=== PATIENT | male | born 1950 | race Caucasian/White ===

== ENCOUNTER 2024-06-21 04:27 | Inpatient (IN) | payer OTHER, MEDICAID, MEDICARE, SELFPAY ==
[2024-06-21] VITALS (25 sets, daily range): BP systolic 132–243; BP diastolic 59–109; PULSE 68–107; RESP 10–35; TEMP 36.1–37.6; O2SAT 93–100; BMI 38.7
--- NOTE | 2024-06-21 04:36 | EKG_ITS ---
[facility] Test Date: 2024-06-21 Pat Name: NAYLA ZAPATA Department: Room: - Gender: Male Requirements Analyst: : 1950 Requested By: Amalia Merino Order Number: [id number] Reading MD: Amalia Merino Measurements Intervals [place] Rate: 77 P: 16 OK: 147 QRS: 0 QRSD: 100 T: 7 QT: 407 QTc: 462 Interpretive Statements SINUS RHYTHM NONSPECIFIC ST & T-WAVE ABNORMALITY No previous ECG available for comparison /store/S0/[id number]
--- NOTE | 2024-06-21 04:44 | XR_ITS ---
Examination: AP chest single view Technique one AP portable upright chest single view Exam date and time: June 21, 2024 0548 hrs. Indications: Sepsis protocol Findings: Prominent CHF Mild enlargement cardiac contour Prominent vascular congestion including central vascular engorgement and perihilar edema Additional opacity at the right lung base consistent with pneumonia Prominent osteopenia Impression: Prominent CHF Right base pneumonia
[2024-06-21 04:56] LABS: Lactate (Lactic Acid) 1.8 mMol/L (0.4-2.0)
--- NOTE | 2024-06-21 04:56 | PD.EDRME ---
Rapid Medical Screening Exam RME Arrival date/time: 06/21/24 04:27 Chief Complaint: Shortness of Breath/Dyspnea Time Seen by Provider: 06/21/24 04:43 Vital signs: Vital Signs Temperature 97.0 F 06/21/24 04:34 Pulse Rate 103 H 06/21/24 04:34 Respiratory Rate 32 H 06/21/24 04:34 Blood Pressure 243/109 H 06/21/24 04:34 Pulse Oximetry (%) 94 L 06/21/24 04:34 Oxygen Delivery Method BiPAP 06/21/24 04:34 RME Narrative: 74-year-old male with a history of hypertension, diabetes, diabetic foot ulcer status post first toe amputation, varicose veins bilaterally,osteomyelitis right foot, CHF, possible urinary retention in the past, presenting to the emergency department by ambulance with shortness of breath that started this afternoon. Patient states that the shortness of breath increasingly got worse slowly over the last 5 to 6 hours. He called EMS because he was having more shortness of breath with associated chest pain bilateral chest. No radiation. Patient also having bilateral lower extremity leg swelling that increased over the last 1 week. Patient states that he has been having generally leg weakness with bilateral leg swelling left greater than right. Mechanical fall approxi-1 week ago and complaining of some bruising on the left lower extremity. ROS SOB No cough LE swelling No CP prior to tonight. No fevers Nausea without vomiting Not sweating No headache Past medical history includes myasthenia gravis CHF Diabetes Foot ulcer Problems urinating Chronic left greater than right lower extremity swelling Past surgical history Right toe amputation
--- NOTE | 2024-06-21 04:57 | PD.EDSOB ---
ED SOB =RME/HPI General Chief Complaint: Shortness of Breath/Dyspnea Stated Complaint: SOB Time Seen by Provider: 06/21/24 04:43 Source: patient Arrival date/time: 06/21/24 04:27 Mode of arrival: ambulatory Limitations: no limitations RME / HPI RME / HPI Narrative: DR. CULVER MAIN ED EVALUATION: 74-year-old male with a history of hypertension, diabetes, diabetic foot ulcer status post first toe amputation, varicose veins bilaterally,osteomyelitis right foot, CHF, possible urinary retention in the past, presenting to the emergency department by ambulance with shortness of breath that started this afternoon. Patient states that the shortness of breath increasingly got worse slowly over the last 5 to 6 hours. He called EMS because he was having more shortness of breath with associated chest pain bilateral chest. No radiation. Patient also having bilateral lower extremity leg swelling that increased over the last 1 week. Patient states that he has been having generally leg weakness with bilateral leg swelling left greater than right. Mechanical fall approxi-1 week ago and complaining of some bruising on the left lower extremity. Patient denies any cough, LE swelling, fevers, nausea without vomiting, sweating or headache. She denies any chest pain prior to tonight. Past medical history includes myasthenia gravis, CHF, Diabetes, Foot ulcer, Problems urinating, Chronic left greater than right lower extremity swelling. Past surgical history Right toe amputation. Related Data Home Medications ?Medication ?Instructions ?Recorded ?Confirmed benazepril 20 mg tablet (Lotensin) 40 mg PO QDAY #0 tabs 06/21/14 insulin glargine 100 unit/mL 35 unit subcut HS #0 vials 06/21/14 subcutaneous solution (Lantus U-100 Insulin) Allergies Allergy/AdvReac Type Severity Reaction Status Date / Time ibuprofen Allergy Mild Verified 04/06/16 16:52 Penicillins Allergy Mild Verified 04/06/16 16:52 Review of Systems Review of Systems Systems Reviewed: All systems reviewed, normal except as documented Past Medical History Past Medical History CARDIAC: Positive Congestive Heart Failure RESPIRATORY: Negative Chronic Obstructive Pulmonary Disease (COPD) GENITOURINARY: Negative Renal Disease ENDOCRINE: Positive Diabetes Mellitus Type 2; Negative Diabetes Mellitus Type 1 Social History SMOKING STATUS: Never smoker ED Exam General Limitations: Present no limitations General appearance: Present alert and in no apparent distress Head Head exam: Present atraumatic, normocephalic and normal inspection Eye Eye exam: Present normal appearance, PERRL and EOMI ENT ENT exam: Present normal exam, normal oropharynx, TM's normal bilaterally and normal external ear exam Neck Neck exam: Present normal inspection and full ROM Chest Chest inspection: Present normal inspection and symmetric chest wall rise Respiratory Respiratory exam: Present normal lung sounds bilaterally Cardiovascular Cardiovascular exam: Present regular rate, normal rhythm and normal heart sounds Abdominal Exam Abdominal exam: Present normal bowel sounds Extremities Exam Extremities exam: Present normal inspection and full ROM Back Exam Back exam: Present normal inspection and full ROM Neurological Exam Neurological exam: Present alert, oriented X3 and CN II-XII intact Psychiatric Psychiatric exam: Present normal affect and normal mood; Absent depressed Skin Skin exam: Present warm, dry, intact and normal color Course Course Course Narrative: CXR is ordered for determining etiology of shortness of breath. 0438 Sepsis alert initiated. Orders made at this time are congruent with ED Adult Sepsis Order List. Re-evaluation is to be completed. 0512 Sepsis reassessment performed consisting of lab review, vitals, physical exam including auscultation of heart, lungs, and visual evaluation of capillary refills, mucosal membranes and extremities. Quality Measures Current suspected stage: sepsis Possible source: unknown Blood cultures ordered: yes Antibiotic ordered: No Pertinent labs: 06/21/24 04:43 Lactic Acid 1.8 mMol/L (0.4-2.0) Procalcitonin 0.09 ng/ml (0.0-0.49) sepsis Orders Category Date Time Status BiPAP / CPAP NOW Care 06/21/24 04:[address] Screening NOW Care 06/21/24 06:03 Active Fireworks Display Specialist STAT Care 06/21/24 04:43 Active Continuous Pulse Oximetry STAT Care 06/21/24 04:43 Completed EKG (ED ONLY) *Do not use* NOW Care 06/21/24 04:36 Completed EKG (ED ONLY) *Do not use* NOW Care 06/21/24 04:38 Completed In and Out Catheter X1PRN Care 06/21/24 04:43 Completed Insert IV NOW Care 06/21/24 04:43 Completed Intake and Output Routine Care 06/21/24 04:50 Ordered NPO STAT Care 06/21/24 04:43 Active Strict Intake and Output Routine Care 06/21/24 04:[address] angio chest Stat Exams 06/21/24 06:03 Ordered EKG (ED Only) Stat Exams 06/21/24 04:36 Ordered EKG (ED Only) Stat Exams 06/21/24 04:37 Ordered US venous doppler LE BI Stat Exams 06/21/24 05:29 Ordered XR chest 1V SEPSIS PROTOCOL Stat Exams 06/21/24 04:44 Taken B-Type Natriuretic Peptide Stat Lab 06/21/24 04:43 Completed Blood Culture (Lab) Stat Lab 06/21/24 04:49 Received CBC Stat Lab 06/21/24 04:43 Completed Comprehensive Metabolic Panel Stat Lab 06/21/24 04:43 Completed LDH (Lactate Dehydrogenase) Stat Lab 06/21/24 04:43 Completed Lactate (Lactic Acid) Stat Lab 06/21/24 04:43 Completed Lipase Stat Lab 06/21/24 04:43 Completed Magnesium Stat Lab 06/21/24 04:43 Completed Partial Thromboplastin Time Stat Lab 06/21/24 04:43 Completed Phosphorous Stat Lab 06/21/24 04:43 Completed Procalcitonin Stat Lab 06/21/24 04:43 Completed Prothrombin Time with INR Stat Lab 06/21/24 04:43 Completed Troponin I Stat Lab 06/21/24 04:43 Completed Urinalysis Stat Lab 06/21/24 04:59 Completed Urine Culture Stat Lab 06/21/24 04:43 Received Vital Signs Vital signs: Vital Signs Temperature 97.0 F 06/21/24 04:34 Pulse Rate 103 H 06/21/24 04:34 Respiratory Rate 32 H 06/21/24 04:34 Blood Pressure 243/109 H 06/21/24 04:34 Pulse Oximetry (%) 94 L 06/21/24 04:34 Oxygen Delivery Method BiPAP 06/21/24 04:34 Procedures -ED EKG Interpretation #1: Date of EK06/21/24 Time of EK:39 Rate: 104 Interpretation: Interpreted by me EKG Impression: Sinus tachycardia Additional EKG comment: T wave changes. Poor baseline in V6. QTc 342. No ST elevation ME Shortness of Breath / Dyspnea MDM Narrative MDM Narrative:: Differential diagnoses include CHF exacerbation, ME, non-STEMI, pneumonia, sepsis, myasthenia gravis exacerbation, influenza, viral syndrome, dehydration, electro abnormality 0600 Care signed out to Dr. Willams, oncoming dayshift provider. Past medical, surgical, social and family history reviewed. Vitals and home medications reviewed. Results and treatment plan discussed. They will assume the care of the patient at this time and will follow the patient, pending US venous doppler LE BI, CT angio, reevaluation and final disposition. ? Scribe Attestation: I, Bunny Givens, am scribing for and in the presence of Dr. Julio. Provider Notation: Although this document has been carefully reviewed, there may still be some phonetic and other typographical errors. These errors are purely grammatical due to imperfections in the software program and should not be construed in any way to compromise the substance of the patient's medical care during this visit. Patient data External records reviewed:: EMS form Clinical information provided by:: patient and EMS Social determinants that could affect healthcare access:: none Patient has the following chronic illnesses:: CHF, DM2 How is presenting disease/condition affected by chronic disease/condition?: uneffected by Evaluation data The following diagnostics were reviewed and interpreted by me:: lab results, radiology exam(s) and EKG tracing(s) Lab and/or radiology exams considered but not ordered:: None Interpretation Summary: Elevated WBC at 18.0, Lactic Acid 1.8 Medications / Prescriptions Medications or Prescriptions considered but not ordered:: None Medication administrations:: As above, if any Consultations Consultation(s) initiated? (list below): No Diagnosis Shortness of Breath Differential Diagnosis: other (CHF exacerbation, ME, non-STEMI, pneumonia, sepsis, myasthenia gravis exacerbation, influenza, viral syndrome, dehydration, electro abnormality) Most likely diagnosis given after review of the tests above:: As below Admission Indicated Admission indicated?: not indicated Admission Request Was there a request for admission?: No Disposition Plan Disposition Plan: other (specify) (Signout) Critical Care Time Critical Care Time Critical Care Time: Yes Total Critical Care Time (min.): 35 Attestation: The high probability of sudden, clinically significant deterioration in the patient?s condition required the highest level of my preparedness to intervene urgently. The services I provided to this patient were to treat and/or prevent clinically significant deterioration. Services included the following: chart data review, reviewing nursing notes and/or old charts, documentation time, framing consultant collaboration regarding findings and treatment options, medication orders and management, direct patient care, vital sign assessments and ordering, interpreting and reviewing diagnostic studies and lab tests. Aggregate critical care time includes only time during which I was engaged in work directly related to the patient?s care, as described above, whether at bedside or elsewhere in the Emergency Department. It did not include time spent performing other reported procedures or the services of residents, students, nurses or physician assistants. Discharge Plan Plan Disposition Comment: Stable at transfer Prescriptions/Referrals Prescriptions/Med Rec: No Action insulin glargine [Lantus U-100 Insulin] 100 U/ML solution 35 unit Sub-Q HS Qty: 0 benazepril [Lotensin] 20 MG tablet 40 mg PO QDAY Qty: 0 Referrals: No Primary/Family,Physician [Primary Care Provider] - In 1 week Problem List Clinical Impression: Acute exacerbation of CHF (congestive heart failure), Acute dyspnea, Localized swelling of right lower extremity, Sepsis Patient/Caregiver Discharge Instructions Print Language: Citizen Of [place]
[2024-06-21 05:00] LABS: Basophils # (Auto) 0.1 Thou/mm3 (0.0-0.2); Basophils % (Auto) 0 % (0-2.5); Eosinophils % (Auto) 0 % (0-10); Hematocrit 29.5 % (41.0-53.0); Hemoglobin 9.9 g/dL (13.5-16.0); Immature Granulocytes % (Auto) 0 % (0-0); Immature Granulocytes Auto 0.07 Thou/mm3 (0.00-0.00); Lymphocytes # (Auto) 1.2 Thou/mm3 (1.0-4.8); Lymphocytes % (Auto) 7 % (10-50); Mean Corpuscular HGB Conc 33.6 g/dl (31.0-37.0); Mean Corpuscular Volume 89 fL (80-100); Monocytes # (Auto) 1.7 Thou/mm3 (0.0-0.8); Monocytes % (Auto) 10 % (0-12); Neutrophils # (Auto) 14.9 Thou/mm3 (1.8-7.7); Neutrophils % (Auto) 83 % (37-80); Nucleated Red Blood Cell % 0 /100 WBC (0); Platelet Count 483 Thou/mm3 (140-440); RDW Standard Deviation 48.3 fL (35.1-43.9)
[2024-06-21 05:01] LABS: Collection Type, Urine Clean Catch; Squamous Epithelial Cell,Urine 0 /hpf (0-5)
[2024-06-21 05:04] LABS: Bilirubin,Urine Negative (Negative); Blood,Urine Negative (Negative); Clarity,Urine Clear (Clear/Hazy); Color,Urine Lt-Yellow (Lt Yel-Yel); Glucose, Urine 2+ (Negative); Ketones,Urine Trace (Negative); Leukocyte Esterase,Urine Negative (Negative); Nitrite,Urine Negative (Negative); PH,Urine 6.5 (5.0-7.0); Protein,Urine 1+ (Neg - Trace); RBC,Urine 2 /hpf (0-3); Specific Gravity,Urine 1.009 (1.001-1.035); Urobilinogen,Urine Negative mg/dL (0.0-1.0); WBC,Urine < 1 /hpf (0-5)
[2024-06-21 05:20] LABS: INR 1.1 (0.9-1.3); Partial Thromboplastin Time 27.9 Seconds (22.0-36.0); Prothrombin Time 12.3 Seconds (9.0-12.2)
--- NOTE | 2024-06-21 05:29 | XR_ITS ---
Examination: Venous duplex lower extremity sonogram, bilateral. Date and time of exam: June 21, 2024 at 0616 hrs. Indications: Lower extremity swelling and pain beginning 2 weeks ago after falling Technique: Multiple sonographic images of the deep venous system have been obtained. B-mode/2-D grayscale imaging of vascular structures and Doppler spectral analysis (waveforms) and color performed Both legs are examined. Findings: Deep venous systems do not demonstrate abnormal echogenicity. All visualized deep veins exhibit compressibility. All visualized deep veins exhibit augmentation. Impression: Negative for deep vein thrombosis
[2024-06-21 05:32] LABS: LDH (Lactate Dehydrogenase) 374 U/L (120-246); Magnesium 1.8 mg/dL (1.6-2.6); Phosphorous 4.1 mg/dL (2.4-5.1); Procalcitonin 0.09 ng/ml (0.0-0.49)
--- NOTE | 2024-06-21 06:03 | XR_ITS ---
Examination: CTA chest with intravenous contrast 2-D reconstructions 3-D reconstructions, vascular Date and time of exam: June 21, 2024 0830 hours INDICATIONS: Chest pain shortness of breath beginning today CTDI: vol (mGy) 21.7 DLP: (mGycm) 437 Technique: Multiple axial sections of the thorax have been obtained. 3 mm slice thickness, from below the hemidiaphragms to above the apices of the lungs. Mediastinal and lung density settings have been obtained. 2-D sagittal and coronal reconstructions. 3-D angiographic renderings, 3-D volume renderings, 3D post processing, vascular maximum intensity projections obtained. Contrast administered is 100 cc Isovue-370. Low dose protocols were performed. One or more of the following dose reduction techniques were used; automated exposure control, adjustment of the mA and/or KV according to patient size, use of iterative reconstruction technique. Findings: No thoracic aortic aneurysmal dilatation Pulmonary artery opacification is not optimum in the peripheral branches, no gross pulmonary artery emboli Mild to moderate enlargement cardiac contour with prominent vascular congestion and septal edema Small bilateral pleural effusions Liver is mildly irregular in contour Contracted gallbladder Spleen is not enlarged No pancreatic or adrenal mass IMPRESSION: Pulmonary artery opacification is not optimal in the peripheral branches, no gross pulmonary artery emboli Significant heart failure Primary hepatocellular disease
[2024-06-21 06:10] LABS: B-Type Natriuretic Peptide 556 pg/mL (0-100)
[2024-06-21 06:11] LABS: Alanine Aminotransferase 11 U/L (10-49); Albumin, Serum 4.4 gm/dL (3.4-4.8); Albumin/Globulin Ratio 1.8 (1.2-2.2); Alkaline Phosphatase 97 U/L (46-116); Anion Gap 10 (7-16); Aspartate Amino Transferase 19 U/L (0-34); BUN/Creatinine Ratio 16 Ratio (12-20); Bilirubin,Total 1.6 mg/dL (0.3-1.2); Blood Urea Nitrogen 13 mg/dL (9-23); Calcium 9.6 mg/dL (8.3-10.6); Calcium (Corrected) 9.6 mg/dL (8.5-10.1); Carbon Dioxide 26.2 mMol/L (20.0-31.0); Chloride 101 mMol/L (98-107); Creatinine (Component) 0.8 mg/dL (0.6-1.3); Estimated Creatinine Clearance 103.1 mL/min (>60); Globulin 2.4 gm/dL (2.3-3.5); Glucose 231 mg/dL (74-106); Lipase 22 U/L (12-53); Osmolality,Calculated 280 (275-295); Sodium 137 mMol/L (136-145); Total Protein 6.8 gm/dL (5.7-8.2); eGFR > 60 See Note
[2024-06-21 06:14] LABS: Troponin I 1.203 ng/mL (0.0-0.045)
--- NOTE | 2024-06-21 07:02 | PD.EDADDENDU ---
Emergency Room Addendum Addendum Narrative: 0600: Care assumed from Dr. Santos, the previous shift emergency physician. Past medical, surgical, social and family history reviewed. Vitals and home medications reviewed. I will assume the care of the patient at this time, pending CTA chest and final disposition. Please refer to the emergency department record for history and examination from initial visit.? EMS notes reviewed by me. Nursing notes reviewed by me. Vital signs reviewed by me. [place] medical records reviewed by me. 09: I spoke with resident Dr. Mo working with Dr. Hawkins. Discussed patients PMHx, HPI, ED course, exam findings, labs, and radiology results. The hospitalist agree to accept the patient for admission. DIAGNOSIS: CHF, acute respiratory failure, hypokalemia DISPOSITION: Admit RADIOLOGY Ordering Physician: Amalia Santos MD Date of Service: 06/21/24 Procedure(s): CT angio chest Accession Number(s): [id number] cc: Casper Bradley MD; NO PRIMARY/FAMILY,PHYSICIAN; Amalia Santos MD~ Examination: CTA chest with intravenous contrast 2-D reconstructions 3-D reconstructions, vascular Date and time of exam: June 21, 2024 0830 hours INDICATIONS: Chest pain shortness of breath beginning today CTDI: vol (mGy) 21.7 DLP: (mGycm) 437 Technique: Multiple axial sections of the thorax have been obtained. 3 mm slice thickness, from below the hemidiaphragms to above the apices of the lungs. Mediastinal and lung density settings have been obtained. 2-D sagittal and coronal reconstructions. 3-D angiographic renderings, 3-D volume renderings, 3D post processing, vascular maximum intensity projections obtained. Contrast administered is 100 cc Isovue-370. Low dose protocols were performed. One or more of the following dose reduction techniques were used; automated exposure control, adjustment of the mA and/or KV according to patient size, use of iterative reconstruction technique. Findings: No thoracic aortic aneurysmal dilatation Pulmonary artery opacification is not optimum in the peripheral branches, no gross pulmonary artery emboli Mild to moderate enlargement cardiac contour with prominent vascular congestion and septal edema Small bilateral pleural effusions Liver is mildly irregular in contour Contracted gallbladder Spleen is not enlarged No pancreatic or adrenal mass IMPRESSION: Pulmonary artery opacification is not optimal in the peripheral branches, no gross pulmonary artery emboli Significant heart failure Primary hepatocellular disease Dictated By: Casper Bradley MD Signed By: <Electronically signed by Casper Bradley MD in OV> 06/21/24 0914 Critical Care Time Critical Care Time Critical Care Time: Yes Total Critical Care Time (min.): 40 Attestation: The high probability of sudden, clinically significant deterioration in the patient's condition required the highest level of my preparedness to intervene urgently. The services I provided to this patient were to treat and/or prevent clinically significant deterioration. Services included the following: chart data review, reviewing nursing notes and/or old charts, documentation time, it architecture consultant collaboration regarding findings and treatment options, medication orders and management, direct patient care, vital sign assessments and ordering, interpreting and reviewing diagnostic studies and lab tests. Aggregate critical care time includes only time during which I was engaged in work directly related to the patient's care, as described above, whether at bedside or elsewhere in the Emergency Department. It did not include time spent performing other reported procedures or the services of residents, students, nurses or physician assistants.
[2024-06-21] MEDS: hydrALAZINE INJ 20 MG/ML VIAL 10 MG IV (07:45)
--- NOTE | 2024-06-21 07:45 | PC.NURSE ---
PT SITTING UP IN BED IN NO APPARENT DISTRESS AT THIS TIME. PT DENIES CHEST PAIN OR SOB. PT NORMAL SINUS RHYTHM ON FIRST COOK. SISTER AT BEDSIDE.
[2024-06-21] MEDS: Aspirin 325 MG TABLET PO (07:48)
[2024-06-21] MEDS: cefTRIAXone/D5w 1gm IV premix 50 ML IV (08:47)
[2024-06-21] MEDS: POTASSIUM CHL 10 mEq IVPB 10 MEQ/100 ML BAG 100 MEQ IV ×4 (08:51→14:50)
[2024-06-21 10:09] LABS: Base Excess 4 (-3-3); HCO3 28 mEq/L (20-26); Inspired O2, VO2 Liters 2 L/min; O2 Saturation 75 % (91-98); PCO2 40 mmHg (32.0-48.0); pH, Arterial 7.46 (7.35-7.45)
[2024-06-21 10:12] LABS: Allen Test Performed/OK; PO2 34 mmHg (83-108); Puncture Site Right Radial
--- NOTE | 2024-06-21 10:26 | ECHO_ITS ---
Transthoracic Echo Report Ht (in): 68 Wt (lb): 255 Exam Location: ER Status: Emergency Artificial Breeding Technician: Tricia Wasserman Indications: Procedure Performed: BP: 167 / 80 HR: 82 Rhythm: Sinus Technical Quality: Technically difficult study MEASUREMENTS (Male / Female) Normal Values 2D ECHO LV Diastolic Diameter PLAX 5.0 cm 4.2 - 5.9 / 3.9 - 5.3 cm LV Systolic Diameter PLAX 3.6 cm IVS Diastolic Thickness 1.3 cm 0.6 - 1.0 / 0.6 - 0.9 cm LVPW Diastolic Thickness 1.2 cm 0.6 - 1.0 / 0.6 - 0.9 cm LV Relative Wall Thickness 0.5 LVOT Diameter 1.9 cm LA Volume Index 28.0 cm?/m? 16 - 28 cm?/m? Ascending Aorta Diameter 3.2 cm M-MODE Aortic Root Diameter MM 2.6 cm LA Systolic Diameter MM 4.6 cm LA Ao Ratio MM 1.8 AV Cusp Separation MM 2.0 cm DOPPLER AV Peak Velocity 224.5 cm/s AV Peak Gradient 20.2 mmHg AV Mean Gradient 11.0 mmHg AV Velocity Time Integral 46.4 cm AI Peak Velocity 255.0 cm/s AI Peak Gradient 26.0 mmHg LVOT Peak Velocity 154.0 cm/s LVOT Peak Gradient 9.5 mmHg LVOT Velocity Time Integral 31.1 cm LVOT Cardiac Index 3004.2 cm?/min?m? AV Area Cont Eq vti 1.9 cm? AV Area Cont Eq pk 1.9 cm? MV Peak Velocity 125.0 cm/s MV Peak Gradient 6.3 mmHg MV Mean Velocity 83.8 cm/s MV Mean Gradient 3.0 mmHg MV Area PHT 3.6 cm? MR Peak Velocity 438.0 cm/s MR Peak Gradient 76.7 mmHg Mitral E Point Velocity 106.0 cm/s Mitral A Point Velocity 116.0 cm/s Mitral E to A Ratio 0.9 LV E' Lateral Velocity 6.3 cm/s Mitral E to LV E' Lateral Ratio 16.8 LV E' Septal Velocity 6.9 cm/s Mitral E to LV E' Septal Ratio 15.5 TR Peak Velocity 272.5 cm/s TR Peak Gradient 29.7 mmHg FINDINGS Left Ventricle Normal left ventricular size, systolic function. Mild LVH. Hypokinesis mid anterior, apical septal, mid apical lateral and apex. The eection fraction is visually estimated at 50-55% Right Ventricle The right ventricle is normal in size and systolic function. The estimated right ventricular systoli c pressure, 52mmHg. RAP 15. Left Atrium The left atrium is normal by two-dimensional, color flow and Doppler imaging with no structural abnormalities, no thrombus formation present. Right Atrium The right atrium is normal by two-dimensional imaging, color flow and Doppler imaging with no struct ural abnormalities, no thrombus formation present. Atrial Septum The interatrial septum appears normal with no evidence of a shunt. Aorta The aorta is normal by two-dimensional, color flow and Doppler interrogation. Mitral Valve The mitral valve is normal by two-dimensional, color flow and Doppler interrogation. There is mild m itral valve regurgitation. Aortic Valve The aortic valve is trileaflet. Mild stenosis, mean gradient 13mmHg, vmax 2.5m/s. There is mild aort ic valve regurgitation. Tricuspid Valve The tricuspid valve is normal by two-dimensional, color flow and Doppler interrogation. There is mi ld tricuspid valve regurgitation. Pulmonic Valve There is trace pulmonic valve regurgitation. Vessels The pulmonary artery appears normal. The inferior vena cava pulmonary and hepatic veins appear mildl y dilated. Pericardium The pericardium is normal by two-dimensional imaging. There is no significant pericardial effusion. CONCLUSIONS Indication: NSTEMI, SOB and LE edema Normal LV size and low normal function. Estimated EF around 50%. Mild LVH. Mild hypokinesis mid anterior apical septal, mid apical lateral, and apex. Grade I diastolic dyfunction. Normal RV size and function. Estimated RVSP 52mmHg. Mild AV stenosis, mean gradient 13mmHg, vmax 2.6 m/s. Mild MR, AI, TR. Trace PI. IVC mildly dilated. Noel Amin (Electronically Signed) Final Date: 21 June 2024 18:02
[2024-06-21] MEDS: POTASSIUM CHLORIDE 20 mEq TABCR 40 MEQ PO (10:37)
[2024-06-21 11:21] LABS: Troponin I 3.219 ng/mL (0.0-0.045)
--- NOTE | 2024-06-21 11:24 | PC.NURSE ---
CALLED AND INFORMED DR COOMBS THAT PT'S TROPONIN INCREASED TO 3.219. NO NEW ORDERS RECEIVED AT THIS TIME
[2024-06-21] MEDS: CLOPIDOGREL BISULFATE 75 MG TABLET PO (12:48)
[2024-06-21] MEDS: ATORVASTATIN CALCIUM 20 MG TABLET 80 MG PO (12:49)
[2024-06-21] MEDS: FUROSEMIDE INJ 10 MG/ML VIAL 2 ML 40 MG IVP ×2 (12:50→20:15)
[2024-06-21] MEDS: HEPARIN SOD INJ 5000 UNIT/ML VIAL 4000 UNIT IV (12:51)
[2024-06-21] MEDS: Heparin/D5w 25K 250 ML Ivpb 25,000 UNIT/250 ML BAG 10 UNIT IV ×2 (12:56→21:25)
--- NOTE | 2024-06-21 13:06 | PC.CC ---
Pt Phong Castro is a 74 yr old male, admitted to hospitalist services for SOB, BL leg edema, new onset CHF. MANAGER [employer] CC met with pt at bedside to complete initial assessment. At time of encounter pt is noted to be alert and oriented to person, place and situation. Pt expressed understanding admission order. Pt able to confirm demographic information. Pt is from home [address] [place] [address], where he lives alone. Pt identifies his sisters Morena Roberts [phone] and Nakita White [phone] as surrogate DMs. At baseline pt reports using a can to support ambulation. Pt states that when he feels sick he uses a wheel chair. Per pt at baseline he is normally able to complete all his ADLs. Per pt his sisters come into his home 2 times per week to help him. Pt reports he insulin dependent diabetic. Pt is not on dialysis. At home pt does not require supplemental O2. In the ED pt is on 3L NC for SOB. Pt is followed by Dr. Darrius Oswald for primary care. Pt is followed by Dr. Andrew in [place] for neurology. Pt followed by Dr. Varghese for vascular. In the home pt reports feeling safe. Pt reports having access to food items and all working utilities. Pt has been updated that SNF placement may be a recommendation at time of D/c, or pt may be offered home health services. Pt states he is open to either option, but would prefer home health if needed/offered. Pt has no preference in skilled placement as he has never been placed. If pt returns home, he will likely need DME need eval. PT provided a copy of Advance Directive per his request.
[2024-06-21] MEDS: INSULIN LISPRO (AdmeLOG) 1 UNIT/0.01 ML UNIT SC ×2 (13:07→20:10)
[2024-06-21] MEDS: Magnesium Sulfate 4 GM Ivpb 4 GM/50 ML BAG IV (13:18)
--- NOTE | 2024-06-21 13:41 | PC.NURSE ---
PT TO BUSINESS ASST
--- NOTE | 2024-06-21 13:44 | ESHP_ITS ---
<Statement entered by Paulette Hawkins MD - 07/04/24 12:28> Attending attestation: I reviewed above note and agree with findings and plans. I have also personally examined the patient with medicine team and went over assessment and plan with medical team including sports broadcasting internship and resident physician. <Statement entered by Bradford Smith MD - 06/21/24 16:57> Senior Resident Attestation: I supervised/discussed management plan with sports broadcasting internship physician Dr. Lee, and was involved in the care of this patient. I personally saw and examined the patient and discussed the assessment and plan with the entire medicine team, including my attending. I agree with the assessment and plan as documented. Patient is a 74 years old male with past medical history of hyperlipidemia, hypertension, DM2, myasthenia gravis presented to the ED complaining of shortness of breath. Patient also reported worsening lower extremity swelling over the last several weeks. On admission she has blood pressure 243/109, pulse 103. Due to severe shortness of breath she was placed on BiPAP FiO2 40% and was administered hydralazine 10 mg for hypertensive emergency. His condition significantly improved and BiPAP was discontinued. His troponin was slightly elevated on admission but went up to 3.2 and cardiology was consulted, patient was started on aspirin, Plavix, heparin drip, Lipitor. He is planned for [employer] today. EKG showed ST depression in lead II. CTA showed no PE but was suspicious for possible pneumonia and therefore he was started on ceftriaxone and azithromycin. Will trend troponin continue current management. Patient's care was discussed with attending physician, Dr. Hawkins. Bradford Smith MD PGY-2. Documentation for date of: 06/21/24 HPI History of Present Illness Chief complaint: SOB and LE swelling History of present illness: 74-year-old male with past medical history of hypertension, DM2, myasthenia gravis, and osteomyelitis of right foot was brought into the ER due to shortness of breath which started last night as well as lower extremity swelling. Patient states that he has been mainly in bed for the past 2 weeks since he fell 2 weeks ago and was bedbound for around 4 days, since then he has been able to move around in his wheelchair and commode around his home in the wheelchair. He states that he does not have any history of heart failure or heart issues. Per patient he sleeps with multiple pillows below his head and has been short of breath even at rest. He also mentioned that his lower extremity swelling has gotten worse in these past few weeks as well, but denied any chest pain, abdominal pain, nausea, vomiting, blood in the stools, or burning sensation during urination. Patient mentioned that he did not take his blood pressure medication today, but that he has been compliant with his medications daily. ED course: Initially came in hypertensive, tachycardic, tachypneic, and hypoxic. Vital signs were BP 243/109, pulse 103, resp 32, O2 sats 94% on BiPAP at FiO2 40% and 4 L O2. Initial labs were relevant for leukocytosis, normocytic normochromic anemia, thrombocytosis, hypoxia on ABG, hypokalemic, bilirubinemia, troponinemia (with uptrending troponins from 1.203 to 3.219), elevated lactic dehydrogenase, elevated BNP 556, and negative UA. Imaging included chest x-ray which showed prominent CHF, and pneumonia of right base, venous Doppler which was negative for DVT, chest CTA which showed significant heart failure, primary hepatocellular disease, and bilateral pleural effusions, negative for PE. EKG showed some ST depressions on lead II. Given patient's uptrending troponins cardiology was consulted and asked patient to be n.p.o. for possible procedure. PMH: As above Social Hx: Denies any alcohol, smoking, or drugs Surgical Hx: Right toe amputation and knee surgery. Allergies: Penicillin, sulfa drugs, ibuprofen Medication: Benazepril 20 mg daily, pyridoxine 60 mg 3 times daily, mycophenolate 500 mg twice daily, NovoLog 3 times daily, Toujeo max 30 units twice daily. Review of Systems Review of Systems Narrative Review of Systems: Constitutional: Denies sweats, Denies weight loss/gain, Denies fever, Admits chills. HEENT: Denies hearing loss, Denies ear pain, Denies postnasal drip, Denies double vision, Denies blurry vision. Respiratory: Admits shortness of breath, Denies cough, Denies wheezing. Cardiovascular: Denies chest pain, Denies palpitations, Denies sudden loss of consciousness. GI: Denies blood in stool, Admits constipation, Denies abdominal pain, Denies difficulty swallowing, Denies nausea or vomit. : Denies urinary incontinence, Denies pain while urinating, Denies increased urinary frequency. MSK: Denies joint pain, Denies joint swelling, Denies numbness. Skin: Denies rash, Admits/Denies itching, Denies easy bruising. Neuro: Denies headaches, Denies dizziness, Denies seizures. Past Medical History Past Medical History Comments PMH COMMENT: PMH: hypertension, DM2, myasthenia gravis, and osteomyelitis of right foot Social Hx: Denies any alcohol, smoking, or drugs Surgical Hx: Right toe amputation and knee surgery. Allergies: Penicillin, sulfa drugs, ibuprofen Medication: Benazepril 20 mg daily, pyridoxine 60 mg 3 times daily, mycophenolate 500 mg twice daily, NovoLog 3 times daily, Toujeo max 30 units twice daily. Exam Vital Signs Temp Pulse Resp BP Pulse Ox O2 Del Method O2 Flow Rate 99.6 F 81 18 167/75 H 98 Nasal Cannula 4 06/21/24 13:21 06/21/24 13:21 06/21/24 13:21 06/21/24 13:21 06/21/24 13:21 06/21/24 13:21 06/21/24 13: FiO2 40 06/21/24 04:37 Narrative Exam General: A/O x3, no acute distress, obese Eyes: PERRL, EOMI. Anicteric, vision grossly intact. Ears: No ear pain, no ear discharge, Hearing grossly intact. Nose: No nasal discharge. Mouth/Throat: Dry mucous membranes, no redness, no lesions. Neck: short neck, non-tender, no cervical lymphadenopathy. Lungs: Decreased breath sounds, No accessory muscle use. Cardio: Normal S1/S2, regular rhythm, no murmurs, no JV Abdomen: Soft, non-tender, no palpable masses, peristalsis present, no guarding or rebound. Extremities: Symmetrical, no significant deformities, 2+ edema from KAYLEEN LE to lower abdomen , non-tender, peripheral pulses presents, R big toe amputation Skin: No rashes, no lesions, warm to touch, multiple abrasion in various stages of healing in KAYLEEN LE and L UE, bruise in L knee Neuro: No focal neurological deficits, motor and sensory intact Psych: Cooperative, appropriate mood and effect. Results: Labs 06/21/24 04:43 06/21/24 04:43 Labs: Short CBC 06/21/24 Range/Units 04:43 WBC 18.0 H (3.8-10.6) Thou/mm3 Hgb 9.9 L (13.5-16.0) g/dL Hct 29.5 L (41.0-53.0) % Plt Count 483 H (140-440) Thou/mm3 BMP 06/21/24 04:43 Sodium 137 Potassium 3.0 L Chloride 101 Carbon Dioxide 26.2 BUN 13 Creatinine 0.8 Glucose 231 H Calcium 9.6 Cardiac Enzymes 06/21/24 06/21/24 Range/Units 04:43 10:21 Troponin I 1.203 H* 3.219 H* D (0.0-0.045) ng/mL Liver Function 06/21/24 Range/Units 04:43 Total Bilirubin 1.6 H (0.3-1.2) mg/dL AST 19 (0-34) U/L ALT 11 (10-49) U/L Alkaline Phosphatase 97 (46-116) U/L Albumin 4.4 (3.4-4.8) gm/dL Urine 06/21/24 Range/Units 04:59 Urine Color Lt-Yellow (Lt Yel-Yel) Urine Clarity Clear (Clear/Hazy) Urine pH 6.5 (5.0-7.0) Ur Specific [place] 1.009 (1.001-1.035) Urine Protein 1+ A (Neg - Trace) Urine Glucose (UA) 2+ A (Negative) ABG Interpretation ABG results: 06/21/24 09:39 ABG pH 7.46 H ABG pCO2 40 ABG pO2 34 L* ABG HCO3 28 H ABG O2 Saturation 75 L ABG Base Excess 4 H Quality Measures Quality Measures sepsis Current suspected stage: sepsis Possible source: unknown Blood cultures ordered: yes Antibiotic ordered: Yes Advance care planning discussed with:: patient and spouse Medications Home Medications and Allergies Home Medications ?Medication ?Instructions ?Recorded ?Confirmed ?Type benazepril 20 mg tablet (Lotensin) 40 mg PO QDAY #0 tabs 06/21/14 06/21/24 History insulin aspart U-100 100 unit/mL 20 unit subcut TID 06/21/24 06/21/24 History (3 mL) subcutaneous pen (Novolog FlexPen U-100 Insulin aspart) insulin glargine U-300 conc 300 30 unit subcut BID 06/21/24 06/21/24 History unit/mL (3 mL) subcutaneous pen (Toujeo Max U-300 SoloStar) mycophenolate mofetil 250 mg 250 mg PO BID 06/21/24 06/21/24 History capsule mycophenolate mofetil 500 mg tablet 500 mg PO Q12H 06/21/24 06/21/24 History pyridostigmine bromide 60 mg tablet 60 mg PO TID 06/21/24 06/21/24 History Allergies Allergy/AdvReac Type Severity Reaction Status Date / Time ibuprofen Allergy Mild Verified 04/06/16 16:52 Penicillins Allergy Mild Verified 04/06/16 16:52 Visit Medications Acetaminophen (Acetaminophen 325 Mg Tablet) 650 mg PO Q6H PRN PRN Reason: pain and Fever >100.4 Stop: 07/21/24 10:21 Hydrocodone Bitart/Acetaminophen (Hydrocodone/Apap 5/325 Tablet) 1 tab PO Q4HR PRN PRN Reason: PAIN SCALE 4-10(Mod-Sev Stop: 06/26/24 10:21 Dextrose (Dextrose 50%-Water Inj 50 Ml Syringe) 25 ml IV Q15MIN PRN PRN Reason: BG 50-70 responsive npo pt Stop: 07/21/24 10:26 Dextrose (Dextrose 50%-Water Inj 50 Ml Syringe) 50 ml IV Q15MIN PRN PRN Reason: BG <50 OR BG <70 & pt unresponsive Stop: 07/21/24 10:26 Furosemide (Furosemide Inj 10 Mg/Ml Vial 2 Ml) 40 mg IVP BIDD HARJEET Stop: 07/21/24 11:59 Last Admin: 06/21/24 12:50 Dose: 40 mg Glucagon (Glucagon Inj 1 Mg Vial) 1 mg IM Q15MIN PRN PRN Reason: BG <70, and no IV access Ceftriaxone Sodium/Dextrose (Rocephin/D5w 1gm Iv Premix) 50 mls @ 100 mls/hr IV QDAY HARJEET Stop: 06/28/24 07:59 Last Infusion: 06/21/24 09:25 Dose: Infused Magnesium Sulfate (Magnesium Sulfate Ivpb) 4 gm in 50 mls @ 12.5 mls/hr IV X1 ONE Stop: 06/21/24 16:00 Last Admin: 06/21/24 13:18 Dose: 12.5 mls/hr Heparin Sodium/Dextrose (Heparin In D5w Ivpb) 25,000 unit in 250 mls @ 10 mls/hr IV .Q24H [facility]; Protocol Stop: 07/05/24 12:44 Last Admin: 06/21/24 12:56 Dose: 8.646 units/kg/hr, 10 mls/hr Insulin Human Lispro (Insulin Lispro (Admelog) 1 Unit/0.01 Ml Unit) 0 unit SC ACHS [facility]; Protocol Stop: 07/21/24 11:29 Last Admin: 06/21/24 13:07 Dose: 2 unit Discontinued Medications Aspirin (Aspirin 325 Mg Tablet) 325 mg PO X1 ONE Stop: 06/21/24 07:34 Last Admin: 06/21/24 07:48 Dose: 325 mg Atorvastatin Calcium (Atorvastatin Calcium 10 Mg Tablet) 80 mg PO X1 ONE Stop: 06/21/24 11:58 Last Admin: 06/21/24 13:02 Dose: Not Given Atorvastatin Calcium (Atorvastatin Calcium 20 Mg Tablet) 80 mg PO X1 ONE Stop: 06/21/24 12:46 Last Admin: 06/21/24 12:49 Dose: 80 mg Clopidogrel Bisulfate (Clopidogrel Bisulfate 75 Mg Tablet) 75 mg PO X1 ONE Stop: 06/21/24 12:01 Last Admin: 06/21/24 12:48 Dose: 75 mg Heparin Sodium (Porcine) (Heparin Sod Inj 5000 Unit/Ml Vial) 5,000 unit SC Q8HR [facility] Stop: 07/05/24 13:59 Heparin Sodium (Porcine) (Heparin Sod Inj 5000 Unit/Ml Vial) 6,950 unit 60 unit/kg (6950 unit) IV X1 ONE; Protocol Stop: 06/21/24 11:56 Last Admin: 06/21/24 12:33 Dose: Not Given Heparin Sodium (Porcine) (Heparin Sod Inj 5000 Unit/Ml Vial) 4,000 unit 60 unit/kg (6950 unit) IV X1 ONE; Protocol Stop: 06/21/24 12:31 Last Admin: 06/21/24 12:51 Dose: 4,000 unit Hydralazine HCl (Hydralazine Inj 20 Mg/Ml Vial) 10 mg IV X1 ONE Stop: 06/21/24 07:34 Last Admin: 06/21/24 07:45 Dose: 10 mg Potassium Chloride (Kcl Ivpb) 10 meq in 100 mls @ 100 mls/hr IV Q1H [facility] Stop: 06/21/24 11:44 Last Admin: 06/21/24 12:13 Dose: 100 mls/hr Potassium Chloride (Kcl Ivpb) 10 meq in 100 mls @ 100 mls/hr IV Q1H [facility] Stop: 06/21/24 15:58 Last Admin: 06/21/24 12:41 Dose: Not Given Heparin Sodium/Dextrose (Heparin In D5w Ivpb) 25,000 unit in 250 mls @ 10.41 mls/hr IV .Q24H [facility]; Protocol Stop: 07/05/24 12:44 Potassium Chloride (Potassium Chloride 20 Meq Tabcr) 40 meq PO X1 ONE Stop: 06/21/24 09:24 Last Admin: 06/21/24 10:37 Dose: 40 meq Potassium Chloride (Potassium Chloride 20 Meq Tabcr) 40 meq PO X1 ONE Stop: 06/21/24 12:00 Last Admin: 06/21/24 12:41 Dose: Not Given Assessment & Plan Plan 74-year-old male with past medical history of hypertension, DM2, myasthenia gravis, and osteomyelitis of right foot was admitted to the hospital on 06/21/2024 for acute decompensated heart failure, troponinemia type I versus 2, and sepsis likely secondary to community-acquired pneumonia. #Acute decompensated heart failure, new onset #Shortness of breath #Anasarca #Hypokalemia ?Patient has been having shortness of breath accompanied by lower extremity swelling up to lower abdomen and orthopnea. ?There is no recent echo on file nor patient is aware of any history of heart failure. -Patient has 2+ swelling from LE to lower abdomen ?BNP 556 ?Potassium 3 on admission ?Chest x-ray showed prominent congestive heart failure ?Chest CTA showed significant heart failure Plan: ?Lasix 40 twice daily ?80 mEq of potassium given ?Echo ordered ?Daily weights ?Strict KAREN's ?Fluid restriction 1800 ?Keep potassium above 4 and magnesium above 2 ?Cardiology consulted, pursue recommendations #Troponinemia type I versus 2 #Hypertensive emergency ?Patient does not have any chest pain or history of CAD. ?DDx type I with EKG showing ST changes type versus type II given patient's initial presentation of hypertensive emergency. ?Initial troponins were 1.203 and up trended to 3.219 -Initial BP was 243/109 ?EKG showed ST depressions in lead II -Hydralazine 10 mg x1 in ED Plan: ?Started patient on aspirin, Plavix, atorvastatin, lasix, and heparin drip. ?Trend troponins ?Repeat EKG ordered ?possible heart cath by cardiology ?Cardiology consulted, appreciate recommendations #Sepsis likely secondary to community-acquired pneumonia #Acute hypoxic respiratory failure #Pleural effusion #Community-acquired pneumonia #Leukocytosis ?Patient met SIRS 3 out of 4 with leukocytosis, tachycardia, and tachypnea. ?DDx community-acquired pneumonia versus aspiration pneumonia given patient's history of recent inactivity and immobility ?Patient was placed on BiPAP at 4 L of FiO2 40%, currently on nasal cannula ?Chest x-ray showed right base pneumonia ?CTA chest showed bilateral pleural effusions ?WBC 18 with no spikes in fevers ?Lactate dehydrogenase 324 ?ABG showed pH 7.46, pCO2 34, pCO2 40 Plan: ?Started Rocephin and azithromycin [07/01/2024?] ?Held fluids as there is high suspicion of new-onset heart failure ?Blood and urine culture ordered ?Continue O2 administration as needed ?Will continue to monitor #Bilirubinemia ?T bilirubin 1.6 ?No alkaline phosphatase elevation or transaminitis Plan: ?Will continue to monitor #Normocytic normochromic anemia #Thrombocytosis ?Hgb 9.9 and platelets 483 ?No active signs of bleeding Plan: ?Will transfuse if hemoglobin less than 7 ?Will continue to monitor #Hx of DM2 ?Last A1c was 7.4% on 03/19/2024 Plan: ?ISS ? Accu-Cheks and hypoglycemia protocol #Hx of myasthenia gravis ?Restart patient's pyridostigmine 60 mg p.o. 3 times daily Disposition: Patient admitted to telemetry Diet: NPO GI prophylaxis: Not indicated DVT prophylaxis: on heparin drip Code:Full Case disclosed with Attending Dr. Hawkins and My senior Dr. Smith PGY2. Oleksandr Patterson PGY1
--- NOTE | 2024-06-21 13:52 | PC.NURSE ---
REPORT GIVEN TO MANOLO ON TELE FLOOR. PT TO GO TO ROOM 261
--- NOTE | 2024-06-21 14:02 | PC.NURSE ---
REPORT GIVEN TO FLY WILDLIFE REFUGE MANAGER NURSE
[2024-06-21 17:55] LABS: Troponin I 5.902 ng/mL (0.0-0.045)
--- NOTE | 2024-06-21 18:23 | PC.NURSE ---
Report given to PABLO Child. Patient A&O x4. Vital signs stable. Patient transferred to Tele via gurney. Dressing to right groin and right wrist clean, dry, and intact. No signs of bleeding or hematoma.
--- NOTE | 2024-06-21 18:55 | PD.CARDCATH ---
Cardiac Cath Procedure Procedure Name Date of procedure: 02/19/2024 [employer] INSPECTOR: Noel Amin MD PROCEDURE PERFORMED: 1. Left heart and right heart cardiac catheterization including right, left coronary angiograms and left ventriculogram - CPT 94835 2. Ultrasound-guided access of the right radial artery and right femoral vein - CPT 83548 3. Conscious sedation for 30 minutes - CPT 82131 Procedure Narrative HISTORY AND INDICATIONS: A 74-year-old with a past medical history of essential hypertension for 40 years, type 2 diabetes mellitus for more than 30 years with diabetic neuropathy as well as history of male seen in gravis on mycophenolate of tail as well as pyridostigmine Dr. Parrish neurologist in [place], right ankle septic joint, history of possible PAD as well as history of diabetic foot ulcers status post osteomyelitis of the right foot with amputation of the first toe, fourth and fifth toes of the right foot, history of lower extremity varicose veins, obesity, chronic anemia or anemia of chronic disease presented to the emergency department for further evaluation of shortness of breath over the past few days along with lower extremity swelling and likely some chest discomfort. Given the elevated troponins and NSTEMI along with patient has new onset heart failure hence patient is a candidate for left and right coronary angiograms hence schedule for cardiac catheterization today. Discussed with patient risks, benefits and alternatives of performing left with coronary angiogram including the risks of bleeding, heart rate, stroke and with the procedure. Patient understands the risks and is willing to undergo the procedure. Consent provided for the same. H&P updated and consent was signed prior to the procedure DESCRIPTION OF PROCEDURE: The patient was brought to the cardiac catheterization lab and all asceptic precautions were followed. Patient was given 1 Mg of Versed and 50 mcg of fentanyl for moderate conscious sedation. 2 mL of lidocaine was given in the right wrist. The right radial artery was accessed via the ultrasound guidance as well as micropuncture technique. A 6 Uzbek glide sheath was introduced. A 10 ml of lidocaine was then injected in the right femoral area and right femoral vein vein was accessed with ultrasound guidance and micropuncture technique. A 7 malaysian femoral sheath was used. A 7 Uzbek [place] catheter was used with a [place] wire to direct into the right atrium with inflated balloon. Serial measurements of right atrium, right ventricle, pulmonary artery and pulmonary capillary wedge were taken severely with normal respiration as well as at end expiration as noted below. We then used a 6 Uzbek TIG 4 catheter to perform the left and right coronary angiogram as well as a left ventriculogram which showed the following findings. LHC findings: 1. Left ventricular ejection fraction was low normal at around 50% with hypokinesis of the apical and apical lateral and apical inferior poon. 2. LVEDP was severely elevated at 27 mmHg 3. There was transvalvular aortic gradient of around 28 mmHg indicating at least mild or mild versus moderate aortic stenosis 4. Right dominant circulation 6. Left main artery is a large-caliber vessel with mild calcified disease. 7. LAD is a large sized artery with calcified severe 90% stenosis in the proximal LAD as well as severe 80 to 90% stenosis along segment in the mid LAD but has a distal LAD target but small vessel. Diagonal shows mild diffuse disease 8. LCx is small to medium size artery with severe 90% stenosis in the proximal to midportion. small sized OM1 9. RCA is a large size artery with moderate 50 to 60% stenosis in the mid RCA as well as moderate 50 to 60% stenosis in a medium sized RPDA and ostial and proximal segments. RHC findings: Mean right atrial pressure was 17 mmHg. Right atrial pressure was 72/16 mmHg. Pulmonary artery pressure was 36 mmHg mmHg with a mean of 44 mmHg. Mean pulmonary capillary wedge pressure was 30 mmHg. TPG was 14 mmHg Pulmonary artery PA saturation was 63.5%.? Arterial saturation was 91 % on room air. Cardiac output was 7.2 L/min and cardiac index was normal at 3.1 L/min/m? A radial band was used to achieve the hemostasis of the right radial artery access and manual hemostasis for the right antecubital vein. Patient will be monitored in the cardiac manager relocation for the next 2 to 3 hours and will be sent to the telemetry floor. Complications: None Specimens: None Blood loss: Estimated 5 ml Summary/findings: 1. NSTEMI with a troponin of 3.2: LHC showed severe multivessel calcified CAD with 90% stenosis in the proximal LAD as well as 80 to 90% stenosis and a long segment in the mid LAD along with 90% stenosis of the proximal to mid LCx. RCA shows moderate stenosis of around 50 to 60% in the mid RCA along with 50 to 60% in the proximal or ostial RPDA. Rest of the artery shows mild disease. 2. LVEF appears to be low normal around 50%. LVEDP was severely elevated at 26 mmHg. Transvalvular right gradient was present at 25 and 30 mmHg indicating at least mild or mild to moderate aortic stenosis 3. Moderate to severely elevated right heart pressures with a mean RA of around 70 mmHg, RV pressure of 72 over 16 mmHg, PA pressure 57-60 mmHg with a mean of 38 mmHg PCWP elevated at 31 mmHg. 4. Normal cardiac output at 7.2 L/min/m? and normal cardiac index at 3.1 L/min/m?. Recommendations: 1. Given the elevated LVEDP as well as the pulmonary capillary wedge patient is in severe congestive heart failure and recommend aggressive diuresis with Lasix 40 mg IV twice daily. 2. Patient does have severe multivessel disease and will need evaluation for CABG by CT surgery given the patient history of diabetes mellitus versus staged multivessel complex PCI. Both options were discussed with the patient's and we will discussed the case with the surgeons at [place] or [place] to see if the patient is at acceptable risk for the surgery as he has multiple comorbidities and probably has high STS risk score. 3. Patient does not complain of any chest pain chest pressure at the present point of time and the will continue medical treatment for now and start heparin drip 6 hours after the cardiac catheterization today. Patient to be on aspirin 81 mg once daily no dual antiplatelets. High intensity statin Lipitor 80 mg once daily. 4. Recommend to start Coreg 6.25 mg twice daily and continue to titrate it as the patient blood pressure is high patient can be started on losartan and Entresto at a later date after aggressive diuresis for now. Noel Amin MD Interventional Cardiology.
--- NOTE | 2024-06-21 19:14 | PC.NURSE ---
received a male patient from metallurgical laboratory assistant via [facility] to dino Diaz' patient is awke alert and verbally responsive, dressing to right writ clean dry and intact, dressing to right groin clean and intact.kept comfortable in bed.
[2024-06-21] MEDS: AZITHROMYCIN 250 MG TABLET 500 MG PO (19:59)
[2024-06-21 20:16] LABS: Partial Thromboplastin Time 34.9 Seconds (22.0-36.0)
[2024-06-21] MEDS: HEPARIN SOD INJ 5000 UNIT/ML VIAL 4000 UNIT IVP (21:22)
--- NOTE | 2024-06-21 22:29 | ESCONSULT_ITS ---
HPI Data of Consult Requesting Physician: Paulette Hawkins MD Admitting Provider: Paulette Hawkins MD Attending Provider: Paulette Hawkins MD Primary Care Provider: Physician No Primary/Family Consult Narrative History of present illness: RE: Phong Castro : 1950 Date of Consultation: 06/21/2024 Location of this patient is 261 bed A REASON FOR CONSULTATION: Elevated Troponin I and ST depression on EKG. New onset decompensated heart failure ESTABLISHED DIAGNOSES: 1. Myasthenia gravis 2. Insulin-dependent diabetes mellitus type 2 3. Essential hypertension 4. Varicose veins 5. Diabetic neuropathy HPI: 74-year-old male with past medical history of essential hypertension for 40 years, insulin-dependent diabetes mellitus type 2 [7.4] for more than 30years, myasthenia gravis on pyridostigmine and mycophenolate follows up with Dr. Patton, neurologist in [place], and osteomyelitis of right foot s/p amputation of first toe, fourth and fifth toes on right foot due to diabetic ulcers, diabetic neuropathy, right ankle Charcot joint, B/L lower extremity varicose veins was brought into the ER due to shortness of breath which started last night as well as lower extremity swelling. Patient states that he has been mainly in bed for the past 2 weeks since he fell 2 weeks ago and was bedbound for around 4 days. Patient experienced weakness due to his myasthenia gravis while in his backyard and fell and had to crawl on his hands and knees to his house to call the EMT to assist. The draw hand arrived and assisted the patient back in to his house, however he did not present to the ED. Patient later had a FaceTime call with his PCP, Dr. Darrius Oswald who referred him for a hip x-ray, however patient was unable to get x-ray done prior to this admission. Since then he has been able to move around in his wheelchair and commode around his home in the wheelchair. He states that he does not have any history of heart failure or heart issues. Patient reports 3 pillow orthopnea and PND, also SOB at rest. He also mentioned that his lower extremity swelling has gotten worse over the past 2 weeks , but denied any chest pain, abdominal pain, nausea, vomiting, blood in the stools, or burning sensation during urination. Patient mentioned that he did not take his blood pressure medication today, but that he has been compliant with his medications daily. Patient was admitted for new onset acute decompensated heart failure. Cardiology was consulted for elevated troponin, ST depression on EKG and new onset decompensated heart failure. ED course Initially came in hypertensive, tachycardic, tachypneic, and hypoxic. Vital signs were BP 243/109, pulse 103, resp 32, O2 sats 94% on BiPAP at FiO2 40% and 4 L O2. Initial labs were relevant for leukocytosis, normocytic normochromic anemia, thrombocytosis, hypoxia on ABG, hypokalemic, bilirubinemia, troponinemia (with uptrending troponins from 1.203 to 3.219), elevated lactic dehydrogenase, elevated BNP 556, and negative UA. Imaging included chest x-ray which showed prominent CHF, and pneumonia of right base, venous Doppler which was negative for DVT, chest CTA which showed significant heart failure, primary hepatocellular disease, and bilateral pleural effusions, negative for PE. EKG showed some ST depressions on lead II [<1mm and not in consecutive leads] Past medical history: As above Past surgical history: ? Tonsillectomy as a child ? Laser eye surgery in both eyes for diabetic retinopathy [1999] and right eye [2008] ? ORIF of left fibula in 2000 secondary to a fall and fibular fracture ? Phaco and IOL B/L eyes [2011] ? Fifth toe right foot amputation [2014] ? First and fifth toe amputation [2021] ? Right ankle fusion 2014 secondary to Charcot joint Medication History: ?Benazepril 40 mg p.o. daily ? Insulin aspart 20 units subcut 3 times daily ? Insulin glargine 30 units subcut twice daily ? Mycophenolate mofetil to 50 mg p.o. twice daily ? Pyridostigmine 60 mg p.o. 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 But his two sisters and niece live in [place]. Has good family support Family History: Dad: Diabetes mellitus, CAD, CABG Mom: Hyper thyroidism Patient has strong family history of hypothyroidism as well. IMPRESSION: 1. Acute decompensated heart failure 2. CAD 3. Troponinemia RECOMMENDATION: Cardiac catheterization, heparin infusion, furosemide 40 mg IV twice daily. Echocardiogram. No need to trend troponin cc:: cc: Paulette Hawkins MD Review of Systems Review of Systems Narrative Review of Systems: GENERAL: Denies fever/chills or diaphoresis. HEENT: Denies headaches or visual changes. Denies discharge. Neuro: As above CARDIO: Denies chest pain or palpitations. PULM: as above GI: Denies abdominal pain, N/V/C/D. Reports having BMs. URO: Denies buring/itching/pain/urinary changes. MSK/EXT/SKIN: Denies joint/skeletal/muschle pain, issues/changes in upper or lower extremities, itchiness, or superficial pain. PSYCH: Cooperative, pleasant mood & affect. The rest of the review of systems is otherwise negative. Exam Vital Signs Temp Pulse Resp BP Pulse Ox O2 Del Method O2 Flow Rate 98.9 F 72 18 132/59 H 97 Nasal Cannula 2 06/21/24 17:45 06/21/24 20:15 06/21/24 19:27 06/21/24 20:15 06/21/24 19:27 06/21/24 17:45 06/21/24 19:27 FiO2 40 06/21/24 04:37 Narrative Exam Constitutional Alert, oriented x 3 and comfortable HEENT Vision grossly intact. Patent nares. Trachea midline Respiratory Chest normal on inspection and decreased AE at bases B/L Cardiovascular S1 and S2 audible, RRR. No murmurs carotid bruit. No gross JVD. Abdominal Obese, distended and non tender to palpation in all quadrants. BS + Genitourinary No bladder tenderness, no flank pain. Normal to palpation Musculoskeletal Extremities tone within normal limits. B/L lowere extremity pitting edema 3+. Worse on Left leg. Amputated 1st, 4th and 5th toes on R foot Neurological CN II - XII grossly intact. Extremity motor and sensation grossly intact. Skin Warm, dry and intact. No apparent lesions. Psychiatric Patient has good affect, is cooperative Results Labs 06/22/24 02:35 06/22/24 02:35 Labs: Short CBC 06/21/24 Range/Units 04:43 WBC 18.0 H (3.8-10.6) Thou/mm3 Hgb 9.9 L (13.5-16.0) g/dL Hct 29.5 L (41.0-53.0) % Plt Count 483 H (140-440) Thou/mm3 BMP 06/21/24 04:43 Sodium 137 Potassium 3.0 L Chloride 101 Carbon Dioxide 26.2 BUN 13 Creatinine 0.8 Glucose 231 H Calcium 9.6 Cardiac Enzymes 06/21/24 06/21/24 06/21/24 Range/Units 04:43 10:21 16:49 Troponin I 1.203 H* 3.219 H* D 5.902 H* D (0.0-0.045) ng/mL Liver Function 06/21/24 Range/Units 04:43 Total Bilirubin 1.6 H (0.3-1.2) mg/dL AST 19 (0-34) U/L ALT 11 (10-49) U/L Alkaline Phosphatase 97 (46-116) U/L Albumin 4.4 (3.4-4.8) gm/dL Urine 06/21/24 Range/Units 04:59 Urine Color Lt-Yellow (Lt Yel-Yel) Urine Clarity Clear (Clear/Hazy) Urine pH 6.5 (5.0-7.0) Ur Specific [place] 1.009 (1.001-1.035) Urine Protein 1+ A (Neg - Trace) Urine Glucose (UA) 2+ A (Negative) ABG Interpretation ABG results: 06/21/24 09:39 ABG pH 7.46 H ABG pCO2 40 ABG pO2 34 L* ABG HCO3 28 H ABG O2 Saturation 75 L ABG Base Excess 4 H Quality Measures Quality Measures sepsis Current suspected stage: ruled out Possible source: unknown Blood cultures ordered: yes Antibiotic ordered: Yes Advance care planning discussed with:: patient Medications Home Medications and Allergies Home Medications ?Medication ?Instructions ?Recorded ?Confirmed ?Type benazepril 20 mg tablet (Lotensin) 40 mg PO QDAY #0 tabs 06/21/14 06/21/24 History insulin aspart U-100 100 unit/mL 20 unit subcut TID 06/21/24 06/21/24 History (3 mL) subcutaneous pen (Novolog FlexPen U-100 Insulin aspart) insulin glargine U-300 conc 300 30 unit subcut BID 06/21/24 06/21/24 History unit/mL (3 mL) subcutaneous pen (Toujeo Max U-300 SoloStar) mycophenolate mofetil 250 mg 250 mg PO BID 06/21/24 06/21/24 History capsule mycophenolate mofetil 500 mg tablet 500 mg PO Q12H 06/21/24 06/21/24 History pyridostigmine bromide 60 mg tablet 60 mg PO TID 06/21/24 06/21/24 History Allergies Allergy/AdvReac Type Severity Reaction Status Date / Time ibuprofen Allergy Mild Verified 04/06/16 16:52 Penicillins Allergy Mild Verified 04/06/16 16:52 Visit Medications Acetaminophen (Acetaminophen 325 Mg Tablet) 650 mg PO Q6H PRN PRN Reason: pain and Fever >100.4 Stop: 07/21/24 10:21 Hydrocodone Bitart/Acetaminophen (Hydrocodone/Apap 5/325 Tablet) 1 tab PO Q4HR PRN PRN Reason: PAIN SCALE 4-10(Mod-Sev Stop: 06/26/24 10:21 Aspirin (Aspirin Ec 81 Mg Tabec) 81 mg PO QDAY [facility] Stop: 07/22/24 08:59 Atorvastatin Calcium (Atorvastatin Calcium 20 Mg Tablet) 80 mg PO HS [facility] Stop: 07/22/24 20:59 Azithromycin (Azithromycin 250 Mg Tablet) 500 mg PO QDAY [facility] Stop: 06/28/24 14:44 Last Admin: 06/21/24 19:59 Dose: 500 mg Dextrose (Dextrose 50%-Water Inj 50 Ml Syringe) 25 ml IV Q15MIN PRN PRN Reason: BG 50-70 responsive npo pt Stop: 07/21/24 10:26 Dextrose (Dextrose 50%-Water Inj 50 Ml Syringe) 50 ml IV Q15MIN PRN PRN Reason: BG <50 OR BG <70 & pt unresponsive Stop: 07/21/24 10:26 Furosemide (Furosemide Inj 10 Mg/Ml Vial 2 Ml) 40 mg IVP BIDD [facility] Stop: 07/21/24 20:59 Last Admin: 06/21/24 20:15 Dose: 40 mg Glucagon (Glucagon Inj 1 Mg Vial) 1 mg IM Q15MIN PRN PRN Reason: BG <70, and no IV access Ceftriaxone Sodium/Dextrose (Rocephin/D5w 1gm Iv Premix) 50 mls @ 100 mls/hr IV QDAY [facility] Stop: 06/28/24 07:59 Last Infusion: 06/21/24 09:25 Dose: Infused Heparin Sodium/Dextrose (Heparin In D5w Ivpb) 25,000 unit in 250 mls @ 10 mls/hr IV .Q24H [facility]; Protocol Stop: 07/05/24 12:44 Last Admin: 06/21/24 21:25 Dose: 8.65 units/kg/hr, 10 mls/hr Insulin Human Lispro (Insulin Lispro (Admelog) 1 Unit/0.01 Ml Unit) 0 unit SC ACHS [facility]; Protocol Stop: 07/21/24 11:29 Last Admin: 06/21/24 20:10 Dose: 3 unit Discontinued Medications Aspirin (Aspirin 325 Mg Tablet) 325 mg PO X1 ONE Stop: 06/21/24 07:34 Last Admin: 06/21/24 07:48 Dose: 325 mg Atorvastatin Calcium (Atorvastatin Calcium 10 Mg Tablet) 80 mg PO X1 ONE Stop: 06/21/24 11:58 Last Admin: 06/21/24 13:02 Dose: Not Given Atorvastatin Calcium (Atorvastatin Calcium 20 Mg Tablet) 80 mg PO X1 ONE Stop: 06/21/24 12:46 Last Admin: 06/21/24 12:49 Dose: 80 mg Clopidogrel Bisulfate (Clopidogrel Bisulfate 75 Mg Tablet) 75 mg PO X1 ONE Stop: 06/21/24 12:01 Last Admin: 06/21/24 12:48 Dose: 75 mg Clopidogrel Bisulfate (Clopidogrel Bisulfate 75 Mg Tablet) 75 mg PO QDAY [facility] Stop: 07/22/24 08:59 Furosemide (Furosemide Inj 10 Mg/Ml Vial 2 Ml) 40 mg IVP BIDD [facility] Stop: 07/21/24 11:59 Last Admin: 06/21/24 12:50 Dose: 40 mg Heparin Sodium (Porcine) (Heparin Sod Inj 5000 Unit/Ml Vial) 5,000 unit SC Q8HR [facility] Stop: 07/05/24 13:59 Heparin Sodium (Porcine) (Heparin Sod Inj 5000 Unit/Ml Vial) 6,950 unit 60 unit/kg (6950 unit) IV X1 ONE; Protocol Stop: 06/21/24 11:56 Last Admin: 06/21/24 12:33 Dose: Not Given Heparin Sodium (Porcine) (Heparin Sod Inj 5000 Unit/Ml Vial) 4,000 unit 60 unit/kg (6950 unit) IV X1 ONE; Protocol Stop: 06/21/24 12:31 Last Admin: 06/21/24 12:51 Dose: 4,000 unit Heparin Sodium (Porcine) (Heparin Sod Inj 5000 Unit/Ml Vial) 4,000 unit IVP X1 ONE Stop: 06/21/24 21:03 Last Admin: 06/21/24 21:22 Dose: 4,000 unit Hydralazine HCl (Hydralazine Inj 20 Mg/Ml Vial) 10 mg IV X1 ONE Stop: 06/21/24 07:34 Last Admin: 06/21/24 07:45 Dose: 10 mg Potassium Chloride (Kcl Ivpb) 10 meq in 100 mls @ 100 mls/hr IV Q1H [facility] Stop: 06/21/24 11:44 Last Infusion: 06/21/24 15:50 Dose: Infused Potassium Chloride (Kcl Ivpb) 10 meq in 100 mls @ 100 mls/hr IV Q1H [facility] Stop: 06/21/24 15:58 Last Admin: 06/21/24 12:41 Dose: Not Given Magnesium Sulfate (Magnesium Sulfate Ivpb) 4 gm in 50 mls @ 12.5 mls/hr IV X1 ONE Stop: 06/21/24 16:00 Last Admin: 06/21/24 13:18 Dose: 12.5 mls/hr Heparin Sodium/Dextrose (Heparin In D5w Ivpb) 25,000 unit in 250 mls @ 10.41 mls/hr IV .Q24H [facility]; Protocol Stop: 07/05/24 12:44 Azithromycin 500 mg/ Sodium (Chloride) 250 mls @ 250 mls/hr IV QDAY [facility] Stop: 06/29/24 08:59 Azithromycin 500 mg/ Sodium (Chloride) 250 mls @ 250 mls/hr IV X1 ONE Stop: 06/21/24 15:44 Potassium Chloride (Potassium Chloride 20 Meq Tabcr) 40 meq PO X1 ONE Stop: 06/21/24 09:24 Last Admin: 06/21/24 10:37 Dose: 40 meq Potassium Chloride (Potassium Chloride 20 Meq Tabcr) 40 meq PO X1 ONE Stop: 06/21/24 12:00 Last Admin: 06/21/24 12:41 Dose: Not Given Assessment & Plan Plan 74-year-old male with past medical history of essential hypertension for 40 years, insulin-dependent diabetes mellitus type 2 [7.4] for more than 30years, myasthenia gravis on pyridostigmine and mycophenolate follows up with Dr. Patton, neurologist in [place], and osteomyelitis of right foot s/p amputation of first toe, fourth and fifth toes on right foot due to diabetic ulcers, diabetic neuropathy, right ankle Charcot joint, B/L lower extremity varicose veins was brought into the ER due to shortness of breath which started last night as well as lower extremity swelling.Patient was admitted for new onset acute decompensated heart failure. Cardiology was consulted for elevated troponin, ST depression on EKG and new onset decompensated heart failure. 1. Triple-vessel CAD 2. Troponinemia 3. Essential hypertension 4. Acute respiratory failure with hypoxia 5. New onset acute decompensated heart failure Patient has longstanding hypertension for more than 40 years. On admission patient had positive troponin I of 1.2 which up trended to 6.6. Patient presenting complaint was SOB and lower extremity edema. Patient denied chest pain, pressure. Patient was also hypoxic SpO2 94% on RA and started on BiPAP and transitioned to AL Patient was immediately prepped for cardiac catheterization Patient was clinically fluid overloaded with B/L lower extremity edema and abdominal distention. EKG was nondiagnostic with ST depression less than 1 mm in lead I and not in any consecutive leads Cardiac catheterization showed multi-vessel disease Transthoracic echocardiogram: Normal LV size and low normal function. Estimated EF around 50%. Mild hypokinesis mid anterior apical septal, mid apical lateral, and apex. Grade 1 diastolic dysfunction. IVC mildly dilated. Plan: ? Strict I's/O charting ? Daily weights ? IV diuresis with furosemide 40 mg IV twice daily - Supplemental O2 - Atorvastatin 80 mg po HS - ASA 81 mg po daily ? Maintain Mg >2 and K >4 to prevent arrhythmias ? Heparin drip at 9 PM ? No need to continue trending troponin ?Discussed with family need for cardiac bypass as patient is diabetic and has more than 2 stenotic vessels ? Patient and family to decide on coronary artery bypass versus stent. ? Patient's has [employer] insurance which has not accepted in [place]. Discussed switching insurance back to Medicare with patient. 6. Normocytic anemia DDx: Pure red cell aplasia secondary to mycophenolate, thalassemia, iron deficiency, sideroblastic anemia, lead poisoning Most likely secondary to long-term mycophenolate use. Recommend retic count to confirm Consider iron panel to rule out iron deficiency anemia and blood smear to rule out sideroblastic and lead poisoning. However lead poisoning unlikely due to patient's low risk of exposure. 7. Insulin-dependent diabetes mellitus type 2 8. Diabetic neuropathy 9. Right ankle Charcot joint 10. S/p first, fourth and fifth toe on right foot amputation Last HbA1c 7.4 Patient on insulin aspart and glargine at home Continue management as per primary team Patient had amputation of multiple digits on right foot secondary to diabetic neuropathy leading to diabetic ulcers. 11. Varicose veins 3 years ago patient first noticed B/L lower extremity swelling and was diagnosed at the time with varicose veins by his PCP Dr. Darrius Oswald. Patient was prescribed compression stockings which he wears daily. Health maintenance: Disposition: IV diuresis for CHF exacerbation. Heparin infusion for multivessel disease. Patient and family to decide on CABG vs stenting Diet: Cardiac Lines: pIVs GI Prophylaxis: None Thrombo Prophylaxis: Heparin Code status: FULL CODE Plan of care discussed with attending Shovel Handle Assembler, Dr Eloisa Shah MD PGY 1 Attending Provider Attestation/Addendum I have personally seen and examined the patient separately on the above date of service and discussed the plan of care with the resident. I reviewed the resident consultation note and agree with the resident findings and plan in the note above and have also edited the documentation to reflect my findings and plan. A 74-year-old with a past medical history of essential hypertension for 40 years, type 2 diabetes mellitus for more than 30 years with diabetic neuropathy as well as history of male seen in gravis on mycophenolate of tail as well as pyridostigmine Dr. Parrish neurologist in [place], right ankle septic joint, history of possible PAD as well as history of diabetic foot ulcers status post osteomyelitis of the right foot with amputation of the first toe, fourth and fifth toes of the right foot, history of lower extremity varicose veins, obesity, chronic anemia or anemia of chronic disease presented to the emergency department for further evaluation of shortness of breath over the past few days along with lower extremity swelling and some chest discomfort Patient apparently fell couple of weeks ago at home where he had to crawl on his hands and knees to his house. Patient did have a FaceTime call with his PCP and ordered him a left hip x-ray but unfortunately patient does not have much support at home and lives alone and looks like he never got further evaluation of his fall and to rule out fracture completely. Since then patient has been more localized bedbound since then and he has been noting worsening shortness of breath over the past couple of days along with some leg swelling and he did have some occasional chest discomfort but that was few weeks ago but no recent chest pain or chest pressure episodes and his main complaints are shortness of with as well as leg swelling. Patient initial troponin was 1.2 and then the repeat troponin elevated to 3.2 in next few hours and hence cardiology was consulted for further evaluation. Patient presented with severely elevated blood pressure 240/120 mmHg, heart rate of 103/min and saturation of 32/min and sats 94% and required BiPAP initially on arrival with an FiO2 40%. Patient was given IV Lasix with which he diuresed a little and patient was given medications IV for his high blood pressure and his systolic blood pressure was in the 160s. Labs reviewed and showed elevated WBC count at 18 point chest x-ray did not show evidence of any pneumonia. CT also did not show except that it showed prominent CHF and no main PE in the lobar or in the main pulmonary artery but the rest of the images were with a lot of artifacts. Patient BNP was elevated at 36 and lactate dehydrogenase was elevated at 387. Patient hemoglobin was around 9 and ABG showed hypoxia along with mildly increased bilirubin. On examination patient did have at least 3+ edema. Duplex of bilateral limbs were also done which showed no evidence of no DVT and there is significant noted of the left thigh from the recent fall. No x-ray or CT of the left side was done which we recommend. EKG showed normal sinus rhythm with some nonspecific ST depressions in lead II as well as V5 and V6 as well as nonspecific T wave flattening as well as T wave inversions. 1. NSTEMI type I greater than type II 2. Acute coronary syndrome 3. New onset CHF exacerbation diastolic greater than systolic 4. Acute hypoxic respiratory failure in the setting of CHF exacerbation 5. Hypertensive urgency with history of hypertension greater than 40 years 6. Uncontrolled type diabetes mellitus with history of DM greater than 30 years with diabetic foot ulcers and amputation of 3 toes of the right foot 7. History of myasthenia gravis on pyridostigmine as well as mycophenolate Moffa till as per patient follows with neurology in [place] 8. Possible history of PAD 8. Hyperlipidemia 9. Diabetic neuropathy 10. History of osteomyelitis status post first fourth and fifth toe amputations of the right foot 11. Varicose veins 12. Chronic anemia possibly anemia of chronic disease 13. Obesity 14. Possible underlying CHLOE but never tested Patient presented with shortness of breath as well as leg swelling and occasional chest discomfort. Patient also had a felt 2 weeks ago and unclear history of whether he had any syncope or not. Patient initial presentation showed that initial troponin was 1.2 and repeat troponin was 3.3 and few hours. There was nonspecific ST-T changes on the EKG with normal sinus rhythm and patient was recommended an urgent cardiac catheterization. Echocardiogram was ordered and bedside echo showed normal LVEF but did show mild hypokinesis of the apex, mid to apical lateral as well as mid to apical septal poon EF was around 50%. All the risk benefits and alternatives of the cardiac catheterization including the risk of bleeding, heart attack, stroke and were explained in detail to the patient and patient is agreeable for the procedure. Consent was placed in the chart. Aspirin 325 mg x 1 was given. Patient apparently is not on any antiplatelets at home. Recommended heparin drip as per ACS protocol. High intensity statin Lipitor 80 mg once daily or Crestor 40 mg once daily. Check TSH A1c as well as lipid profile. Patient appears to be in significant fluid overload with elevated BNP as well as chest x-ray showing vascular congestion along with's CT chest. There was no evidence of any PE on the main pulmonary artery as well as the right and left pulmonary artery of the lobar arteries but could not rule out segmental or subsegmental. There was no evidence of any DVT. Patient anyways is on anticoagulation because of the NSTEMI. Patient was hypoxic on arrival requiring BiPAP and FiO2 of 40%. Now he is on oxygen was given IV Lasix. Recommend to give IV Lasix 40 mg twice daily and strict input output, daily weights and 2 g sodium diet. Possible diastolic versus mild systolic heart failure. Echocardiogram official ordered and will follow-up on the results. Keep potassium greater than 4 and magnesium greater than 2.0 at all times. Potassium was 3.0 and recommend to replace aggressively and check the labs again in the evening and give at least another 4 g of magnesium sulfate IV. Patient blood pressure was elevated on admission and 240/140 mmHg. Patient was given some IV medications including IV Lasix and blood pressures in the 160 mmHg. Recommend to decrease joint by 25% and keep it around 1 5160 mmHg. Agree with control of blood pressure with beta-blockers Coreg as well as losartan and if there is heart failure will need Entresto Rule out any kind of flu and unlikely there is pneumonia patient Pro-Meng was also normal. Further management of infection as per the primary team. There is a high probability of sudden, clinically significant or life threatening deterioration in the patient condition which required the highest level of physician preparedness to intervene urgently. I have personally spent 65 minutes of critical care time, exclusive of time spent on any procedures, in evaluation and management of this critically ill patient. Management of rest of the medical conditions as per primary team and other consultants. Thank you for the consult and allowing me to participate in the care of the patient. Cardiology will continue to follow. Noel Amin M.D. Interventional Cardiology
[2024-06-21 22:47] LABS: Troponin I 6.668 ng/mL (0.0-0.045)
[2024-06-22] VITALS (13 sets, daily range): BP systolic 139–163; BP diastolic 65–82; PULSE 68–84; RESP 16–20; TEMP 36.6–37.1; O2SAT 90–98; BMI 38.7
[2024-06-22 03:02] LABS: Partial Thromboplastin Time 43.3 Seconds (22.0-36.0)
[2024-06-22 03:04] LABS: Basophils # (Auto) 0.1 Thou/mm3 (0.0-0.2); Basophils % (Auto) 1 % (0-2.5); Eosinophils # (Auto) 0.1 Thou/mm3 (0.0-0.5); Eosinophils % (Auto) 1 % (0-10); Hematocrit 23.5 % (41.0-53.0); Immature Granulocytes % (Auto) 0 % (0-0); Immature Granulocytes Auto 0.04 Thou/mm3 (0.00-0.00); Lymphocytes # (Auto) 1.7 Thou/mm3 (1.0-4.8); Lymphocytes % (Auto) 15 % (10-50); Mean Corpuscular Volume 88 fL (80-100); Monocytes # (Auto) 1.2 Thou/mm3 (0.0-0.8); Monocytes % (Auto) 11 % (0-12); Neutrophils # (Auto) 8.1 Thou/mm3 (1.8-7.7); Neutrophils % (Auto) 73 % (37-80); Nucleated Red Blood Cell % 0 /100 WBC (0); Platelet Count 355 Thou/mm3 (140-440); RDW Standard Deviation 47.5 fL (35.1-43.9); Red Blood Count 2.67 Miln/mm3 (4.50-5.90); White Blood Count 11.1 Thou/mm3 (3.8-10.6)
[2024-06-22] MEDS: HEPARIN SOD INJ 5000 UNIT/ML VIAL 2000 UNIT IVP ×2 (03:13→11:39)
[2024-06-22 03:16] LABS: Anion Gap 5 (7-16); BUN/Creatinine Ratio 18 Ratio (12-20); Blood Urea Nitrogen 16 mg/dL (9-23); Calcium 8.5 mg/dL (8.3-10.6); Carbon Dioxide 31.2 mMol/L (20.0-31.0); Chloride 100 mMol/L (98-107); Creatinine (Component) 0.9 mg/dL (0.6-1.3); Estimated Creatinine Clearance 91.6 mL/min (>60); Glucose 236 mg/dL (74-106); Osmolality,Calculated 281 (275-295); Phosphorous 2.9 mg/dL (2.4-5.1); Potassium 2.9 mMol/L (3.4-5.1); Sodium 136 mMol/L (136-145); eGFR > 60 See Note
[2024-06-22] MEDS: POTASSIUM CHLORIDE 20 mEq TABCR 40 MEQ PO ×2 (05:12→11:41)
[2024-06-22] MEDS: FUROSEMIDE INJ 10 MG/ML VIAL 2 ML 40 MG IVP ×2 (05:13→17:37)
[2024-06-22] MEDS: POTASSIUM CHL 10 mEq IVPB 10 MEQ/100 ML BAG 100 MEQ IV ×4 (05:13→10:22)
[2024-06-22] MEDS: INSULIN LISPRO (AdmeLOG) 1 UNIT/0.01 ML UNIT SC ×4 (08:00→21:29)
--- NOTE | 2024-06-22 08:11 | PC.SS ---
Update: BUILDING AND GROUNDS SUPERVISOR notified that patient will need transfer for CABG procedure. BUILDING AND GROUNDS SUPERVISOR updated transfer nurse of request.
--- NOTE | 2024-06-22 08:22 | ESPR_ITS ---
Documentation for date of: 06/22/24 Subjective Subjective Interval history: Patient was seen and examined at bedside this AM. No acute exents overnight. Patient tolerating diet, adequate urine output and mentation is at baseline. Patient endorses improvement of SOB, however he is still on supplemental O2 via NC Patient is currently on heparin infusion ACS protocol Adequate IV diuresis with furosemide 40 mg IV twice daily I 1286 mL O 5200 mL B -3913ml Sacral edema still present at least 2+ peripheral edema, minimal scrotal edema still present Blood cultures from 06/21 NBG X1 day This a.m. K 2.9 and Mg 2. Recommend 80 mEq KCl and 2 Mg magnesium. Keep K >4 and Mg >2 at all times to avoid arrhythmias Decision yet to be made regarding CABG versus multivessel staged PCI Exam Vital Signs Temp Pulse Resp BP Pulse Ox O2 Del Method O2 Flow Rate 98.0 F 71 20 140/67 H 94 L Nasal Cannula 1 06/22/24 08:00 06/22/24 08:00 06/22/24 08:00 06/22/24 08:00 06/22/24 08:00 06/22/24 08:00 06/22/24 08:00 FiO2 40 06/21/24 04:37 Narrative Exam Constitutional Alert, oriented x 3 and comfortable HEENT Vision grossly intact. Patent nares. Trachea midline Respiratory Chest normal on inspection and decreased AE at bases with mild crackles Cardiovascular S1 and S2 audible, RRR. No murmurs carotid bruit. No gross JVD. Abdominal Soft and non tender to palpation in all quadrants. BS + Genitourinary No bladder tenderness, no flank pain. Normal to palpation. Mild scrotal edema. Blood at meatus Musculoskeletal Extremities tone within normal limits. No LE edema. Neurological CN II - XII grossly intact. Extremity motor and sensation grossly intact. Skin Warm, dry and intact. Ecchymoses on anterior and medial L Knee Psychiatric Patient has good affect, is cooperative Objective Labs 06/22/24 02:35 06/22/24 02:35 Labs: Laboratory Results - last 24 hr 06/21/24 06/21/24 06/21/24 09:39 10:21 16:49 WBC RBC Hgb Hct MCV MCH MCHC RDW Std Deviation Plt Count Neut % (Auto) Lymph % (Auto) [place] % (Auto) Eos % (Auto) Baso % (Auto) Neut # (Auto) Lymph # (Auto) [place] # (Auto) Eos # (Auto) Baso # (Auto) Immature Gran # (Auto) Absolute Nucleated RBC Immature Gran % Nucleated RBC % APTT Puncture Site Right Radial ABG pH 7.46 H ABG pCO2 40 ABG pO2 34 L* ABG HCO3 28 H ABG O2 Saturation 75 L ABG Base Excess 4 H Oxygen Liter Flow 2 Sodium Potassium Chloride Carbon Dioxide Anion Gap BUN Creatinine Estim Creat Clear Calc eGFR BUN/Creatinine Ratio Glucose Calculated Osmolality Calcium Phosphorus Magnesium Troponin I 3.219 H* D 5.902 H* D 06/21/24 06/21/24 06/22/24 19:55 22:17 02:35 WBC 11.1 H D RBC 2.67 L Hgb 8.0 L Hct 23.5 L MCV 88 MCH 30.0 MCHC 34.0 RDW Std Deviation 47.5 H Plt Count 355 D Neut % (Auto) 73 Lymph % (Auto) 15 [place] % (Auto) 11 Eos % (Auto) 1 Baso % (Auto) 1 Neut # (Auto) 8.1 H Lymph # (Auto) 1.7 [place] # (Auto) 1.2 H Eos # (Auto) 0.1 Baso # (Auto) 0.1 Immature Gran # (Auto) 0.04 H Absolute Nucleated RBC 0.00 Immature Gran % 0 Nucleated RBC % 0 APTT 34.9 43.3 H Puncture Site ABG pH ABG pCO2 ABG pO2 ABG HCO3 ABG O2 Saturation ABG Base Excess Oxygen Liter Flow Sodium 136 Potassium 2.9 L Chloride 100 Carbon Dioxide 31.2 H Anion Gap 5 L BUN 16 Creatinine 0.9 Estim Creat Clear Calc 91.6 eGFR > 60 BUN/Creatinine Ratio 18 Glucose 236 H Calculated Osmolality 281 Calcium 8.5 Phosphorus 2.9 Magnesium 2.0 Troponin I 6.668 H* D ABG Interpretation ABG results: 06/21/24 09:39 ABG pH 7.46 H ABG pCO2 40 ABG pO2 34 L* ABG HCO3 28 H ABG O2 Saturation 75 L ABG Base Excess 4 H Quality Measures Quality Measures sepsis Current suspected stage: ruled out Possible source: unknown Blood cultures ordered: yes Antibiotic ordered: Yes Advance care planning discussed with:: patient Assessment & Plan Assessment Current Active Medications: Generic Name Dose Route Start Last Admin Trade Name Freq PRN Reason Stop Dose Admin Acetaminophen 650 mg 06/21/24 10:22 Acetaminophen 325 Mg Tablet PO 07/21/24 10:21 Q6H PRN pain and Fever >100.4 Hydrocodone Bitart/Acetaminophen 1 tab 06/21/24 10:22 Hydrocodone/Apap 5/325 Tablet PO 06/26/24 10:21 Q4HR PRN PAIN SCALE 4-10(Mod-Sev Aspirin 81 mg 06/22/24 09:00 Aspirin Ec 81 Mg Tabec PO 07/22/24 08:59 QDAY HARJEET Atorvastatin Calcium 80 mg 06/22/24 21:00 Atorvastatin Calcium 20 Mg Tablet PO 07/22/24 20:59 HS HARJEET Azithromycin 500 mg 06/21/24 14:45 06/21/24 19:59 Azithromycin 250 Mg Tablet PO 06/28/24 14:44 500 mg QDAY HARJEET Administration Carvedilol 6.25 mg 06/22/24 08:00 Carvedilol 3.125 Mg Tablet PO 07/22/24 07:59 BIDWM HARJEET Dextrose 25 ml 06/21/24 10:27 Dextrose 50%-Water Inj 50 Ml Syringe IV 07/21/24 10:26 Q15MIN PRN BG 50-70 responsive npo pt Dextrose 50 ml 06/21/24 10:27 Dextrose 50%-Water Inj 50 Ml Syringe IV 07/21/24 10:26 Q15MIN PRN BG <50 OR BG <70 & pt unresponsive Furosemide 40 mg 06/21/24 21:00 06/22/24 05:13 Furosemide Inj 10 Mg/Ml Vial 2 Ml IVP 07/21/24 20:59 40 mg BIDD HARJEET Administration Glucagon 1 mg 06/21/24 10:27 Glucagon Inj 1 Mg Vial IM Q15MIN PRN BG <70, and no IV access Ceftriaxone Sodium/Dextrose 50 mls @ 100 mls/hr 06/21/24 08:00 06/21/24 09:25 Rocephin/D5w 1gm Iv Premix IV 06/28/24 07:59 Infused QDAY HARJEET Infusion Heparin Sodium/Dextrose 25,000 unit in 250 mls @ 10 mls/hr 06/21/24 12:45 06/22/24 03:13 Heparin In D5w Ivpb IV 07/05/24 12:44 10.65 units/kg/hr .Q24H HARJEET 12.318 mls/hr Titration Protocol 8.646 UNITS/KG/HR Potassium Chloride 10 meq in 100 mls @ 100 mls/hr 06/22/24 04:45 06/22/24 07:48 Kcl Ivpb IV 06/22/24 08:44 100 mls/hr Q1H HARJEET Administration Magnesium Sulfate 2 gm in 50 mls @ 25 mls/hr 06/22/24 08:05 Magnesium Sulfate Ivpb IV 06/22/24 10:04 X1 ONE Insulin Human Lispro 0 unit 06/21/24 11:30 06/22/24 08:00 Insulin Lispro (Admelog) 1 Unit/0.01 Ml Unit SC 07/21/24 11:29 2 unit ACHS HARJEET Administration Protocol Plan 74-year-old male with past medical history of essential hypertension for 40 years, insulin-dependent diabetes mellitus type 2 [7.4] for more than 30years, myasthenia gravis on pyridostigmine and mycophenolate follows up with Dr. Patton, neurologist in [place], and osteomyelitis of right foot s/p amputation of first toe, fourth and fifth toes on right foot due to diabetic ulcers, diabetic neuropathy, right ankle Charcot joint, B/L lower extremity varicose veins was brought into the ER due to shortness of breath which started last night as well as lower extremity swelling.Patient was admitted for new onset acute decompensated heart failure. Cardiology was consulted for elevated troponin, ST depression on EKG and new onset decompensated heart failure. 1. NSTEMI type I vs type II 2. ACS 3. Triple-vessel CAD 4. Troponinemia 5. Essential hypertension 6. Acute respiratory failure with hypoxia 7. New onset acute decompensated heart failure Patient has longstanding hypertension for more than 40 years. On admission patient had positive troponin I of 1.2 which up trended to 6.6. Patient presenting complaint was SOB and lower extremity edema. Patient denied chest pain, pressure. Patient was also hypoxic SpO2 94% on RA and started on BiPAP and transitioned to NC Patient was immediately prepped for cardiac catheterization Patient was clinically fluid overloaded with B/L lower extremity edema and abdominal distention. EKG was nondiagnostic with ST depression less than 1 mm in lead I and not in any consecutive leads Cardiac catheterization showed multi-vessel disease involving LAD and LCX with moderate disease in RCA Transthoracic echocardiogram: Normal LV size and low normal function. Estimated EF around 50%. Mild hypokinesis mid anterior apical septal, mid apical lateral, and apex. Grade 1 diastolic dysfunction. IVC mildly dilated. Plan: - Low sodium diet ? Strict I's/O charting ? Daily weights ? IV diuresis with furosemide 40 mg IV twice daily - Supplemental O2 - Atorvastatin 80 mg po HS - ASA 81 mg po daily - Continue Coreg 6.25 mg po BID and titrate as necesary as patient was in hypertensive urgency at admission - Can add losartan at later date and Entresto if there is heart failure ? Maintain Mg >2 and K >4 to prevent arrhythmias ? No need to continue trending troponin ? Discussed with family reg the need for cardiac bypass as patient is diabetic and has more than 2 stenotic vessels vs multivessel staged PCI of LCX and LAD - continue heprain drip 8. Hypertensive urgency - resolved Patient blood pressure was elevated on admission and 240/140 mmHg. Patient was given some IV medications including IV Lasix and blood pressures in the 160 mmHg. Recommend to decrease joint by 25% and keep it around 150/60 mmHg. Agree with control of blood pressure with beta-blockers Coreg as well as losartan 9. Normocytic anemia DDx: Pure red cell aplasia secondary to mycophenolate, thalassemia, iron deficiency, sideroblastic anemia, lead poisoning Most likely secondary to long-term mycophenolate use. Recommend retic count to confirm Consider iron panel to rule out iron deficiency anemia and blood smear to rule out sideroblastic and lead poisoning. However lead poisoning unlikely due to patient's low risk of exposure. 10. Insulin-dependent diabetes mellitus type 2 11. Diabetic neuropathy 12. Right ankle Charcot joint 13. S/p first, fourth and fifth toe on right foot amputation Last HbA1c 7.4 Patient on insulin aspart and glargine at home Continue management as per primary team Patient had amputation of multiple digits on right foot secondary to diabetic neuropathy leading to diabetic ulcers. 14. Varicose veins 3 years ago patient first noticed B/L lower extremity swelling and was diagnosed at the time with varicose veins by his PCP Dr. Darrius Oswald. Patient was prescribed compression stockings which he wears daily. Health maintenance: Disposition: On heparin drip ACS protocol and Supplemental O2. Pending transfer for CABG Diet: Cardiac Lines: pIVs GI Prophylaxis: None Thrombo Prophylaxis: Heparin Code status: FULL CODE We are grateful to be able to participate in Mr. Castro's care. Thank you for the consult Plan of care discussed with attending Transmitter Chief, Dr Eloisa Shah MD PGY 1 Attending Provider Attestation/Addendum I have personally seen and examined the patient separately on the above date of service and discussed the plan of care with the resident. I reviewed the resident Dr. Shah consultation progress note and agree with the resident findings and plan in the note above and have also edited the documentation to reflect my findings and plan. Urgent cardiac cathterization completed on 06/21/2024 showed 1. NSTEMI with a troponin of 3.2: LHC showed severe multivessel calcified CAD with 90% stenosis in the proximal LAD as well as 80 to 90% stenosis and a long segment in the mid LAD along with 90% stenosis of the proximal to mid LCx. RCA shows moderate stenosis of around 50 to 60% in the mid RCA along with 50 to 60% in the proximal or ostial RPDA. Rest of the artery shows mild disease. 2. LVEF appears to be low normal around 50%. LVEDP was severely elevated at 26 mmHg. Transvalvular right gradient was present at 25 and 30 mmHg indicating at least mild or mild to moderate aortic stenosis 3. Moderate to severely elevated right heart pressures with a mean RA of around 70 mmHg, RV pressure of 72 over 16 mmHg, PA pressure 57-60 mmHg with a mean of 38 mmHg PCWP elevated at 31 mmHg. 4. Normal cardiac output at 7.2 L/min/m? and normal cardiac index at 3.1 L/min/m?. Recommendations: 1. Given the elevated LVEDP as well as the pulmonary capillary wedge patient is in severe congestive heart failure and recommend aggressive diuresis with Lasix 40 mg IV twice daily. 2. Patient does have severe multivessel disease and will need evaluation for CABG by CT surgery given the patient history of diabetes mellitus versus staged multivessel complex PCI. Both options were discussed with the patient's and we will discussed the case with the surgeons at [place] or [place] to see if the patient is at acceptable risk for the surgery as he has multiple comorbidities and probably has high STS risk score. 3. Patient does not complain of any chest pain chest pressure at the present point of time and the will continue medical treatment for now and start heparin drip 6 hours after the cardiac catheterization today. Patient to be on aspirin 81 mg once daily no dual antiplatelets. High intensity statin Lipitor 80 mg once daily. 4. Recommend to start Coreg 6.25 mg twice daily and continue to titrate it as the patient blood pressure is high patient can be started on losartan and Entresto at a later date after aggressive diuresis for now. I have sent the images from both to [facility] as well as the [facility] surgeons for review. I spoke personally with Dr. Nelson at [facility] and discussed in detail with the patient and he was thought to be a high risk. But he wanted to discuss with his colleagues tomorrow morning and review images once again and let us know about the next course of action. Also contacted [facility] surgeon but still of activating the reply as the patient family requested for him and after speaking to the case management patient is mostly out of network to go to [place]. Patient has been diuresing well with Lasix 40 mg IV twice daily and recommend to continue IV diuresis as he is still has 2+ edema mostly in the sacral area. Patient shortness of breath is better. Denies any chest pain or chest pressure. Continue heparin drip for the recent NSTEMI and aspirin 81 mg once daily along with high intensity statin Lipitor. Recommend adequate blood pressure control with losartan as well as Coreg and continue to uptitrate them based on the blood pressure. Kidney function appears to be stable and creatinine 0.9. And also electrolytes showed low potassium and low magnesium recommended to replace them aggressively and keep potassium greater than 4 magnesium greater than 2.0 at all times. Noel Amin M.D. Interventional Cardiology
--- NOTE | 2024-06-22 08:28 | PC.CM ---
Addendum entered by Alondra Hernandez RN 06/22/24 16:25: I updated charge nurse Jason and SS Efraín to let them know transfer had been canceled at 1400. Addendum entered by Alondra Hernandez RN 06/22/24 15:35: 1340 Dr. Lee called me back and let me know the transfer request was canceled at 1400 today[address] Lee and he states he has not spoke to Dr. Luque. I let him know I need clarification on this patient. Addendum entered by Alondra Hernandez RN 06/22/24 12:41: I received a call from Dr. Amin stating he did not want me to move forward on transfer at this time. He states he has been speaking to the family and he let them know that patient's insurance will want patient to go to [facility]. states patient is a high risk for surgery. Dr. Amin states he wants to hold off on transfer at this time. Addendum entered by Alondra Hernandez RN 06/22/24 10:14: I reached out to Dr. Lee to see if he has spoke to Dr. Amin. He has reached out but has not received a call back. I am waiting see if Dr. Amin spoke to an accepting doctor at another facility. Original Note: I received a referral to transfer patient for CABG. Dr. Amin took patient to the label stitcher and he states patient will need CABG. His notes states he was going to reach out to [facility] and to [facility]. I spoke to DR. Lee and he was going to follow up with Dr. Amin to discuss case.
[2024-06-22] MEDS: carVEDILOL 3.125 MG TABLET 6.25 MG PO ×2 (08:44→17:38)
[2024-06-22] MEDS: cefTRIAXone/D5w 1gm IV premix 50 ML IV (08:44)
[2024-06-22] MEDS: ASPIRIN EC 81 MG TABEC PO (08:44)
[2024-06-22] MEDS: AZITHROMYCIN 250 MG TABLET 500 MG PO (08:44)
[2024-06-22] MEDS: Magnesium Sulfate 2 GM Ivpb 2 GM/50 ML BAG IV (08:45)
[2024-06-22 10:12] LABS: Troponin I 5.123 ng/mL (0.0-0.045)
[2024-06-22] MEDS: PANTOPRAZOLE 40 MG TABLET PO (12:06)
[2024-06-22 15:32] LABS: O2 Saturation (Cath Lab) 90 % (91-98); Puncture Site Aortic
[2024-06-22 15:34] LABS: O2 Saturation (Cath Lab) 63 % (91-98); Puncture Site Pulmonary Artery
--- NOTE | 2024-06-22 15:47 | ESPR_ITS ---
<Statement entered by Paulette Hawkins MD - 07/04/24 12:30> Attending attestation: I reviewed above note and agree with findings and plans. I have also personally examined the patient with medicine team and went over assessment and plan with medical team including graduate internship and resident physician. <Statement entered by Bradford Smith MD - 06/22/24 19:28> Senior Resident Attestation: I supervised/discussed management plan with graduate internship physician Dr. Lee, and was involved in the care of this patient. I personally saw and examined the patient and discussed the assessment and plan with the entire medicine team, including my attending. I agree with the assessment and plan as documented. Patient was found to have triple-vessel disease on coronary angiography, no stent was placed. Transfer was initiated for cardiothoracic surgery evaluation and possible CABG. Patient was started on the Coreg per cardiology recommendations. Patient was resumed on heparin drip and will be closely monitored. Patient's care was discussed with attending physician, Dr. Hawkins. Bradford Smith MD PGY-2. Documentation for date of: 06/22/24 Subjective Subjective Interval history: Patient seen at bedside this morning. No overnight events. Patient underwent heart catheterization and was found to have multivessel CAD and an ejection fraction of 50% by cutting pressman. Patient was complaining of acid reflux this morning and again in the afternoon. Patient and family members decided to go with CABG to treat multivessel disease. Television News Video Editor will speak with cardiothoracic surgeon from a tertiary facility in which patient then can be transferred. Heparin drip was continued and patient was started on Coreg 6.25 twice daily and will continue to titrate as per cardiology. Spoke with patient and family about options and treatment plan. Gave protonix and famotidine for acid reflux. No other complaints at this time. Exam Vital Signs Temp Pulse Resp BP Pulse Ox O2 Del Method O2 Flow Rate 98.0 F 82 20 163/82 H 90 L Nasal Cannula 1 06/22/24 12:00 06/22/24 12:00 06/22/24 12:00 06/22/24 12:00 06/22/24 12:00 06/22/24 08:00 06/22/24 08:23 FiO2 40 06/21/24 04:37 Narrative Exam General: A/O x3, no acute distress, obese Eyes: PERRL, EOMI. Anicteric, vision grossly intact. Ears: No ear pain, no ear discharge, Hearing grossly intact. Nose: No nasal discharge. Mouth/Throat: Dry mucous membranes, no redness, no lesions. Neck: short neck, non-tender, no cervical lymphadenopathy. Lungs: Decreased breath sounds, No accessory muscle use. Cardio: Normal S1/S2, regular rhythm, no murmurs, no JVD Abdomen: Soft, non-tender, no palpable masses, peristalsis present, no guarding or rebound. Extremities: Symmetrical, no significant deformities, still 2+ edema from KAYLEEN LE to lower abdomen , non-tender, peripheral pulses presents, Multiple R foot digits amputation Skin: No rashes, no lesions, warm to touch, multiple abrasion in various stages of healing in KAYLEEN LE and L UE, bruise in L knee Neuro: No focal neurological deficits, motor and sensory intact Psych: Cooperative, appropriate mood and effect. Objective Labs 06/22/24 02:35 06/22/24 02:35 Labs: Laboratory Results - last 24 hr 06/21/24 06/21/24 06/21/24 16:47 16:47 16:47 WBC RBC Hgb Hct MCV MCH MCHC RDW Std Deviation Plt Count Neut % (Auto) Lymph % (Auto) Nobles % (Auto) Eos % (Auto) Baso % (Auto) Neut # (Auto) Lymph # (Auto) Nobles # (Auto) Eos # (Auto) Baso # (Auto) Immature Gran # (Auto) Absolute Nucleated RBC Immature Gran % Nucleated RBC % APTT POC Blood Site Aortic Pulmonary Artery POC O2 Saturation 90 L 63 L Sodium Potassium Chloride Carbon Dioxide Anion Gap BUN Creatinine Estim Creat Clear Calc eGFR BUN/Creatinine Ratio Glucose Calculated Osmolality Calcium Phosphorus Magnesium Troponin I 06/21/24 06/21/24 06/21/24 16:49 19:55 22:17 WBC RBC Hgb Hct MCV MCH MCHC RDW Std Deviation Plt Count Neut % (Auto) Lymph % (Auto) Nobles % (Auto) Eos % (Auto) Baso % (Auto) Neut # (Auto) Lymph # (Auto) Nobles # (Auto) Eos # (Auto) Baso # (Auto) Immature Gran # (Auto) Absolute Nucleated RBC Immature Gran % Nucleated RBC % APTT 34.9 POC Blood Site POC O2 Saturation Sodium Potassium Chloride Carbon Dioxide Anion Gap BUN Creatinine Estim Creat Clear Calc eGFR BUN/Creatinine Ratio Glucose Calculated Osmolality Calcium Phosphorus Magnesium Troponin I 5.902 H* D 6.668 H* D 06/22/24 06/22/24 02:35 09:10 WBC 11.1 H D RBC 2.67 L Hgb 8.0 L Hct 23.5 L MCV 88 MCH 30.0 MCHC 34.0 RDW Std Deviation 47.5 H Plt Count 355 D Neut % (Auto) 73 Lymph % (Auto) 15 Nobles % (Auto) 11 Eos % (Auto) 1 Baso % (Auto) 1 Neut # (Auto) 8.1 H Lymph # (Auto) 1.7 Nobles # (Auto) 1.2 H Eos # (Auto) 0.1 Baso # (Auto) 0.1 Immature Gran # (Auto) 0.04 H Absolute Nucleated RBC 0.00 Immature Gran % 0 Nucleated RBC % 0 APTT 43.3 H 47.0 H POC Blood Site POC O2 Saturation Sodium 136 Potassium 2.9 L Chloride 100 Carbon Dioxide 31.2 H Anion Gap 5 L BUN 16 Creatinine 0.9 Estim Creat Clear Calc 91.6 eGFR > 60 BUN/Creatinine Ratio 18 Glucose 236 H Calculated Osmolality 281 Calcium 8.5 Phosphorus 2.9 Magnesium 2.0 Troponin I 5.123 H* D ABG Interpretation ABG results: 06/21/24 09:39 ABG pH 7.46 H ABG pCO2 40 ABG pO2 34 L* ABG HCO3 28 H ABG O2 Saturation 75 L ABG Base Excess 4 H Quality Measures Quality Measures sepsis Current suspected stage: sepsis Possible source: unknown Blood cultures ordered: yes Antibiotic ordered: Yes Advance care planning discussed with:: patient and sibling Assessment & Plan Assessment Current Active Medications: Generic Name Dose Route Start Last Admin Trade Name Freq PRN Reason Stop Dose Admin Acetaminophen 650 mg 06/21/24 10:22 Acetaminophen 325 Mg Tablet PO 07/21/24 10:21 Q6H PRN pain and Fever >100.4 Hydrocodone Bitart/Acetaminophen 1 tab 06/21/24 10:22 Hydrocodone/Apap 5/325 Tablet PO 06/26/24 10:21 Q4HR PRN PAIN SCALE 4-10(Mod-Sev Aspirin 81 mg 06/22/24 09:00 06/22/24 08:44 Aspirin Ec 81 Mg Tabec PO 12/05/24 08:59 81 mg QDAY HARJEET Administration Atorvastatin Calcium 80 mg 06/22/24 21:00 Atorvastatin Calcium 20 Mg Tablet PO 07/22/24 20:59 HS HARJEET Azithromycin 500 mg 06/21/24 14:45 06/22/24 08:44 Azithromycin 250 Mg Tablet PO 06/28/24 14:44 500 mg QDAY HARJEET Administration Carvedilol 6.25 mg 06/22/24 08:00 06/22/24 08:44 Carvedilol 3.125 Mg Tablet PO 07/22/24 07:59 6.25 mg BIDWM HARJEET Administration Dextrose 25 ml 06/21/24 10:27 Dextrose 50%-Water Inj 50 Ml Syringe IV 07/21/24 10:26 Q15MIN PRN BG 50-70 responsive npo pt Dextrose 50 ml 06/21/24 10:27 Dextrose 50%-Water Inj 50 Ml Syringe IV 07/21/24 10:26 Q15MIN PRN BG <50 OR BG <70 & pt unresponsive Furosemide 40 mg 06/21/24 21:00 06/22/24 05:13 Furosemide Inj 10 Mg/Ml Vial 2 Ml IVP 07/21/24 20:59 40 mg BIDD HARJEET Administration Glucagon 1 mg 06/21/24 10:27 Glucagon Inj 1 Mg Vial IM Q15MIN PRN BG <70, and no IV access Ceftriaxone Sodium/Dextrose 50 mls @ 100 mls/hr 06/21/24 08:00 06/22/24 08:44 Rocephin/D5w 1gm Iv Premix IV 06/28/24 07:59 100 mls/hr QDAY HARJEET Administration Heparin Sodium/Dextrose 25,000 unit in 250 mls @ 10 mls/hr 06/21/24 12:45 06/22/24 11:42 Heparin In D5w Ivpb IV 07/05/24 12:44 12.65 units/kg/hr .Q24H HARJEET 14.632 mls/hr Titration Protocol 8.646 UNITS/KG/HR Insulin Human Lispro 0 unit 06/21/24 11:30 06/22/24 13:27 Insulin Lispro (Admelog) 1 Unit/0.01 Ml Unit SC 07/21/24 11:29 3 unit ACHS HARJEET Administration Protocol Plan 74-year-old male with past medical history of hypertension, DM2, myasthenia gravis, and osteomyelitis of right foot was admitted to the hospital on 06/21/2024 for acute decompensated heart failure, troponinemia type I versus 2, and sepsis likely secondary to community-acquired pneumonia. #Multivessel CAD #Troponinemia type I versus II #Hypertensive emergency ?Patient does not have any chest pain or history of CAD. ?DDx type I with EKG showing ST changes type versus type II given patient's initial presentation of hypertensive emergency. ?Initial troponins were 1.203 and up trended to 3.219 -Initial BP was 243/109 -BP today 163/82 ?EKG showed ST depressions in lead II -Patient will most likely be transferred to a tertiary facility for CABG. Plan: ?Continue aspirin 81, atorvastatin 80mg HS, lasix 40mg BID, and heparin drip. ?Cardiology consulted, appreciate recommendations #Acute decompensated heart failure, new onset #Shortness of breath #Anasarca #Hypokalemia ?Patient has been having shortness of breath accompanied by lower extremity swelling up to lower abdomen and orthopnea. ?There is no recent echo on file nor patient is aware of any history of heart failure. -Patient still has 2+ swelling from LE to lower abdomen ?BNP 556 ?Potassium 2.9 today ?Chest x-ray showed prominent congestive heart failure ?Chest CTA showed significant heart failure -Echo showed EF 50% Plan: ?Started Coreg 6.25 BID an will titrate as tolerated -Continue Lasix 40 twice daily -Will start losartan and Entresto at a later date ?120 mEq of potassium given -2gm Mg x1 ?Daily weights ?Strict KAREN's ?Fluid restriction 1800 ?Keep potassium above 4 and magnesium above 2 ?Cardiology consulted, pursue recommendations #Sepsis likely secondary to community-acquired pneumonia #Acute hypoxic respiratory failure #Pleural effusion #Community-acquired pneumonia #Leukocytosis ?Patient met SIRS 3 out of 4 with leukocytosis, tachycardia, and tachypnea. ?DDx community-acquired pneumonia versus aspiration pneumonia given patient's history of recent inactivity and immobility ?Patient was placed on BiPAP at 4 L of FiO2 40%, currently on nasal cannula ?Chest x-ray showed right base pneumonia ?CTA chest showed bilateral pleural effusions ?WBC 11.1 with no spikes in fevers ?Lactate dehydrogenase 324 ?ABG showed pH 7.46, pCO2 34, pCO2 40 -Blood 24 hr Cx negative Plan: ?Continue Rocephin and azithromycin [07/01/2024?] ?Blood 48 hr Cx and urine culture ordered ?Continue O2 administration as needed ?Will continue to monitor #Ground level Fall #Hx of myasthenia gravis -Patient fell 2 weeks ago due to weakness and did not seek any medical care at the time. Plan: -X-ray hip KAYLEEN with pelvis ordered ?Restart patient's pyridostigmine 60 mg p.o. 3 times daily -Will continue to monitor #GERD? ?Patient has been complaining of acid reflux since this morning. ?He also vomited a small amount today. ?He received Protonix x 1, but was minimally responsive Plan: ?Protonix x 1, but was minimally responsive ?Famotidine x 1 ?Will see patient's response to famotidine and start scheduled famotidine for acid reflux. ?Will continue to monitor #Bilirubinemia ?T bilirubin 1.6 ?No alkaline phosphatase elevation or transaminitis Plan: ?Will continue to monitor #Normocytic normochromic anemia #Thrombocytosis ?Hgb 8 and platelets 355 ?No active signs of bleeding Plan: ?Will transfuse if hemoglobin less than 7 ?Will continue to monitor #Hx of DM2 ?Last A1c was 7.4% on 03/19/2024 Plan: ?ISS ?Accu-Cheks and hypoglycemia protocol Disposition: Patient admitted to telemetry Diet: Low carb consistent GI prophylaxis: DVT prophylaxis: on heparin drip Code:Full Case disclosed with Attending Dr. Hawkins and My senior Dr. Smith PGY2. Oleksandr Patterson PGY1
--- NOTE | 2024-06-22 15:58 | PC.SS ---
Update: WARDROBE TECHNICIAN notified by transfer nurse that transfer for patient has been cancelled.
[2024-06-22] MEDS: FAMOTIDINE 20 MG TABLET PO (16:33)
--- NOTE | 2024-06-22 16:38 | XR_ITS ---
Examination: Bilateral hips, AP pelvis, 5 views Technique: AP, lateral views both hips, AP pelvis, 5 views Exam date and time: June 22, 2024 at 1758 hours INDICATIONS: Patient fell 2 weeks ago with injury to both hips, bilateral hip pain FINDINGS: Severe osteopenia No acute fractures No hip dislocations Moderate narrowing hip joints Bones of the pelvis intact IMPRESSION: No acute hip or pelvic fractures If pain persists, recommend CT scan pelvis hips without contrast follow-up
[2024-06-22 18:31] LABS: Partial Thromboplastin Time 51.8 Seconds (22.0-36.0)
[2024-06-22] MEDS: Heparin/D5w 25K 250 ML Ivpb 25,000 UNIT/250 ML BAG 14.632 UNIT IV (18:57)
[2024-06-22] MEDS: ATORVASTATIN CALCIUM 20 MG TABLET 80 MG PO (21:30)
[2024-06-22] MEDS: pyRIDostigmine bromide 60 MG TABLET PO (21:31)
[2024-06-23] VITALS (17 sets, daily range): BP systolic 111–162; BP diastolic 52–72; PULSE 57–71; RESP 13–18; TEMP 36.1–36.7; O2SAT 95–98; BMI 39.6
[2024-06-23 00:29] LABS: Partial Thromboplastin Time 51.8 Seconds (22.0-36.0)
[2024-06-23] MEDS: pyRIDostigmine bromide 60 MG TABLET PO ×3 (05:45→21:00)
[2024-06-23] MEDS: FUROSEMIDE INJ 10 MG/ML VIAL 2 ML 40 MG IVP ×2 (05:45→17:50)
[2024-06-23 06:27] LABS: Basophils # (Auto) 0.1 Thou/mm3 (0.0-0.2); Basophils % (Auto) 1 % (0-2.5); Eosinophils # (Auto) 0.2 Thou/mm3 (0.0-0.5); Eosinophils % (Auto) 2 % (0-10); Hematocrit 25.1 % (41.0-53.0); Immature Granulocytes % (Auto) 0 % (0-0); Immature Granulocytes Auto 0.03 Thou/mm3 (0.00-0.00); Lymphocytes % (Auto) 23 % (10-50); Mean Corpuscular HGB Conc 33.5 g/dl (31.0-37.0); Mean Corpuscular Hemoglobin 30.1 pg (25.0-35.0); Mean Corpuscular Volume 90 fL (80-100); Monocytes # (Auto) 0.9 Thou/mm3 (0.0-0.8); Monocytes % (Auto) 10 % (0-12); Neutrophils # (Auto) 5.6 Thou/mm3 (1.8-7.7); Neutrophils % (Auto) 64 % (37-80); Nucleated Red Blood Cell % 0 /100 WBC (0); Platelet Count 333 Thou/mm3 (140-440); RDW Standard Deviation 47.5 fL (35.1-43.9); Red Blood Count 2.79 Miln/mm3 (4.50-5.90); White Blood Count 8.8 Thou/mm3 (3.8-10.6)
[2024-06-23 06:34] LABS: Hemoglobin 8.4 g/dL (13.5-16.0)
[2024-06-23 06:48] LABS: INR 1.1 (0.9-1.3); Partial Thromboplastin Time 47.1 Seconds (22.0-36.0); Prothrombin Time 12.3 Seconds (9.0-12.2)
[2024-06-23 06:56] LABS: Anion Gap 4 (7-16); BUN/Creatinine Ratio 22 Ratio (12-20); Blood Urea Nitrogen 20 mg/dL (9-23); Calcium 8.2 mg/dL (8.3-10.6); Carbon Dioxide 31.4 mMol/L (20.0-31.0); Chloride 99 mMol/L (98-107); Creatinine (Component) 0.9 mg/dL (0.6-1.3); Estimated Creatinine Clearance 92.9 mL/min (>60); Glucose 241 mg/dL (74-106); Osmolality,Calculated 278 (275-295); Phosphorous 3.2 mg/dL (2.4-5.1); Potassium 3.6 mMol/L (3.4-5.1); Sodium 134 mMol/L (136-145); eGFR > 60 See Note
[2024-06-23] MEDS: HEPARIN SOD INJ 5000 UNIT/ML VIAL 2000 UNIT IVP (08:25)
[2024-06-23] MEDS: cefTRIAXone/D5w 1gm IV premix 50 ML IV (08:32)
[2024-06-23] MEDS: Magnesium Sulfate 2 GM Ivpb 2 GM/50 ML BAG IV (08:32)
[2024-06-23] MEDS: POTASSIUM CHL 10 mEq IVPB 10 MEQ/100 ML BAG 100 MEQ IV (08:33)
[2024-06-23] MEDS: carVEDILOL 3.125 MG TABLET 6.25 MG PO ×2 (08:33→17:51)
[2024-06-23] MEDS: INSULIN LISPRO (AdmeLOG) 1 UNIT/0.01 ML UNIT SC ×4 (08:35→20:16)
[2024-06-23] MEDS: ASPIRIN EC 81 MG TABEC PO (08:35)
[2024-06-23] MEDS: POTASSIUM CHLORIDE 20 mEq TABCR 40 MEQ PO (08:35)
[2024-06-23] MEDS: INSULIN GLARGINE (Lantus) 5 UNIT/0.05 ML (PER 5 UNITS) 20 UNIT SC (08:35)
[2024-06-23] MEDS: AZITHROMYCIN 250 MG TABLET 500 MG PO (08:35)
--- NOTE | 2024-06-23 09:53 | PD.RESPRO ---
Documentation for date of: 06/23/24 Subjective Subjective Interval history: Patient was seen and examined at bedside this AM. No acute exents overnight. Patient tolerating diet, adequate urine output and mentation is at baseline. Patient denies any symptoms currently Hip x-ray ruled out any acute fractures Patient developed hematuria and heparin drip was subsequently discontinued. Patient already received 48 hours of heparin drip for NSTEMI. Recommend to type and screen and transfuse PRBC if HB < 8, pursue further work up of hematuria Dr. Padron cardiothoracic [place] reviewed patient images and said patient is high mortality case due to his multiple comorbidities including myasthenia gravis. Also has low-grade kidney failure most likely means no have visible vein conduits available, low HCT at 8 and his BMI of 41 means that mortality is greater than 10% . Dr. Nelson cardiothoracic surgeon from [facility] was also consulted and was of similar opinion and both surgeons recommended to pursue complex multi vessel PCI. Patient will be n.p.o. from midnight and scheduled for cardiac catheterization tomorrow with stent placement to LCX initially and IVUS the LAD if the patient hb is stable and no further hematuria noted. Patient's on Lasix 40 mg IV twice daily Negative fluid balance of 3.5 L / 24 hours Urgent cardiac cathterization completed on 06/21/2024 showed 1. NSTEMI with a troponin of 3.2: LHC showed severe multivessel calcified CAD with 90% stenosis in the proximal LAD as well as 80 to 90% stenosis and a long segment in the mid LAD along with 90% stenosis of the proximal to mid LCx. RCA shows moderate stenosis of around 50 to 60% in the mid RCA along with 50 to 60% in the proximal or ostial RPDA. Rest of the artery shows mild disease. 2. LVEF appears to be low normal around 50%. LVEDP was severely elevated at 26 mmHg. Transvalvular right gradient was present at 25 and 30 mmHg indicating at least mild or mild to moderate aortic stenosis 3. Moderate to severely elevated right heart pressures with a mean RA of around 70 mmHg, RV pressure of 72 over 16 mmHg, PA pressure 57-60 mmHg with a mean of 38 mmHg PCWP elevated at 31 mmHg. 4. Normal cardiac output at 7.2 L/min/m? and normal cardiac index at 3.1 L/min/m?. Exam Vital Signs Temp Pulse Resp BP Pulse Ox O2 Del Method O2 Flow Rate 97.3 F 62 13 124/54 L 97 Nasal Cannula 1.5 06/23/24 08:00 06/23/24 09:47 06/23/24 09:47 06/23/24 08:33 06/23/24 09:47 06/23/24 08:00 06/23/24 09:47 FiO2 40 06/21/24 04:37 Narrative Exam Constitutional Alert, oriented x 3 and comfortable. Obese male on O2 via NC HEENT Vision grossly intact. Patent nares. Trachea midline Respiratory Chest normal on inspection and decreased AE at bases with mild crackles Cardiovascular S1 and S2 audible, RRR. No murmurs carotid bruit. No gross JVD. Abdominal Soft and non tender to palpation in all quadrants. BS + Genitourinary No bladder tenderness, no flank pain. Normal to palpation. Mild scrotal edema. Blood at meatus Musculoskeletal Extremities tone within normal limits. LE edema at posterior ankle and hip b/l Neurological CN II - XII grossly intact. Extremity motor and sensation grossly intact. Skin Warm, dry and intact. Ecchymoses on anterior and medial L Knee Psychiatric Patient has good affect, is cooperative Objective Labs 06/23/24 05:55 06/23/24 05:55 Labs: Laboratory Results - last 24 hr 06/21/24 06/21/24 06/21/24 16:47 16:47 16:47 WBC RBC Hgb Hct MCV MCH MCHC RDW Std Deviation Plt Count Neut % (Auto) Lymph % (Auto) [place] % (Auto) Eos % (Auto) Baso % (Auto) Neut # (Auto) Lymph # (Auto) [place] # (Auto) Eos # (Auto) Baso # (Auto) Immature Gran # (Auto) Absolute Nucleated RBC Immature Gran % Nucleated RBC % PT INR APTT POC Blood Site Aortic Pulmonary Artery POC O2 Saturation 90 L 63 L Sodium Potassium Chloride Carbon Dioxide Anion Gap BUN Creatinine Estim Creat Clear Calc eGFR BUN/Creatinine Ratio Glucose Calculated Osmolality Calcium Phosphorus Magnesium Troponin I 06/22/24 06/22/24 06/22/24 09:10 17:47 23:50 WBC RBC Hgb Hct MCV MCH MCHC RDW Std Deviation Plt Count Neut % (Auto) Lymph % (Auto) [place] % (Auto) Eos % (Auto) Baso % (Auto) Neut # (Auto) Lymph # (Auto) [place] # (Auto) Eos # (Auto) Baso # (Auto) Immature Gran # (Auto) Absolute Nucleated RBC Immature Gran % Nucleated RBC % PT INR APTT 51.8 H 51.8 H POC Blood Site POC O2 Saturation Sodium Potassium Chloride Carbon Dioxide Anion Gap BUN Creatinine Estim Creat Clear Calc eGFR BUN/Creatinine Ratio Glucose Calculated Osmolality Calcium Phosphorus Magnesium Troponin I 5.123 H* D 06/23/24 05:55 WBC 8.8 RBC 2.79 L Hgb 8.4 L Hct 25.1 L MCV 90 MCH 30.1 MCHC 33.5 RDW Std Deviation 47.5 H Plt Count 333 Neut % (Auto) 64 Lymph % (Auto) 23 [place] % (Auto) 10 Eos % (Auto) 2 Baso % (Auto) 1 Neut # (Auto) 5.6 Lymph # (Auto) 2.0 [place] # (Auto) 0.9 H Eos # (Auto) 0.2 Baso # (Auto) 0.1 Immature Gran # (Auto) 0.03 H Absolute Nucleated RBC 0.00 Immature Gran % 0 Nucleated RBC % 0 PT 12.3 H INR 1.1 APTT 47.1 H POC Blood Site POC O2 Saturation Sodium 134 L Potassium 3.6 D Chloride 99 Carbon Dioxide 31.4 H Anion Gap 4 L BUN 20 Creatinine 0.9 Estim Creat Clear Calc 92.9 eGFR > 60 BUN/Creatinine Ratio 22 H Glucose 241 H Calculated Osmolality 278 Calcium 8.2 L Phosphorus 3.2 Magnesium 2.0 Troponin I ABG Interpretation ABG results: 06/21/24 09:39 ABG pH 7.46 H ABG pCO2 40 ABG pO2 34 L* ABG HCO3 28 H ABG O2 Saturation 75 L ABG Base Excess 4 H Quality Measures Quality Measures sepsis Current suspected stage: ruled out Possible source: unknown Blood cultures ordered: yes Antibiotic ordered: Yes Advance care planning discussed with:: patient Assessment & Plan Assessment Current Active Medications: Generic Name Dose Route Start Last Admin Trade Name Freq PRN Reason Stop Dose Admin Acetaminophen 650 mg 06/21/24 10:22 Acetaminophen 325 Mg Tablet PO 07/21/24 10:21 Q6H PRN pain and Fever >100.4 Hydrocodone Bitart/Acetaminophen 1 tab 06/21/24 10:22 Hydrocodone/Apap 5/325 Tablet PO 06/26/24 10:21 Q4HR PRN PAIN SCALE 4-10(Mod-Sev Aspirin 81 mg 06/22/24 09:00 06/23/24 08:35 Aspirin Ec 81 Mg Tabec PO 07/22/24 08:59 81 mg QDAY HARJEET Administration Atorvastatin Calcium 80 mg 06/22/24 21:00 06/22/24 21:30 Atorvastatin Calcium 20 Mg Tablet PO 07/22/24 20:59 80 mg HS HARJEET Administration Azithromycin 500 mg 06/21/24 14:45 06/23/24 08:35 Azithromycin 250 Mg Tablet PO 06/28/24 14:44 500 mg QDAY HARJEET Administration Carvedilol 6.25 mg 06/22/24 08:00 06/23/24 08:33 Carvedilol 3.125 Mg Tablet PO 07/22/24 07:59 6.25 mg BIDWM HARJEET Administration Dextrose 25 ml 06/21/24 10:27 Dextrose 50%-Water Inj 50 Ml Syringe IV 07/21/24 10:26 Q15MIN PRN BG 50-70 responsive npo pt Dextrose 50 ml 06/21/24 10:27 Dextrose 50%-Water Inj 50 Ml Syringe IV 07/21/24 10:26 Q15MIN PRN BG <50 OR BG <70 & pt unresponsive Furosemide 40 mg 06/21/24 21:00 06/23/24 05:45 Furosemide Inj 10 Mg/Ml Vial 2 Ml IVP 07/21/24 20:59 40 mg BIDD HARJEET Administration Glucagon 1 mg 06/21/24 10:27 Glucagon Inj 1 Mg Vial IM Q15MIN PRN BG <70, and no IV access Ceftriaxone Sodium/Dextrose 50 mls @ 100 mls/hr 06/21/24 08:00 06/23/24 08:32 Rocephin/D5w 1gm Iv Premix IV 06/28/24 07:59 100 mls/hr QDAY HARJEET Administration Heparin Sodium/Dextrose 25,000 unit in 250 mls @ 10 mls/hr 06/21/24 12:45 06/23/24 08:25 Heparin In D5w Ivpb IV 07/05/24 12:44 14.65 units/kg/hr .Q24H HARJEET 16.945 mls/hr Titration Protocol 8.646 UNITS/KG/HR Insulin Glargine 20 unit 06/23/24 09:00 06/23/24 08:35 Insulin Glargine (Lantus) 5 Unit/0.05 Ml (Per 5 Units) SC 07/23/24 08:59 20 unit QAM HARJEET Administration Insulin Human Lispro 0 unit 06/21/24 11:30 06/23/24 08:35 Insulin Lispro (Admelog) 1 Unit/0.01 Ml Unit SC 07/21/24 11:29 3 unit ACHS HARJEET Administration Protocol Pyridostigmine [place] 60 mg 06/22/24 22:00 06/23/24 05:45 Pyridostigmine [place] 60 Mg Tablet PO 07/22/24 21:59 60 mg TID HARJEET Administration Plan 74-year-old male with past medical history of essential hypertension for 40 years, insulin-dependent diabetes mellitus type 2 [7.4] for more than 30years, myasthenia gravis on pyridostigmine and mycophenolate follows up with Dr. Patton, neurologist in [place], and osteomyelitis of right foot s/p amputation of first toe, fourth and fifth toes on right foot due to diabetic ulcers, diabetic neuropathy, right ankle Charcot joint, B/L lower extremity varicose veins was brought into the ER due to shortness of breath which started last night as well as lower extremity swelling.Patient was admitted for new onset acute decompensated heart failure. Cardiology was consulted for elevated troponin, ST depression on EKG and new onset decompensated heart failure. 1. NSTEMI type I vs type II 2. ACS 3. Triple-vessel CAD 4. Troponinemia 5. Essential hypertension 6. Acute respiratory failure with hypoxia 7. New onset acute decompensated heart failure Patient has longstanding hypertension for more than 40 years. On admission patient had positive troponin I of 1.2 which up trended to 6.6. Patient presenting complaint was SOB and lower extremity edema. Patient denied chest pain, pressure. Patient was also hypoxic SpO2 94% on RA and started on BiPAP and transitioned to [place] Patient was immediately prepped for cardiac catheterization Patient was clinically fluid overloaded with B/L lower extremity edema and abdominal distention. EKG was nondiagnostic with ST depression less than 1 mm in lead I and not in any consecutive leads Cardiac catheterization showed multi-vessel disease involving LAD and LCX with moderate disease in RCA Transthoracic echocardiogram: Normal LV size and low normal function. Estimated EF around 50%. Mild hypokinesis mid anterior apical septal, mid apical lateral, and apex. Grade 1 diastolic dysfunction. IVC mildly dilated. Plan: - Low sodium diet ? Strict I's/O charting ? Daily weights ? IV diuresis with furosemide 40 mg IV twice daily - Supplemental O2 - Atorvastatin 80 mg po HS - ASA 81 mg po daily - Continue Coreg 6.25 mg po BID and titrate as necesary as patient was in hypertensive urgency at admission - Can add losartan at later date and Entresto if there is heart failure ? Maintain Mg >2 and K >4 to prevent arrhythmias ? No need to continue trending troponin - Discontinue Heparin Drip Patient developed hematuria and heparin drip was subsequently discontinued. Patient already received 48 hours of heparin drip for NSTEMI. - Recommend to type and screen and transfuse PRBC if HB < 8, pursue further work up of hematuria - Dr. Padron cardiothoracic [place] reviewed patient images and said patient is high mortality case due to his multiple comorbidities including myasthenia gravis. Also has low-grade kidney failure most likely means no have visible vein conduits available, low HCT at 8 and his BMI of 41 means that mortality is greater than 10% . Dr. Nelson cardiothoracic surgeon from [facility] was also consulted and was of similar opinion and both surgeons recommended to pursue complex multi vessel PCI. ? Patient will be n.p.o. from midnight and scheduled for cardiac catheterization tomorrow with stent placement to LCX initially and IVUS the LAD if the patient hb is stable and no further hematuria noted. ? Discussed the above with patient and extensively counseled on alternative of coronary artery stenting and patient agreed for procedure 8. Hypertensive urgency - resolved Patient blood pressure was elevated on admission and 240/140 mmHg. Patient was given some IV medications including IV Lasix and blood pressures in the 160 mmHg. Recommend to decrease joint by 25% and keep it around 150/60 mmHg. Agree with control of blood pressure with beta-blockers Coreg as well as losartan 9. Normocytic anemia DDx: Pure red cell aplasia secondary to mycophenolate, thalassemia, iron deficiency, sideroblastic anemia, lead poisoning Most likely secondary to long-term mycophenolate use. Recommend retic count to confirm Consider iron panel to rule out iron deficiency anemia and blood smear to rule out sideroblastic and lead poisoning. However lead poisoning unlikely due to patient's low risk of exposure. Patient's Hb on admission was 9.9 which subsequently downtrended to 8.0. Recommend transfusing PRBC x 1 tonight if hb < 8 and type and screen to keep 2 units PRBC and hand for cardiac catheterization if necessary. 10. Insulin-dependent diabetes mellitus type 2 11. Diabetic neuropathy 12. Right ankle Charcot joint 13. S/p first, fourth and fifth toe on right foot amputation Last HbA1c 7.4 Patient on insulin aspart and glargine at home Continue management as per primary team Patient had amputation of multiple digits on right foot secondary to diabetic neuropathy leading to diabetic ulcers. 14. Varicose veins 3 years ago patient first noticed B/L lower extremity swelling and was diagnosed at the time with varicose veins by his PCP Dr. Darrius Oswald. Patient was prescribed compression stockings which he wears daily. Health maintenance: Disposition: For cardiac cath with stenting tomorrow Diet: Cardiac Lines: pIVs GI Prophylaxis: None Thrombo Prophylaxis: Heparin Code status: FULL CODE Continue rest of management as per primary team We are grateful to be able to participate in Mr. Castro's care. Thank you for the consult Plan of care discussed with attending [facility] Director, Dr Eloisa Shah MD PGY 1 Attending Provider Attestation/Addendum I have personally seen and examined the patient separately on the above date of service and discussed the plan of care with the resident. I reviewed the resident Dr. Shah consultation progress note and agree with the resident findings and plan in the note above and have also edited the documentation to reflect my findings and plan. Noel Amin M.D. Interventional Cardiology
[2024-06-23] MEDS: FAMOTIDINE INJ 10 MG/ML VIAL 2 ML 20 MG IVP (11:55)
[2024-06-23] MEDS: Heparin/D5w 25K 250 ML Ivpb 25,000 UNIT/250 ML BAG 16.945 UNIT IV (13:08)
--- NOTE | 2024-06-23 14:46 | ESPR_ITS ---
<Statement entered by Paulette Hawkins MD - 07/04/24 12:31> Attending attestation: I reviewed above note and agree with findings and plans. I have also personally examined the patient with medicine team and went over assessment and plan with medical team including process engineering intern and resident physician. <Statement entered by Bradford Smith MD - 06/24/24 21:51> Senior Resident Attestation: I supervised/discussed management plan with process engineering intern physician Dr. Lee, and was involved in the care of this patient. I personally saw and examined the patient and discussed the assessment and plan with the entire medicine team, including my attending. I agree with the assessment and plan as documented. Heparin drip was discontinued due to hematuria, he was planned for PCI tomorrow. Patient's care was discussed with attending physician, Dr. Hawkins. Bradford Smiht MD PGY-2. Documentation for date of: 06/23/24 Subjective Subjective Interval history: Patient seen at bedside this morning. No overnight events. Spoke with cardiology today who said that he will take patient tomorrow for stents and he recommended to stop heparin as patient has been having some hematuria. No chest pain today or shortness of breath. No other complaints at this time Exam Vital Signs Temp Pulse Resp BP Pulse Ox O2 Del Method O2 Flow Rate 98.0 F 68 18 121/65 95 Room Air 1.5 06/23/24 12:00 06/23/24 14:00 06/23/24 12:00 06/23/24 12:00 06/23/24 12:00 06/23/24 12:00 06/23/24 09:47 FiO2 40 06/21/24 04:37 Narrative Exam General: A/O x3, no acute distress, obese Eyes: PERRL, EOMI. Anicteric, vision grossly intact. Ears: No ear pain, no ear discharge, Hearing grossly intact. Nose: No nasal discharge. Mouth/Throat: Dry mucous membranes, no redness, no lesions. Neck: short neck, non-tender, no cervical lymphadenopathy. Lungs: Decreased breath sounds, No accessory muscle use. Cardio: Normal S1/S2, regular rhythm, no murmurs, no JVD Abdomen: Soft, non-tender, no palpable masses, peristalsis present, no guarding or rebound. Extremities: Symmetrical, no significant deformities, Edema has improved in the lower abdomen it is 1+ and improved in KAYLEEN LE to 2+ , non-tender, peripheral pulses presents, Multiple R foot digits amputation Skin: No rashes, no lesions, warm to touch, multiple abrasion in various stages of healing in KAYLEEN LE and L UE, bruise in L knee Neuro: No focal neurological deficits, motor and sensory intact Psych: Cooperative, appropriate mood and effect. Objective Labs 06/23/24 05:55 06/23/24 05:55 Labs: Laboratory Results - last 24 hr 06/21/24 06/21/24 06/21/24 16:47 16:47 16:47 WBC RBC Hgb Hct MCV MCH MCHC RDW Std Deviation Plt Count Neut % (Auto) Lymph % (Auto) [place] % (Auto) Eos % (Auto) Baso % (Auto) Neut # (Auto) Lymph # (Auto) [place] # (Auto) Eos # (Auto) Baso # (Auto) Immature Gran # (Auto) Absolute Nucleated RBC Immature Gran % Nucleated RBC % PT INR APTT POC Blood Site Aortic Pulmonary Artery POC O2 Saturation 90 L 63 L Sodium Potassium Chloride Carbon Dioxide Anion Gap BUN Creatinine Estim Creat Clear Calc eGFR BUN/Creatinine Ratio Glucose Calculated Osmolality Calcium Phosphorus Magnesium Crossmatch 06/22/24 06/22/24 06/23/24 17:47 23:50 05:55 WBC 8.8 RBC 2.79 L Hgb 8.4 L Hct 25.1 L MCV 90 MCH 30.1 MCHC 33.5 RDW Std Deviation 47.5 H Plt Count 333 Neut % (Auto) 64 Lymph % (Auto) 23 [place] % (Auto) 10 Eos % (Auto) 2 Baso % (Auto) 1 Neut # (Auto) 5.6 Lymph # (Auto) 2.0 [place] # (Auto) 0.9 H Eos # (Auto) 0.2 Baso # (Auto) 0.1 Immature Gran # (Auto) 0.03 H Absolute Nucleated RBC 0.00 Immature Gran % 0 Nucleated RBC % 0 PT 12.3 H INR 1.1 APTT 51.8 H 51.8 H 47.1 H POC Blood Site POC O2 Saturation Sodium 134 L Potassium 3.6 D Chloride 99 Carbon Dioxide 31.4 H Anion Gap 4 L BUN 20 Creatinine 0.9 Estim Creat Clear Calc 92.9 eGFR > 60 BUN/Creatinine Ratio 22 H Glucose 241 H Calculated Osmolality 278 Calcium 8.2 L Phosphorus 3.2 Magnesium 2.0 Crossmatch 06/23/24 14:17 WBC RBC Hgb Hct MCV MCH MCHC RDW Std Deviation Plt Count Neut % (Auto) Lymph % (Auto) [place] % (Auto) Eos % (Auto) Baso % (Auto) Neut # (Auto) Lymph # (Auto) [place] # (Auto) Eos # (Auto) Baso # (Auto) Immature Gran # (Auto) Absolute Nucleated RBC Immature Gran % Nucleated RBC % PT INR APTT POC Blood Site POC O2 Saturation Sodium Potassium Chloride Carbon Dioxide Anion Gap BUN Creatinine Estim Creat Clear Calc eGFR BUN/Creatinine Ratio Glucose Calculated Osmolality Calcium Phosphorus Magnesium Crossmatch See Detail ABG Interpretation ABG results: 06/21/24 09:39 ABG pH 7.46 H ABG pCO2 40 ABG pO2 34 L* ABG HCO3 28 H ABG O2 Saturation 75 L ABG Base Excess 4 H Quality Measures Quality Measures sepsis Current suspected stage: sepsis Possible source: unknown Blood cultures ordered: yes Antibiotic ordered: Yes Advance care planning discussed with:: patient and sibling Assessment & Plan Assessment Current Active Medications: Generic Name Dose Route Start Last Admin Trade Name Freq PRN Reason Stop Dose Admin Acetaminophen 650 mg 06/21/24 10:22 Acetaminophen 325 Mg Tablet PO 07/21/24 10:21 Q6H PRN pain and Fever >100.4 Hydrocodone Bitart/Acetaminophen 1 tab 06/21/24 10:22 Hydrocodone/Apap 5/325 Tablet PO 06/26/24 10:21 Q4HR PRN PAIN SCALE 4-10(Mod-Sev Aspirin 81 mg 06/22/24 09:00 06/23/24 08:35 Aspirin Ec 81 Mg Tabec PO 07/22/24 08:59 81 mg QDAY HARJEET Administration Atorvastatin Calcium 80 mg 06/22/24 21:00 06/22/24 21:30 Atorvastatin Calcium 20 Mg Tablet PO 07/22/24 20:59 80 mg HS HARJEET Administration Carvedilol 6.25 mg 06/22/24 08:00 06/23/24 08:33 Carvedilol 3.125 Mg Tablet PO 07/22/24 07:59 6.25 mg BIDWM HARJEET Administration Dextrose 25 ml 06/21/24 10:27 Dextrose 50%-Water Inj 50 Ml Syringe IV 07/21/24 10:26 Q15MIN PRN BG 50-70 responsive npo pt Dextrose 50 ml 06/21/24 10:27 Dextrose 50%-Water Inj 50 Ml Syringe IV 07/21/24 10:26 Q15MIN PRN BG <50 OR BG <70 & pt unresponsive Famotidine 20 mg 06/23/24 11:30 06/23/24 11:55 Famotidine Inj 10 Mg/Ml Vial 2 Ml IVP 07/23/24 11:29 20 mg QDAY HARJEET Administration Furosemide 40 mg 06/21/24 21:00 06/23/24 05:45 Furosemide Inj 10 Mg/Ml Vial 2 Ml IVP 07/21/24 20:59 40 mg BIDD HARJEET Administration Glucagon 1 mg 06/21/24 10:27 Glucagon Inj 1 Mg Vial IM Q15MIN PRN BG <70, and no IV access Ceftriaxone Sodium/Dextrose 50 mls @ 100 mls/hr 06/21/24 08:00 06/23/24 08:32 Rocephin/D5w 1gm Iv Premix IV 06/28/24 07:59 100 mls/hr QDAY HARJEET Administration Heparin Sodium/Dextrose 25,000 unit in 250 mls @ 10 mls/hr 06/21/24 12:45 06/23/24 13:57 Heparin In D5w Ivpb IV 07/05/24 12:44 0 units/kg/hr .Q24H HARJEET 0 mls/hr Titration Protocol 8.646 UNITS/KG/HR Insulin Glargine 20 unit 06/23/24 09:00 06/23/24 08:35 Insulin Glargine (Lantus) 5 Unit/0.05 Ml (Per 5 Units) SC 07/23/24 08:59 20 unit QAM HARJEET Administration Insulin Human Lispro 0 unit 06/21/24 11:30 06/23/24 11:55 Insulin Lispro (Admelog) 1 Unit/0.01 Ml Unit SC 07/21/24 11:29 3 unit ACHS HARJEET Administration Protocol Pyridostigmine [place] 60 mg 06/22/24 22:00 06/23/24 13:38 Pyridostigmine [place] 60 Mg Tablet PO 07/22/24 21:59 60 mg TID HARJEET Administration Plan 74-year-old male with past medical history of hypertension, DM2, myasthenia gravis, and osteomyelitis of right foot was admitted to the hospital on 06/21/2024 for acute decompensated heart failure, troponinemia type I versus 2, and sepsis likely secondary to community-acquired pneumonia. #Multivessel CAD #Troponinemia type I versus II #Hypertensive emergency ?Patient does not have any chest pain or history of CAD. ?DDx type I with EKG showing ST changes type versus type II given patient's initial presentation of hypertensive emergency. ?Initial troponins were 1.203 and up trended to 3.219 -Initial BP was 243/109 -BP today 163/82 ?EKG showed ST depressions in lead II -Heart cath showed multi-vessel disease with 90% stenosis LAD and LCX, as well as moderate disease in RCA -Patient will undergo stent placement by cardiology tomorrow Plan: ?Continue aspirin 81, atorvastatin 80mg HS, lasix 40mg BID. -Held heparin drip due to hematuria. -NPO after midnight for stent placement tomorrow. -Keep Hgb above 8. -Transfuse 1 PRBC tonight at 6pm ?Cardiology consulted, appreciate recommendations #Acute decompensated heart failure, new onset #Shortness of breath #Anasarca #Hypokalemia ?Patient has been having shortness of breath accompanied by lower extremity swelling up to lower abdomen and orthopnea. ?There is no recent echo on file nor patient is aware of any history of heart failure. -Patient still has 2+ swelling from LE to lower abdomen ?BNP 556 ?Potassium 3.6 today ?Chest x-ray showed prominent congestive heart failure ?Chest CTA showed significant heart failure -Echo showed EF 50% Plan: ?Continue Coreg 6.25 BID an will titrate as tolerated -Continue Lasix 40 twice daily -Will start losartan and Entresto at a later date ?60 mEq of potassium given -2gm Mg x1 ?Daily weights ?Strict KAREN's ?Fluid restriction 1800 ?Keep potassium above 4 and magnesium above 2 ?Cardiology consulted, pursue recommendations #Sepsis likely secondary to community-acquired pneumonia #Acute hypoxic respiratory failure #Pleural effusion #Community-acquired pneumonia #Leukocytosis ?Patient met SIRS 3 out of 4 with leukocytosis, tachycardia, and tachypnea. ?DDx community-acquired pneumonia versus aspiration pneumonia given patient's history of recent inactivity and immobility ?Patient was placed on BiPAP at 4 L of FiO2 40%, currently on nasal cannula ?Chest x-ray showed right base pneumonia ?CTA chest showed bilateral pleural effusions ?WBC 8.8 with no spikes in fevers ?Lactate dehydrogenase 324 ?ABG showed pH 7.46, pCO2 34, pCO2 40 -Blood and urine cx negative Plan: ?Continue Rocephin and azithromycin [07/01/2024?] ?Continue O2 administration as needed ?Will continue to monitor #Ground level Fall #Hx of myasthenia gravis -Patient fell 2 weeks ago due to weakness and did not seek any medical care at the time. Plan: -X-ray hip KAYLEEN with pelvis ordered ?Restart patient's pyridostigmine 60 mg p.o. 3 times daily -Will continue to monitor #GERD? ?Patient has been complaining of acid reflux since this morning. Plan: ?Famotidine qday ?Will continue to monitor #Bilirubinemia ?T bilirubin 1.6 ?No alkaline phosphatase elevation or transaminitis Plan: ?Will continue to monitor #Normocytic normochromic anemia #Thrombocytosis ?Hgb 8.4 and platelets 333 ?No active signs of bleeding Plan: ?Will transfuse 1 PRBC today in the evening due to surgical procedure tomorrow -Keep Hgb above 8 ?Will continue to monitor #Hx of DM2 ?Last A1c was 7.4% on 03/19/2024 -Glucose 241 Plan: ?ISS -Insulin glargine 20 units AM ?Accu-Cheks and hypoglycemia protocol Disposition: Patient admitted to telemetry Diet: Low carb consistent GI prophylaxis: DVT prophylaxis: Held heparin drip due to hematuria Code:Full Case disclosed with Attending Dr. Hawkins and My senior Dr. Smith PGY2. Oleksandr Patterson PGY1
[2024-06-23 14:54] LABS: Partial Thromboplastin Time 45.4 Seconds (22.0-36.0)
--- NOTE | 2024-06-23 14:55 | PC.SS ---
Rounding Note: Patient will not need transfer for CABG procedure.
[2024-06-23] MEDS: ATORVASTATIN CALCIUM 20 MG TABLET 80 MG PO (20:16)
[2024-06-24] VITALS (21 sets, daily range): BP systolic 130–189; BP diastolic 62–97; PULSE 54–64; RESP 12–89; TEMP 35.8–36.7; O2SAT 92–99; BMI 38.6
[2024-06-24 06:11] LABS: Basophils # (Auto) 0.1 Thou/mm3 (0.0-0.2); Basophils % (Auto) 1 % (0-2.5); Eosinophils # (Auto) 0.3 Thou/mm3 (0.0-0.5); Eosinophils % (Auto) 4 % (0-10); Hematocrit 29.1 % (41.0-53.0); Hemoglobin 9.6 g/dL (13.5-16.0); Immature Granulocytes % (Auto) 1 % (0-0); Immature Granulocytes Auto 0.05 Thou/mm3 (0.00-0.00); Lymphocytes # (Auto) 1.8 Thou/mm3 (1.0-4.8); Lymphocytes % (Auto) 21 % (10-50); Mean Corpuscular Hemoglobin 30.1 pg (25.0-35.0); Mean Corpuscular Volume 91 fL (80-100); Monocytes # (Auto) 0.8 Thou/mm3 (0.0-0.8); Monocytes % (Auto) 9 % (0-12); Neutrophils # (Auto) 5.7 Thou/mm3 (1.8-7.7); Neutrophils % (Auto) 65 % (37-80); Nucleated Red Blood Cell % 0 /100 WBC (0); Platelet Count 344 Thou/mm3 (140-440); RDW Standard Deviation 47.3 fL (35.1-43.9); Red Blood Count 3.19 Miln/mm3 (4.50-5.90); White Blood Count 8.8 Thou/mm3 (3.8-10.6)
[2024-06-24] MEDS: FUROSEMIDE INJ 10 MG/ML VIAL 2 ML 40 MG IVP ×2 (06:19→17:32)
[2024-06-24] MEDS: pyRIDostigmine bromide 60 MG TABLET PO ×2 (06:19→21:31)
[2024-06-24 06:26] LABS: Anion Gap 5 (7-16); BUN/Creatinine Ratio 19 Ratio (12-20); Blood Urea Nitrogen 17 mg/dL (9-23); Calcium 8.5 mg/dL (8.3-10.6); Carbon Dioxide 30.2 mMol/L (20.0-31.0); Chloride 100 mMol/L (98-107); Creatinine (Component) 0.9 mg/dL (0.6-1.3); Estimated Creatinine Clearance 91.6 mL/min (>60); Glucose 190 mg/dL (74-106); Magnesium 2.2 mg/dL (1.6-2.6); Osmolality,Calculated 276 (275-295); Phosphorous 3.3 mg/dL (2.4-5.1); Potassium 3.7 mMol/L (3.4-5.1); Sodium 135 mMol/L (136-145); eGFR > 60 See Note
--- NOTE | 2024-06-24 08:20 | ESPR_ITS ---
Documentation for date of: 06/24/24 Subjective Subjective Interval history: Patient was seen and examined at bedside this AM. No acute exents overnight. Patient NPO, adequate urine output and mentation is at baseline. Patient denies any symptoms currently Hip x-ray ruled out any acute fractures Patient scheduled for cardiac catheterization today with stent placement to LCX initially and IVUS the LAD if the patient hb is stable and no further hematuria noted. Heparin was discontinued yesterday since then hematuria has now resolved. Patient received 1 unit PRBC last night after which Hb increased to 9.6. Two units of PRBC on hand if needed for cardiac catheterization today Patient counseled on cardiac catheterization and all questions were answered. Patient's on Lasix 40 mg IV twice daily Negative fluid balance of 2859cc / 24 hours Urgent cardiac cathterization completed on 06/21/2024 showed 1. NSTEMI with a troponin of 3.2: LHC showed severe multivessel calcified CAD with 90% stenosis in the proximal LAD as well as 80 to 90% stenosis and a long segment in the mid LAD along with 90% stenosis of the proximal to mid LCx. RCA shows moderate stenosis of around 50 to 60% in the mid RCA along with 50 to 60% in the proximal or ostial RPDA. Rest of the artery shows mild disease. 2. LVEF appears to be low normal around 50%. LVEDP was severely elevated at 26 mmHg. Transvalvular right gradient was present at 25 and 30 mmHg indicating at least mild or mild to moderate aortic stenosis 3. Moderate to severely elevated right heart pressures with a mean RA of around 70 mmHg, RV pressure of 72 over 16 mmHg, PA pressure 57-60 mmHg with a mean of 38 mmHg PCWP elevated at 31 mmHg. 4. Normal cardiac output at 7.2 L/min/m? and normal cardiac index at 3.1 L/min/m?. Dr. Padron cardiothoracic [place] reviewed patient images and said patient is high mortality case due to his multiple comorbidities including myasthenia gravis. Also has low-grade kidney failure most likely means no have visible vein conduits available, low HCT at 8 and his BMI of 41 means that mortality is greater than 10% . Dr. Nelson cardiothoracic surgeon from [facility] was also consulted and was of similar opinion and both surgeons recommended to pursue complex multi vessel PCI. Exam Vital Signs Temp Pulse Resp BP Pulse Ox O2 Del Method O2 Flow Rate 97.3 F 58 L 17 132/62 H 98 Nasal Cannula 1 06/24/24 04:00 06/24/24 06:19 06/24/24 06:14 06/24/24 06:19 06/24/24 06:14 06/24/24 04:00 06/24/24 06:14 FiO2 40 06/24/24 04:00 Narrative Exam Constitutional Alert, oriented x 3 and comfortable. Obese male on room air HEENT Vision grossly intact. Patent nares. Trachea midline Respiratory Chest normal on inspection and decreased AE at bases with mild crackles Cardiovascular S1 and S2 audible, RRR. No murmurs carotid bruit. No gross JVD. Abdominal Soft and non tender to palpation in all quadrants. BS + Genitourinary No bladder tenderness, no flank pain. Normal to palpation. Mild scrotal edema. Hematuria resolved Musculoskeletal Extremities tone within normal limits. LE edema 1+ at posterior ankles and hip b/l Neurological CN II - XII grossly intact. Extremity motor and sensation grossly intact. Skin Warm, dry and intact. Ecchymoses on anterior and medial L Knee Psychiatric Patient has good affect, is cooperative Objective Labs 06/24/24 04:15 06/24/24 04:15 Labs: Laboratory Results - last 24 hr 06/23/24 06/24/24 14:17 04:15 WBC 8.8 RBC 3.19 L Hgb 9.6 L Hct 29.1 L MCV 91 MCH 30.1 MCHC 33.0 RDW Std Deviation 47.3 H Plt Count 344 Neut % (Auto) 65 Lymph % (Auto) 21 [place] % (Auto) 9 Eos % (Auto) 4 Baso % (Auto) 1 Neut # (Auto) 5.7 Lymph # (Auto) 1.8 [place] # (Auto) 0.8 Eos # (Auto) 0.3 Baso # (Auto) 0.1 Immature Gran # (Auto) 0.05 H Absolute Nucleated RBC 0.00 Immature Gran % 1 H Nucleated RBC % 0 APTT 45.4 H Sodium 135 L Potassium 3.7 Chloride 100 Carbon Dioxide 30.2 Anion Gap 5 L BUN 17 Creatinine 0.9 Estim Creat Clear Calc 91.6 eGFR > 60 BUN/Creatinine Ratio 19 Glucose 190 H D Calculated Osmolality 276 Calcium 8.5 Phosphorus 3.3 Magnesium 2.2 Blood Type O Positive Antibody Screen NEGATIVE Crossmatch See Detail Blood Bank Wristband ID Yes ABG Interpretation ABG results: 06/21/24 09:39 ABG pH 7.46 H ABG pCO2 40 ABG pO2 34 L* ABG HCO3 28 H ABG O2 Saturation 75 L ABG Base Excess 4 H Quality Measures Quality Measures sepsis Current suspected stage: ruled out Possible source: unknown Blood cultures ordered: yes Antibiotic ordered: Yes Advance care planning discussed with:: patient Assessment & Plan Assessment Current Active Medications: Generic Name Dose Route Start Last Admin Trade Name Freq PRN Reason Stop Dose Admin Acetaminophen 650 mg 06/21/24 10:22 Acetaminophen 325 Mg Tablet PO 07/21/24 10:21 Q6H PRN pain and Fever >100.4 Protocol Hydrocodone Bitart/Acetaminophen 1 tab 06/21/24 10:22 Hydrocodone/Apap 5/325 Tablet PO 06/26/24 10:21 Q4HR PRN PAIN SCALE 4-10(Mod-Sev Aspirin 81 mg 06/22/24 09:00 06/23/24 08:35 Aspirin Ec 81 Mg Tabec PO 07/22/24 08:59 81 mg QDAY HARJEET Administration Atorvastatin Calcium 80 mg 06/22/24 21:00 06/23/24 20:16 Atorvastatin Calcium 20 Mg Tablet PO 07/22/24 20:59 80 mg HS HARJEET Administration Carvedilol 6.25 mg 06/22/24 08:00 06/23/24 17:51 Carvedilol 3.125 Mg Tablet PO 07/22/24 07:59 6.25 mg BIDWM HARJEET Administration Dextrose 25 ml 06/21/24 10:27 Dextrose 50%-Water Inj 50 Ml Syringe IV 07/21/24 10:26 Q15MIN PRN BG 50-70 responsive npo pt Dextrose 50 ml 06/21/24 10:27 Dextrose 50%-Water Inj 50 Ml Syringe IV 07/21/24 10:26 Q15MIN PRN BG <50 OR BG <70 & pt unresponsive Famotidine 20 mg 06/23/24 11:30 06/23/24 11:55 Famotidine Inj 10 Mg/Ml Vial 2 Ml IVP 07/23/24 11:29 20 mg QDAY HARJEET Administration Furosemide 40 mg 06/21/24 21:00 06/24/24 06:19 Furosemide Inj 10 Mg/Ml Vial 2 Ml IVP 07/21/24 20:59 40 mg BIDD HARJEET Administration Glucagon 1 mg 06/21/24 10:27 Glucagon Inj 1 Mg Vial IM Q15MIN PRN BG <70, and no IV access Ceftriaxone Sodium/Dextrose 50 mls @ 100 mls/hr 06/21/24 08:00 06/23/24 08:32 Rocephin/D5w 1gm Iv Premix IV 06/28/24 07:59 100 mls/hr QDAY HARJEET Administration Heparin Sodium/Dextrose 25,000 unit in 250 mls @ 10 mls/hr 06/21/24 12:45 06/23/24 13:57 Heparin In D5w Ivpb IV 07/05/24 12:44 0 units/kg/hr .Q24H HARJEET 0 mls/hr Titration Protocol 8.646 UNITS/KG/HR Insulin Glargine 20 unit 06/23/24 09:00 06/23/24 08:35 Insulin Glargine (Lantus) 5 Unit/0.05 Ml (Per 5 Units) SC 07/23/24 08:59 20 unit QAM HARJEET Administration Insulin Human Lispro 0 unit 06/24/24 12:00 Insulin Lispro (Admelog) 1 Unit/0.01 Ml Unit SC 07/24/24 11:59 Q6HR HARJEET Protocol Pyridostigmine [place] 60 mg 06/22/24 22:00 06/24/24 06:19 Pyridostigmine [place] 60 Mg Tablet PO 07/22/24 21:59 60 mg TID HARJEET Administration Plan 74-year-old male with past medical history of essential hypertension for 40 years, insulin-dependent diabetes mellitus type 2 [7.4] for more than 30years, myasthenia gravis on pyridostigmine and mycophenolate follows up with Dr. Patton, neurologist in [place], and osteomyelitis of right foot s/p amputation of first toe, fourth and fifth toes on right foot due to diabetic ulcers, diabetic neuropathy, right ankle Charcot joint, B/L lower extremity varicose veins was brought into the ER due to shortness of breath which started last night as well as lower extremity swelling.Patient was admitted for new onset acute decompensated heart failure. Cardiology was consulted for elevated troponin, ST depression on EKG and new onset decompensated heart failure. 1. NSTEMI type I vs type II 2. ACS 3. Triple-vessel CAD 4. Troponinemia 5. Essential hypertension 6. Acute respiratory failure with hypoxia -resolved 7. New onset acute decompensated heart failure Patient has longstanding hypertension for more than 40 years. On admission patient had positive troponin I of 1.2 which up trended to 6.6. Patient presenting complaint was SOB and lower extremity edema. Patient denied chest pain, pressure. Patient was also hypoxic SpO2 94% on RA and started on BiPAP and transitioned to NV Patient was immediately prepped for cardiac catheterization Patient was clinically fluid overloaded with B/L lower extremity edema and abdominal distention. EKG was nondiagnostic with ST depression less than 1 mm in lead I and not in any consecutive leads Cardiac catheterization showed multi-vessel disease involving LAD and LCX with moderate disease in RCA Transthoracic echocardiogram: Normal LV size and low normal function. Estimated EF around 50%. Mild hypokinesis mid anterior apical septal, mid apical lateral, and apex. Grade 1 diastolic dysfunction. IVC mildly dilated. Dr. Padron cardiothoracic [place] reviewed patient images and said patient is high mortality case due to his multiple comorbidities including myasthenia gravis. Also has low-grade kidney failure most likely means no have visible vein conduits available, low HCT at 8 and his BMI of 41 means that mortality is greater than 10% . Dr. Nelson cardiothoracic surgeon from [facility] was also consulted and was of similar opinion and both surgeons recommended to pursue complex multi vessel PCI. Plan: - Low sodium diet ? Strict I's/O charting ? Daily weights ? IV diuresis with furosemide 40 mg IV twice daily - Supplemental O2 - Atorvastatin 80 mg po HS - ASA 81 mg po daily - Continue Coreg 6.25 mg po BID and titrate as necesary as patient was in hypertensive urgency at admission - Can add losartan at later date and Entresto if there is heart failure ? Maintain Mg >2 and K >4 to prevent arrhythmias ? No need to continue trending troponin - Discontinued Heparin Drip on 06/23 as patient developed hematuria. Patient already received 48 hours of heparin drip for NSTEMI. ? Patient n.p.o. since midnight and scheduled for cardiac catheterization today with stent placement to LCX initially and IVUS the LAD. Hb is stable and hematuria has resolved ? Discussed the above with patient and extensively counseled on alternative of coronary artery stenting and patient agreed for procedure 8. Hypertensive urgency - resolved Patient blood pressure was elevated on admission and 240/140 mmHg. Patient was given some IV medications including IV Lasix and blood pressures in the 160 mmHg. Recommend to decrease joint by 25% and keep it around 150/60 mmHg. Agree with control of blood pressure with beta-blockers Coreg as well as losartan 9. Normocytic anemia DDx: Pure red cell aplasia secondary to mycophenolate, thalassemia, iron deficiency, sideroblastic anemia, lead poisoning Most likely secondary to long-term mycophenolate use. Recommend retic count to confirm Consider iron panel to rule out iron deficiency anemia and blood smear to rule out sideroblastic and lead poisoning. However lead poisoning unlikely due to patient's low risk of exposure. Patient's Hb on admission was 9.9 which subsequently downtrended to 8.0 on 06/23 Patient received 1 unit PRBC last night after which Hb increased to 9.6. Two units of PRBC on hand if needed for cardiac catheterization today 10. Insulin-dependent diabetes mellitus type 2 11. Diabetic neuropathy 12. Right ankle Charcot joint 13. S/p first, fourth and fifth toe on right foot amputation Last HbA1c 7.4 Patient on insulin aspart and glargine at home Continue management as per primary team Patient had amputation of multiple digits on right foot secondary to diabetic neuropathy leading to diabetic ulcers. 14. Varicose veins 3 years ago patient first noticed B/L lower extremity swelling and was diagnosed at the time with varicose veins by his PCP Dr. Darrius Oswald. Patient was prescribed compression stockings which he wears daily. Health maintenance: Disposition: For cardiac cath with stenting tomorrow Diet: Cardiac Lines: pIVs GI Prophylaxis: None Thrombo Prophylaxis: Heparin Code status: FULL CODE Continue rest of management as per primary team We are grateful to be able to participate in Mr. Castro's care. Thank you for the consult Plan of care discussed with attending [employer] Liv[employer] Farmer, Dr Eloisa Shah MD PGY 1 Attending Provider Attestation/Addendum I have personally seen and examined the patient separately on the above date of service and discussed the plan of care with the resident. I reviewed the resident Dr. Shah consultation progress note and agree with the resident findings and plan in the note above and have also edited the documentation to reflect my findings and plan. Noel Amin M.D. Interventional Cardiology
[2024-06-24] MEDS: POTASSIUM CHLORIDE 20 mEq TABCR 40 MEQ PO (08:50)
[2024-06-24] MEDS: CLOPIDOGREL BISULFATE 75 MG TABLET 600 MG PO (08:51)
[2024-06-24] MEDS: cefTRIAXone/D5w 1gm IV premix 50 ML IV (08:51)
[2024-06-24] MEDS: FAMOTIDINE INJ 10 MG/ML VIAL 2 ML 20 MG IVP (08:51)
[2024-06-24] MEDS: ASPIRIN EC 81 MG TABEC PO (08:51)
--- NOTE | 2024-06-24 09:21 | PD.RESPRO ---
Documentation for date of: 06/24/24 Subjective Subjective Interval history: Patient was seen at bedside this morning. No overnight events. Patient has been n.p.o. 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 His hematuria today had improved with some mild red tinged urine. No other complaints at this time. Exam Vital Signs Temp Pulse Resp BP Pulse Ox O2 Del Method O2 Flow Rate 97.5 F 59 L 20 148/65 H 92 L Nasal Cannula 1 06/24/24 08:00 06/24/24 08:00 06/24/24 08:00 06/24/24 08:00 06/24/24 08:00 06/24/24 08:00 06/24/24 08:00 FiO2 40 06/24/24 08:00 Narrative Exam General: A/O x3, no acute distress, obese Eyes: PERRL, EOMI. Anicteric, vision grossly intact. Ears: No ear pain, no ear discharge, Hearing grossly intact. Nose: No nasal discharge. Mouth/Throat: Dry mucous membranes, no redness, no lesions. Neck: short neck, non-tender, no cervical lymphadenopathy. Lungs: Decreased breath sounds, No accessory muscle use. Cardio: Normal S1/S2, regular rhythm, no murmurs, no JVD Abdomen: Soft, non-tender, no palpable masses, peristalsis present, no guarding or rebound. Extremities: Symmetrical, no significant deformities, Edema has improved in the lower abdomen almost entirely gone and improved in KAYLEEN LE to 1+ , non-tender, peripheral pulses presents, Multiple R foot digits amputation Skin: No rashes, no lesions, warm to touch, multiple abrasion in various stages of healing in KAYLEEN LE and L UE, bruise in L knee Neuro: No focal neurological deficits, motor and sensory intact Psych: Cooperative, appropriate mood and effect. Objective Labs 06/24/24 04:15 06/24/24 04:15 Labs: Laboratory Results - last 24 hr 06/23/24 06/24/24 14:17 04:15 WBC 8.8 RBC 3.19 L Hgb 9.6 L Hct 29.1 L MCV 91 MCH 30.1 MCHC 33.0 RDW Std Deviation 47.3 H Plt Count 344 Neut % (Auto) 65 Lymph % (Auto) 21 [place] % (Auto) 9 Eos % (Auto) 4 Baso % (Auto) 1 Neut # (Auto) 5.7 Lymph # (Auto) 1.8 [place] # (Auto) 0.8 Eos # (Auto) 0.3 Baso # (Auto) 0.1 Immature Gran # (Auto) 0.05 H Absolute Nucleated RBC 0.00 Immature Gran % 1 H Nucleated RBC % 0 APTT 45.4 H Sodium 135 L Potassium 3.7 Chloride 100 Carbon Dioxide 30.2 Anion Gap 5 L BUN 17 Creatinine 0.9 Estim Creat Clear Calc 91.6 eGFR > 60 BUN/Creatinine Ratio 19 Glucose 190 H D Calculated Osmolality 276 Calcium 8.5 Phosphorus 3.3 Magnesium 2.2 Blood Type O Positive Antibody Screen NEGATIVE Crossmatch See Detail Blood Bank Wristband ID Yes ABG Interpretation ABG results: 06/21/24 09:39 ABG pH 7.46 H ABG pCO2 40 ABG pO2 34 L* ABG HCO3 28 H ABG O2 Saturation 75 L ABG Base Excess 4 H Quality Measures Quality Measures sepsis Current suspected stage: sepsis Possible source: unknown Blood cultures ordered: yes Antibiotic ordered: Yes Advance care planning discussed with:: patient Assessment & Plan Assessment Current Active Medications: Generic Name Dose Route Start Last Admin Trade Name Freq PRN Reason Stop Dose Admin Acetaminophen 650 mg 06/21/24 10:22 Acetaminophen 325 Mg Tablet PO 07/21/24 10:21 Q6H PRN pain and Fever >100.4 Protocol Hydrocodone Bitart/Acetaminophen 1 tab 06/21/24 10:22 Hydrocodone/Apap 5/325 Tablet PO 06/26/24 10:21 Q4HR PRN PAIN SCALE 4-10(Mod-Sev Aspirin 81 mg 06/22/24 09:00 06/24/24 08:51 Aspirin Ec 81 Mg Tabec PO 07/22/24 08:59 81 mg QDAY HARJEET Administration Atorvastatin Calcium 80 mg 06/22/24 21:00 06/23/24 20:16 Atorvastatin Calcium 20 Mg Tablet PO 07/22/24 20:59 80 mg HS HARJEET Administration Carvedilol 6.25 mg 06/22/24 08:00 06/24/24 08:29 Carvedilol 3.125 Mg Tablet PO 07/22/24 07:59 Not Given BIDWM HARJEET Clopidogrel Bisulfate 75 mg 06/25/24 09:00 Clopidogrel Bisulfate 75 Mg Tablet PO 07/25/24 08:59 QDAY HARJEET Dextrose 25 ml 11/04/24 10:27 Dextrose 50%-Water Inj 50 Ml Syringe IV 07/21/24 10:26 Q15MIN PRN BG 50-70 responsive npo pt Dextrose 50 ml 06/21/24 10:27 Dextrose 50%-Water Inj 50 Ml Syringe IV 07/21/24 10:26 Q15MIN PRN BG <50 OR BG <70 & pt unresponsive Famotidine 20 mg 06/23/24 11:30 06/24/24 08:51 Famotidine Inj 10 Mg/Ml Vial 2 Ml IVP 07/23/24 11:29 20 mg QDAY HARJEET Administration Furosemide 40 mg 06/21/24 21:00 06/24/24 06:19 Furosemide Inj 10 Mg/Ml Vial 2 Ml IVP 07/21/24 20:59 40 mg BIDD HARJEET Administration Glucagon 1 mg 06/21/24 10:27 Glucagon Inj 1 Mg Vial IM Q15MIN PRN BG <70, and no IV access Ceftriaxone Sodium/Dextrose 50 mls @ 100 mls/hr 06/21/24 08:00 06/24/24 08:51 Rocephin/D5w 1gm Iv Premix IV 06/28/24 07:59 100 mls/hr QDAY HARJEET Administration Heparin Sodium/Dextrose 25,000 unit in 250 mls @ 10 mls/hr 06/21/24 12:45 06/23/24 13:57 Heparin In D5w Ivpb IV 07/05/24 12:44 0 units/kg/hr .Q24H HARJEET 0 mls/hr Titration Protocol 8.646 UNITS/KG/HR Insulin Glargine 20 unit 06/23/24 09:00 06/24/24 08:51 Insulin Glargine (Lantus) 5 Unit/0.05 Ml (Per 5 Units) SC 07/23/24 08:59 Not Given QAM HARJEET Insulin Human Lispro 0 unit 06/24/24 12:00 Insulin Lispro (Admelog) 1 Unit/0.01 Ml Unit SC 07/24/24 11:59 Q6HR [facility] Protocol Pyridostigmine [place] 60 mg 06/22/24 22:00 06/24/24 06:19 Pyridostigmine [place] 60 Mg Tablet PO 07/22/24 21:59 60 mg TID HARJEET Administration Plan 74-year-old male with past medical history of hypertension, DM2, myasthenia gravis, and osteomyelitis of right foot was admitted to the hospital on 06/21/2024 for acute decompensated heart failure, troponinemia type I versus 2, and sepsis likely secondary to community-acquired pneumonia. #Multivessel CAD #Troponinemia type I versus II #Hypertensive emergency ?Patient does not have any chest pain or history of CAD. ?DDx type I with EKG showing ST changes type versus type II given patient's initial presentation of hypertensive emergency. ?Initial troponins were 1.203 and up trended to 3.219 -Initial BP was 243/109 -BP today 163/76 ?EKG showed ST depressions in lead II -Heart cath showed multi-vessel disease with 90% stenosis LAD and LCX, as well as moderate disease in RCA -Patient will undergo stent placement by cardiology today -Transfused 1 PRBC last night Plan: ?Continue aspirin 81, atorvastatin 80mg HS, lasix 40mg BID. -Held heparin drip due to hematuria. -Will ubdergo stent placement today -Keep Hgb above 8. ?Cardiology consulted, appreciate recommendations #Acute decompensated heart failure, new onset #Shortness of breath #Anasarca #Hypokalemia ?Patient has been having shortness of breath accompanied by lower extremity swelling up to lower abdomen and orthopnea. ?There is no recent echo on file nor patient is aware of any history of heart failure. -Patient still has 2+ swelling from LE to lower abdomen ?BNP 556 ?Potassium 3.7 today ?Chest x-ray showed prominent congestive heart failure ?Chest CTA showed significant heart failure -Echo showed EF 50% Plan: ?Continue Coreg 6.25 BID an will titrate as tolerated -Continue Lasix 40 twice daily -Will start losartan and Entresto at a later date ?40 mEq of potassium given -2gm Mg x1 ?Daily weights ?Strict KAREN's ?Fluid restriction 1800 ?Keep potassium above 4 and magnesium above 2 ?Cardiology consulted, pursue recommendations #Sepsis likely secondary to community-acquired pneumonia #Acute hypoxic respiratory failure #Pleural effusion #Community-acquired pneumonia #Leukocytosis ?Patient met SIRS 3 out of 4 with leukocytosis, tachycardia, and tachypnea. ?DDx community-acquired pneumonia versus aspiration pneumonia given patient's history of recent inactivity and immobility ?Patient was placed on BiPAP at 4 L of FiO2 40%, currently on nasal cannula ?Chest x-ray showed right base pneumonia ?CTA chest showed bilateral pleural effusions ?WBC 8.8 with no spikes in fevers ?Lactate dehydrogenase 324 ?ABG showed pH 7.46, pCO2 34, pCO2 40 -Blood and urine cx negative Plan: ?Continue Rocephin [07/01/2024?] and DC'd azithromycin [07/01/2024?06/23/2024] ?Continue O2 administration as needed ?Will continue to monitor #Ground level Fall #Hx of myasthenia gravis -Patient fell 2 weeks ago due to weakness and did not seek any medical care at the time. -X-ray hip KAYLEEN showed no acute fractures Plan: ?Continue patient's pyridostigmine 60 mg p.o. 3 times daily -Will continue to monitor #GERD? ?Patient has been complaining of acid reflux since this morning. Plan: ?Famotidine qday ?Will continue to monitor #Bilirubinemia ?T bilirubin 1.6 ?No alkaline phosphatase elevation or transaminitis Plan: ?Will continue to monitor #Normocytic normochromic anemia #Thrombocytosis ?Hgb 9.6 and platelets 344 ?No active signs of bleeding -Transfused 1 PRBC last night Plan: -Keep Hgb above 8 ?Will continue to monitor #Hx of DM2 ?Last A1c was 7.4% on 03/19/2024 -Glucose 190 Plan: ?ISS -Insulin 10 units x1 today -Insulin glargine 30 units AM ?Accu-Cheks and hypoglycemia protocol Disposition: Patient admitted to telemetry Diet: Low carb consistent GI prophylaxis: none DVT prophylaxis: Held heparin drip due to hematuria Code:Full Case disclosed with Attending Dr. Inman and My senior Dr. Syed PGY3. Oleksandr Patterson PGY1 Attending Provider Attestation/Addendum I reviewed labs, imaging, EKG, home medications and prior available records. Face to face evaluation was performed by me. I have personally examined the patient and discussed assessment and plan with the IM team. I reviewed the resident note and agree with the plan with exceptions as below. Acute hypoxic respiratory failure: In the setting of CHF exacerbation, right lower lobe pneumonia, and non-STEMI. He is on nasal cannula. Management of the underlying conditions as below. CHF exacerbation: Echocardiogram showed EF of 50%. Continue IV diuresis. Monitor I's and O's. Continue cardiac diet with fluid restriction. Cardiology is following. Non-STEMI: Troponin peaked. Cardiac catheterization showed multivessel disease. Initially thought about transferring for CABG however given the risk factor, patient will stay for recatheterization and stent placement. Continue aspirin, Plavix, and atorvastatin. Cardiology is following. Sepsis secondary to right lower lobe pneumonia: Continue ceftriaxone/azithromycin. Holding mycophenolate.
--- NOTE | 2024-06-24 12:00 | PD.CARDCATH ---
Cardiac Cath Procedure Procedure Name Date of procedure: 06/24/2024 HAIR CUTTER: Noel Amin MD PROCEDURE PERFORMED: 1. Successful PCI performed to the proximal to mid LAD 6 with 2.25 x 16 mm Synergy JERRY stent and postdilated with a 2.75 mm NC balloon at 16 yazmin 2. Intravascular ultrasound performed post PCI for optimizing the stent in the LCx. 3. Intravascular ultrasound performed for the proximal and mid LAD for evaluating and charecterizing both the lesions. 4. Moderate conscious sedation for 45 minutes 5. Ultrasound-guided access of the right femoral artery. Procedure Narrative HISTORY AND INDICATIONS: A 74-year-old with a past medical history of Severe CAD with LHC performed on 06/21/2024 which showed severe 90% stenosis of the proximal to mid LCx, severe 80 to 90% stenosis of along mid LAD segment as well as 90% stenosis of proximal LAD and moderate 50 to 60% and mid RCA and also the medium sized RPDA, essential hypertension for 40 years, type 2 diabetes mellitus for more than 30 years with diabetic neuropathy as well as history of male seen in gravis on mycophenolate of tail as well as pyridostigmine Dr. Parrish neurologist in [place], right ankle septic joint, history of possible PAD as well as history of diabetic foot ulcers status post osteomyelitis of the right foot with amputation of the first toe, fourth and fifth toes of the right foot, history of lower extremity varicose veins, obesity, chronic anemia or anemia of chronic disease presented to the emergency department for further evaluation of shortness of breath over the past few days along with lower extremity swelling and likely some chest discomfort. Given the elevated troponins and NSTEMI along with patient has new onset heart failure hence patient is a candidate for left and right coronary angiograms Which was performed on 06/21/2024 and detailed operative report dictated already. Patient did have severe multivessel disease and patient was offered CABG but patient was not a suitable candidate [facility] [place] [facility] and hence recommended multivessel PCI of the LCx and LAD. Patient was also volume overloaded with CHF exacerbation admission with mildly low ejection fraction patient has been diuresed well over the last 3 to 4 days as inpatient and now scheduled for the elective PCI. Discussed with patient risks, benefits and alternatives of performing the PCI including the risks of bleeding, heart rate, stroke and with the procedure. Patient understands the risks and is willing to undergo the procedure. Consent provided for the same. H&P updated and consent was signed prior to the procedure DESCRIPTION OF PROCEDURE: The patient was brought to the cardiac catheterization lab and all asceptic precautions were followed. Patient was given 1 Mg of Versed and 50 mcg of fentanyl for moderate conscious sedation. 2 mL of lidocaine was given in the right wrist. The right femoral artery was accessed via the ultrasound guidance as well as micropuncture technique. A 6 Portuguese glide sheath was introduced into the right femoral artery. Patient was given weight-based heparin to keep ACT greater than 250. INTERVENTION: A 6 Portuguese left BU 3.5 catheter was used to engage the left main artery. We used a run-through wire to cross the lesion in the proximal and mid left circumflex. We then used 2.0 x 12 mm emerge semicompliant balloon to perform the predilation it did not's for a total of 45 seconds. A 2.25 x 16 mm Synergy JERRY stent was placed in proximal to mid circumflex and deployed successfully for total of 40 seconds at 12 yazmin. An IVUS was performed which showed that the dista vessel was close to 3 mm in the proximal vessel was close 3.5 mm we then used a 2.75 x 12 mm NC balloon at 12 to 16 yazmin for a total of 50-60 seconds. Excellent results with KWADWO-3 flow was noted. We then used the same run-through wire for the LAD and then used the IVUS to evaluate mid LAD as well as the proximal LAD lesions which were previously seen on the cardiac catheterization. IVUS performed showed the mid to distal LAD with severe stenosis with MLA of 1.38 mm?. The vessel appears to be only a 2.25 mm to 2.5 mm vessel but there is long stenosis noted up to the mid LAD. The proximal LAD appears to be 4 mm vessel with minimal luminal area of less than 4 mm?. Decision was made to do a staged PCI of the LAD at a later time in the next 2 to 4 weeks. Blood loss: 10 mL Specimens: None Complications: None Patient will be monitored in the [facility] for the next 4 hours and will be discharged home if hemodynamically stable. Preprocedure findings: Severe 90% stenosis of the proximal to mid LCx with KWADWO-3 flow Postprocedure findings: No residual stenosis noted after the stent placement with KWADWO-3 flow SUMMARY / FINDINGS: 1. Successful PCI of mid LCX with 2.25x16 mm synergy JERRY stent an d post dilated with a 2.75 mm NC balloon at 16 yazmin. Post IVUS performed showed excellent results with KWADWO 3 flow and no complications. 2. IVUS of the LAD perfomed and MLA (minimal luminal area) of the mid and proximal LAD is less than 4 mm2. Will perfom staged PCI of LAD as outpatient in the next couple of weeks for the severe 90% residual stenosis in the proximal and mid LAD. Recommendations: 1. Recommend aggressive medical treatment with aspirin 81 mg once daily, Plavix 75 mg once daily, Lipitor 80 mg once daily, beta-simran, losartan and Entresto with Lasix at the time of discharge. 2. Staged PCI of the LAD in the next couple of weeks for the severe 90% residual stenosis in the proximal and mid LAD. IVUS performed and showed minimal luminal area less than 4 mm.. 3. Recommend aggressive risk factor management and keep HbA1c less than 6.0 and LDL less than 70 and continue to lose weight 4. Recommend to not lift more than 5 pounds for neck 7 to 10 days and follow-up in the clinic in 7 days. 5. Discontinued IV heparin completely Noel Amin M.D. Interventional Cardiology
[2024-06-24] MEDS: ONDANSETRON INJ 2 MG/ML INJ 2 ML 4 MG IV (14:12)
--- NOTE | 2024-06-24 14:43 | PC.NURSE ---
1355: Pt received for recovery. Pt awake. Resp even, unlabored. VS stable. TR band to right wrist intact with no bleeding, swelling, hematoma. Sheath to right groin with tegaderm cover. No bleeding, swelling, hematoma. No c/o paiin. 1412: Pt has c/o nausea. Received order from Dr. Coleman for Zofran which was given at this time. 1445: Pt states nausea is subsiding.
--- NOTE | 2024-06-24 15:25 | PC.NURSE ---
1442: TR band air removal started. 2ml removed. No bleeding, hematoma.
--- NOTE | 2024-06-24 15:32 | PC.NURSE ---
1532: Report to Yogi SHAH.
--- NOTE | 2024-06-24 15:49 | PD.ADDPROG ---
Addendum Progress Note Addendum Date of report being addended: 06/25/24 Narrative: I reviewed labs, imaging, EKG, home medications and prior available records. Face to face evaluation was performed by me. I have personally examined the patient and discussed assessment and plan with the IM team. I reviewed the resident note and agree with the plan with exceptions as below. Acute hypoxic respiratory failure: In the setting of CHF exacerbation, right lower lobe pneumonia, and non-STEMI. He is on nasal cannula. Management of the underlying conditions as below. CHF exacerbation: Echocardiogram showed EF of 50%. Continue IV diuresis. Monitor I's and O's. Continue cardiac diet with fluid restriction. Cardiology is following. Discussed with cardiology: Continue IV diuresis for now. Will keep the patient in the hospital for that. Non-STEMI: Troponin peaked. Cardiac catheterization showed multivessel disease. Initially thought about transferring for CABG however given the risk factor, patient will stay for recatheterization and stent placement. He is status post repeat heart cath status post PCI to LCx. Continue aspirin, Plavix, and atorvastatin. Cardiology is following. Sepsis secondary to right lower lobe pneumonia: Continue ceftriaxone/azithromycin. Holding mycophenolate. Uncontrolled diabetes mellitus with hyperglycemia: Insulin-dependent. Continue Lantus 30 units plus sliding scale insulin. Monitor fingersticks. Debility: Ordered PT evaluation that recommended short-term rehab however patient refused. Will order home health.
--- NOTE | 2024-06-24 16:28 | PC.NURSE ---
report given to PABLO Patterson. RN is aware that pt has to lay down flat for a total of 6 hours. one hour was completed with me in Cathlab and the remaining 5 hours will be done in his room. pt is stable and connected to 1.5L NC. green [place] placed on right wrist with information given to the RN when it can be removed. Right groin dressing looks clean dry and intact where the sheath was removed with no signs of bleeding. pt will be taken up by PABLO Calix via [facility]
[2024-06-24] MEDS: carVEDILOL 3.125 MG TABLET 6.25 MG PO (17:29)
[2024-06-24] MEDS: ATORVASTATIN CALCIUM 20 MG TABLET 80 MG PO (21:31)
[2024-06-24] MEDS: INSULIN LISPRO (AdmeLOG) 1 UNIT/0.01 ML UNIT SC (21:31)
[2024-06-25] VITALS (12 sets, daily range): BP systolic 123–146; BP diastolic 60–71; PULSE 57–65; RESP 12–20; TEMP 36.4–36.7; O2SAT 91–97; BMI 38.6
[2024-06-25] MEDS: FUROSEMIDE INJ 10 MG/ML VIAL 2 ML 40 MG IVP (05:31)
[2024-06-25] MEDS: pyRIDostigmine bromide 60 MG TABLET PO ×3 (05:32→20:51)
[2024-06-25 05:48] LABS: Basophils # (Auto) 0.1 Thou/mm3 (0.0-0.2); Basophils % (Auto) 1 % (0-2.5); Eosinophils # (Auto) 0.3 Thou/mm3 (0.0-0.5); Eosinophils % (Auto) 3 % (0-10); Hematocrit 29.4 % (41.0-53.0); Hemoglobin 9.8 g/dL (13.5-16.0); Immature Granulocytes % (Auto) 0 % (0-0); Immature Granulocytes Auto 0.04 Thou/mm3 (0.00-0.00); Lymphocytes # (Auto) 1.9 Thou/mm3 (1.0-4.8); Lymphocytes % (Auto) 19 % (10-50); Mean Corpuscular HGB Conc 33.3 g/dl (31.0-37.0); Mean Corpuscular Hemoglobin 30.2 pg (25.0-35.0); Mean Corpuscular Volume 91 fL (80-100); Monocytes % (Auto) 10 % (0-12); Neutrophils # (Auto) 6.8 Thou/mm3 (1.8-7.7); Neutrophils % (Auto) 67 % (37-80); Nucleated Red Blood Cell % 0 /100 WBC (0); Platelet Count 386 Thou/mm3 (140-440); RDW Standard Deviation 45.7 fL (35.1-43.9); Red Blood Count 3.25 Miln/mm3 (4.50-5.90); White Blood Count 10.2 Thou/mm3 (3.8-10.6)
[2024-06-25 06:39] LABS: Alanine Aminotransferase 9 U/L (10-49); Albumin, Serum 3.7 gm/dL (3.4-4.8); Albumin/Globulin Ratio 1.8 (1.2-2.2); Alkaline Phosphatase 72 U/L (46-116); Anion Gap 5 (7-16); Aspartate Amino Transferase 14 U/L (0-34); BUN/Creatinine Ratio 17 Ratio (12-20); Bilirubin,Total 0.6 mg/dL (0.3-1.2); Blood Urea Nitrogen 15 mg/dL (9-23); Calcium 8.5 mg/dL (8.3-10.6); Calcium (Corrected) 8.7 mg/dL (8.5-10.1); Carbon Dioxide 29.3 mMol/L (20.0-31.0); Chloride 99 mMol/L (98-107); Creatinine (Component) 0.9 mg/dL (0.6-1.3); Estimated Creatinine Clearance 91.6 mL/min (>60); Globulin 2.1 gm/dL (2.3-3.5); Glucose 229 mg/dL (74-106); Osmolality,Calculated 274 (275-295); Potassium 3.6 mMol/L (3.4-5.1); Sodium 133 mMol/L (136-145); Total Protein 5.8 gm/dL (5.7-8.2); eGFR > 60 See Note
[2024-06-25] MEDS: INSULIN LISPRO (AdmeLOG) 1 UNIT/0.01 ML UNIT SC ×4 (07:38→20:50)
--- NOTE | 2024-06-25 08:13 | PD.RESPRO ---
Documentation for date of: 06/25/24 Subjective Subjective Interval history: Patient was seen and examined at bedside this AM. No acute exents overnight. Patient tolerating diet, adequate urine output and mentation is at baseline. Patient denies any symptoms currently, including chest pain/pressure, palpitations, SOB, dizziness Patient's on Lasix 40 mg IV twice daily Negative fluid balance of 4700cc / 24 hours Patient's sister, Lizz was at bedside. Both patient and sister extensively counseled about findings and intervention done during cardiac catheterization on 06/24. Counseled about need for stenting of the LAD as outpatient in the next couple of weeks. Patient and sister and all questions were answered Cardiac catheterization with PCI completed on 06/24 findings include: Successful PCI of mid LCX with 2.25x16 mm synergy JERRY stent an d post dilated with a 2.75 mm NC balloon at 16 yazmin for a total of 60 secs. Post IVUs performed. IVUS of the LAD perfomed and MLA (minimal luminal area) of the mid and proximal LAD is les than 4 mm2. Will perform staged PCI of LAD ias outpatient in the next couple of weeks. Urgent cardiac cathterization completed on 06/21/2024 showed 1. NSTEMI with a troponin of 3.2: LHC showed severe multivessel calcified CAD with 90% stenosis in the proximal LAD as well as 80 to 90% stenosis and a long segment in the mid LAD along with 90% stenosis of the proximal to mid LCx. RCA shows moderate stenosis of around 50 to 60% in the mid RCA along with 50 to 60% in the proximal or ostial RPDA. Rest of the artery shows mild disease. 2. LVEF appears to be low normal around 50%. LVEDP was severely elevated at 26 mmHg. Transvalvular right gradient was present at 25 and 30 mmHg indicating at least mild or mild to moderate aortic stenosis 3. Moderate to severely elevated right heart pressures with a mean RA of around 70 mmHg, RV pressure of 72 over 16 mmHg, PA pressure 57-60 mmHg with a mean of 38 mmHg PCWP elevated at 31 mmHg. 4. Normal cardiac output at 7.2 L/min/m? and normal cardiac index at 3.1 L/min/m?. Dr. Padron cardiothoracic [place] reviewed patient images and said patient is high mortality case due to his multiple comorbidities including myasthenia gravis. Also has low-grade kidney failure most likely means no have visible vein conduits available, low HCT at 8 and his BMI of 41 means that mortality is greater than 10% . Dr. Nelson cardiothoracic surgeon from [facility] was also consulted and was of similar opinion and both surgeons recommended to pursue complex multi vessel PCI. Exam Vital Signs Temp Pulse Resp BP Pulse Ox O2 Del Method O2 Flow Rate 98.1 F 60 16 146/61 H 91 L Nasal Cannula 1 06/25/24 04:00 06/25/24 05:31 06/25/24 04:00 06/25/24 05:31 06/25/24 04:00 06/25/24 04:00 06/25/24 04:00 FiO2 40 06/25/24 04:00 Narrative Exam Constitutional Alert, oriented x 3 and comfortable. Obese male on room air HEENT Vision grossly intact. Patent nares. Trachea midline Respiratory Chest normal on inspection and decreased AE at bases with mild crackles Cardiovascular S1 and S2 audible, RRR. No murmurs carotid bruit. No gross JVD. Abdominal Soft and non tender to palpation in all quadrants. BS + Genitourinary No bladder tenderness, no flank pain. Normal to palpation. Mild scrotal edema. Hematuria resolved Musculoskeletal Extremities tone within normal limits. LE edema 1+ at posterior ankles and hip b/l Neurological CN II - XII grossly intact. Extremity motor and sensation grossly intact. Skin Warm, dry and intact. Ecchymoses on anterior and medial L Knee Psychiatric Patient has good affect, is cooperative Objective Labs 06/25/24 05:29 06/25/24 05:29 Labs: Laboratory Results - last 24 hr 06/24/24 06/24/24 06/24/24 12:57 13:44 15:03 WBC RBC Hgb Hct MCV MCH MCHC RDW Std Deviation Plt Count Neut % (Auto) Lymph % (Auto) [place] % (Auto) Eos % (Auto) Baso % (Auto) Neut # (Auto) Lymph # (Auto) [place] # (Auto) Eos # (Auto) Baso # (Auto) Immature Gran # (Auto) Absolute Nucleated RBC Immature Gran % Nucleated RBC % Activated Clotting Time 256.0 H 255.0 H 172.0 H Sodium Potassium Chloride Carbon Dioxide Anion Gap BUN Creatinine Estim Creat Clear Calc eGFR BUN/Creatinine Ratio Glucose Calculated Osmolality Calcium Corrected Calcium Magnesium Total Bilirubin AST ALT Alkaline Phosphatase Total Protein Albumin Globulin Albumin/Globulin Ratio 06/25/24 05:29 WBC 10.2 RBC 3.25 L Hgb 9.8 L Hct 29.4 L MCV 91 MCH 30.2 MCHC 33.3 RDW Std Deviation 45.7 H Plt Count 386 D Neut % (Auto) 67 Lymph % (Auto) 19 [place] % (Auto) 10 Eos % (Auto) 3 Baso % (Auto) 1 Neut # (Auto) 6.8 Lymph # (Auto) 1.9 [place] # (Auto) 1.0 H Eos # (Auto) 0.3 Baso # (Auto) 0.1 Immature Gran # (Auto) 0.04 H Absolute Nucleated RBC 0.00 Immature Gran % 0 Nucleated RBC % 0 Activated Clotting Time Sodium 133 L Potassium 3.6 Chloride 99 Carbon Dioxide 29.3 Anion Gap 5 L BUN 15 Creatinine 0.9 Estim Creat Clear Calc 91.6 eGFR > 60 BUN/Creatinine Ratio 17 Glucose 229 H Calculated Osmolality 274 L Calcium 8.5 Corrected Calcium 8.7 Magnesium 2.0 Total Bilirubin 0.6 AST 14 ALT 9 L Alkaline Phosphatase 72 Total Protein 5.8 Albumin 3.7 Globulin 2.1 L Albumin/Globulin Ratio 1.8 ABG Interpretation ABG results: 06/21/24 09:39 ABG pH 7.46 H ABG pCO2 40 ABG pO2 34 L* ABG HCO3 28 H ABG O2 Saturation 75 L ABG Base Excess 4 H Quality Measures Quality Measures sepsis Current suspected stage: sepsis (resolved) Possible source: unknown Blood cultures ordered: yes Antibiotic ordered: Yes Advance care planning discussed with:: patient Assessment & Plan Assessment Current Active Medications: Generic Name Dose Route Start Last Admin Trade Name Freq PRN Reason Stop Dose Admin Acetaminophen 650 mg 06/21/24 10:22 Acetaminophen 325 Mg Tablet PO 07/21/24 10:21 Q6H PRN pain and Fever >100.4 Protocol Hydrocodone Bitart/Acetaminophen 1 tab 06/21/24 10:22 Hydrocodone/Apap 5/325 Tablet PO 06/26/24 10:21 Q4HR PRN PAIN SCALE 4-10(Mod-Sev Aspirin 81 mg 06/22/24 09:00 06/24/24 08:51 Aspirin Ec 81 Mg Tabec PO 07/22/24 08:59 81 mg QDAY HARJEET Administration Atorvastatin Calcium 80 mg 06/22/24 21:00 06/24/24 21:31 Atorvastatin Calcium 20 Mg Tablet PO 07/22/24 20:59 80 mg HS HARJEET Administration Carvedilol 6.25 mg 06/22/24 08:00 06/24/24 17:29 Carvedilol 3.125 Mg Tablet PO 07/22/24 07:59 6.25 mg BIDWM HARJEET Administration Clopidogrel Bisulfate 75 mg 06/25/24 09:00 Clopidogrel Bisulfate 75 Mg Tablet PO 07/25/24 08:59 QDAY HARJEET Dextrose 25 ml 06/21/24 10:27 Dextrose 50%-Water Inj 50 Ml Syringe IV 07/21/24 10:26 Q15MIN PRN BG 50-70 responsive npo pt Dextrose 50 ml 06/21/24 10:27 Dextrose 50%-Water Inj 50 Ml Syringe IV 07/21/24 10:26 Q15MIN PRN BG <50 OR BG <70 & pt unresponsive Famotidine 20 mg 06/23/24 11:30 06/24/24 08:51 Famotidine Inj 10 Mg/Ml Vial 2 Ml IVP 07/23/24 11:29 20 mg QDAY HARJEET Administration Furosemide 40 mg 06/25/24 18:00 Furosemide Inj 10 Mg/Ml 4ml Vial IVP 07/21/24 20:59 BIDD HARJEET Glucagon 1 mg 06/21/24 10:27 Glucagon Inj 1 Mg Vial IM Q15MIN PRN BG <70, and no IV access Ceftriaxone Sodium/Dextrose 50 mls @ 100 mls/hr 06/21/24 08:00 06/24/24 08:51 Rocephin/D5w 1gm Iv Premix IV 06/28/24 07:59 100 mls/hr QDAY HARJEET Administration Heparin Sodium/Dextrose 25,000 unit in 250 mls @ 10 mls/hr 06/21/24 12:45 06/23/24 13:57 Heparin In D5w Ivpb IV 07/05/24 12:44 0 units/kg/hr .Q24H HARJEET 0 mls/hr Titration Protocol 8.646 UNITS/KG/HR Magnesium Sulfate 2 gm in 50 mls @ 25 mls/hr 06/25/24 07:49 Magnesium Sulfate Ivpb IV 06/25/24 09:48 X1 ONE Insulin Glargine 30 unit 06/25/24 09:00 Insulin Glargine (Lantus) 5 Unit/0.05 Ml (Per 5 Units) SC 07/25/24 08:59 QAM [facility] Insulin Human Lispro 0 unit 06/24/24 21:00 06/25/24 07:38 Insulin Lispro (Admelog) 1 Unit/0.01 Ml Unit SC 07/24/24 20:59 2 unit ACHS [facility] Administration Protocol Pyridostigmine [place] 60 mg 06/22/24 22:00 06/25/24 05:32 Pyridostigmine [place] 60 Mg Tablet PO 07/22/24 21:59 60 mg TID [facility] Administration Plan 74-year-old male with past medical history of essential hypertension for 40 years, insulin-dependent diabetes mellitus type 2 [7.4] for more than 30years, myasthenia gravis on pyridostigmine and mycophenolate follows up with Dr. Patton, neurologist in [place], and osteomyelitis of right foot s/p amputation of first toe, fourth and fifth toes on right foot due to diabetic ulcers, diabetic neuropathy, right ankle Charcot joint, B/L lower extremity varicose veins was brought into the ER due to shortness of breath which started last night as well as lower extremity swelling.Patient was admitted for new onset acute decompensated heart failure. Cardiology was consulted for elevated troponin, ST depression on EKG and new onset decompensated heart failure. 1. NSTEMI type I vs type II 2. ACS 3. Triple-vessel CAD 4. Troponinemia 5. Essential hypertension 6. Acute respiratory failure with hypoxia -resolved 7. New onset acute decompensated heart failure Patient has longstanding hypertension for more than 40 years. On admission patient had positive troponin I of 1.2 which up trended to 6.6. Patient presenting complaint was SOB and lower extremity edema. Patient denied chest pain, pressure. Patient was also hypoxic SpO2 94% on RA and started on BiPAP and transitioned to [place] Patient was immediately prepped for cardiac catheterization Patient was clinically fluid overloaded with B/L lower extremity edema and abdominal distention. EKG was nondiagnostic with ST depression less than 1 mm in lead I and not in any consecutive leads Cardiac catheterization showed multi-vessel disease involving LAD and LCX with moderate disease in RCA Transthoracic echocardiogram: Normal LV size and low normal function. Estimated EF around 50%. Mild hypokinesis mid anterior apical septal, mid apical lateral, and apex. Grade 1 diastolic dysfunction. IVC mildly dilated. Dr. Padron cardiothoracic [place] reviewed patient images and said patient is high mortality case due to his multiple comorbidities including myasthenia gravis. Also has low-grade kidney failure most likely means no have visible vein conduits available, low HCT at 8 and his BMI of 41 means that mortality is greater than 10% . Dr. Nelson cardiothoracic surgeon from [facility] was also consulted and was of similar opinion and both surgeons recommended to pursue complex multi vessel PCI. Cardiac catheterization with PCI completed on 06/24 findings include: Successful PCI of mid LCX with 2.25x16 mm synergy JERRY stent an d post dilated with a 2.75 mm NC balloon at 16 yazmin for a total of 60 secs. Post IVUs performed. IVUS of the LAD perfomed and MLA (minimal luminal area) of the mid and proximal LAD is les than 4 mm2. Will perform staged PCI of LAD ias outpatient in the next couple of weeks. Plan: - Low sodium diet ? Strict I's/O charting ? Daily weights ? IV diuresis with furosemide 40 mg IV twice daily - Supplemental O2 - Atorvastatin 80 mg po HS - ASA 81 mg po daily indefintely along with plavix 75 mg daily - Continue Coreg 6.25 mg po BID and titrate as necesary as patient was in hypertensive urgency at admission - Can add losartan at later date, Entresto and Lasix po on discharge ? Maintain Mg >2 and K >4 to prevent arrhythmias ? No need to continue trending troponin - Discontinued Heparin Drip on 06/23 as patient developed hematuria. Patient already received 48 hours of heparin drip for NSTEMI. - Monitor labs and continue IV diuresis for 1-2 more days as pt is still volume overloaded - Both patient and sister extensively counseled about findings and intervention done during cardiac catheterization on 06/24. Counseled about need for stenting of the LAD as outpatient in the next couple of weeks. Patient and sister and all questions were answered 8. Hypertensive urgency - resolved Patient blood pressure was elevated on admission and 240/140 mmHg. Patient was given some IV medications including IV Lasix and blood pressures in the 160 mmHg. Recommend to decrease joint by 25% and keep it around 150/60 mmHg. Agree with control of blood pressure with beta-blockers Coreg as well as losartan 9. Normocytic anemia DDx: Pure red cell aplasia secondary to mycophenolate, thalassemia, iron deficiency, sideroblastic anemia, lead poisoning Most likely secondary to long-term mycophenolate use. Recommend retic count to confirm Consider iron panel to rule out iron deficiency anemia and blood smear to rule out sideroblastic and lead poisoning. However lead poisoning unlikely due to patient's low risk of exposure. Patient's Hb on admission was 9.9 which subsequently downtrended to 8.0 on 06/23 Patient received 1 unit PRBC 06/23 after which Hb increased to 9.6. Patient Hb currently stable at 9.8 today [06/25] 10. Insulin-dependent diabetes mellitus type 2 11. Diabetic neuropathy 12. Right ankle Charcot joint 13. S/p first, fourth and fifth toe on right foot amputation Last HbA1c 7.4 Patient on insulin aspart and glargine at home Continue management as per primary team Patient had amputation of multiple digits on right foot secondary to diabetic neuropathy leading to diabetic ulcers. 14. Varicose veins 3 years ago patient first noticed B/L lower extremity swelling and was diagnosed at the time with varicose veins by his PCP Dr. Darrius Oswald. Patient was prescribed compression stockings which he wears daily. Health maintenance: Disposition: Post PCI with stent on 06/24. Continue IV diuresis for 1-2 days Diet: Cardiac Lines: pIVs GI Prophylaxis: Famotidine Thrombo Prophylaxis: None Code status: FULL CODE Continue rest of management as per primary team We are grateful to be able to participate in Mr. Castro's care. Thank you for the consult Plan of care discussed with attending Business Solution Analyst, Dr Eloisa Shah MD PGY 1 Attending Provider Attestation/Addendum I have personally seen and examined the patient separately on the above date of service and discussed the plan of care with the resident. I reviewed the resident Dr. Shah consultation progress note and agree with the resident findings and plan in the note above and have also edited the documentation to reflect my findings and plan. Noel Amin M.D. Interventional Cardiology
[2024-06-25] MEDS: POTASSIUM CHLORIDE 20 mEq TABCR 40 MEQ PO (08:57)
[2024-06-25] MEDS: Magnesium Sulfate 2 GM Ivpb 2 GM/50 ML BAG IV (08:57)
[2024-06-25] MEDS: carVEDILOL 3.125 MG TABLET 6.25 MG PO ×2 (08:57→17:33)
[2024-06-25] MEDS: ASPIRIN EC 81 MG TABEC PO (08:58)
[2024-06-25] MEDS: CLOPIDOGREL BISULFATE 75 MG TABLET PO (08:58)
[2024-06-25] MEDS: FAMOTIDINE INJ 10 MG/ML VIAL 2 ML 20 MG IVP (08:58)
[2024-06-25] MEDS: INSULIN GLARGINE (Lantus) 5 UNIT/0.05 ML (PER 5 UNITS) 30 UNIT SC (08:58)
[2024-06-25] MEDS: cefTRIAXone/D5w 1gm IV premix 50 ML IV (08:58)
--- NOTE | 2024-06-25 09:55 | PC.SS ---
RESEARCH ASSOCIATE requested room air evaluation to determine if patient qualifies for home oxygen. Request submitted to bedside nurse.
--- NOTE | 2024-06-25 09:58 | PC.NURSE ---
Pt sitting at side of bed at 0900. Pt removed NC and desatted to 70% on RA and at rest. Placed patient on 1L nassal cannula and patient recovered to 100% saturation.
--- NOTE | 2024-06-25 09:58 | PC.SS ---
TECHNICIAN [employer]ATED EQUIPMENT conducted bedside contact with the patient conduct initial assessment and to discuss discharge planning. Patient confirmed demographic information. Patient resides at home alone. Patient utilizes a cane to assist with ambulation. Patient does not utilize home oxygen. Currently on 1L nasal cannula. Patient describes the ability to complete ADL?s independently. Patient identified sister, Morena Roberts ; as medical surrogate decision maker. Patient?s PCP is Darrius Oswald. Patient does not possess any specialty providers. Patient is not aligned with dialysis. Plan is for the patient to return home at the time of discharge. Family will provide transportation on behalf of the patient. If home oxygen required no preferred vendor identified. No further intervention required at this time, school social worker will be available to address any further concerns. Next of Kin: Morena Roberts D/C Plan: Home
--- NOTE | 2024-06-25 10:31 | ESPR_ITS ---
<Statement entered by Bradford Smith MD - 06/25/24 18:18> Senior Resident Attestation: I supervised/discussed management plan with psychology intern physician Dr. Lee, and was involved in the care of this patient. I personally saw and examined the patient and discussed the assessment and plan with the entire medicine team, including my attending. I agree with the assessment and plan as documented. Patient's care was discussed with attending physician, Dr. Inman. Bradford mSith MD PGY-2. Documentation for date of: 06/25/24 Subjective Subjective Interval history: Patient was seen at bedside this morning. No overnight events. Patient underwent successful stent placement of the LCx and will need more stents, which could be done as an outpatient per wastewater treatment plant instructor. When I assessed the patient patient wanted to sit at the edge of the bed and the patient's PUNCHBOARD ASSEMBLER assisted him to build this. Later on physical therapy walk with the patient. His lower extremity swelling is a lot better with only 1+ today. No other complaints at this time. Exam Vital Signs Temp Pulse Resp BP Pulse Ox O2 Del Method O2 Flow Rate 97.7 F 60 17 140/71 H 93 L Nasal Cannula 2 06/25/24 08:00 06/25/24 09:07 06/25/24 09:07 06/25/24 08:57 06/25/24 09:07 06/25/24 08:00 06/25/24 09:07 FiO2 40 06/25/24 04:00 Narrative Exam General: A/O x3, no acute distress, obese Eyes: PERRL, EOMI. Anicteric, vision grossly intact. Ears: No ear pain, no ear discharge, Hearing grossly intact. Nose: No nasal discharge. Mouth/Throat: Dry mucous membranes, no redness, no lesions. Neck: short neck, non-tender, no cervical lymphadenopathy. Lungs: Decreased breath sounds, No accessory muscle use. Cardio: Normal S1/S2, regular rhythm, no murmurs, no JVD Abdomen: Soft, non-tender, no palpable masses, peristalsis present, no guarding or rebound. Extremities: Symmetrical, no significant deformities, Edema has significantly improved with only 1+ in KAYLEEN LE, non-tender, peripheral pulses presents, Multiple R foot digits amputation Skin: No rashes, no lesions, warm to touch, multiple abrasion in various stages of healing in KAYLEEN LE and L UE, bruise in L knee Neuro: No focal neurological deficits, motor and sensory intact Psych: Cooperative, appropriate mood and effect. Objective Labs 06/26/24 05:10 06/26/24 05:10 Labs: Laboratory Results - last 24 hr 06/24/24 06/24/24 06/24/24 12:57 13:44 15:03 WBC RBC Hgb Hct MCV MCH MCHC RDW Std Deviation Plt Count Neut % (Auto) Lymph % (Auto) [place]roquois % (Auto) Eos % (Auto) Baso % (Auto) Neut # (Auto) Lymph # (Auto) [place]roquois # (Auto) Eos # (Auto) Baso # (Auto) Immature Gran # (Auto) Absolute Nucleated RBC Immature Gran % Nucleated RBC % Activated Clotting Time 256.0 H 255.0 H 172.0 H Sodium Potassium Chloride Carbon Dioxide Anion Gap BUN Creatinine Estim Creat Clear Calc eGFR BUN/Creatinine Ratio Glucose Calculated Osmolality Calcium Corrected Calcium Magnesium Total Bilirubin AST ALT Alkaline Phosphatase Total Protein Albumin Globulin Albumin/Globulin Ratio 06/25/24 05:29 WBC 10.2 RBC 3.25 L Hgb 9.8 L Hct 29.4 L MCV 91 MCH 30.2 MCHC 33.3 RDW Std Deviation 45.7 H Plt Count 386 D Neut % (Auto) 67 Lymph % (Auto) 19 Iroquois % (Auto) 10 Eos % (Auto) 3 Baso % (Auto) 1 Neut # (Auto) 6.8 Lymph # (Auto) 1.9 [place]roquois # (Auto) 1.0 H Eos # (Auto) 0.3 Baso # (Auto) 0.1 Immature Gran # (Auto) 0.04 H Absolute Nucleated RBC 0.00 Immature Gran % 0 Nucleated RBC % 0 Activated Clotting Time Sodium 133 L Potassium 3.6 Chloride 99 Carbon Dioxide 29.3 Anion Gap 5 L BUN 15 Creatinine 0.9 Estim Creat Clear Calc 91.6 eGFR > 60 BUN/Creatinine Ratio 17 Glucose 229 H Calculated Osmolality 274 L Calcium 8.5 Corrected Calcium 8.7 Magnesium 2.0 Total Bilirubin 0.6 AST 14 ALT 9 L Alkaline Phosphatase 72 Total Protein 5.8 Albumin 3.7 Globulin 2.1 L Albumin/Globulin Ratio 1.8 ABG Interpretation ABG results: 06/21/24 09:39 ABG pH 7.46 H ABG pCO2 40 ABG pO2 34 L* ABG HCO3 28 H ABG O2 Saturation 75 L ABG Base Excess 4 H Quality Measures Quality Measures sepsis Current suspected stage: sepsis Possible source: unknown Blood cultures ordered: yes Antibiotic ordered: Yes Advance care planning discussed with:: patient and sibling Assessment & Plan Assessment Current Active Medications: Generic Name Dose Route Start Last Admin Trade Name Freq PRN Reason Stop Dose Admin Acetaminophen 650 mg 06/21/24 10:22 Acetaminophen 325 Mg Tablet PO 07/21/24 10:21 Q6H PRN pain and Fever >100.4 Protocol Hydrocodone Bitart/Acetaminophen 1 tab 06/21/24 10:22 Hydrocodone/Apap 5/325 Tablet PO 06/26/24 10:21 Q4HR PRN PAIN SCALE 4-10(Mod-Sev Aspirin 81 mg 06/22/24 09:00 06/25/24 08:58 Aspirin Ec 81 Mg Tabec PO 07/22/24 08:59 81 mg QDAY HARJEET Administration Atorvastatin Calcium 80 mg 06/22/24 21:00 06/24/24 21:31 Atorvastatin Calcium 20 Mg Tablet PO 07/22/24 20:59 80 mg HS HARJEET Administration Carvedilol 6.25 mg 06/22/24 08:00 06/25/24 08:57 Carvedilol 3.125 Mg Tablet PO 07/22/24 07:59 6.25 mg BIDWM HARJEET Administration Clopidogrel Bisulfate 75 mg 06/25/24 09:00 06/25/24 08:58 Clopidogrel Bisulfate 75 Mg Tablet PO 07/25/24 08:59 75 mg QDAY HARJEET Administration Dextrose 25 ml 06/21/24 10:27 Dextrose 50%-Water Inj 50 Ml Syringe IV 07/21/24 10:26 Q15MIN PRN BG 50-70 responsive npo pt Dextrose 50 ml 06/21/24 10:27 Dextrose 50%-Water Inj 50 Ml Syringe IV 07/21/24 10:26 Q15MIN PRN BG <50 OR BG <70 & pt unresponsive Famotidine 20 mg 06/23/24 11:30 06/25/24 08:58 Famotidine Inj 10 Mg/Ml Vial 2 Ml IVP 07/23/24 11:29 20 mg QDAY HARJEET Administration Furosemide 40 mg 06/25/24 18:00 Furosemide Inj 10 Mg/Ml 4ml Vial IVP 07/21/24 20:59 BIDD HARJEET Glucagon 1 mg 06/21/24 10:27 Glucagon Inj 1 Mg Vial IM Q15MIN PRN BG <70, and no IV access Ceftriaxone Sodium/Dextrose 50 mls @ 100 mls/hr 06/21/24 08:00 06/25/24 08:58 Rocephin/D5w 1gm Iv Premix IV 06/28/24 07:59 100 mls/hr QDAY HARJEET Administration Heparin Sodium/Dextrose 25,000 unit in 250 mls @ 10 mls/hr 06/21/24 12:45 06/23/24 13:57 Heparin In D5w Ivpb IV 07/05/24 12:44 0 units/kg/hr .Q24H HARJEET 0 mls/hr Titration Protocol 8.646 UNITS/KG/HR Insulin Glargine 30 unit 06/25/24 09:00 06/25/24 08:58 Insulin Glargine (Lantus) 5 Unit/0.05 Ml (Per 5 Units) SC 07/25/24 08:59 30 unit QAM HARJEET Administration Insulin Human Lispro 0 unit 06/24/24 21:00 06/25/24 07:38 Insulin Lispro (Admelog) 1 Unit/0.01 Ml Unit SC 07/24/24 20:59 2 unit ACHS [facility] Administration Protocol Pyridostigmine [place] 60 mg 06/22/24 22:00 06/25/24 05:32 Pyridostigmine [place] 60 Mg Tablet PO 07/22/24 21:59 60 mg TID HARJEET Administration Plan 74-year-old male with past medical history of hypertension, DM2, myasthenia gravis, and osteomyelitis of right foot was admitted to the hospital on 06/21/2024 for acute decompensated heart failure, troponinemia type I versus 2, and sepsis likely secondary to community-acquired pneumonia. #Multivessel CAD #Troponinemia type I versus II #Hypertensive emergency ?Patient does not have any chest pain or history of CAD. ?DDx type I with EKG showing ST changes type versus type II given patient's initial presentation of hypertensive emergency. ?Initial troponins were 1.203 and up trended to 3.219 -Initial BP was 243/109 -BP today 146/61 ?EKG showed ST depressions in lead II -Heart cath showed multi-vessel disease with 90% stenosis LAD and LCX, as well as moderate disease in RCA -Patient will undergo stent placement by cardiology today -Transfused 1 PRBC last night ?Patient underwent successful stent placement of LCx. Only 1 stent placed today others will be placed as an outpatient. Plan: ?Continue aspirin 81, atorvastatin 80mg HS, lasix 40mg BID. -DC'd heparin drip -Keep Hgb above 8. ?Cardiology consulted, appreciate recommendations #Acute decompensated heart failure, new onset #Shortness of breath #Anasarca #Hypokalemia ?Patient has been having shortness of breath accompanied by lower extremity swelling up to lower abdomen and orthopnea. ?There is no recent echo on file nor patient is aware of any history of heart failure. -Patient's edema improved to 1+ KAYLEEN LE only ?BNP 556 ?Potassium 3.6 today ?Chest x-ray showed prominent congestive heart failure ?Chest CTA showed significant heart failure -Echo showed EF 50% Plan: ?Continue Coreg 6.25 BID an will titrate as tolerated -Continue Lasix 40 twice daily -Will start losartan and Entresto at a later date ?40 mEq of potassium given -2gm Mg x1 ?Daily weights ?Strict KAREN's ?Fluid restriction 1800 ?Keep potassium above 4 and magnesium above 2 ?Cardiology consulted, pursue recommendations #Sepsis likely secondary to community-acquired pneumonia #Acute hypoxic respiratory failure #Pleural effusion #Community-acquired pneumonia #Leukocytosis ?Patient met SIRS 3 out of 4 with leukocytosis, tachycardia, and tachypnea. ?DDx community-acquired pneumonia versus aspiration pneumonia given patient's history of recent inactivity and immobility ?Patient was placed on BiPAP at 4 L of FiO2 40%, currently on nasal cannula ?Chest x-ray showed right base pneumonia ?CTA chest showed bilateral pleural effusions ?WBC 10.2, likely uptrended a little due to procedure, no spikes in fevers ?Lactate dehydrogenase 324 ?ABG showed pH 7.46, pCO2 34, pCO2 40 -Blood and urine cx negative Plan: ?Continue Rocephin [07/01/2024?] and DC'd azithromycin [07/01/2024?06/23/2024] ?Continue O2 administration as needed ?Will continue to monitor #Ground level Fall #Hx of myasthenia gravis -Patient fell 2 weeks ago due to weakness and did not seek any medical care at the time. -X-ray hip KAYLEEN showed no acute fractures Plan: ?Continue patient's pyridostigmine 60 mg p.o. 3 times daily -Will continue to monitor #GERD? ?Patient has been complaining of acid reflux since this morning. Plan: ?Famotidine qday ?Will continue to monitor #Bilirubinemia ?T bilirubin 1.6 ?No alkaline phosphatase elevation or transaminitis Plan: ?Will continue to monitor #Normocytic normochromic anemia #Thrombocytosis ?Hgb 9.8 and platelets 386 ?No active signs of bleeding -Transfused 1 PRBC last night Plan: -Keep Hgb above 8 ?Will continue to monitor #Hx of DM2 ?Last A1c was 7.4% on 03/19/2024 -Glucose 229 Plan: ?ISS -Insulin glargine 30 units AM ?Accu-Cheks and hypoglycemia protocol Disposition: Patient admitted to telemetry Diet: Low carb consistent GI prophylaxis: none DVT prophylaxis: Held heparin drip due to hematuria Code:Full Case disclosed with Attending Dr. Inman and My senior Dr. Smith PGY2. Oleksandr Patterson PGY1 Attending Provider Attestation/Addendum I reviewed labs, imaging, EKG, home medications and prior available records. Face to face evaluation was performed by me. I have personally examined the patient and discussed assessment and plan with the IM team. I reviewed the resident note and agree with the plan with exceptions as below. Please see my addendum in the separate addendum note.
--- NOTE | 2024-06-25 12:37 | PC.SS ---
Addendum entered and electronically signed by TAMICA Andrea 06/25/24 14:41: BALL MILL MIXER notified [facility] staff, Janet; that patient will transition to SNF upon discharge. Home oxygen order cancelled. Original Note: BALL MILL MIXER submitted oxygen referral via fax to [facility] .
--- NOTE | 2024-06-25 13:40 | PC.SS ---
Addendum entered and electronically signed by TAMICA Andrea 06/25/24 14:43: Patient has been accepted by [facility] for placement. Authorization will be required. Possible D/C over the weekend. Original Note: METAL BONDING WORKER confirmed with patient plan to discharge to SNF. Preferred SNF [facility]. METAL BONDING WORKER submitted referral on [facility].
--- NOTE | 2024-06-25 14:49 | PC.SS ---
PASSR completed. Patient meets Level 1 criteria. No f/u required.
--- NOTE | 2024-06-25 14:56 | PC.SS ---
Rounding Note: Plan is to continue diuresis. PT to d/c to SNF once medically stable.
--- NOTE | 2024-06-25 15:57 | PC.SS ---
BEAD FORMING MACHINE OPERATOR contacted [facility] staff, Aliya; to request initiation of authorization for SNF placement on behalf of the patient. [facility] staff to review clinicals to confirm patient meets criteria for SNF placement. BEAD FORMING MACHINE OPERATOR notified [facility] staff plan is for the patient to possibly discharge over the weekend.
--- NOTE | 2024-06-25 16:15 | PC.SS ---
Authorization has been obtained from [facility]. Spoke to Aliya. [place] to be notified by [facility] staff.
[2024-06-25] MEDS: FUROSEMIDE INJ 10 MG/ML 4ML VIAL 40 MG IVP (17:34)
[2024-06-25] MEDS: ATORVASTATIN CALCIUM 20 MG TABLET 80 MG PO (20:51)
[2024-06-26] VITALS (12 sets, daily range): BP systolic 127–158; BP diastolic 62–82; PULSE 56–67; RESP 14–89; TEMP 36.1–36.2; O2SAT 95–99
[2024-06-26] MEDS: FUROSEMIDE INJ 10 MG/ML 4ML VIAL 40 MG IVP ×2 (05:22→18:23)
[2024-06-26] MEDS: pyRIDostigmine bromide 60 MG TABLET PO ×2 (05:22→14:08)
[2024-06-26 06:03] LABS: Basophils # (Auto) 0.1 Thou/mm3 (0.0-0.2); Basophils % (Auto) 1 % (0-2.5); Eosinophils # (Auto) 0.5 Thou/mm3 (0.0-0.5); Eosinophils % (Auto) 5 % (0-10); Hematocrit 30.9 % (41.0-53.0); Hemoglobin 10.3 g/dL (13.5-16.0); Immature Granulocytes % (Auto) 0 % (0-0); Immature Granulocytes Auto 0.03 Thou/mm3 (0.00-0.00); Lymphocytes # (Auto) 2.3 Thou/mm3 (1.0-4.8); Lymphocytes % (Auto) 23 % (10-50); Mean Corpuscular HGB Conc 33.3 g/dl (31.0-37.0); Mean Corpuscular Hemoglobin 29.9 pg (25.0-35.0); Mean Corpuscular Volume 90 fL (80-100); Monocytes % (Auto) 10 % (0-12); Neutrophils # (Auto) 6.3 Thou/mm3 (1.8-7.7); Neutrophils % (Auto) 62 % (37-80); Nucleated Red Blood Cell % 0 /100 WBC (0); Platelet Count 431 Thou/mm3 (140-440); RDW Standard Deviation 45.6 fL (35.1-43.9); Red Blood Count 3.45 Miln/mm3 (4.50-5.90); White Blood Count 10.1 Thou/mm3 (3.8-10.6)
[2024-06-26 06:29] LABS: Alanine Aminotransferase 12 U/L (10-49); Albumin, Serum 3.9 gm/dL (3.4-4.8); Albumin/Globulin Ratio 1.9 (1.2-2.2); Alkaline Phosphatase 79 U/L (46-116); Anion Gap 5 (7-16); Aspartate Amino Transferase 13 U/L (0-34); BUN/Creatinine Ratio 20 Ratio (12-20); Bilirubin,Total 0.6 mg/dL (0.3-1.2); Blood Urea Nitrogen 18 mg/dL (9-23); Calcium 8.7 mg/dL (8.3-10.6); Calcium (Corrected) 8.8 mg/dL (8.5-10.1); Carbon Dioxide 30.3 mMol/L (20.0-31.0); Chloride 99 mMol/L (98-107); Creatinine (Component) 0.9 mg/dL (0.6-1.3); Estimated Creatinine Clearance 70.5 mL/min (>60); Globulin 2.1 gm/dL (2.3-3.5); Glucose 202 mg/dL (74-106); Magnesium 2.1 mg/dL (1.6-2.6); Osmolality,Calculated 276 (275-295); Potassium 3.7 mMol/L (3.4-5.1); Sodium 134 mMol/L (136-145); eGFR > 60 See Note
--- NOTE | 2024-06-26 08:17 | ESPR_ITS ---
Documentation for date of: 06/26/24 Subjective Subjective Interval history: Patient was seen and examined at bedside this AM. No acute exents overnight. Patient tolerating diet, adequate urine output and mentation is at baseline. Patient denies any symptoms currently, including chest pain/pressure, palpitations, SOB, dizziness Patient's on Lasix 40 mg IV twice daily Negative fluid balance of 3020cc / 24 hours Primary team plans to discharge patient today to either rehab versus home with home health. Recommended to discharge patient on aspirin, Plavix, high intensity statin, Coreg, Entresto and p.o. Lasix. Patient to follow-up in cardiology clinic within 1 week of discharge for medication optimization and planning of LAD stenting. Patient's sister, Morena was at bedside. Both patient and sister updated on discharge plan. Cardiac catheterization with PCI completed on 06/24 findings include: Successful PCI of mid LCX with 2.25x16 mm synergy JERRY stent an d post dilated with a 2.75 mm NC balloon at 16 yazmin for a total of 60 secs. Post IVUs performed. IVUS of the LAD perfomed and MLA (minimal luminal area) of the mid and proximal LAD is les than 4 mm2. Will perform staged PCI of LAD ias outpatient in the next couple of weeks. Urgent cardiac cathterization completed on 06/21/2024 showed 1. NSTEMI with a troponin of 3.2: LHC showed severe multivessel calcified CAD with 90% stenosis in the proximal LAD as well as 80 to 90% stenosis and a long segment in the mid LAD along with 90% stenosis of the proximal to mid LCx. RCA shows moderate stenosis of around 50 to 60% in the mid RCA along with 50 to 60% in the proximal or ostial RPDA. Rest of the artery shows mild disease. 2. LVEF appears to be low normal around 50%. LVEDP was severely elevated at 26 mmHg. Transvalvular right gradient was present at 25 and 30 mmHg indicating at least mild or mild to moderate aortic stenosis 3. Moderate to severely elevated right heart pressures with a mean RA of around 70 mmHg, RV pressure of 72 over 16 mmHg, PA pressure 57-60 mmHg with a mean of 38 mmHg PCWP elevated at 31 mmHg. 4. Normal cardiac output at 7.2 L/min/m? and normal cardiac index at 3.1 L/min/m?. Dr. Padron cardiothoracic [place] reviewed patient images and said patient is high mortality case due to his multiple comorbidities including myasthenia gravis. Also has low-grade kidney failure most likely means no have visible vein conduits available, low HCT at 8 and his BMI of 41 means that mortality is greater than 10% . Dr. Nelson cardiothoracic surgeon from [facility] was also consulted and was of similar opinion and both surgeons recommended to pursue complex multi vessel PCI. Exam Vital Signs Temp Pulse Resp BP Pulse Ox O2 Del Method O2 Flow Rate 97.0 F 62 14 128/66 97 Nasal Cannula 2 06/26/24 04:00 06/26/24 05:22 06/26/24 04:00 06/26/24 05:22 06/26/24 04:00 06/25/24 16:00 06/25/24 20:15 FiO2 40 06/25/24 04:00 Narrative Exam Constitutional Alert, oriented x 3 and comfortable. Obese male on O2 via NC HEENT Vision grossly intact. Patent nares. Trachea midline Respiratory Chest normal on inspection and decreased AE at bases with mild crackles Cardiovascular S1 and S2 audible, RRR. No murmurs carotid bruit. No gross JVD. Abdominal Soft,obese and non tender to palpation in all quadrants. BS + Genitourinary No bladder tenderness, no flank pain. Normal to palpation. No scrotal edema Musculoskeletal Extremities tone within normal limits. LE edema 2+ at posterior ankles b/l Neurological CN II - XII grossly intact. Extremity motor and sensation grossly intact. Skin Warm, dry and intact. Ecchymoses on anterior and medial L Knee- resolving. Right 1st,4th and 5th toe amputations noted Psychiatric Patient has good affect, is cooperative Objective Labs 06/26/24 05:10 06/26/24 05:10 Labs: Laboratory Results - last 24 hr 06/26/24 05:10 WBC 10.1 RBC 3.45 L Hgb 10.3 L Hct 30.9 L MCV 90 MCH 29.9 MCHC 33.3 RDW Std Deviation 45.6 H Plt Count 431 D Neut % (Auto) 62 Lymph % (Auto) 23 Walsh % (Auto) 10 Eos % (Auto) 5 Baso % (Auto) 1 Neut # (Auto) 6.3 Lymph # (Auto) 2.3 Walsh # (Auto) 1.0 H Eos # (Auto) 0.5 Baso # (Auto) 0.1 Immature Gran # (Auto) 0.03 H Absolute Nucleated RBC 0.00 Immature Gran % 0 Nucleated RBC % 0 Sodium 134 L Potassium 3.7 Chloride 99 Carbon Dioxide 30.3 Anion Gap 5 L BUN 18 Creatinine 0.9 Estim Creat Clear Calc 70.5 eGFR > 60 BUN/Creatinine Ratio 20 Glucose 202 H Calculated Osmolality 276 Calcium 8.7 Corrected Calcium 8.8 Magnesium 2.1 Total Bilirubin 0.6 AST 13 ALT 12 Alkaline Phosphatase 79 Total Protein 6.0 Albumin 3.9 Globulin 2.1 L Albumin/Globulin Ratio 1.9 ABG Interpretation ABG results: 06/21/24 09:39 ABG pH 7.46 H ABG pCO2 40 ABG pO2 34 L* ABG HCO3 28 H ABG O2 Saturation 75 L ABG Base Excess 4 H Quality Measures Quality Measures sepsis Current suspected stage: ruled out Possible source: unknown Blood cultures ordered: yes Antibiotic ordered: Yes Advance care planning discussed with:: patient Assessment & Plan Assessment Current Active Medications: Generic Name Dose Route Start Last Admin Trade Name Freq PRN Reason Stop Dose Admin Acetaminophen 650 mg 06/21/24 10:22 Acetaminophen 325 Mg Tablet PO 07/21/24 10:21 Q6H PRN pain and Fever >100.4 Protocol Hydrocodone Bitart/Acetaminophen 1 tab 06/21/24 10:22 Hydrocodone/Apap 5/325 Tablet PO 06/26/24 10:21 Q4HR PRN PAIN SCALE 4-10(Mod-Sev Aspirin 81 mg 06/22/24 09:00 06/25/24 08:58 Aspirin Ec 81 Mg Tabec PO 07/22/24 08:59 81 mg QDAY HARJEET Administration Atorvastatin Calcium 80 mg 06/22/24 21:00 06/25/24 20:51 Atorvastatin Calcium 20 Mg Tablet PO 07/22/24 20:59 80 mg HS HARJEET Administration Carvedilol 6.25 mg 06/22/24 08:00 06/25/24 17:33 Carvedilol 3.125 Mg Tablet PO 07/22/24 07:59 6.25 mg BIDWM HARJEET Administration Clopidogrel Bisulfate 75 mg 06/25/24 09:00 06/25/24 08:58 Clopidogrel Bisulfate 75 Mg Tablet PO 07/25/24 08:59 75 mg QDAY HARJEET Administration Dextrose 25 ml 06/21/24 10:27 Dextrose 50%-Water Inj 50 Ml Syringe IV 07/21/24 10:26 Q15MIN PRN BG 50-70 responsive npo pt Dextrose 50 ml 06/21/24 10:27 Dextrose 50%-Water Inj 50 Ml Syringe IV 07/21/24 10:26 Q15MIN PRN BG <50 OR BG <70 & pt unresponsive Famotidine 20 mg 06/23/24 11:30 06/25/24 08:58 Famotidine Inj 10 Mg/Ml Vial 2 Ml IVP 07/23/24 11:29 20 mg QDAY HARJEET Administration Furosemide 40 mg 06/25/24 18:00 06/26/24 05:22 Furosemide Inj 10 Mg/Ml 4ml Vial IVP 07/21/24 20:59 40 mg BIDD HARJEET Administration Glucagon 1 mg 06/21/24 10:27 Glucagon Inj 1 Mg Vial IM Q15MIN PRN BG <70, and no IV access Ceftriaxone Sodium/Dextrose 50 mls @ 100 mls/hr 06/21/24 08:00 06/25/24 08:58 Rocephin/D5w 1gm Iv Premix IV 06/28/24 07:59 100 mls/hr QDAY HARJEET Administration Heparin Sodium/Dextrose 25,000 unit in 250 mls @ 10 mls/hr 06/21/24 12:45 06/23/24 13:57 Heparin In D5w Ivpb IV 07/05/24 12:44 0 units/kg/hr .Q24H HARJEET 0 mls/hr Titration Protocol 8.646 UNITS/KG/HR Insulin Glargine 30 unit 06/25/24 09:00 06/25/24 08:58 Insulin Glargine (Lantus) 5 Unit/0.05 Ml (Per 5 Units) SC 07/25/24 08:59 30 unit QAM HARJEET Administration Insulin Human Lispro 0 unit 06/24/24 21:00 06/25/24 20:50 Insulin Lispro (Admelog) 1 Unit/0.01 Ml Unit SC 07/24/24 20:59 2 unit ACHS HARJEET Administration Protocol Pyridostigmine Hollins 60 mg 06/22/24 22:00 06/26/24 05:22 Pyridostigmine Hollins 60 Mg Tablet PO 07/22/24 21:59 60 mg TID HARJEET Administration Plan 74-year-old male with past medical history of essential hypertension for 40 years, insulin-dependent diabetes mellitus type 2 [7.4] for more than 30years, myasthenia gravis on pyridostigmine and mycophenolate follows up with Dr. Patton, neurologist in [place], and osteomyelitis of right foot s/p amputation of first toe, fourth and fifth toes on right foot due to diabetic ulcers, diabetic neuropathy, right ankle Charcot joint, B/L lower extremity varicose veins was brought into the ER due to shortness of breath which started last night as well as lower extremity swelling.Patient was admitted for new onset acute decompensated heart failure. Cardiology was consulted for elevated troponin, ST depression on EKG and new onset decompensated heart failure. 1. NSTEMI type I vs type II 2. ACS 3. Triple-vessel CAD 4. Troponinemia 5. Essential hypertension 6. Acute respiratory failure with hypoxia -resolved 7. New onset acute decompensated heart failure Patient has longstanding hypertension for more than 40 years. On admission patient had positive troponin I of 1.2 which up trended to 6.6. Patient presenting complaint was SOB and lower extremity edema. Patient denied chest pain, pressure. Patient was also hypoxic SpO2 94% on RA and started on BiPAP and transitioned to NC Patient was immediately prepped for cardiac catheterization Patient was clinically fluid overloaded with B/L lower extremity edema and abdominal distention. Negative fluid balance of 3020cc / 24 hours Currently patient only has 2+ edema at posterior ankles b/l. Lungs are clear to auscultation and scrotal and hip edema have resolved EKG was nondiagnostic with ST depression less than 1 mm in lead I and not in any consecutive leads Cardiac catheterization showed multi-vessel disease involving LAD and LCX with moderate disease in RCA Transthoracic echocardiogram: Normal LV size and low normal function. Estimated EF around 50%. Mild hypokinesis mid anterior apical septal, mid apical lateral, and apex. Grade 1 diastolic dysfunction. IVC mildly dilated. Dr. Padron cardiothoracic [place] reviewed patient images and said patient is high mortality case due to his multiple comorbidities including myasthenia gravis. Also has low-grade kidney failure most likely means no have visible vein conduits available, low HCT at 8 and his BMI of 41 means that mortality is greater than 10% . Dr. Nelson cardiothoracic surgeon from [facility] was also consulted and was of similar opinion and both surgeons recommended to pursue complex multi vessel PCI. Cardiac catheterization with PCI completed on 06/24 findings include: Successful PCI of mid LCX with 2.25x16 mm synergy JERRY stent an d post dilated with a 2.75 mm NC balloon at 16 yazmin for a total of 60 secs. Post IVUs performed. IVUS of the LAD perfomed and MLA (minimal luminal area) of the mid and proximal LAD is les than 4 mm2. Will perform staged PCI of LAD ias outpatient in the next couple of weeks. Plan: - Low sodium diet ? Strict I's/O charting ? Daily weights ? IV diuresis with furosemide 40 mg IV twice daily - Supplemental O2 - Atorvastatin 80 mg po HS - ASA 81 mg po daily indefintely along with plavix 75 mg daily - Continue Coreg 6.25 mg po BID and titrate as necesary as patient was in hypertensive urgency at admission - Can add losartan at later date or Entresto and Lasix po on discharge ? Maintain Mg >2 and K >4 to prevent arrhythmias ? No need to continue trending troponin - Discontinued Heparin Drip on 06/23 as patient developed hematuria. Patient already received 48 hours of heparin drip for NSTEMI. - Primary team plans to discharge patient today to either rehab versus home with home health. - Recommended to discharge patient on aspirin indefinitely along with Plavix, high intensity statin, Coreg, Entresto and p.o. Lasix. - Patient to follow-up in cardiology clinic within 1 week of discharge for medication optimization and planning of LAD stenting. - Patient's sister, Morena was at bedside. Both patient and sister updated on discharge plan. 8. Hypertensive urgency - resolved Patient blood pressure was elevated on admission and 240/140 mmHg. Patient was given some IV medications including IV Lasix and blood pressures in the 160 mmHg. Recommend to decrease joint by 25% and keep it around 150/60 mmHg. Agree with control of blood pressure with beta-blockers Coreg as well as losartan 9. Normocytic anemia DDx: Pure red cell aplasia secondary to mycophenolate, thalassemia, iron deficiency, sideroblastic anemia, lead poisoning Most likely secondary to long-term mycophenolate use. Recommend retic count to confirm Consider iron panel to rule out iron deficiency anemia and blood smear to rule out sideroblastic and lead poisoning. However lead poisoning unlikely due to patient's low risk of exposure. Patient's Hb on admission was 9.9 which subsequently downtrended to 8.0 on 06/23 Patient received 1 unit PRBC 06/23 after which Hb increased to 9.6. Patient Hb currently stable at 9.8 today [06/25] 10. Insulin-dependent diabetes mellitus type 2 11. Diabetic neuropathy 12. Right ankle Charcot joint 13. S/p first, fourth and fifth toe on right foot amputation Last HbA1c 7.4 Patient on insulin aspart and glargine at home Continue management as per primary team Patient had amputation of multiple digits on right foot secondary to diabetic neuropathy leading to diabetic ulcers. 14. Varicose veins 3 years ago patient first noticed B/L lower extremity swelling and was diagnosed at the time with varicose veins by his PCP Dr. Darrius Oswald. Patient was prescribed compression stockings which he wears daily. Health maintenance: Disposition: Discharge to rehab vs home with home health. F/U in cardiology clinic within 1 week. Plan for LAD stenting as outpatient Diet: Cardiac Lines: pIVs GI Prophylaxis: Famotidine Thrombo Prophylaxis: None Code status: FULL CODE Continue rest of management as per primary team We are grateful to be able to participate in Mr. Castro's care. Thank you for the consult Plan of care discussed with attending Computer Numerical Control Operator, Dr Eloisa Shah MD PGY 1 Attending Provider Attestation/Addendum I have personally seen and examined the patient separately on the above date of service and discussed the plan of care with the resident. I reviewed the resident Dr. Shah consultation progress note and agree with the resident findings and plan in the note above and have also edited the documentation to reflect my findings and plan. Noel Amin M.D. Interventional Cardiology
[2024-06-26] MEDS: INSULIN LISPRO (AdmeLOG) 1 UNIT/0.01 ML UNIT SC ×3 (08:44→18:25)
[2024-06-26] MEDS: INSULIN GLARGINE (Lantus) 5 UNIT/0.05 ML (PER 5 UNITS) 30 UNIT SC (08:44)
[2024-06-26] MEDS: carVEDILOL 3.125 MG TABLET 6.25 MG PO ×2 (08:44→18:25)
[2024-06-26] MEDS: CLOPIDOGREL BISULFATE 75 MG TABLET PO (08:45)
[2024-06-26] MEDS: POTASSIUM CHLORIDE 20 mEq TABCR 40 MEQ PO (08:45)
[2024-06-26] MEDS: ASPIRIN EC 81 MG TABEC PO (08:45)
[2024-06-26] MEDS: cefTRIAXone/D5w 1gm IV premix 50 ML IV (08:46)
[2024-06-26] MEDS: FAMOTIDINE INJ 10 MG/ML VIAL 2 ML 20 MG IVP (08:46)
--- NOTE | 2024-06-26 11:11 | PC.SS ---
Addendum entered by Anaya Cortez 06/26/24 16:06: SW scheduled EMS transportation for 1999. ALINE notified Olivier and patient. If bowel movement does not happen before transportation, Olivier has been instructed to inform associate financial analyst to cancel D/C. Addendum entered by Anaya Cortez 06/26/24 13:23: Pern Olivier, patient failed oximeter test. Patient will require EMS transportation. Patient is pending bowel movement for SW to schedule transportation. Original Note: Entry Level Manager (ALINE) Anaya informed that patient had discharge orders. ALINE met with patient and his sisters: Nakita and Morena. ALINE explained discharge plan which is to go to [facility] for short-term rehabilitation; patient needs wheelchair transportation. ALINE provided pamphlet of information for [employer] to Morena and Nakita. ALINE contacted Rafael through [employer]; however, patient has no services for transportation. Patient was notified, and he reported that he cannot ambulate very well and needs O2. He also reported that he cannot afford the ambulance fee. ALINE is awaiting for Olivier to do oximeter test and that would identify need for transportation.
[2024-06-26] MEDS: LACTULOSE SYRUP 20 GM/30 ML UDC PO (12:25)
--- NOTE | 2024-06-26 13:12 | ESDS_ITS ---
Planned Discharge Date 06/26/24 DS: Providers Provider Date of admission: 06/21/24 10:22 Primary care physician: Physician No Primary/Family Admitting Provider: Paulette Hawkins MD Attending Provider on Admission: Jon Inman MD Consults: 06/21/24 11:55 Consult to Cardiology Stat Comment: Consulting Provider: Noel Amin Santamaria 06/22/24 08:13 Referral - Grocery Store Manager Stat Service Needed for Transfer: Cardiovascular/Thoracic Surg Addl Comments:: Patient needs transfer for CABG due to multivessel CAD. 06/24/24 09:40 Referral Physical Therapy Routine Comment: Physician Instructions: Attending Provider on DC: Harshil Love MD Discharging Provider: Harshil Love MD DS: Diagnosis Problem List Completed Was Problem List Reviewed/Reconciled?: Yes Hospital Course Hospital Course Hospital course: 74-year-old male with past medical history of hypertension, DM2, myasthenia gravis, and osteomyelitis of right foot was admitted to the hospital on 06/21/2024 for acute decompensated heart failure, troponinemia type I versus 2, and sepsis likely secondary to community-acquired pneumonia. In the ER due to shortness of breath which started last night as well as lower extremity swelling.Initially came in hypertensive, tachycardic, tachypneic, and hypoxic. Initial labs were relevant for leukocytosis, normocytic normochromic anemia, thrombocytosis, hypoxia on ABG, hypokalemic, bilirubinemia, troponinemia (with uptrending troponins from 1.203 to 3.219), elevated lactic dehydrogenase, elevated BNP 556, and negative UA. Imaging included chest x-ray which showed prominent CHF, and pneumonia of right base, venous Doppler which was negative for DVT, chest CTA which showed significant heart failure, primary hepatocellular disease, and bilateral pleural effusions, negative for PE. EKG showed some ST changes. Patient underwent heart catheterization and was found to have multivessel CAD and an ejection fraction of 50% by bilingual inside sales representative. He was placed on heparin drip and which was stopped for procedure and afterwards was continued again. Patient also was started on Coreg 6.25 mg twice daily and because of multivessel CAD patient there was a discussion of patient likely needing to be transferred for possible CABG, but our bilingual inside sales representative spoke with cardiothoracic surgeons from other facilities was mentioned that patient was high mortality case. Since patient was high mortality case and was not a candidate for CABG at this time bilingual inside sales representative decided to place some stents. On 06/24/2024 patient had successful stent placement in the LCx and other stents would be placed as an outpatient. Throughout the hospital stay patient's edema improved with IV Lasix 40 twice daily and his electrolytes were repleted as necessary throughout his hospital stay. Patient also received 3-day course of azithromycin and 6-day course of Rocephin for his pneumonia. At the time of discharge patient's dry weight was 67.16 kg. At the time of discharge patient was clinically stable to be discharged to a half-way facility where he will get ongoing physical therapy and continuation of medical management. Discharge plan: Start taking aspirin, atorvastatin, carvedilol, clopidogrel, entresto and lasix as instructed. Stop taking benazepril. Continue other home medications as prescribed. Follow up with cardiology within 1-2 weeks. Follow up with PCP within 2 weeks. If you don't have a PCP, you can make an appointment at the [facility]: [address] [facility] [address] [place] [address] Problem list: #Multivessel CAD #Troponinemia type I versus II #Hypertensive emergency #Acute decompensated heart failure, new onset #Sepsis likely secondary to community-acquired pneumonia #Acute hypoxic respiratory failure #Shortness of breath #Anasarca #Hypokalemia #Pleural effusion #Community-acquired pneumonia #Leukocytosis #Ground level Fall #Hx of myasthenia gravis #GERD? #Bilirubinemia #Normocytic normochromic anemia #Thrombocytosis #Hx of DM2 Case disclosed with Attending Dr. Love and My senior Dr. Smith PGY2. Oleksandr Patterson PGY1 Status at Discharge Overall status at discharge: patient is progressing back to baseline Time Spent with Patient Time attestation: Total time spent providing and/or coordinating discharge services:>35 min Home Health Home Health Referral Orders: 06/25/24 14:24 Home Health Referral Routine Reason For Exam: debility, refused SNF Home-Bound The patient must either because of illness or injury, need the aid of supportive devices such as crutches, canes, wheelchairs, and walkers; the use of special transportation; or the assistance of another person in order to leave their place of residence; OR have a condition such that leaving his or her home is medically contraindicated. In addition, the patient also meets the following criteria: patient is normally unable to leave the home and leaving home requires considerable taxing effort. Addendum to Home Health Certification Practitioner's Certification: I certify that the patient has been under my care in the hospital and the care of attending physician (see below). We had a pwtb-ya-ublt encounter on (see date below). My clinical findings indicate that the patient is home bound per the above criteria and the Home Health Services noted in these orders are medically necessary. The primary reason for the guar-wr-kmdj encounter is related to the fact that the patient requires home health services. Date Certifying Liog-op-Sncb Physician Encounter: 06/21/24 Physician's Name who will Assume Oversight for HH Services: Physician No Primary/Family TEACHER EARLY CHILDHOOD DEVELOPMENT - Community Resources: Yes PT to Evaluate: Yes PT to evaluate and provide a treatmnet plan to increase patient's mobility and strength. Wound Care: No IV Therapy: No RN Safety Evaluation: Yes RN to evaluate and create a plan of care that will produce positive outcomes. Palliative Treatment: No Palliative treatment and evaluate the need for hospice. Home Health Aide - Personal Care: Yes: Refused SNF Home Health Aide to assist with any ADL's. Exam Vital Signs Temp Pulse Resp BP Pulse Ox O2 Del Method O2 Flow Rate 97.1 F 60 23 H 127/62 95 Nasal Cannula 2 06/26/24 12:00 06/26/24 12:00 06/26/24 12:00 06/26/24 12:00 06/26/24 12:00 06/26/24 12:00 06/26/24 12:00 FiO2 40 06/26/24 08:00 Narrative Exam General: A/O x3, no acute distress, obese Eyes: PERRL, EOMI. Anicteric, vision grossly intact. Ears: No ear pain, no ear discharge, Hearing grossly intact. Nose: No nasal discharge. Mouth/Throat: Dry mucous membranes, no redness, no lesions. Neck: short neck, non-tender, no cervical lymphadenopathy. Lungs: Decreased breath sounds, No accessory muscle use. Cardio: Normal S1/S2, regular rhythm, no murmurs, no JVD Abdomen: Soft, non-tender, no palpable masses, peristalsis present, no guarding or rebound. Extremities: Symmetrical, no significant deformities, no pitting edema, non- tender, peripheral pulses presents, Multiple R foot digits amputation Skin: No rashes, no lesions, warm to touch, multiple abrasion in various stages of healing in KAYLEEN LE and L UE, bruise in L knee Neuro: No focal neurological deficits, motor and sensory intact Psych: Cooperative, appropriate mood and effect. Discharge Plan Plan Patient Disposition: Xfer Skilled Nsg Fac (SNF) Care Plan Goals: Start taking aspirin, atorvastatin, carvedilol, clopidogrel, entresto and lasix as instructed. Stop taking benazepril. Continue other home medications as prescribed. Follow up with cardiology within 1-2 weeks. Follow up with PCP within 2 weeks. If you don't have a PCP, you can make an appointment at the [facility]: [address] [place] [address] Prescriptions/Referrals Prescriptions/Med Rec: New aspirin 81 mg capsule 81 mg PO QDAY Qty: 30 2RF atorvastatin 80 mg tablet 80 mg PO QPM Qty: 30 2RF clopidogrel [Plavix] 75 mg tablet 75 mg PO QDAY Qty: 30 2RF Entresto 24-26 mg tablet 1 tab PO BID Qty: 60 2RF furosemide 40 mg tablet 40 mg PO BID Qty: 60 2RF carvedilol 6.25 mg tablet 6.25 mg PO BID Qty: 60 2RF Rx Instructions: must administer with a meal/food Continued mycophenolate mofetil 500 mg Tablet 500 mg PO Q12H pyridostigmine bromide 60 mg Tablet 60 mg PO TID insulin aspart U-100 [Novolog FlexPen U-100 Insulin] 100 unit/mL (3 mL) Insulin Pen 20 unit SUBCUT TID insulin glargine U-300 conc [Toujeo Max U-300 SoloStar] 300 unit/mL (3 mL) insulin pen 30 unit SUBCUT BID Patient Comments: PLEASE SEE ATTACHED FOR DETAILED DIRECTIONS Discontinued benazepril [Lotensin] 20 MG tablet 40 mg PO QDAY Qty: 0 mycophenolate mofetil 250 mg Capsule 250 mg PO BID Referrals: No Primary/Family,Physician [Primary Care Provider] - Patient/Caregiver Discharge Instructions Education Materials: Coronary Angioplasty, Coronary Stents Print Language: Turkish Activity Restrictions/Additional Instructions: RADIAL ACCESS URDU Please call to schedule a follow up appointment with your primary care doctor 1- 2 weeks after discharge so he/she can make further recommendations about your overall health condition. DO NOT drive or operate any motor vehicle, heavy equipment, or machinery in the next 24 hours. DO NOT perform any activity that requires you to be fully alert in the next 24 hours. DO NOT sign any documentation in the next 24 hours that requires a full understanding of what you are signing for. Do not perform any strenuous physical activity in the next 5 days. Do not bend or twist your wrist for the next 3 days. Do no lift anything that weights equal or over 5 pounds with your right Arm/Hand within the next 3 days. Perform light activity only with your right Hand/Arm for the next 3 days. Do not strain your bowel. If you experience constipation, drink plenty of fluids, especially water, if not contraindicated by your doctor. In addition, add foods rich in fiber. Should you experience constipation, talk to your doctor about other options that might help you alleviate it. Keep your blood pressure under control. If you take blood pressure medication, continue to take it as prescribed, if not contraindicated by your doctor, doing so; helps to prevent post-complications such as bleeding. Take your new/previous medication as directed by the doctor. If there is no changes, continue to take medication at your usual time. After 3 days, start increasing the level of physical activity with your Hand/Arm gradually in the following 5 days. Look out for signs of infection such as tenderness, redness, or drainage to your right wrist. If any, report them to your primary care doctor immediately. You will go home with your right wrist covered by two different dressings, a clear dressing and a Coban wrap. The Coban wrap (Color Dressing on Top) must be removed in 24 hours after it was placed. The clear dressing (Dressing that is attached to your skin) Must be removed in 48 hours after it was placed. If you decide to shower or to take a bath, NOT RECOMMENDED IN THE FIRST 24 HOURS AFTER THE PROCEDURE; please keep dressing clean and dry by covering it. Or, if you prefer, take a sponge bath instead. After removing your dressing, you can gently clean your surgical site with soap and water and pad dry it. DO NOT rub site to prevent complication such as bleeding. DO NOT apply any lotions, creams, or powders on the surgical site until your skin completely heals (5 days or more). Should you experience any type of complications such as pain, change in color, change in temperature, a bruise that increases in size and color, a lump (Hard or soft) that develops and increases in size, numbness, or loss of sensation in your Right arm/Wrist, Chest pain, or shortness of breath; PLEASE GO TO THE NEAREST EMERGENCY ROOM IMMEDIATELY. Should you have any other questions or concerns on regards today?s procedure; feel free to contact us to [employer]ivid[employer] Clerk . Please call to schedule a follow up appointment with your primary care doctor 1- 2 weeks after discharge so he/she can make further recommendations about your overall health condition. It is important to follow a heart healthy diet. Avoid saturated fat foods and food and drinks with added sugar. Eat a well-balanced diet with plenty of fresh fruits, vegetables and whole grains if not contraindicated by your primary care provider. Choose water to hydrate yourself over any other type of drinks. Talk to your primary doctor for further advice for a diet that fits your nutritional body requirements and for an adequate exercise program to keep and improve your overall health condition. ALWAYS FOLLOW/CONSIDER YOUR PRIMARY CARE DOCTOR'S MEDICAL ADVICE BEFORE MAKING ANY CHANGES TO YOUR DIET OR LEVEL OF ACTIVITY. Should you have any other questions or concerns on regards today?s procedure; feel free to contact us to [employer] . Stand Alone Forms: Renu Award Info., Patient Portal Info Letter Discharge Order Discharge Orders: Discharge (Routine); Ordered 06/26/24 Ordered By: Bradford Smith Quality Discharge Quality Measures VTE prophylaxis Attestestation Attestation I discussed with and supervised the resident physician who took care of this patient. I agree with the assessment and discharge plan as above. Return to the emergency room or contact PCP for recurrent symptoms. Risks for noncompliance discussed with this patient
--- NOTE | 2024-06-26 14:03 | PC.NURSE ---
Patient ambulated with walker outside of room, during walk patient oxygen dropped to 84-86. Patient was able to ambulate outside the door and a few steps in the hallway before needing to sit down. Patient feeling lightheaded and tired, oxygen put back on patient.
[2024-06-26] MEDS: POLYETHYLENE GLYCOL 17 GM PACKET PO (14:43)
[2024-06-26] MEDS: bisacodyL 10 MG SUPP PR (16:55)
--- NOTE | 2024-06-26 20:20 | PC.NURSE ---
Patient having retention, Dr. Ace notified, bladder scan at bedside resulted in 999+. Dr. Ace notified and ordered straight cath. From straight cath 1400ml urine output. SNF notified about retention and ability to possibly place regan catheter if needed at SNF. After SNF nurse checked with manager body stated they can accept patient with possible catheterization.
--- NOTE | 2024-06-26 20:35 | PC.NURSE ---
Patient able to have BM without enema administration
== END 2024-06-26 20:20 | disposition skilled nursing facility (03) | DRG 321 ==
LOC: SERX 08:31 → SERHOLD 11:27 → S2NX 15:44
PROVIDERS: Emergency Medicine; Internal Medicine Cardiovascular Disease; Student in an Organized Health Care Education/Training Program; Admitting Provider Internal Medicine; Emergency Provider Internal Medicine Critical Care Medicine; Visit Provider Student in an Organized Health Care Education/Training Program
PROC: 4A023N8 Measurement of Cardiac Sampling and Pressure, Bilateral, Percutaneous Approach (ICD-10-PCS; principal; 2024-06-21 14:00)
PROC: 027034Z Dilation of Coronary Artery, One Artery with Drug-eluting Intraluminal Device, Percutaneous Approach (ICD-10-PCS; principal; 2024-06-24 11:30)
DX: I21.4 Non-ST elevation (NSTEMI) myocardial infarction (principal); A41.9 Sepsis, unspecified organism; J18.9 Pneumonia, unspecified organism; J96.01 Acute respiratory failure with hypoxia; I16.1 Hypertensive emergency; J90 Pleural effusion, not elsewhere classified; I11.0 Hypertensive heart disease with heart failure; I50.9 Heart failure, unspecified; E87.6 Hypokalemia; D64.9 Anemia, unspecified; D75.839 Thrombocytosis, unspecified; G70.00 Myasthenia gravis without (acute) exacerbation; E78.5 Hyperlipidemia, unspecified; Z79.4 Long term (current) use of insulin; E11.40 Type 2 diabetes mellitus with diabetic neuropathy, unspecified; I83.93 Asymptomatic varicose veins of bilateral lower extremities; I25.10 Atherosclerotic heart disease of native coronary artery without angina pectoris; I35.0 Nonrheumatic aortic (valve) stenosis; E11.610 Type 2 diabetes mellitus with diabetic neuropathic arthropathy; I83.90 Asymptomatic varicose veins of unspecified lower extremity; K21.9 Gastro-esophageal reflux disease without esophagitis; E11.65 Type 2 diabetes mellitus with hyperglycemia
CPT/HCPCS: 36415; 36600; 71045; 71275; 73521; 80048; 80053; 80307; 81001; 82803; 82810; 83605; 83615; 83690; 83735; 83880; 84100; 84145; 84484; 85025; 85347; 85610; 85730; 86850; 86900; 86901; 86923; 87040; 87086; 87400; 87811; 93005; 93306; 93970; 94660; 96365; 96375; 97162; 99152; 99153; 99291; 99292; A4649; C1725; C1753; C1769; C1874; C1887; C1894; J0171; J0360; J0461; J0696; J1643; J1644; J1815; J1940; J2250; J2310; J2371; J2405; J3010; J3475; J3480; J3490; P9016; Q9967; A9270; J2305

== ENCOUNTER 2024-07-18 16:37 | Inpatient (IN) | payer OTHER, MEDICAID, MEDICARE, SELFPAY ==
[2024-07-18] VITALS (9 sets, daily range): BP systolic 108–159; BP diastolic 49–96; PULSE 51–62; RESP 14–18; TEMP 36.7–37.1; O2SAT 96–100; BMI 30.3
--- NOTE | 2024-07-18 16:54 | XR_ITS ---
Examination: AP chest single view Technique: AP portable semiupright chest single view Exam date and time: July 18, 2024 1750 hrs. Indications: Weakness today. Findings: No significant cardiac enlargement No pneumonia or pulmonary edema Moderate osteopenia Impression: No active disease
--- NOTE | 2024-07-18 16:54 | EKG_ITS ---
[facility] Test Date: 2024-07-18 Pat Name: NAYLA ZAPATA Department: Room: - Gender: Male Gas Prover: : 1950 Requested By: David Yanes Order Number: [id number] Reading MD: David Yanes Measurements Intervals [place] Rate: 56 P: 3 DE: 201 QRS: -17 QRSD: 96 T: 9 QT: 421 QTc: 409 Interpretive Statements SINUS BRADYCARDIA Compared to ECG 06/21/2024 07:42:29 Sinus rhythm no longer present T-wave abnormality no longer present /store/S0/[id number]
--- NOTE | 2024-07-18 16:54 | XR_ITS ---
Examination: CT brain head without contrast. 2-D sagittal coronal reconstructions Date and time of exam: July 18, 2024 1744 hrs. Indications: Paresthesias left side of the body beginning 2 days ago CTDI: vol (mGy):62.8 DLP: (mGycm):1277 Technique: Multiple CT axial sections of the brain have been obtained, 5 mm slice thickness. Contrast has not been administered. 2-D sagittal, coronal reconstructions have been obtained Low dose protocols were performed. One or more of the following dose reduction techniques were used; automated exposure control, adjustment of the mA and/or KV according to patient size, use of iterative reconstruction technique. Findings: No significant ventricular enlargement. Intra-axial or extra-axial hemorrhage density is not seen. No mass effect or midline shift Basal cisterns are not remarkable. Fourth ventricle is midline. Cranial vault intact. Impression: Negative for acute hemorrhage, mass effect or midline shift Consider brain MRI follow-up, stroke protocol
[2024-07-18 17:14] LABS: Collection Type, Urine Clean Catch; Squamous Epithelial Cell,Urine 0 /hpf (0-5)
[2024-07-18 17:20] LABS: Basophils # (Auto) 0.1 Thou/mm3 (0.0-0.2); Basophils % (Auto) 1 % (0-2.5); Eosinophils # (Auto) 0.2 Thou/mm3 (0.0-0.5); Eosinophils % (Auto) 2 % (0-10); Hemoglobin 11.7 g/dL (13.5-16.0); Immature Granulocytes % (Auto) 0 % (0-0); Immature Granulocytes Auto 0.02 Thou/mm3 (0.00-0.00); Lymphocytes # (Auto) 2.2 Thou/mm3 (1.0-4.8); Lymphocytes % (Auto) 25 % (10-50); Mean Corpuscular HGB Conc 34.4 g/dl (31.0-37.0); Mean Corpuscular Hemoglobin 30.1 pg (25.0-35.0); Mean Corpuscular Volume 87 fL (80-100); Monocytes # (Auto) 0.8 Thou/mm3 (0.0-0.8); Monocytes % (Auto) 10 % (0-12); Neutrophils # (Auto) 5.6 Thou/mm3 (1.8-7.7); Neutrophils % (Auto) 63 % (37-80); Nucleated Red Blood Cell % 0 /100 WBC (0); Platelet Count 367 Thou/mm3 (140-440); RDW Standard Deviation 41.7 fL (35.1-43.9); Red Blood Count 3.89 Miln/mm3 (4.50-5.90); White Blood Count 8.9 Thou/mm3 (3.8-10.6)
[2024-07-18 17:25] LABS: Amorphous Crystals,Urine Present (Absent); Bilirubin,Urine Negative (Negative); Blood,Urine Negative (Negative); Color,Urine Lt-Yellow (Lt Yel-Yel); Glucose, Urine 4+ (Negative); Ketones,Urine Negative (Negative); Leukocyte Esterase,Urine Positive (Negative); Nitrite,Urine Negative (Negative); PH,Urine 6.5 (5.0-7.0); Protein,Urine Trace (Neg - Trace); RBC,Urine 2 /hpf (0-3); Specific Gravity,Urine 1.009 (1.001-1.035); Urobilinogen,Urine Negative mg/dL (0.0-1.0); WBC,Urine 95 /hpf (0-5)
[2024-07-18 17:26] LABS: Clarity,Urine Hazy (Clear/Hazy)
[2024-07-18 17:28] LABS: Partial Thromboplastin Time 26.8 Seconds (22.0-36.0); Prothrombin Time 11.4 Seconds (9.0-12.2)
[2024-07-18 17:30] LABS: Amphetamine/Methamp Scrn,U Negative (Negative); Barbiturate Screen,Urine Negative (Negative); Benzodiazepines Screen,Urine Negative (Negative); Benzoylecgonine Screen, Ur Negative (Negative); Fentanyl Screen,Urine Negative (Negative); Opiate Screen,Urine Negative (Negative); THC Screen,Urine Negative (Negative)
[2024-07-18 17:31] LABS: Albumin, Serum 4.2 gm/dL (3.4-4.8); Albumin/Globulin Ratio 2.1 (1.2-2.2); Alkaline Phosphatase 100 U/L (46-116); Anion Gap 8 (7-16); Aspartate Amino Transferase 10 U/L (0-34); BUN/Creatinine Ratio 16 Ratio (12-20); Bilirubin,Total 0.4 mg/dL (0.3-1.2); Blood Urea Nitrogen 14 mg/dL (9-23); Calcium 8.9 mg/dL (8.3-10.6); Calcium (Corrected) 8.9 mg/dL (8.5-10.1); Carbon Dioxide 29.2 mMol/L (20.0-31.0); Chloride 96 mMol/L (98-107); Creatinine (Component) 0.9 mg/dL (0.6-1.3); Estimated Creatinine Clearance 94.1 mL/min (>60); Glucose 262 mg/dL (74-106); Osmolality,Calculated 275 (275-295); Potassium 3.4 mMol/L (3.4-5.1); Sodium 133 mMol/L (136-145); Total Protein 6.2 gm/dL (5.7-8.2); Troponin I < 0.020 ng/mL (0.0-0.045); eGFR > 60 See Note
[2024-07-18 17:41] LABS: Alanine Aminotransferase 12 U/L (10-49); Procalcitonin 0.12 ng/ml (0.0-0.49)
--- NOTE | 2024-07-18 18:19 | EDNOTE_ITS ---
<Statement entered by Alejandra Lenz MD - 07/26/24 17:46> As co-signing physician, I was present and available for consult prn. I concur with the plan and care as documented by the midlevel provider. ED Extremity Problem RME/HPI General Chief complaint: Extremity Problem,Nontraumatic Stated complaint: STROKE Time Seen by Provider: 07/18/24 16:51 Arrival date/time: 07/18/24 16:37 This is a 74-year-old male with past medical history of hypertension, DM2, myasthenia gravis, decompensated heart failure, CAD , and recent admission for osteomyelitis of right foot Patient underwent heart catheterization and was found to have multivessel CAD and an ejection fraction of 50% by publication director. A consult was placed for cardiothoracic surgery and they felt that he would be a high mortality case. Since patient was high mortality case and was not a candidate for CABG at this time publication director decided to place some stents. On 06/24/2024 patient had successful stent placement in the LCx and other stents would be placed as an outpatient. Today patient has a complaint of left-sided facial numbness and left sided arm numbness and left-sided leg numbness. Patient states that symptoms started on Friday. Patient has no focal deficits. Patient states that his left leg feels heavy but is able to move with no problems. Patient denies any other complaints. Patient denies headache, fever, chills, nausea, vomiting, diarrhea. Patient denies chest pain and shortness of breath. Related Data Home Medications ?Medication ?Instructions ?Recorded ?Confirmed insulin aspart U-100 100 unit/mL 20 unit subcut TID 06/21/24 07/19/24 (3 mL) subcutaneous pen (Novolog FlexPen U-100 Insulin aspart) insulin glargine U-300 conc 300 30 unit subcut BID 06/21/24 07/19/24 unit/mL (3 mL) subcutaneous pen (Toujeo Max U-300 SoloStar) mycophenolate mofetil 500 mg tablet 500 mg PO Q12H 06/21/24 07/19/24 pyridostigmine bromide 60 mg tablet 60 mg PO TID 06/21/24 07/19/24 acetaminophen 325 mg tablet 325 mg PO PRN PRN Pain 07/19/24 07/19/24 (Tylenol) Previous Rx's ?Medication ?Instructions ?Recorded aspirin 81 mg capsule 81 mg PO QDAY #30 caps 06/26/24 atorvastatin 80 mg tablet 80 mg PO QPM #30 tabs 06/26/24 clopidogrel 75 mg tablet (Plavix) 75 mg PO QDAY #30 tabs 06/26/24 sacubitril 24 mg-valsartan 26 mg 1 tab PO BID #60 tabs 06/26/24 tablet (Entresto) furosemide 40 mg tablet (Lasix) 40 mg PO QDAY #90 tabs 07/20/24 metoprolol succinate 25 mg 25 mg PO QDAY #90 tabs 07/20/24 tablet,extended release 24 hr Allergies Allergy/AdvReac Type Severity Reaction Status Date / Time Sulfa (Sulfonamide Allergy Intermediate Rash Verified 07/18/24 16:50 Antibiotics) ibuprofen Allergy Mild Rash Verified 07/18/24 16:50 Penicillins Allergy Mild Rash Verified 07/18/24 16:50 Review of Systems Review of Systems Systems Reviewed: All systems reviewed, normal except as documented Past Medical History Past Medical History Comments PMH COMMENT: PMH: hypertension, DM2, myasthenia gravis, and osteomyelitis of right foot Social Hx: Denies any alcohol, smoking, or drugs Surgical Hx: Right toe amputation and knee surgery. Allergies: Penicillin, sulfa drugs, ibuprofen Medication: Benazepril 20 mg daily, pyridoxine 60 mg 3 times daily, mycophenolate 500 mg twice daily, NovoLog 3 times daily, Toujeo max 30 units twice daily. ED Exam General General appearance: Present alert and in no apparent distress Head Head exam: Present atraumatic Eye Eye exam: Present normal appearance, PERRL and EOMI ENT ENT exam: Present normal exam, normal oropharynx and mucous membranes moist Neck Neck exam: Present normal inspection, full ROM and trachea midline Chest Chest inspection: Present normal inspection and symmetric chest wall rise Respiratory Respiratory exam: Present normal lung sounds bilaterally Cardiovascular Cardiovascular exam: Present regular rate, normal rhythm and normal heart sounds Abdominal Exam Abdominal exam: Present soft Extremities Exam Extremities exam: Present normal inspection and full ROM Back Exam Back exam: Present normal inspection and full ROM Neurological Exam Neurological exam: Present alert, oriented X3 and CN II-XII intact Psychiatric Psychiatric exam: Present normal affect and normal mood Skin Skin exam: Present warm, dry, intact and normal color Course Quality Measures none Orders Category Date Time Status COVID-19 Screening Questionnaire NOW Care 07/18/24 20:18 Completed Decision to Admit X1 Care 07/18/24 20:18 Completed EKG (ED ONLY) *Do not use* NOW Care 07/18/24 16:[address] head/brain wo con Stat Exams 07/18/24 16:54 Completed EKG (ED Only) Stat Exams 07/18/24 16:54 Draft XR chest 1V Stat Exams 07/18/24 16:54 Completed CBC Stat Lab 07/18/24 17:04 Completed CMP [Comprehensive Metabolic Panel] Stat Lab 07/18/24 17:04 Completed Drug Screen,Urine Stat Lab 07/18/24 17:09 Completed Lactate (Lactic Acid) Stat Lab 07/18/24 17:04 Completed Partial Thromboplastin Time Stat Lab 07/18/24 17:04 Completed Procalcitonin Stat Lab 07/18/24 17:04 Completed Prothrombin Time with INR Stat Lab 07/18/24 17:04 Completed Troponin I Stat Lab 07/18/24 17:04 Completed Urinalysis Stat Lab 07/18/24 17:09 Completed Vital Signs Vital signs: Vital Signs Temperature 98.7 F 07/18/24 16:40 Pulse Rate 59 L 07/18/24 16:40 Respiratory Rate 18 07/18/24 16:40 Blood Pressure 159/96 H 07/18/24 16:40 Pulse Oximetry (%) 98 07/18/24 16:40 Oxygen Delivery Method Room Air 07/18/24 16:40 Procedures -ED EKG Interpretation #1: Date of EK07/18/24 Time of EK:10 Rate: 56 Interpretation: Interpreted by me (sinus bradycardia ) EKG Impression: No ectopy, Normal QRS and Normal intervals Extremity Problem MDM Narrative MDM Narrative:: This is a 74-year-old male with past medical history of hypertension, DM2, myasthenia gravis, decompensated heart failure, CAD , and recent admission for osteomyelitis of right foot Patient underwent heart catheterization and was found to have multivessel CAD and an ejection fraction of 50% by publication director. A consult was placed for cardiothoracic surgery and they felt that he would be a high mortality case. Since patient was high mortality case and was not a candidate for CABG at this time publication director decided to place some stents. On 06/24/2024 patient had successful stent placement in the LCx and other stents would be placed as an outpatient. Today patient has a complaint of left-sided facial numbness and left sided arm numbness and left-sided leg numbness. Patient states that symptoms started on Friday. Patient has no focal deficits. Patient states that his left leg feels heavy but is able to move with no problems. Patient denies any other complaints. Patient denies headache, fever, chills, nausea, vomiting, diarrhea. Patient denies chest pain and shortness of breath. Chest x ray shows: Findings: No significant cardiac enlargement No pneumonia or pulmonary edema Moderate osteopenia Impression: No active disease CT head: Findings: No significant ventricular enlargement. Intra-axial or extra-axial hemorrhage density is not seen. No mass effect or midline shift Basal cisterns are not remarkable. Fourth ventricle is midline. Cranial vault intact. Impression: Negative for acute hemorrhage, mass effect or midline shift Consider brain MRI follow-up, stroke protocol Labs reviewed unremarkable. CT, x ray of chest and ekg reviewed. Discussed case with admitting hopsitalist. I consulted teleneurology and hospitalist admitted patient. Patient data External records reviewed:: [facility] previous records Clinical information provided by:: patient Social determinants that could affect healthcare access:: none Patient has the following chronic illnesses:: see note How is presenting disease/condition affected by chronic disease/condition?: exacerbated by Evaluation data The following diagnostics were reviewed and interpreted by me:: lab results, radiology exam(s) and EKG tracing(s) Lab and/or radiology exams considered but not ordered:: none Interpretation Summary: see note Medications / Prescriptions Medications or Prescriptions considered but not ordered:: none Medication administrations:: Medication Administration History Discontinued Medications Acetaminophen (Acetaminophen 325 Mg Tablet) 650 mg PO Q6H PRN PRN Reason: Pain 1-3 and/or Fever >100.1 Stop: 08/17/24 20:18 Aspirin (Aspirin Ec 81 Mg Tabec) 81 mg PO QDAY [facility] Stop: 08/18/24 08:59 Last Admin: 07/20/24 08:15 Dose: 81 mg Documented By: Admin: 07/19/24 09:55 Dose: 81 mg Documented By: NAHUN Atorvastatin Calcium (Atorvastatin Calcium 20 Mg Tablet) 80 mg PO QPM [facility] Stop: 08/17/24 20:59 Last Admin: 07/19/24 21:33 Dose: 80 mg Documented By: Admin: 07/18/24 21:04 Dose: 80 mg Documented By: NYDIA Atorvastatin Calcium (Atorvastatin Calcium 10 Mg Tablet) 80 mg PO X1 ONE Stop: 07/19/24 21:01 Last Admin: 07/19/24 21:44 Dose: Not Given Documented By: MICHAEL Non-Admin Reason: Duplicate Medication on eMAR Calcium Carbonate (Calcium Carbonate 600 Mg Tablet) 600 mg PO X1 ONE Stop: 07/19/24 06:09 Last Admin: 07/19/24 08:41 Dose: 600 mg Documented By: NAHUN Carvedilol (Carvedilol 3.125 Mg Tablet) 6.25 mg PO BID [facility] Stop: 08/17/24 20:59 Last Admin: 07/19/24 08:40 Dose: 6.25 mg Documented By: Admin: 07/18/24 21:05 Dose: 6.25 mg Documented By: NYDIA Clopidogrel Bisulfate (Clopidogrel Bisulfate 75 Mg Tablet) 75 mg PO QDAY [facility] Stop: 08/18/24 08:59 Last Admin: 07/20/24 08:15 Dose: 75 mg Documented By: Admin: 07/19/24 08:41 Dose: 75 mg Documented By: NAHUN Pyridostigmine Br (60mg Tablet) 0 ea PO TID [facility] Stop: 08/18/24 13:59 Last Admin: 07/20/24 06:01 Dose: 1 tablet Documented By: Admin: 07/19/24 21:33 Dose: 1 tablet Documented By: Admin: 07/19/24 14:59 Dose: 1 tablet Documented By: NAHUN Dextrose (Dextrose 50%-Water Inj 50 Ml Syringe) 25 ml IV Q15MIN PRN PRN Reason: BG 50-70 responsive npo pt Stop: 08/17/24 21:28 Dextrose (Dextrose 50%-Water Inj 50 Ml Syringe) 50 ml IV Q15MIN PRN PRN Reason: BG <50 OR BG <70 & pt unresponsive Stop: 08/17/24 21:28 Furosemide (Furosemide 40 Mg Tablet) 40 mg PO BID [facility] Stop: 08/17/24 20:59 Last Admin: 07/19/24 08:41 Dose: 40 mg Documented By: Admin: 07/18/24 21:06 Dose: 40 mg Documented By: NYDIA Glucagon (Glucagon Inj 1 Mg Vial) 1 mg IM Q15MIN PRN PRN Reason: BG <70, and no IV access Magnesium Sulfate/Dextrose (Magnesium Sulfate Ivpb) 1 gm in 100 mls @ 100 mls/hr IV X1 ONE Stop: 07/19/24 09:06 Last Admin: 07/19/24 08:39 Dose: 100 mls/hr Documented By: NAHUN Magnesium Sulfate (Magnesium Sulfate Ivpb) 4 gm in 50 mls @ 12.5 mls/hr IV X1 ONE Stop: 07/19/24 21:23 Last Admin: 07/19/24 17:47 Dose: 12.5 mls/hr Documented By: NAHUN Insulin Glargine (Insulin Glargine (Lantus) 5 Unit/0.05 Ml (Per 5 Units)) 30 unit [facility] Stop: 08/18/24 20:59 Last Admin: 07/19/24 21:34 Dose: 30 unit Documented By: MICHAEL Co-signed By: GARFIELD Insulin Glargine (Insulin Glargine (Lantus) 5 Unit/0.05 Ml (Per 5 Units)) 34 unit SC [facility] Stop: 08/19/24 20:59 Insulin Human Lispro (Insulin Lispro (Admelog) 1 Unit/0.01 Ml Unit) 0 unit SC [facility]; Protocol Stop: 08/18/24 07:29 Last Admin: 07/20/24 12:13 Dose: Not Given Documented By: NAHUN Non-Admin Reason: Per Protocol Admin: 07/20/24 08:16 Dose: 4 unit Documented By: NAHUN Co-signed By: ANNA Admin: 07/19/24 21:34 Dose: 4 unit Documented By: MICHAEL Co-signed By: GARFIELD Admin: 07/19/24 17:48 Dose: 8 unit Documented By: NAHUN Co-signed By: XAVI Admin: 07/19/24 11:44 Dose: Not Given Documented By: NAHUN Non-Admin Reason: Per Protocol Admin: 07/19/24 07:40 Dose: Not Given Documented By: NAHUN Non-Admin Reason: Per Protocol Mycophenolate Mofetil (Mycophenolate 250 Mg Capsule (Non-Formulary)) 500 mg PO Q12HR [facility] Stop: 08/18/24 20:59 Last Admin: 07/20/24 08:16 Dose: 500 mg Documented By: Admin: 07/19/24 21:33 Dose: 500 mg Documented By: MICHAEL Non-Formulary Medication (Mycophenolate Mofetil) 500 mg PO Q12H [facility] Stop: 08/17/24 22:14 Last Admin: 07/19/24 00:00 Dose: Not Given Documented By: IDA Non-Admin Reason: Cancelled by Provider Ondansetron HCl (Ondansetron Inj 2 Mg/Ml Inj 2 Ml) 4 mg IV Q6H PRN; Protocol PRN Reason: NAUSEA OR VOMITING Stop: 08/17/24 20:18 Pantoprazole Sodium (Pantoprazole Inj 40 Mg Vial) 40 mg IVP QDAY [facility] Stop: 08/18/24 08:59 Last Admin: 07/20/24 08:15 Dose: 40 mg Documented By: Admin: 07/19/24 08:40 Dose: 40 mg Documented By: NAHUN Polyethylene Glycol (Polyethylene Glycol 17 Gm Packet) 17 gm PO X1 ONE Stop: 07/20/24 09:52 Last Admin: 07/20/24 12:20 Dose: 17 gm Documented By: NAHUN Potassium Chloride (Potassium Chloride 20 Meq Tabcr) 40 meq PO X1 ONE Stop: 07/19/24 08:07 Last Admin: 07/19/24 08:41 Dose: 40 meq Documented By: NAHUN Potassium Chloride (Potassium Chloride 20 Meq Tabcr) 40 meq PO X1 ONE Stop: 07/19/24 17:16 Last Admin: 07/19/24 17:47 Dose: 40 meq Documented By: NAHUN Pyridostigmine [place] (Pyridostigmine [place] 60 Mg Tablet) 60 mg PO TID [facility] Stop: 08/17/24 21:59 Last Admin: 07/19/24 05:17 Dose: Not Given Documented By: IDA Non-Admin Reason: Medication Not Available Comments: MD [facility]. Admin: 07/19/24 00:15 Dose: Not Given Documented By: IDA Non-Admin Reason: Medication Not Available Comments: MD [facility]. Pyridostigmine [place] (Pyridostigmine [place] 60 Mg Tablet) 60 mg PO TID [facility] Stop: 08/18/24 21:59 Sacubitril/Valsartan (Sacubitril 24 Mg/Valsartan 26 Mg Tablet) 1 tab PO BID [facility] Stop: 08/17/24 20:59 Last Admin: 07/20/24 08:15 Dose: 1 tab Documented By: Admin: 07/19/24 21:33 Dose: 1 tab Documented By: Admin: 07/19/24 08:41 Dose: 1 tab Documented By: Admin: 07/18/24 21:06 Dose: 1 tab Documented By: NYDIA Sennosides (Senna Tablet) 1 tab PO QDAY PRN; Protocol PRN Reason: CONSTIPATION Stop: 08/17/24 20:55 Sennosides (Senna Tablet) 1 tab PO X1 ONE; Protocol Stop: 07/20/24 09:52 Last Admin: 07/20/24 12:20 Dose: Not Given Documented By: NAHUN Non-Admin Reason: Medication Not Available see mar Consultations Consultation(s) initiated? (list below): Yes Consultation #1 (Physician, Specialty, Details): Hospitalist team asked to come see patient and evlaute for possible admission. Time: 19:20 Diagnosis Extremity Problem Differential Diagnosis: other (myathenia gravis, stroke, tia, uti ) Most likely diagnosis given after review of the tests above:: possible stroke Admission Indicated Admission indicated?: indicated Admission Request Was there a request for admission?: Yes Admission Attestation Admission request attestation: Discussed case with Hospitalist service regarding admission. Discussed patients ED course, exam findings, labs, and radiology results. The Hospitalist [agrees to accept the patient for admission. Disposition Plan Disposition Plan: Admit Discharge Plan Plan Patient Disposition: Admit Acute Care w/in Hospital Patient condition on transfer: Stable Problem List Clinical Impression: Acute left-sided weakness, CAD (coronary artery disease) PA/JOSÉ MIGUEL Supervising Physician PA/JOSÉ MIGUEL Supervising Physician: lauren
--- NOTE | 2024-07-18 20:10 | PC.NURSE ---
DR GRAHAM HAMLIN FROM [facility] CALLED FOR CONSULT.
--- NOTE | 2024-07-18 20:15 | PD.TNEURO ---
Tele Neuro Consultation Consultation Date 07/18/24 Consultation Narrative [facility] TeleNeurology Consult Services Stat Consult Patient Name:???Phong Hutchins Date of :???1950 Identification Number:??? Date of Service:???07/18/2024 19:50:11 Diagnosis:?G45.9 - Transient cerebral ischemic attack, unspecified Impression Patient presented with transient numbness. Head CT shows no acute process. No thrombolytics since patient is outside of treatment time window. Given patient risk factors would benefit from inpatient evaluation to rule out a stroke. Ok to continue Asa/plavix. Recommendations: Our recommendations are outlined below. Diagnostic Studies :MRI head without contrast MRA head without contrast MRA neck with contrast Laboratory Studies :Lipid panelI orderedHemoglobin A1c TSH Antithrombotic Medication :Initiate dual antiplatelet therapy with Aspirin 81 mg daily and Clopidogrel 75 mg daily Nursing Recommendations :IV Fluids, avoid dextrose containing fluids, Maintain euglycemia Neuro checks q4 hrs x 24 hrs and then per shift Head of bed 30 degrees Continue with Telemetry Consultations :Recommend Speech therapy if failed dysphagia screen Physical therapy/Occupational therapy DVT Prophylaxis :SCDs, Pneumatic Compression Lovenox or LMW Heparin Disposition :Neurology will follow Metrics: Dispatch Time: 07/18/2024 19:47:37 Callback Response Time: 07/18/2024 19:51:13 Primary Provider Notified of Diagnostic Impression and Management Plan on: 07/18/2024 20:15:23 CT HEAD: As Per Radiologist CT Head Showed No Acute Hemorrhage or Acute Core Infarct Chief Complaint: Numbness History of Present Illness:Patient is a 74 year old Male. Past medical history of CAD, recent stents, hear failure, HTN, DM presented with left sided numbness. on Friday having L facial and LUE&LLE numbness, no motor deficits. Today just has numbness, numbness resolved. ? Past Medical History: ?Hypertension ?Diabetes Mellitus ?Hyperlipidemia ?Coronary Artery Disease Medications: No Anticoagulant use? Antiplatelet use:?Yes?asa, plavix Reviewed EMR for current medications Allergies:? Reviewed Social History: Smoking: No Alcohol Use: No Drug Use: No Family History: There is no family history of premature cerebrovascular disease pertinent to this consultation ROS : 14 Points Review of Systems was performed and was negative except mentioned in HPI. Past Surgical History: There Is No Surgical History Contributory To Today?s Visit ? Examination: BP(144/63),?Pulse(53),?Blood Glucose(253) 1A: Level of Consciousness - Alert; keenly responsive?+ 0 1B: Ask Month and Age - Both Questions Right?+ 0 1C: Blink Eyes & Squeeze Hands - Performs Both Tasks?+ 0 2: Test Horizontal Extraocular Movements - Normal?+ 0 3: Test Visual Estrella - No Visual Loss?+ 0 4: Test Facial Palsy (Use Grimace if Obtunded) - Normal symmetry?+ 0 5A: Test Left Arm Motor Drift - No Drift for 10 Seconds?+ 0 5B: Test Right Arm Motor Drift - No Drift for 10 Seconds?+ 0 6A: Test Left Leg Motor Drift - No Drift for 5 Seconds?+ 0 6B: Test Right Leg Motor Drift - No Drift for 5 Seconds?+ 0 7: Test Limb Ataxia (FNF/Heel-Simon) - No Ataxia?+ 0 8: Test Sensation - Normal; No sensory loss?+ 0 9: Test Language/Aphasia - Normal; No aphasia?+ 0 10: Test Dysarthria - Normal?+ 0 11: Test Extinction/Inattention - No abnormality?+ 0 NIHSS Score:?0 Spoke with :?Marla This consult was conducted in real time using interactive audio and video technology. Patient was informed of the technology being used for this visit and agreed to proceed. Patient located in hospital and provider located at home/office setting. Patient is being evaluated for possible acute neurologic impairment and high probability of imminent or life - threatening deterioration.I spent total of 30 minutes providing care to this patient, including time for face to face visit via telemedicine, review of medical records, imaging studies and discussion of findings with providers, the patient and / or family. Dr Joe Thacker [facility] For Inpatient follow-up with [facility] physician please call [facility] at . As we are not an outpatient service for any post hospital discharge needs please contact the hospital for assistance. If you have any questions for the [facility] physicians or need to reconsult for clinical or diagnostic changes please contact us via [facility] at .
--- NOTE | 2024-07-18 20:54 | ECHO_ITS ---
Transthoracic Echo Report Ht (in): 73 Wt (lb): 230 Exam Location: Portable Status: Inpatient Administrative Hearing Officer: Tricia Wasserman Indications: Procedure Performed: BP: 123 / 75 HR: 67 Rhythm: Bradycardia Technical Quality: Technically difficult study Contrast: Agitated Saline Total Dose (mL): MEASUREMENTS (Male / Female) Normal Values 2D ECHO LV Diastolic Diameter PLAX 5.0 cm 4.2 - 5.9 / 3.9 - 5.3 cm LV Systolic Diameter PLAX 3.1 cm IVS Diastolic Thickness 1.1 cm 0.6 - 1.0 / 0.6 - 0.9 cm LVPW Diastolic Thickness 1.1 cm 0.6 - 1.0 / 0.6 - 0.9 cm LV Relative Wall Thickness 0.4 LVOT Diameter 1.9 cm LA Volume Index 24.1 cm?/m? 16 - 28 cm?/m? Ascending Aorta Diameter 3.3 cm M-MODE Aortic Root Diameter MM 2.5 cm LA Systolic Diameter MM 4.3 cm LA Ao Ratio MM 1.7 AV Cusp Separation MM 2.2 cm DOPPLER AV Peak Velocity 203.7 cm/s AV Peak Gradient 16.6 mmHg AV Mean Gradient 7.7 mmHg AV Velocity Time Integral 49.1 cm LVOT Peak Velocity 126.0 cm/s LVOT Peak Gradient 6.4 mmHg LVOT Velocity Time Integral 28.1 cm LVOT Cardiac Index 2279.4 cm?/min?m? AV Area Cont Eq vti 1.6 cm? AV Area Cont Eq pk 1.8 cm? MV Peak Velocity 123.0 cm/s MV Peak Gradient 6.1 mmHg MV Mean Velocity 71.1 cm/s MV Mean Gradient 2.0 mmHg MV Area PHT 3.1 cm? Mitral E Point Velocity 79.1 cm/s Mitral A Point Velocity 116.0 cm/s Mitral E to A Ratio 0.7 LV E' Lateral Velocity 7.3 cm/s Mitral E to LV E' Lateral Ratio 10.9 LV E' Septal Velocity 5.3 cm/s Mitral E to LV E' Septal Ratio 14.8 FINDINGS Left Ventricle Normal left ventricular size, systolic function with no obvious regional wall motion abnormalities. Mild LVH. The ejection fraction is visually estimated at 55-60%. Right Ventricle The right ventricle is normal in size and systolic function. The estimated right ventricular systoli c pressure, __ mmHg. Left Atrium The left atrium is normal by two-dimensional, color flow and Doppler imaging with no structural abnormalities, no thrombus formation present. Right Atrium The right atrium is normal by two-dimensional imaging, color flow and Doppler imaging with no struct ural abnormalities, no thrombus formation present. Atrial Septum The interatrial septum appears normal with no evidence of a shunt. Aorta The aorta is normal by two-dimensional, color flow and Doppler interrogation. Mitral Valve The mitral valve is mildly MAC. There is trace mitral valve regurgitation. Aortic Valve The aortic valve is trileaflet. Mild sclerosis without stenosis. There is trace aortic valve regurg itation. Tricuspid Valve The tricuspid valve is normal by two-dimensional, color flow and Doppler interrogation. There is tra ce tricuspid valve regurgitation. Pulmonic Valve There is no significant pulmonic valve regurgitation. Vessels The pulmonary artery appears normal. The inferior vena cava pulmonary and hepatic veins appear lee l. Pericardium The pericardium is normal by two-dimensional imaging. There is no significant pericardial effusion. CONCLUSIONS Negative bubble study. No evidence of PFO or ASD. Normal LV size and function. Mild LVH. Estimated EF 55-60% Normal RV size and function Mild MAC. Trace MR, AI, TR. Mild AV sclerosis without stenosis. Cale Rosario (Electronically Signed) Final Date: 19 July 2024 12:03
[2024-07-18] MEDS: ATORVASTATIN CALCIUM 20 MG TABLET 80 MG PO (21:04)
[2024-07-18] MEDS: carVEDILOL 3.125 MG TABLET 6.25 MG PO (21:05)
[2024-07-18] MEDS: Furosemide 40 MG TABLET PO (21:06)
[2024-07-18] MEDS: SACUBITRIL 24 MG/VALSARTAN 26 MG TABLET 1 TAB PO (21:06)
--- NOTE | 2024-07-18 21:28 | ESHP_ITS ---
Documentation for date of: 07/18/24 HPI History of Present Illness Chief complaint: Left-sided numbness History of present illness: 74-year-old male with past medical history of hypertension, insulin-dependent type 2 diabetes, myasthenia gravis, osteomyelitis of right foot, coronary artery disease s/p stent placement presenting to the ED on 07/18 with left facial, left upper and lower extremity numbness which for started on Friday night (07/16). Patient is a resident at [facility] and states that on Friday night while getting ready for bed he developed full left-sided numbness. He states that he called staff members to check on him and he states that his blood pressure was low during that time. At that time, patient was not brought into the ED has patient was still able to ambulate and was responsive. slot shift manager staff members did not apparently update morning shift staff members about this episode; moreover, when patient's family member visited the halfway they were concerned when the patient told them with the episode. Patient has history of myasthenia gravis diagnosed in [place] about 6 years ago; however, states that the feeling he currently has is not similar to past episodes of myasthenia gravis. Patient has persistent left lower facial, left upper and lower extremity numbness and is concerned about possible stroke. Patient also has a Hilliard catheter which was placed during last admission and he states that they've been trying to d/c it at the [facility] with voiding trials; patient currently has a Hilliard in. Past medical history: As above Past surgical history: Left heart catheterization with stent placement on 06/24, right toe amputation, right knee replacement, right ankle fusion Allergies: Sulfa, ibuprofen and penicillins cause rash Medications: aspirin, atorvastatin, carvedilol, clopidogrel, entresto and lasix, Benazepril 20 mg daily, pyridoxine 60 mg 3 times daily, mycophenolate 500 mg twice daily, NovoLog 3 times daily, Toujeo max 30 units twice daily. Family history: Noncontributory Social history: Patient currently resident at [facility], denies alcohol, smoking or drug use ROS: All 12 systems assessed and the patient denies unless otherwise stated in HPI In the ED, patient presented hypertensive (110/96), heart rate 59, respiratory rate 18, afebrile satting 98 on room air. Lab findings were not remarkable; glucose was elevated to 62, lactic acid 1.0, troponin within normal limits, urinalysis with no signs of UTI, U-Tox negative, EKG with sinus bradycardia with possible left axis deviation, chest x-ray with no active disease and head CT did not show any acute process. Teleneurology was consulted in ED and the recommendation was to do stroke workup with MR brain, MRA of the head and neck and to start patient on dual antiplatelet therapy. Patient will be admitted for stroke workup and rule out. Exam Vital Signs Temp Pulse Resp BP Pulse Ox O2 Del Method 98.0 F 55 L 15 142/64 H 99 Room Air 07/18/24 21:16 07/18/24 21:06 07/18/24 21:16 07/18/24 21:06 07/18/24 21:16 07/18/24 21:16 Narrative Exam Physical Exam: GENERAL: Awake, answers questions appropriately, appears stated age HEENT: NC/AT. Moist mucosa. PERRLA/EOMI. CARDIO: Heart RRR, no obvious murmurs, no JVD. PULM: No coughing or visible SOB. Lungs CTA B/L. GI: Abdomen soft, NT/ND, +BS. URO/ACID CRANE OPERATOR: +Hilliard catheter draining yellow urine SKIN/MSK/EXT: No wounds/discoloration/rashes/edema/amputations. +Pedal pulses present B/L. NEURO: Oriented x3, cranial nerves II to XII intact, muscle strength R>L both upper and lower extremities, deflector operator strength 5 out of 5 on the right and 4 out of 5 on the left, no focal neurological deficits Results: Labs 07/18/24 17:04 07/18/24 17:04 Labs: Short CBC 07/18/24 Range/Units 17:04 WBC 8.9 (3.8-10.6) Thou/mm3 Hgb 11.7 L (13.5-16.0) g/dL Hct 34.0 L (41.0-53.0) % Plt Count 367 D (140-440) Thou/mm3 BMP 07/18/24 17:04 Sodium 133 L Potassium 3.4 Chloride 96 L Carbon Dioxide 29.2 BUN 14 Creatinine 0.9 Glucose 262 H Calcium 8.9 Cardiac Enzymes 07/18/24 Range/Units 17:04 Troponin I < 0.020 (0.0-0.045) ng/mL Liver Function 07/18/24 Range/Units 17:04 Total Bilirubin 0.4 (0.3-1.2) mg/dL AST 10 (0-34) U/L ALT 12 (10-49) U/L Alkaline Phosphatase 100 (46-116) U/L Albumin 4.2 (3.4-4.8) gm/dL Urine 07/18/24 Range/Units 17:09 Urine Color Lt-Yellow (Lt Yel-Yel) Urine Clarity Hazy (Clear/Hazy) Urine pH 6.5 (5.0-7.0) Ur Specific [employer] 1.009 (1.001-1.035) Urine Protein Trace (Neg - Trace) Urine Glucose (UA) 4+ A (Negative) Quality Measures Quality Measures VTE prophylaxis Advance care planning discussed with:: patient Medications Home Medications and Allergies Home Medications ?Medication ?Instructions ?Recorded ?Confirmed ?Type insulin aspart U-100 100 unit/mL 20 unit subcut TID 06/21/24 06/21/24 History (3 mL) subcutaneous pen (Novolog FlexPen U-100 Insulin aspart) insulin glargine U-300 conc 300 30 unit subcut BID 06/21/24 06/21/24 History unit/mL (3 mL) subcutaneous pen (Toujeo Max U-300 SoloStar) mycophenolate mofetil 500 mg tablet 500 mg PO Q12H 06/21/24 06/21/24 History pyridostigmine bromide 60 mg tablet 60 mg PO TID 06/21/24 06/21/24 History Allergies Allergy/AdvReac Type Severity Reaction Status Date / Time Sulfa (Sulfonamide Allergy Intermediate Rash Verified 07/18/24 16:50 Antibiotics) ibuprofen Allergy Mild Rash Verified 07/18/24 16:50 Penicillins Allergy Mild Rash Verified 07/18/24 16:50 Visit Medications Acetaminophen (Acetaminophen 325 Mg Tablet) 650 mg PO Q6H PRN PRN Reason: Pain 1-3 and/or Fever >100.1 Stop: 08/17/24 20:18 Aspirin (Aspirin Ec 81 Mg Tabec) 81 mg PO QDAY [facility] Stop: 08/18/24 08:59 Atorvastatin Calcium (Atorvastatin Calcium 20 Mg Tablet) 80 mg PO QPM HARJEET Stop: 08/17/24 20:59 Last Admin: 07/18/24 21:04 Dose: 80 mg Carvedilol (Carvedilol 3.125 Mg Tablet) 6.25 mg PO BID HARJEET Stop: 08/17/24 20:59 Last Admin: 07/18/24 21:05 Dose: 6.25 mg Clopidogrel Bisulfate (Clopidogrel Bisulfate 75 Mg Tablet) 75 mg PO QDAY [facility] Stop: 08/18/24 08:59 Furosemide (Furosemide 40 Mg Tablet) 40 mg PO BID HARJEET Stop: 08/17/24 20:59 Last Admin: 07/18/24 21:06 Dose: 40 mg Ondansetron HCl (Ondansetron Inj 2 Mg/Ml Inj 2 Ml) 4 mg IV Q6H PRN; Protocol PRN Reason: NAUSEA OR VOMITING Stop: 08/17/24 20:18 Pantoprazole Sodium (Pantoprazole Inj 40 Mg Vial) 40 mg IVP QDAY [facility] Stop: 08/18/24 08:59 Pyridostigmine [place] (Pyridostigmine [place] 60 Mg Tablet) 60 mg PO TID [facility] Stop: 08/17/24 21:59 Sacubitril/Valsartan (Sacubitril 24 Mg/Valsartan 26 Mg Tablet) 1 tab PO BID HARJEET Stop: 08/17/24 20:59 Last Admin: 07/18/24 21:06 Dose: 1 tab Sennosides (Senna Tablet) 1 tab PO QDAY PRN; Protocol PRN Reason: CONSTIPATION Stop: 08/17/24 20:55 Assessment & Plan Plan 74-year-old male with past medical history of hypertension, insulin-dependent type 2 diabetes, myasthenia gravis, osteomyelitis of right foot, coronary artery disease s/p stent placement presenting to the ED on 07/18 with left facial, left upper and lower extremity numbness which for started on Friday night, Teleneurology was consulted in ED and the recommendation was to do stroke workup with MR brain, MRA of the head and neck and to start patient on dual antiplatelet therapy. Patient will be admitted for stroke workup and rule out. #Acute left-sided weakness #CVA rule out Patient presenting outside tPA window with symptoms starting on Monday 07/16 at 9pm; presenting on 07/18. Patient has left sided numbness to left face, left upper and lower extremities CT Head shows Negative for acute hemorrhage, mass effect or midline shift Teleneurology was consulted and recommend doing an MRI brain/MRA head and neck studies Plan: MR stroke protocol MRA of the neck Neurology, Dr. Garvin, consulted appreciate recommendations Echo with bubble study DAPT High intensity statin Physical therapy consult Speech therapy consult Head of bed greater than 30 degrees Aspiration precautions Keep euglycemic #Coronary Artery Disease [facility] from 06/21/2024: showed severe multivessel calcified CAD with 90% stenosis in the proximal LAD as well as 80 to 90% stenosis and a long segment in the mid LAD along with 90% stenosis of the proximal to mid LCx. RCA shows moderate stenosis of around 50 to 60% in the mid RCA along with 50 to 60% in the proximal or ostial RPDA. Rest of the artery shows mild disease. Patient on home Aspirin and Plavix Troponin wnl and patient not reporting any acute chest pain currently Plan: Continue DAPT as above Lipid panel, TSH ordered - follow-up in AM #HFpEF (EF 50%) #Mild to Moderated Aortic Stenosis On home carvedilol, entresto and lasix LH as above showed: LVEF appears to be around 50%. LVEDP was severely elevated at 26 mmHg. Transvalvular right gradient was present at 25 and 30 mmHg indicating at least mild or mild to moderate aortic stenosis Moderate to severely elevated right heart pressures with a mean RA of around 70 mmHg, RV pressure of 72 over 16 mmHg, PA pressure 57-60 mmHg with a mean of 38 mmHg PCWP elevated at 31 mmHg. Plan: Ordered Echo with bubble study Continue home medications #Insulin-dependent Type 2 Diabetes Last A1c 03/19/24 was 7.4 On home NovoLog 3 times daily, Toujeo max 30 units twice daily. Plan: A1c ordered SSI #Hypertension On home Benazepril 20 mg daily Plan: Held home medication; consider restarting in AM if blood pressure elevated #Myasthenia Gravis pyridoxine 60 mg 3 times daily, mycophenolate 500 mg twice daily Plan: Continue home medications Hospital Diagnosis: Lines - PIV and Hilliard Bowel - Senna Diet - Cardiac, passed bedside nurse swallow screen GI prophylaxis - protonix DVT prophylaxis - SCD Dispo - Tele, stroke r/o Code- Full Patient seen and examined with attending Dr. Redd (and senior resident Dr. Bharathi Shen, PGY-1 Attending Provider Attestation/Addendum I discussed with and supervised the resident physician who took care of this patient. I agree with the assessment and plan as above. 75-year-old male patient with triple-vessel coronary artery disease, recent NSTEMI and PCI, hypertension, myasthenia gravis, chronic kidney disease came in ED complaining of left-sided weakness. Patient's heart rate remained in the 50s. He denies loss of consciousness. No presyncopal or syncopal episode. He has no chest pain. Patient was admitted for stroke workup.
[2024-07-19] VITALS (8 sets, daily range): BP systolic 91–138; BP diastolic 50–76; PULSE 54–71; RESP 12–19; TEMP 36.1–36.5; O2SAT 94–98; BMI 30.3
--- NOTE | 2024-07-19 | XR_ITS ---
Examinations: MRI Brain without intravenous contrast. MRI brain with intravenous contrast MRA brain with intravenous contrast. MRA brain without intravenous contrast MRA neck with intravenous contrast Date and time of exam: July 19, 2024 1325 hours INDICATIONS: Onset left-sided facial numbness and leg numbness beginning 3 days ago Technique: Multiple axial and sagittal images of the brain have been obtained Siemens high-resolution 1.5 Any short bore scanner is utilized. Sagittal sections, T1-weighted, TR 500, TE 14 Axial sections proton density and T2-weighted, TR 3,000, TE 34, TR 3,000, TE 91 Inversion recovery axial images, TR 9,260, TE 111, TI 2,500 Diffusion weighted images, axial sections, TR 4,800, TE 128, B value 1,000 Axial sections, ADC map, TR 4,800, TE 128. Contrast images have been obtained post intravenous 20 cc Gadolinium. T1-weighted axial and coronal images post contrast have been obtained. Angiographic images of neck and brain are obtained pre and post contrast. 3-D post processing performed, including brain, extracranial neck arterial maximum intensity projections Findings: S[place] is not enlarged. The optic chiasm and infundibular stalk are not remarkable. Prepontine and interpeduncular cisterns are not enlarged. No localized enlargement of the medulla or alana. Fourth ventricle and cerebellar tonsils normal in position. Subacute hemorrhage is not seen. Fourth ventricle is midline. Mass in the cerebellopontine angle region is not evident. 7th and 8th nerve complexes exhibits symmetry. Globes are symmetrical with no retro-orbital mass. Increased white matter signal significant Diffusion-weighted images demonstrate8 mm focus restricted diffusion right thalamus. Mass-effect upon the ventricular system is not identified. Abnormal contrast enhancement is not seen. MRA brain carotid images no carotid stenoses, no large vessel occlusions Impression: 8mm acute infarct right thalamus No significant carotid stenoses No cerebral large vessel occlusions
[2024-07-19 05:59] LABS: Basophils # (Auto) 0.1 Thou/mm3 (0.0-0.2); Basophils % (Auto) 1 % (0-2.5); Eosinophils # (Auto) 0.4 Thou/mm3 (0.0-0.5); Eosinophils % (Auto) 3 % (0-10); Hematocrit 32.8 % (41.0-53.0); Hemoglobin 11.1 g/dL (13.5-16.0); Immature Granulocytes % (Auto) 0 % (0-0); Immature Granulocytes Auto 0.03 Thou/mm3 (0.00-0.00); Lymphocytes # (Auto) 2.8 Thou/mm3 (1.0-4.8); Lymphocytes % (Auto) 27 % (10-50); Mean Corpuscular HGB Conc 33.8 g/dl (31.0-37.0); Mean Corpuscular Hemoglobin 30.3 pg (25.0-35.0); Mean Corpuscular Volume 90 fL (80-100); Monocytes # (Auto) 0.9 Thou/mm3 (0.0-0.8); Monocytes % (Auto) 9 % (0-12); Neutrophils # (Auto) 6.1 Thou/mm3 (1.8-7.7); Neutrophils % (Auto) 60 % (37-80); Nucleated Red Blood Cell % 0 /100 WBC (0); Platelet Count 348 Thou/mm3 (140-440); RDW Standard Deviation 42.3 fL (35.1-43.9); Red Blood Count 3.66 Miln/mm3 (4.50-5.90); White Blood Count 10.3 Thou/mm3 (3.8-10.6)
[2024-07-19 06:03] LABS: Glucose Estimated Average 174 mg/dL (80-131); Hemoglobin A1C 7.7 % Hgb (4.8-6.0)
[2024-07-19 06:09] LABS: INR 1.1 (0.9-1.3); Prothrombin Time 11.9 Seconds (9.0-12.2)
[2024-07-19 06:37] LABS: Alanine Aminotransferase 9 U/L (10-49); Albumin, Serum 3.9 gm/dL (3.4-4.8); Alkaline Phosphatase 83 U/L (46-116); Anion Gap 9 (7-16); Aspartate Amino Transferase 10 U/L (0-34); BUN/Creatinine Ratio 13 Ratio (12-20); Bilirubin,Total 0.5 mg/dL (0.3-1.2); Blood Urea Nitrogen 12 mg/dL (9-23); Calcium 8.9 mg/dL (8.3-10.6); Carbon Dioxide 29.4 mMol/L (20.0-31.0); Cardiac Risk Estimate 2.8 RATIO (4.0-6.7); Chloride 97 mMol/L (98-107); Cholesterol 64 mg/dL (132-200); Creatinine (Component) 0.9 mg/dL (0.6-1.3); Estimated Creatinine Clearance 94.1 mL/min (>60); Glucose 131 mg/dL (74-106); HDL Cholesterol 23 mg/dL (40-60); LDL Cholesterol,Calculated 22 mg/dL (0-130); Magnesium 1.9 mg/dL (1.6-2.6); Osmolality,Calculated 271 (275-295); Phosphorous 4.4 mg/dL (2.4-5.1); Potassium 3.2 mMol/L (3.4-5.1); Sodium 135 mMol/L (136-145); Thyroid Stimulating Hormone 1.49 uIU/mL (0.55-4.78); Total Protein 5.9 gm/dL (5.7-8.2); Triglycerides 96 mg/dL (30-150); eGFR > 60 See Note
[2024-07-19] MEDS: Magnesium Sulfate 1 gm Ivpb 1 GM/100 ML BAG IV (08:39)
[2024-07-19] MEDS: carVEDILOL 3.125 MG TABLET 6.25 MG PO (08:40)
[2024-07-19] MEDS: PANTOPRAZOLE INJ 40 MG VIAL IVP (08:40)
[2024-07-19] MEDS: SACUBITRIL 24 MG/VALSARTAN 26 MG TABLET 1 TAB PO ×2 (08:41→21:33)
[2024-07-19] MEDS: CALCIUM CARBONATE 600 MG TABLET PO (08:41)
[2024-07-19] MEDS: Furosemide 40 MG TABLET PO (08:41)
[2024-07-19] MEDS: CLOPIDOGREL BISULFATE 75 MG TABLET PO (08:41)
[2024-07-19] MEDS: POTASSIUM CHLORIDE 20 mEq TABCR 40 MEQ PO ×2 (08:41→17:47)
--- NOTE | 2024-07-19 09:14 | PCS.ST ---
Regular diet. Tolerating well. No s/s of aspiration. Speech/language eval pending as needed.
[2024-07-19] MEDS: ASPIRIN EC 81 MG TABEC PO (09:55)
--- NOTE | 2024-07-19 11:44 | PC.SS ---
Initial assessment: This is 74 year old male admitted for stroke r/o. Patient appeared alert and oriented. Patient informs he comes from [facility] since June 2024. Patient's sister, Morena Roberts was identified as the patient's medical surrogate decision maker. Patient describes to require some assistance with ADL's. Patient's PCP is Dr. Darrius Oswald. The discharge plan was discussed, and the patient would like to return to [facility]. Patient will need transport back to SNF. creative services writer to remain available to address further concerns. D/c plan: SNF Next of kin: sisterMorena
--- NOTE | 2024-07-19 11:47 | PC.SS ---
Contacted Jill at [place]. She informs patient is able to return back to SNF within 72hrs with same auth. If patient remains in house longer, patient will require a new auth to return to SNF.
--- NOTE | 2024-07-19 14:18 | PC.SS ---
Rounding note: pending stroke workup, MRI and neurology. Possible d/c tomorrow.
--- NOTE | 2024-07-19 15:18 | ESPR_ITS ---
<Statement entered by Ramana Coello MD - 07/19/24 18:22> Patient was seen and examined at the bedside. Patient continues to have numbness in left upper extremity and on the face on left side. He denied any focal neurological deficit that his weakness or slurred speech. MRI brain did show infarction in the brain on thalamus. Patient is currently on aspirin, Plavix and statin therapy. Neurology recommendations are pending. PT recommended SNF. Cement Loader, Dr. Amin has been consulted. Patient's home medications were reconciled. Patient's home carvedilol was held as per chart collector recommendations. All labs and orders were reviewed. I saw and examined the patient, and I agree with current management stated by Dr Shahzad MD,PGY1. Plan of care was discussed with the attending physician and resident physician. Disclaimer: Despite multiple revisions, due to the dictation software being used, the document bellow may not be free of grammatical errors including phonetic/typographic errors. However, this does not deter from our commitment to providing health care in the patient's best interest in mind. Dr. Mary Carmen MD, PGY 2 Documentation for date of: 07/19/24 Subjective Subjective Interval history: Patient is a 74-year-old male with a past medical history of hypertension, diabetes mellitus type 2 insulin-dependent, myasthenia gravis (mycophenolate & pyridostigmine), CAD s/p stents (Jun 2024), and history osteomyelitis. No overnight events reported. Patient examined at bedside. Patient stated symptoms began Friday night (07/16/2024) with left facial droop, left upper and lower extremity numbness. Patient stated similar symptoms that happen before but related to his myasthenia gravis. NIHSS score at bedside 0 vs admission on NIHSS 3. Patient denied any motor or lower weakness this morning. Patient denied headaches or visual changes. Patient denied chest pain or chills. Exam Vital Signs Temp Pulse Resp BP Pulse Ox O2 Del Method 97.0 F 56 L 19 91/50 L 98 Room Air 07/19/24 12:00 07/19/24 12:00 07/19/24 12:00 07/19/24 12:00 07/19/24 12:07/19/24 12:00 Narrative Exam General Appearance: Alert & Oriented X3, well-nourished male who is lying in bed in no acute distress HEENT: Skull symmetrical and atraumatic. Conjunctivae pink and moist. Pupils equal, round, reactive to light and accommodation (PERRL). External ear without lesion or discharge. Straight, nares patient, mucosa pink, no discharge. No thyroid nodule appreciated. Cardio: Normal Rate and Rhythm with S1 and S2 heart sounds. No murmurs or extra heart sounds auscultated. No bruits on carotid auscultation. No peripheral edema or cyanosis. Lungs: Symmetric with good expansion. Chest and back non-tender. Breath sounds vesicular without crackles, wheezing or rhonchi Abdomen: Non-tender, Non-distended, Normal Reactive Bowel Sounds Neuro: Alert, cooperative, oriented to person, place, and time. Speech clear. CN grossly intact. Upper motor strength 5/5 and Lower motor strength 5/5. Sensation intact. Left facial paresthesia. No facial drop appreciated. Nasal folds equal, no depression noted. Facial motor function intact. Objective Labs 07/19/24 05:18 07/19/24 05:18 Labs: Laboratory Results - last 24 hr 07/18/24 07/18/24 07/19/24 17:04 17:09 05:18 WBC 8.9 10.3 RBC 3.89 L 3.66 L Hgb 11.7 L 11.1 L Hct 34.0 L 32.8 L MCV 87 90 MCH 30.1 30.3 MCHC 34.4 33.8 RDW Std Deviation 41.7 42.3 Plt Count 367 D 348 Neut % (Auto) 63 60 Lymph % (Auto) 25 27 Dougherty % (Auto) 10 9 Eos % (Auto) 2 3 Baso % (Auto) 1 1 Neut # (Auto) 5.6 6.1 Lymph # (Auto) 2.2 2.8 Dougherty # (Auto) 0.8 0.9 H Eos # (Auto) 0.2 0.4 Baso # (Auto) 0.1 0.1 Immature Gran # (Auto) 0.02 H 0.03 H Absolute Nucleated RBC 0.00 0.00 Immature Gran % 0 0 Nucleated RBC % 0 0 PT 11.4 11.9 INR 1.0 1.1 APTT 26.8 D Sodium 133 L 135 L Potassium 3.4 3.2 L Chloride 96 L 97 L Carbon Dioxide 29.2 29.4 Anion Gap 8 9 BUN 14 12 Creatinine 0.9 0.9 Estim Creat Clear Calc 94.1 94.1 eGFR > 60 > 60 BUN/Creatinine Ratio 16 13 Glucose [address] Glu mg/dL 174 H Hemoglobin A1c 7.7 H Calculated Osmolality 275 271 L Lactic Acid 1.0 Calcium 8.9 8.9 Corrected Calcium 8.9 9.0 Phosphorus 4.4 Magnesium 1.9 Total Bilirubin 0.4 0.5 AST 10 10 ALT 12 9 L Alkaline Phosphatase 100 83 Troponin I < 0.020 Total Protein 6.2 5.9 Albumin 4.2 3.9 Globulin 2.0 L 2.0 L Albumin/Globulin Ratio 2.1 2.0 Triglycerides 96 Cholesterol 64 L LDL Cholesterol, Calc 22 HDL Cholesterol 23 L Cholesterol/HDL Ratio 2.8 L Procalcitonin 0.12 TSH 1.49 Ur Collection Type Clean Catch Urine Color Lt-Yellow Urine Clarity Hazy Urine pH 6.5 Ur Specific [place] 1.009 Urine Protein Trace Urine Glucose (UA) 4+ A Urine Ketones Negative Urine Blood Negative Urine Nitrite Negative Urine Bilirubin Negative Urine Urobilinogen (Auto) Negative Ur Leukocyte Esterase Positive Urine RBC 2 Urine WBC 95 H Ur Squamous Epith Cells 0 Amorphous Crystals Present A Urine Bacteria None Urine Opiates Screen Negative Urine Fentanyl Screen Negative Ur Barbiturates Screen Negative U Amphetamin/Meth Scrn Negative U Benzodiazepines Scrn Negative U Cocaine Metab Screen Negative U Marijuana (THC) Screen Negative Quality Measures Quality Measures VTE prophylaxis Advance care planning discussed with:: patient Assessment & Plan Assessment Current Active Medications: Generic Name Dose Route Start Last Admin Trade Name Daija PRN Reason Stop Dose Admin Acetaminophen 650 mg 07/18/24 20:19 Acetaminophen 325 Mg Tablet PO 08/17/24 20:18 Q6H PRN Pain 1-3 and/or Fever >100.1 Aspirin 81 mg 07/19/24 09:00 07/19/24 09:55 Aspirin Ec 81 Mg Tabec PO 08/18/24 08:59 81 mg QDAY HARJEET Administration Atorvastatin Calcium 80 mg 07/18/24 21:00 07/18/24 21:04 Atorvastatin Calcium 20 Mg Tablet PO 08/17/24 20:59 80 mg QPM HARJEET Administration Carvedilol 6.25 mg 07/18/24 21:00 07/19/24 08:40 Carvedilol 3.125 Mg Tablet PO 08/17/24 20:59 6.25 mg BID HARJEET Administration Clopidogrel Bisulfate 75 mg 07/19/24 09:00 07/19/24 08:41 Clopidogrel Bisulfate 75 Mg Tablet PO 08/18/24 08:59 75 mg QDAY HARJEET Administration Pyridostigmine Br 0 ea 07/19/24 14:00 07/19/24 14:59 60mg Tablet PO 08/18/24 13:59 1 tablet TID HARJEET Administration Dextrose 25 ml 07/18/24 21:29 Dextrose 50%-Water Inj 50 Ml Syringe IV 08/17/24 21:28 Q15MIN PRN BG 50-70 responsive npo pt Dextrose 50 ml 07/18/24 21:29 Dextrose 50%-Water Inj 50 Ml Syringe IV 08/17/24 21:28 Q15MIN PRN BG <50 OR BG <70 & pt unresponsive Furosemide 40 mg 07/18/24 21:00 07/19/24 08:41 Furosemide 40 Mg Tablet PO 08/17/24 20:59 40 mg BID HARJEET Administration Glucagon 1 mg 07/18/24 21:29 Glucagon Inj 1 Mg Vial IM Q15MIN PRN BG <70, and no IV access Insulin Glargine 30 unit 07/19/24 21:00 Insulin Glargine (Lantus) 5 Unit/0.05 Ml (Per 5 Units) SC 08/18/24 20:59 HS [facility] Insulin Human Lispro 0 unit 07/19/24 07:30 07/19/24 11:44 Insulin Lispro (Admelog) 1 Unit/0.01 Ml Unit SC 08/18/24 07:29 Not Given ACHS [facility] Protocol Mycophenolate Mofetil 500 mg 07/19/24 21:00 Mycophenolate 250 Mg Capsule (Non-Formulary) PO 08/18/24 20:59 Q12HR [facility] Ondansetron HCl 4 mg 07/18/24 20:19 Ondansetron Inj 2 Mg/Ml Inj 2 Ml IV 08/17/24 20:18 Q6H PRN NAUSEA OR VOMITING Protocol Pantoprazole Sodium 40 mg 07/19/24 09:00 07/19/24 08:40 Pantoprazole Inj 40 Mg Vial IVP 08/18/24 08:59 40 mg QDAY [facility] Administration Sacubitril/Valsartan 1 tab 07/18/24 21:00 07/19/24 08:41 Sacubitril 24 Mg/Valsartan 26 Mg Tablet PO 08/17/24 20:59 1 tab BID HARJEET Administration Sennosides 1 tab 07/18/24 20:56 Senna Tablet PO 08/17/24 20:55 QDAY PRN CONSTIPATION Protocol Plan Patient is a 74-year-old male with a past medical history of hypertension, diabetes mellitus type 2 insulin-dependent, myasthenia gravis (mycophenolate & pyridostigmine), CAD s/p stents (Jun 2024), and history osteomyelitis who was admitted for stroke work up. #Stroke, right thalamus Etiology: Given past medical history and MRI imaging showing a new 8 mm acute infarct in the right thalamus, ischemic stroke is likely diagnosis. Pending echo to rule out thrombus. DDx: Myasthenia gravis vs saenz's palsy Patient presenting outside tPA window with symptoms starting on Monday 07/16 at 9pm; presenting on 07/18. Patient has left sided numbness to left face, left upper and lower extremities Diagnostics: -CT Head shows Negative for acute hemorrhage, mass effect or midline shift --Lipid Panel: Triglycerides 96, Cholesterol 64, LDL 22, HDL 23 -TSH 1.49 -A1c 7.7 Plan: -Continue DAPT -Continue home High intensity statin -Physical therapy consult -Speech therapy consult -Head of bed greater than 30 degrees -Aspiration precautions -Keep euglycemic -Echo with bubble study-Pending -Neurology, Dr. Garvin, consulted appreciate recommendations #Coronary Artery Disease s/p stents (Jun 2024) Past medical history of CAD multi-vessel disease s/p 1 stent, not a candidate for CABG during previous admission. Patient in on dual anti-antiplatelet medication and high dose atorvastatin. Continue home medication. Diagnostic: -LHC from 06/21/2024: showed severe multivessel calcified CAD with 90% stenosis in the proximal LAD as well as 80 to 90% stenosis and a long segment in the mid LAD along with 90% stenosis of the proximal to mid LCx. RCA shows moderate stenosis of around 50 to 60% in the mid RCA along with 50 to 60% in the proximal or ostial RPDA. Rest of the artery shows mild disease. -Troponin: <0.02 -EKG: Sinus Joe -Lipid Panel: Triglycerides 96, Cholesterol 64, LDL 22, HDL 23 Plan: -continue dual anti-platelet therapy, Aspirin and Plavix -continue home medication Atorvastatin 80 mg HS -Consult Cardiology, Dr. Amin, appreciate recommendations. #Chronic CHF, Diastolic Dysfunction, HFpEF 50-55% (06/21/2024) #Mild to Moderated Aortic Stenosis History of CHF secondary to Diastolic dysfunction (Grade I) with an ejection fraction of 50 to 55% (02/19/2024). Goal directive therapy on board with home medication of carvedilol, entresto, and lasix. Diagnostic: LHC as above showed: LVEF appears to be around 50%. LVEDP was severely elevated at 26 mmHg. Transvalvular right gradient was present at 25 and 30 mmHg indicating at least mild or mild to moderate aortic stenosis Moderate to severely elevated right heart pressures with a mean RA of around 70 mmHg, RV pressure of 72 over 16 mmHg, PA pressure 57-60 mmHg with a mean of 38 mmHg PCWP elevated at 31 mmHg. Plan: -Carvedilol 6.25 mg PO BID-HOLD -Lasix 40 40 BID -HOLD -Keep potassium >4 -Keep Magnesium >2 -Consulted cardiology, Dr. Amin, per recommendations holding Carvedilol and Lasix. #Diabetes Mellitus Type 2, Insulin-dependent History of diabetes Mellitus type 2-insulin dependent who takes NovoLog 20 units TID and Toujeo/Glargine 30 units BID. Glucose on admission 262 with a previous A1c of 7.7%. Diagnostics -Fasting Glucose (07/19/2024): 131 -A1c 7.7 Plan -Lantus 30 units HS -Sliding Scale #Hypertension On home Benazepril 20 mg daily Plan: -currently holding Benazepril until 07/20/2024. #Myasthenia Gravis pyridoxine 60 mg 3 times daily, mycophenolate 500 mg twice daily Plan: Continue home medications Health Maintenance: Disp: Pt is currently admitted to floors for further management of stroke, awaiting echo FEN: Cardiac DVT: SCD Code: Full code - The patient's plan was discussed with attending Dr. Nunez and senior residents Mary Carmen Pike MD PGY1 Internal Medicine Attending Provider Attestation/Addendum I have examined the patient, reviewed labs and imaging findings, discussed the case with the resident(s), and reviewed entered orders. I agree with the plan of care as outlined in this note, with these additional summaries/recommendations: Patient seen at bedside. Patient was admitted overnight for left-sided paresthesias which patient reports has not resolved. Patient admitted for CVA rule out. Teleneurology and in-house neurology consulted. Continue dual antiplatelet therapy with Plavix and aspirin. Negative bubble study and EF 55% on echocardiogram. Patient is pending MRI brain. Possible patient's symptoms are related to underlying myasthenia gravis. Lipid panel impressively controlled and we will continue high-dose atorvastatin for now. Mild hypokalemia on CHEM panel and replacement given. Patient has extensive cardiac history including triple-vessel coronary artery disease and heart failure. Patient underwent cardiac catheterization on 06/21/2024 as well as cardiac cath with PCI completed on 06/24/2024. We will continue patient's dual antiplatelet therapy as well as aspirin. Consult cardiology given patients extensive cardiac history. Patient also takes Coreg 6.25 mg p.o. twice daily, furosemide 40 mg p.o. twice daily, and Entresto 1 tab p.o. twice daily. Patient's blood pressure is soft today. We will continue to titrate these medications as tolerated. Continue insulin sliding scale & basal insulin for diabetes mellitus type 2 with blood sugar 140 to 180. A1c 7.7%. Patient's to bring patient's myasthenia gravis medications mycophenolate and pyridostigmine. Patient updated on the plan and in agreement. Repeat hematology and chemistry panel in AM. Dr. Nunez
[2024-07-19] MEDS: Magnesium Sulfate 4 GM Ivpb 4 GM/50 ML BAG IV (17:47)
[2024-07-19] MEDS: INSULIN LISPRO (AdmeLOG) 1 UNIT/0.01 ML UNIT SC ×2 (17:48→21:34)
--- NOTE | 2024-07-19 18:48 | ESCONSULT_ITS ---
HPI Data of Consult Requesting Physician: Brendon Nunez MD Admitting Provider: Harshil Love MD Attending Provider: Brendon Nunez MD Primary Care Provider: Darrius Oswald MD Consult Narrative Reason for consult: CVA and Hx of Triple vessel CAD History of present illness: 74-year-old male with past medical history of triple-vessel CAD s/p PCI of mid LCx on 06/24/2024 with residual moderate to severe disease in the LAD, and recently diagnosed acute decompensated diastolic heart failure (EF 50%) , IDDM, hypertension, myasthenia gravis, osteomyelitis right foot s/p amputation of first/fourth/fifth toes, diabetic neuropathy, right ankle Charcot joint, varicose veins of bilateral lower extremities,was admitted to the hospital for CVA workup. Initially in the ED patient had complaints of numbness of left side of face and left upper and lower extremity. In ED teleneurology was consulted and they recommended DAPT, chemical DVT prophylaxis, and MRA head and neck. Initial NIHSS score was 0 and patient was not a candidate for tPA as he was out of the window. Initially patient was afebrile, bradycardic, and hypertensive. Initial labs were relevant for Hgb 11.7, sodium 133, potassium 3.4, chloride 96, BUN 14, creatinine 0.9, troponin less than 0.02, and UA was positive for leukocytes esterase. Initial imaging included chest x-ray which showed no active disease, head CT which was negative for any acute hemorrhage, mass effect, or midline shift, and EKG which showed sinus bradycardia. Echo done by stores clerk on-call on day of admission showed the following findings: Negative bubble study. No evidence of PFO or ASD. Normal LV size and function. Mild LVH. Estimated EF 55-60% Normal RV size and function Mild MAC. Trace MR, AI, TR. Mild AV sclerosis without stenosis. During my assessment patient stated that this started on Friday evening when he stood up trying to get to his chair and he experienced tingling and numbness in his left upper and lower extremity as well as his left side face. He stated that and gait wait the rehab center where he was located at that time he took his blood pressure and was low, during this time they had no suspicion for stroke. He mentioned that on Friday his sister, who is a nurse, came by to visit him and after he told her about his symptoms and what had happened she spoke with the physician and they sent him over to our ER for evaluation. Patient was recently discharged from [facility] after he was found to have triple-vessel CAD in he underwent PCI of left mid LCx on 06/24/2024 by myself without complications and he was found to have acute decompensated diastolic heart failure with an ejection fraction of 50%. Patient did not follow-up with me at my office. He was started on DAPT, Coreg 6.25 twice daily, Lasix 40 mg twice daily, Entresto twice daily, and atorvastatin 80 mg at bedtime after discharge from this past hospital admission. He states he had been taking all these medications as prescribed. He denies any chest pain, shortness of breath, or any cardiology related symptoms at this time. MRA brain done today showed an acute 8 mm right thalamus infarct. PMH: hypertension, IDDM, myasthenia gravis, osteomyelitis right foot s/p amputation of first/fourth/fifth toes, diabetic neuropathy, right ankle Charcot joint, varicose veins of bilateral lower extremities, triple-vessel CAD s/p PCI of mid LCx on 06/24/2024, and recently diagnosed acute decompensated diastolic heart failure (EF 50%) Surgical Hx: Tonsillectomy, eye surgery (bilateral), ORIF of left fibula, amputation of right foot toes Medications: Mycophenolate 50 mg twice daily, pyridostigmine 60 mg p.o. 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 HEENT: Denies hearing loss, Denies ear pain, Denies postnasal drip, Denies double vision, Denies blurry vision. Respiratory: Denies shortness of breath, Denies cough, Denies wheezing. Cardiovascular: Denies chest pain, Denies palpitations, Denies sudden loss of consciousness. GI: Denies blood in stool, Denies constipation, Denies abdominal pain, Denies difficulty swallowing, Denies nausea or vomit. : Denies urinary incontinence, Denies pain while urinating, Denies increased urinary frequency. MSK: Denies joint pain, Denies joint swelling, Admits numbness. Skin: Denies rash, Denies itching, Denies easy bruising. Neuro: Denies headaches, Denies dizziness, Denies seizures. Past Medical History Past Medical History Comments PMH COMMENT: PMH: hypertension, IDDM, myasthenia gravis, osteomyelitis right foot s/p amputation of first/fourth/fifth toes, diabetic neuropathy, right ankle Charcot joint, varicose veins of bilateral lower extremities, triple-vessel CAD s/p PCI of mid LCx on 06/24/2024, and recently diagnosed acute decompensated diastolic heart failure (EF 50%) Surgical Hx: Tonsillectomy, eye surgery (bilateral), ORIF of left fibula, amputation of right foot toes Medications: Mycophenolate 50 mg twice daily, pyridostigmine 60 mg p.o. 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 Anicteric, vision grossly intact. Ears: No ear pain, no ear discharge, Hearing grossly intact. Nose: No nasal discharge. Mouth/Throat: Dry mucous membranes, no redness, no lesions. Neck: Neck supple, non-tender, no cervical lymphadenopathy. Lungs: Clear KAYLEEN to auscultation and percussion, No accessory muscle use. Cardio: Normal S1/S2, regular rhythm, no murmurs, no JVD Abdomen: Soft, non-tender, no palpable masses, peristalsis present, no guarding or rebound. Extremities: Symmetrical, no significant deformities, no peripheral edema , non-tender, peripheral pulses presents. Skin: No rashes, no lesions, warm to touch. Neuro: Mild left-sided nasal fold flattening, decrease sensation in left lower side face, decreased sensation in left upper and lower extremity, strength bilateral upper extremities 4 out of 4 and strength bilateral lower extremities 4 out of 4 Psych: Cooperative, appropriate mood and effect. Results Labs 07/20/24 05:11 07/20/24 05:11 Labs: Short CBC 07/19/24 Range/Units 05:18 WBC 10.3 (3.8-10.6) Thou/mm3 Hgb 11.1 L (13.5-16.0) g/dL Hct 32.8 L (41.0-53.0) % Plt Count 348 (140-440) Thou/mm3 BMP 07/19/24 05:18 Sodium 135 L Potassium 3.2 L Chloride 97 L Carbon Dioxide 29.4 BUN 12 Creatinine 0.9 Glucose 131 H D Calcium 8.9 Liver Function 07/19/24 Range/Units 05:18 Total Bilirubin 0.5 (0.3-1.2) mg/dL AST 10 (0-34) U/L ALT 9 L (10-49) U/L Alkaline Phosphatase 83 (46-116) U/L Albumin 3.9 (3.4-4.8) gm/dL Quality Measures Quality Measures VTE prophylaxis Advance care planning discussed with:: patient Medications Home Medications and Allergies Home Medications ?Medication ?Instructions ?Recorded ?Confirmed ?Type insulin aspart U-100 100 unit/mL 20 unit subcut TID 06/21/24 07/19/24 History (3 mL) subcutaneous pen (Novolog FlexPen U-100 Insulin aspart) insulin glargine U-300 conc 300 30 unit subcut BID 06/21/24 07/19/24 History unit/mL (3 mL) subcutaneous pen (Toujeo Max U-300 SoloStar) mycophenolate mofetil 500 mg tablet 500 mg PO Q12H 06/21/24 07/19/24 History pyridostigmine bromide 60 mg tablet 60 mg PO TID 06/21/24 07/19/24 History acetaminophen 325 mg tablet 325 mg PO PRN PRN Pain 07/19/24 07/19/24 History (Tylenol) Allergies Allergy/AdvReac Type Severity Reaction Status Date / Time Sulfa (Sulfonamide Allergy Intermediate Rash Verified 07/18/24 16:50 Antibiotics) ibuprofen Allergy Mild Rash Verified 07/18/24 16:50 Penicillins Allergy Mild Rash Verified 07/18/24 16:50 Visit Medications Acetaminophen (Acetaminophen 325 Mg Tablet) 650 mg PO Q6H PRN PRN Reason: Pain 1-3 and/or Fever >100.1 Stop: 08/17/24 20:18 Aspirin (Aspirin Ec 81 Mg Tabec) 81 mg PO QDAY [facility] Stop: 08/18/24 08:59 Last Admin: 07/19/24 09:55 Dose: 81 mg Atorvastatin Calcium (Atorvastatin Calcium 20 Mg Tablet) 80 mg PO QPM HARJEET Stop: 08/17/24 20:59 Last Admin: 07/18/24 21:04 Dose: 80 mg Carvedilol (Carvedilol 3.125 Mg Tablet) 6.25 mg PO BID HARJEET Stop: 08/17/24 20:59 Last Admin: 07/19/24 08:40 Dose: 6.25 mg Clopidogrel Bisulfate (Clopidogrel Bisulfate 75 Mg Tablet) 75 mg PO QDAY [facility] Stop: 08/18/24 08:59 Last Admin: 07/19/24 08:41 Dose: 75 mg Pyridostigmine Br (60mg Tablet) 0 ea PO TID [facility] Stop: 08/18/24 13:59 Last Admin: 07/19/24 14:59 Dose: 1 tablet Dextrose (Dextrose 50%-Water Inj 50 Ml Syringe) 25 ml IV Q15MIN PRN PRN Reason: BG 50-70 responsive npo pt Stop: 08/17/24 21:28 Dextrose (Dextrose 50%-Water Inj 50 Ml Syringe) 50 ml IV Q15MIN PRN PRN Reason: BG <50 OR BG <70 & pt unresponsive Stop: 08/17/24 21:28 Furosemide (Furosemide 40 Mg Tablet) 40 mg PO BID [facility] Stop: 08/17/24 20:59 Last Admin: 07/19/24 08:41 Dose: 40 mg Glucagon (Glucagon Inj 1 Mg Vial) 1 mg IM Q15MIN PRN PRN Reason: BG <70, and no IV access Magnesium Sulfate (Magnesium Sulfate Ivpb) 4 gm in 50 mls @ 12.5 mls/hr IV X1 ONE Stop: 07/19/24 21:23 Last Admin: 07/19/24 17:47 Dose: 12.5 mls/hr Insulin Glargine (Insulin Glargine (Lantus) 5 Unit/0.05 Ml (Per 5 Units)) 30 unit SC HS [facility] Stop: 08/18/24 20:59 Insulin Human Lispro (Insulin Lispro (Admelog) 1 Unit/0.01 Ml Unit) 0 [facility]; Protocol Stop: 08/18/24 07:29 Last Admin: 07/19/24 17:48 Dose: 8 unit Mycophenolate Mofetil (Mycophenolate 250 Mg Capsule (Non-Formulary)) 500 mg PO Q12HR [facility] Stop: 08/18/24 20:59 Ondansetron HCl (Ondansetron Inj 2 Mg/Ml Inj 2 Ml) 4 mg IV Q6H PRN; Protocol PRN Reason: NAUSEA OR VOMITING Stop: 08/17/24 20:18 Pantoprazole Sodium (Pantoprazole Inj 40 Mg Vial) 40 mg IVP QDAY [facility] Stop: 08/18/24 08:59 Last Admin: 07/19/24 08:40 Dose: 40 mg Sacubitril/Valsartan (Sacubitril 24 Mg/Valsartan 26 Mg Tablet) 1 tab PO BID [facility] Stop: 08/17/24 20:59 Last Admin: 07/19/24 08:41 Dose: 1 tab Sennosides (Senna Tablet) 1 tab PO QDAY PRN; Protocol PRN Reason: CONSTIPATION Stop: 08/17/24 20:55 Discontinued Medications Calcium Carbonate (Calcium Carbonate 600 Mg Tablet) 600 mg PO X1 ONE Stop: 07/19/24 06:09 Last Admin: 07/19/24 08:41 Dose: 600 mg Magnesium Sulfate/Dextrose (Magnesium Sulfate Ivpb) 1 gm in 100 mls @ 100 mls/hr IV X1 ONE Stop: 07/19/24 09:06 Last Admin: 07/19/24 08:39 Dose: 100 mls/hr Non-Formulary Medication (Mycophenolate Mofetil) 500 mg PO Q12H [facility] Stop: 08/17/24 22:14 Last Admin: 07/19/24 00:00 Dose: Not Given Potassium Chloride (Potassium Chloride 20 Meq Tabcr) 40 meq PO X1 ONE Stop: 07/19/24 08:07 Last Admin: 07/19/24 08:41 Dose: 40 meq Potassium Chloride (Potassium Chloride 20 Meq Tabcr) 40 meq PO X1 ONE Stop: 07/19/24 17:16 Last Admin: 07/19/24 17:47 Dose: 40 meq Pyridostigmine [place] (Pyridostigmine [place] 60 Mg Tablet) 60 mg PO TID [facility] Stop: 08/17/24 21:59 Last Admin: 07/19/24 05:17 Dose: Not Given Pyridostigmine [place] (Pyridostigmine [place] 60 Mg Tablet) 60 mg PO TID [facility] Stop: 08/18/24 21:59 Assessment & Plan Plan 74-year-old male with past medical history of hypertension, IDDM, myasthenia gravis, osteomyelitis right foot s/p amputation of first/fourth/fifth toes, diabetic neuropathy, right ankle Charcot joint, varicose veins of bilateral lower extremities, triple-vessel CAD s/p PCI of mid LCx on 06/24/2024, and recently diagnosed acute decompensated diastolic heart failure (EF 50%) was admitted to the hospital for CVA workup. 1. Triple-vessel CAD s/p PCI mid LCx (06/24/2024) 2. Acute decompensated diastolic heart failure (EF 55-60%) 3. Sinus bradycardia ?Patient had time does not have any heart failure symptoms and does not have any lower extremity swelling ?EKG shows sinus bradycardia ?Cardiac catheterization with PCI completed on 06/24 findings include: Successful PCI of mid LCX with 2.25x16 mm synergy JERRY stent an d post dilated with a 2.75 mm NC balloon at 16 yazmin for a total of 60 secs. Post IVUs performed. IVUS of the LAD perfomed and MLA (minimal luminal area) of the mid and proximal LAD is les than 4 mm2. ?Echo done by stores clerk on-call on day of admission showed the following findings: Negative bubble study. No evidence of PFO or ASD. Normal LV size and function. Mild LVH. Estimated EF 55-60% Normal RV size and function Mild MAC. Trace MR, AI, TR. Mild AV sclerosis without stenosis. Plan: ? Recommend to continue DAPT ?Recommend to hold Coreg and Lasix as patient's blood pressure has been on the lower end with 91/50 this morning and his heart rate has been in the 50s. ? Recommend to continue Entresto ?Recommend to aggressively replete potassium and magnesium, keep magnesium above 2 and potassium above 4 to avoid any arrhythmias ? Strict KAREN's ? Daily weights ? Recommend to stop Coreg and decrease Lasix to 40 daily upon discharge and start metoprolol 25 mg XL daily 4. Ischemic right thalamic infarct 5. Left side body paresthesia ?Patient came in because of symptoms of numbness on his left side of face, left upper and lower extremity since Friday evening ? MRI showed a right thalamus infarct measuring 8 mm ?NIHSS score 0 on admission ?Recommend to follow-up with neurology recommendations ?Continue management as per primary care team 6. Normocytic normochromic anemia ? Patient space hemoglobin is around 9-10 ? Hemoglobin today was 11.1 ? This is most likely secondary to medication as patient is on mycophenolate versus iron deficiency ? Continue management as per primary care team 7. Insulin-dependent diabetes mellitus type 2 8. Diabetic neuropathy 9. Right ankle Charcot joint 10. S/p first, fourth and fifth toe on right foot amputation ?A1c 7.7% today ? Recommend tight glucose control ? Continue management as per primary care team Continue rest of management as per primary team. We are grateful to be able to participate in Mr. Castro's care. Thank you for the consult Plan of care discussed with attending Pipe Or Steam Fitter Furnace Installer, Dr Eloisa Patterson MD PGY-1 Attending Provider Attestation/Addendum I have personally seen and examined the patient separately on the above date of service and discussed the plan of care with the resident. I reviewed the resident Dr. Lee consultation progress note and agree with the resident findings and plan in the note above and have also edited the documentation to reflect my findings and plan. Noel Amin M.D. Interventional Cardiology
[2024-07-19] MEDS: MYCOPHENOLATE 250 MG CAPSULE (NON-FORMULARY) 500 MG PO (21:33)
[2024-07-19] MEDS: ATORVASTATIN CALCIUM 20 MG TABLET 80 MG PO (21:33)
[2024-07-19] MEDS: INSULIN GLARGINE (Lantus) 5 UNIT/0.05 ML (PER 5 UNITS) 30 UNIT SC (21:34)
[2024-07-20] VITALS: BP 118/54; PULSE 59; PULSE 61; RESP 12; TEMP 36.1; O2SAT 95
[2024-07-20 04:00] VITALS: BP 142/64; PULSE 59; PULSE 60; RESP 13; TEMP 36.2; O2SAT 95
[2024-07-20 05:55] LABS: Basophils # (Auto) 0.1 Thou/mm3 (0.0-0.2); Basophils % (Auto) 1 % (0-2.5); Eosinophils # (Auto) 0.4 Thou/mm3 (0.0-0.5); Eosinophils % (Auto) 4 % (0-10); Hematocrit 32.5 % (41.0-53.0); Hemoglobin 10.9 g/dL (13.5-16.0); Immature Granulocytes % (Auto) 0 % (0-0); Immature Granulocytes Auto 0.03 Thou/mm3 (0.00-0.00); Lymphocytes # (Auto) 2.6 Thou/mm3 (1.0-4.8); Lymphocytes % (Auto) 25 % (10-50); Mean Corpuscular HGB Conc 33.5 g/dl (31.0-37.0); Mean Corpuscular Hemoglobin 29.9 pg (25.0-35.0); Mean Corpuscular Volume 89 fL (80-100); Monocytes # (Auto) 0.9 Thou/mm3 (0.0-0.8); Monocytes % (Auto) 8 % (0-12); Neutrophils # (Auto) 6.4 Thou/mm3 (1.8-7.7); Neutrophils % (Auto) 62 % (37-80); Nucleated Red Blood Cell % 0 /100 WBC (0); Platelet Count 349 Thou/mm3 (140-440); RDW Standard Deviation 42.4 fL (35.1-43.9); Red Blood Count 3.65 Miln/mm3 (4.50-5.90); White Blood Count 10.3 Thou/mm3 (3.8-10.6)
[2024-07-20 06:00] VITALS: BMI 30.3
[2024-07-20 06:47] LABS: Alanine Aminotransferase < 7 U/L (10-49); Albumin, Serum 3.8 gm/dL (3.4-4.8); Alkaline Phosphatase 94 U/L (46-116); Anion Gap 8 (7-16); Aspartate Amino Transferase < 10 U/L (0-34); BUN/Creatinine Ratio 16 Ratio (12-20); Bilirubin,Total 0.4 mg/dL (0.3-1.2); Blood Urea Nitrogen 14 mg/dL (9-23); Calcium 8.7 mg/dL (8.3-10.6); Calcium (Corrected) 8.9 mg/dL (8.5-10.1); Carbon Dioxide 27.2 mMol/L (20.0-31.0); Chloride 99 mMol/L (98-107); Creatinine (Component) 0.9 mg/dL (0.6-1.3); Estimated Creatinine Clearance 94.1 mL/min (>60); Globulin 1.9 gm/dL (2.3-3.5); Glucose 227 mg/dL (74-106); Magnesium 2.2 mg/dL (1.6-2.6); Osmolality,Calculated 275 (275-295); Phosphorous 4.3 mg/dL (2.4-5.1); Sodium 134 mMol/L (136-145); Total Protein 5.7 gm/dL (5.7-8.2); eGFR > 60 See Note
[2024-07-20 08:00] VITALS: BP 127/66; PULSE 67; PULSE 78; RESP 22; TEMP 36.5; O2SAT 98
[2024-07-20] MEDS: ASPIRIN EC 81 MG TABEC PO (08:15)
[2024-07-20] MEDS: SACUBITRIL 24 MG/VALSARTAN 26 MG TABLET 1 TAB PO (08:15)
[2024-07-20] MEDS: PANTOPRAZOLE INJ 40 MG VIAL IVP (08:15)
[2024-07-20] MEDS: CLOPIDOGREL BISULFATE 75 MG TABLET PO (08:15)
[2024-07-20] MEDS: INSULIN LISPRO (AdmeLOG) 1 UNIT/0.01 ML UNIT SC (08:16)
[2024-07-20] MEDS: MYCOPHENOLATE 250 MG CAPSULE (NON-FORMULARY) 500 MG PO (08:16)
--- NOTE | 2024-07-20 09:42 | ESPR_ITS ---
Documentation for date of: 07/20/24 Subjective Subjective Interval history: Patient seen and examined at bedside this a.m. Patient had a total balance of -1.4 L in the past 24 hours Patient's heart rate has been in the 50s to 60s overnight Patient's blood pressure has been stable with 127/76 this morning Patient has no cardiac complaints at this time Exam Vital Signs Temp Pulse Resp BP Pulse Ox O2 Del Method 97.7 F 78 22 H 127/66 98 Room Air 07/20/24 08:00 07/20/24 08:00 07/20/24 08:00 07/20/24 08:00 07/20/24 08:00 07/20/24 08:00 Narrative Exam General: A/O x3, no acute distress, obese Eyes: PERRL, EOMI. Anicteric, vision grossly intact. Ears: No ear pain, no ear discharge, Hearing grossly intact. Nose: No nasal discharge. Mouth/Throat: Dry mucous membranes, no redness, no lesions. Neck: Neck supple, non-tender, no cervical lymphadenopathy. Lungs: Clear KAYLEEN to auscultation and percussion, No accessory muscle use. Cardio: Normal S1/S2, regular rhythm, no murmurs, no JVD Abdomen: Soft, non-tender, no palpable masses, peristalsis present, no guarding or rebound. Extremities: Symmetrical, no significant deformities, no peripheral edema , non-tender, peripheral pulses presents. Skin: No rashes, no lesions, warm to touch. Neuro: Mild left-sided nasal fold flattening, decrease sensation in left lower side face, decreased sensation in left upper and lower extremity, strength bilateral upper extremities 4 out of 4 and strength bilateral lower extremities 4 out of 4 Psych: Cooperative, appropriate mood and effect. Objective Labs 07/20/24 05:11 07/20/24 05:11 Labs: Laboratory Results - last 24 hr 07/20/24 05:11 WBC 10.3 RBC 3.65 L Hgb 10.9 L Hct 32.5 L MCV 89 MCH 29.9 MCHC 33.5 RDW Std Deviation 42.4 Plt Count 349 Neut % (Auto) 62 Lymph % (Auto) 25 [place] % (Auto) 8 Eos % (Auto) 4 Baso % (Auto) 1 Neut # (Auto) 6.4 Lymph # (Auto) 2.6 [place] # (Auto) 0.9 H Eos # (Auto) 0.4 Baso # (Auto) 0.1 Immature Gran # (Auto) 0.03 H Absolute Nucleated RBC 0.00 Immature Gran % 0 Nucleated RBC % 0 Sodium 134 L Potassium 4.0 D Chloride 99 Carbon Dioxide 27.2 Anion Gap 8 BUN 14 Creatinine 0.9 Estim Creat Clear Calc 94.1 eGFR > 60 BUN/Creatinine Ratio 16 Glucose 227 H D Calculated Osmolality 275 Calcium 8.7 Corrected Calcium 8.9 Phosphorus 4.3 Magnesium 2.2 Total Bilirubin 0.4 AST < 10 ALT < 7 L Alkaline Phosphatase 94 Total Protein 5.7 Albumin 3.8 Globulin 1.9 L Albumin/Globulin Ratio 2.0 Quality Measures Quality Measures VTE prophylaxis Advance care planning discussed with:: patient Assessment & Plan Assessment Current Active Medications: Generic Name Dose Route Start Last Admin Trade Name Freq PRN Reason Stop Dose Admin Acetaminophen 650 mg 07/18/24 20:19 Acetaminophen 325 Mg Tablet PO 08/17/24 20:18 Q6H PRN Pain 1-3 and/or Fever >100.1 Aspirin 81 mg 07/19/24 09:00 07/20/24 08:15 Aspirin Ec 81 Mg Tabec PO 08/18/24 08:59 81 mg QDAY HARJEET Administration Atorvastatin Calcium 80 mg 07/18/24 21:00 07/19/24 21:33 Atorvastatin Calcium 20 Mg Tablet PO 08/17/24 20:59 80 mg QPM HARJEET Administration Carvedilol 6.25 mg 07/18/24 21:00 07/19/24 08:40 Carvedilol 3.125 Mg Tablet PO 08/17/24 20:59 6.25 mg BID HARJEET Administration Clopidogrel Bisulfate 75 mg 07/19/24 09:00 07/20/24 08:15 Clopidogrel Bisulfate 75 Mg Tablet PO 08/18/24 08:59 75 mg QDAY HARJEET Administration Pyridostigmine Br 0 ea 07/19/24 14:00 07/20/24 06:01 60mg Tablet PO 08/18/24 13:59 1 tablet TID HARJEET Administration Dextrose 25 ml 07/18/24 21:29 Dextrose 50%-Water Inj 50 Ml Syringe IV 08/17/24 21:28 Q15MIN PRN BG 50-70 responsive npo pt Dextrose 50 ml 07/18/24 21:29 Dextrose 50%-Water Inj 50 Ml Syringe IV 08/17/24 21:28 Q15MIN PRN BG <50 OR BG <70 & pt unresponsive Furosemide 40 mg 07/18/24 21:00 07/19/24 08:41 Furosemide 40 Mg Tablet PO 08/17/24 20:59 40 mg BID HARJEET Administration Glucagon 1 mg 07/18/24 21:29 Glucagon Inj 1 Mg Vial IM Q15MIN PRN BG <70, and no IV access Insulin Glargine 34 unit 07/20/24 21:00 Insulin Glargine (Lantus) 5 Unit/0.05 Ml (Per 5 Units) SC 08/19/24 20:59 HS HARJEET Insulin Human Lispro 0 unit 07/19/24 07:30 07/20/24 08:16 Insulin Lispro (Admelog) 1 Unit/0.01 Ml Unit SC 08/18/24 07:29 4 unit ACHS HARJEET Administration Protocol Mycophenolate Mofetil 500 mg 07/19/24 21:00 07/20/24 08:16 Mycophenolate 250 Mg Capsule (Non-Formulary) PO 08/18/24 20:59 500 mg Q12HR HARJEET Administration Ondansetron HCl 4 mg 07/18/24 20:19 Ondansetron Inj 2 Mg/Ml Inj 2 Ml IV 08/17/24 20:18 Q6H PRN NAUSEA OR VOMITING Protocol Pantoprazole Sodium 40 mg 07/19/24 09:00 07/20/24 08:15 Pantoprazole Inj 40 Mg Vial IVP 08/18/24 08:59 40 mg QDAY HARJEET Administration Sacubitril/Valsartan 1 tab 07/18/24 21:00 07/20/24 08:15 Sacubitril 24 Mg/Valsartan 26 Mg Tablet PO 08/17/24 20:59 1 tab BID HARJEET Administration Sennosides 1 tab 07/18/24 20:56 Senna Tablet PO 08/17/24 20:55 QDAY PRN CONSTIPATION Protocol Plan 74-year-old male with past medical history of triple-vessel CAD s/p PCI of mid LCx on 06/24/2024, and recently diagnosed acute decompensated diastolic heart failure (EF 50%), IDDM, hypertension, myasthenia gravis, osteomyelitis right foot s/p amputation of first/fourth/fifth toes, diabetic neuropathy, right ankle Charcot joint, andvaricose veins of bilateral lower extremities was admitted to the hospital for CVA workup. 1. Triple-vessel CAD s/p PCI mid LCx (06/24/2024) 2. Acute decompensated diastolic heart failure (EF 55-60%) 3. Sinus bradycardia ?Patient had time does not have any heart failure symptoms and does not have any lower extremity swelling ?Patient's total balance of -1.4 L in the past 24 hours ?EKG shows sinus bradycardia ?Cardiac catheterization with PCI completed on 06/24 findings include: Successful PCI of mid LCX with 2.25x16 mm synergy JERRY stent an d post dilated with a 2.75 mm NC balloon at 16 yazmin for a total of 60 secs. Post IVUs performed. IVUS of the LAD perfomed and MLA (minimal luminal area) of the mid and proximal LAD is les than 4 mm2. ?Echo done by community development technician on-call on day of admission showed the following findings: Negative bubble study. No evidence of PFO or ASD. Normal LV size and function. Mild LVH. Estimated EF 55-60% Normal RV size and function Mild MAC. Trace MR, AI, TR. Mild AV sclerosis without stenosis. Plan: ? Recommend to continue DAPT ?Recommend to continue to hold Coreg and Lasix as patient's blood pressure has been on the lower end ? Recommend to continue Entresto ?Recommend to aggressively replete potassium and magnesium, keep magnesium above 2 and potassium above 4 to avoid any arrhythmias ? Strict KAREN's ? Daily weights ? Recommend to stop Coreg and decrease Lasix to 40 daily upon discharge and start metoprolol 25 mg XL daily - Patient will need staged PCI of the LAD and was supposed to be scheduled in the next few weeks now given the acute stroke-plan is to delay the procedure further if patient does not have any major chest pain or chest pressure. 4. Ischemic right thalamic infarct 5. Left side body paresthesia ?Patient came in because of symptoms of numbness on his left side of face, left upper and lower extremity since Friday evening ? MRI showed a right thalamus infarct measuring 8 mm ?NIHSS score 0 on admission ?Recommend to follow-up with neurology recommendations ?Continue management as per primary care team 6. Normocytic normochromic anemia ? Patient space hemoglobin is around 9-10 ? Hemoglobin today was 10.9 ? This is most likely secondary to medication as patient is on mycophenolate versus iron deficiency ? Continue management as per primary care team 7. Insulin-dependent diabetes mellitus type 2 8. Diabetic neuropathy 9. Right ankle Charcot joint 10. S/p first, fourth and fifth toe on right foot amputation ?A1c 7.7% today ? Recommend tight glucose control ? Continue management as per primary care team Continue rest of management as per primary team. We are grateful to be able to participate in Mr. Castro's care. Thank you for the consult Plan of care discussed with attending Metal Grader, Dr Eloisa Patterson MD PGY-1 Attending Provider Attestation/Addendum I have personally seen and examined the patient separately on the above date of service and discussed the plan of care with the resident. I reviewed the resident Dr. Lee consultation progress note and agree with the resident findings and plan in the note above and have also edited the documentation to reflect my findings and plan. Noel Amin M.D. Interventional Cardiology
--- NOTE | 2024-07-20 10:20 | PC.SS ---
Addendum entered by TAMICA Torres 07/20/24 11:22: Met with patient to confirm the d/c plan to [facility]. He is agreeable. ETA for transport is 1:15pm. Bed side nurse is aware. Original Note: Spoke with Jill at [facility]. Informs the patient is able to return to their facility today. They are also able to provide transportation for the patient this afternoon.
[2024-07-20 12:00] VITALS: BP 135/69; PULSE 61; PULSE 71; RESP 16; TEMP 36.1; O2SAT 99
[2024-07-20] MEDS: POLYETHYLENE GLYCOL 17 GM PACKET PO (12:20)
--- NOTE | 2024-07-20 12:37 | PC.NURSE ---
report given to Mike florence at [facility] all questions answered [id number]
--- NOTE | 2024-07-20 14:30 | ESDS_ITS ---
<Statement entered by Ramana Coello MD - 07/20/24 15:48> I saw and examined the patient, and I agree with current management stated by Dr Shahzad MD,PGY1. Plan of care was discussed with the attending physician and resident physician. Disclaimer: Despite multiple revisions, due to the dictation software being used, the document bellow may not be free of grammatical errors including phonetic/typographic errors. However, this does not deter from our commitment to providing health care in the patient's best interest in mind. Dr. Mary Carmen MD, PGY 2 Planned Discharge Date 07/20/24 DS: Providers Provider Date of admission: 07/18/24 20:19 Primary care physician: Darrius Oswald MD Admitting Provider: Harshil Loev MD Attending Provider on Admission: Brendon Nunez MD Consults: 07/18/24 20:23 Referral Physical Therapy Routine Comment: Physician Instructions: Referral Speech Therapy Routine Comment: 07/18/24 21:48 Consult to Neurology / Tele-Neurology Routine Comment: Consulting Provider: Simeon Garvin 07/19/24 13:44 Consult to Cardiology Routine Comment: Consulting Provider: Noel Amin Attending Provider on DC: Vickie Pike MD Discharging Provider: Vickie Pike MD DS: Diagnosis Problem List Completed Was Problem List Reviewed/Reconciled?: Yes Hospital Course Hospital Course Hospital course: Patient is a 74-year-old male with a past medical history of hypertension, diabetes mellitus type 2 insulin-dependent, myasthenia gravis (mycophenolate & pyridostigmine), CAD s/p stents (Jun 2024), and history osteomyelitis who was admitted on 07/18/2024 for stroke work up and 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 ER Course: In the ED, patient presented hypertensive (110/96), heart rate 59, respiratory rate 18, afebrile satting 98 on room air. Lab findings were not remarkable; glucose was elevated to 62, lactic acid 1.0, troponin within normal limits, urinalysis with no signs of UTI, U-Tox negative, EKG with sinus bradycardia with possible left axis deviation, chest x-ray with no active disease and head CT did not show any acute process. Teleneurology was consulted in ED and the recommendation was to do stroke workup with MR brain, MRA of the head and neck and to start patient on dual antiplatelet therapy. Patient will be admitted for stroke workup and rule out. Hospital Course: On floors, brain MRI performed (07/19/2024) showing 8 mm acute infarct right thalamus, no significant carotid stenosis, no cerebral large vessel occlusion. CT head unremarkable. TSH within normal limits and A1c 7.7. Updated echo on 07/19/2024 was negative for PFO or ASD D. HFpEF of 55 to 60% -unchanged. Patient home medication of dual antiplatelet therapy and high intensity statins continued in hospital. Dr. Garvin, neurlolgy consulted. Dr. Amin, electric switch tester consulted for patinet. Veneer Clipper recommened stopping Coreg and decreased Lasix from 40 BID to Lasix 40 mg QDay and start Metoprolol 25 mg XL QDay. Physical therapy referal while in hospital, recommended to return to SNF for daily physical therapy to improve balance. Discharge Instructions: Continue taking aspirin 81 mg, Plavix 75 mg and atorvastatin 80 mg at bedtime Stopped caredilol and started metoprolol succinate XL 25 mg once a day Take all of medication as prescribed Follow-up with PCP as outpatient within 2 weeks Follow-up with neurologist,Dr Limon as outpatient within a week Follow-up with electric switch tester, Dr Amin as outpatient within a week In case of emergency, call 911 or come back to the ED #Stroke, right thalamus infarct #Coronary Artery Disease s/p stents (June 2024) #CHF, Diastolic Dysfunction, HFpEF 50-55% (06/21/2024) #Diabetes Mellitus Type 2, Insulin Dependent #Hypertension #Myasthenia Gravis - The patient's plan was discussed with attending Dr. Nunez and senior residents Mary Carmen Pike MD PGY1 Internal Medicine Time Spent with Patient Time attestation: Total time spent providing and/or coordinating discharge services: greater than 35 minutes Exam Vital Signs Temp Pulse Resp BP Pulse Ox O2 Del Method 97.0 F 61 16 135/69 H 99 Room Air 07/20/24 12:00 07/20/24 12:00 07/20/24 12:00 07/20/24 12:00 07/20/24 12:00 07/20/24 12:00 Narrative Exam General Appearance: Alert & Oriented X3, well-nourished male who is lying in bed in no acute distress. HEENT: Skull symmetrical and atraumatic. Conjunctivae pin and moist. Pupils equal, round, reactive to light and accommodation (PERRL). External ear without lesion or discharge. Straight, nares patient, mucosa pink, no discharge. No thyroid nodule appreciated. No cervical lymphadenopathy. Cardio: Normal Rate and Rhythm with S1 and S2 heart sounds. No murmurs or extra heart sounds auscultated. No bruits on carotid auscultation. No peripheral edema or cyanosis. Lungs: Symmetric with good expansion. Chest and back non-tender. Breath sounds vesicular without crackles, wheezing or rhonchi Abdomen: Non-tender, Non-distended, Normal Reactive Bowel Sounds Neuro: Alert, cooperative, oriented to person, place, and time. Speech clear. CN grossly intact. Upper motor strength 5/5 and Lower motor strength 5/5. Sensation intact with right sided paresthesia. Discharge Plan Plan Patient Disposition: Xfer [facility]illed [facility] Fac (SNF) Patient condition on transfer: Stable Care Plan Goals: Continue taking aspirin 81 mg, Plavix 75 mg and atorvastatin 80 mg at bedtime Stopped caredilol and started metoprolol succinate XL 25 mg once a day Take all of medication as prescribed Follow-up with PCP as outpatient within 2 weeks Follow-up with neurologist,Dr Limon as outpatient within a week Follow-up with electric switch tester, Dr Amin as outpatient within a week In case of emergency, call 911 or come back to the ED Prescriptions/Referrals Prescriptions/Med Rec: New furosemide [Lasix] 40 mg tablet 40 mg PO QDAY Qty: 90 0RF Rx Instructions: Hold if SBP <120 and DBP<80 mmHg metoprolol succinate 25 mg tablet extended release 24 hr 25 mg PO QDAY Qty: 90 0RF Rx Instructions: Hold if SBP <120 and DBP<80 mmHg Continued mycophenolate mofetil 500 mg Tablet 500 mg PO Q12H pyridostigmine bromide 60 mg Tablet 60 mg PO TID insulin aspart U-100 [Novolog FlexPen U-100 Insulin] 100 unit/mL (3 mL) Insulin Pen 20 unit SUBCUT TID insulin glargine U-300 conc [Toujeo Max U-300 SoloStar] 300 unit/mL (3 mL) insulin pen 30 unit SUBCUT BID Patient Comments: PLEASE SEE ATTACHED FOR DETAILED DIRECTIONS aspirin 81 mg capsule 81 mg PO QDAY Qty: 30 2RF atorvastatin 80 mg tablet 80 mg PO QPM Qty: 30 2RF clopidogrel [Plavix] 75 mg tablet 75 mg PO QDAY Qty: 30 2RF Entresto 24-26 mg tablet 1 tab PO BID Qty: 60 2RF acetaminophen [Tylenol] 325 mg Tablet 325 mg PO PRN PRN (Reason: Pain) Rx Instructions: q4 hours PRN Discontinued furosemide 40 mg tablet 40 mg PO BID Qty: 60 2RF carvedilol 6.25 mg tablet 6.25 mg PO BID Qty: 60 2RF Rx Instructions: must administer with a meal/food Referrals: Noel Amin MD [Physician] - Darrius Oswald MD [Primary Care Provider] - Simeon Garvin MD [Physician] - Patient/Caregiver Discharge Instructions Print Language: Lithuanian Stand Alone Forms: [employer]enu Award Info., Patient Portal Info Letter Discharge Order Discharge Orders: Discharge (Routine); Ordered 07/20/24 Ordered By: Nay Nguyen Quality Discharge Quality Measures VTE prophylaxis Attestestation MD Attestation I have examined the patient, reviewed labs and imaging findings, discussed the case with the resident(s), and reviewed entered orders. I agree with the plan of care as outlined in this note. Dr. Nunez
--- NOTE | 2024-08-11 16:11 | PD.VPROG1 ---
Telemedicine visit statement This visit was conducted with the use of interactive audio and video telecommunications system that permits real time communication between the patient and the provider. Patient's verbal consent for virtual visit was obtained on 08/11/24 at 1611. Documentation for date of: 07/19/24 Virtual exam Vital Signs Temp Pulse Resp BP Pulse Ox O2 Del Method 97.0 F 61 16 135/69 H 99 Room Air 07/20/24 12:00 07/20/24 12:00 07/20/24 12:00 07/20/24 12:00 07/20/24 12:00 07/20/24 12:00 Objective Labs 07/20/24 05:11 07/20/24 05:11
--- NOTE | 2024-08-11 16:11 | PD.NEUROPROG ---
Documentation for date of: 07/20/24 Exam - Neurology Vital Signs Temp Pulse Resp BP Pulse Ox O2 Del Method 97.0 F 61 16 135/69 H 99 Room Air 07/20/24 12:00 07/20/24 12:00 07/20/24 12:00 07/20/24 12:00 07/20/24 12:00 07/20/24 12:00 Objective Labs 07/20/24 05:11 07/20/24 05:11
== END 2024-07-20 13:24 | disposition skilled nursing facility (03) | DRG 64 ==
LOC: SERX 21:05 → SERHOLD 21:56 → S2NX 23:38
PROVIDERS: Student in an Organized Health Care Education/Training Program; Admitting Provider Internal Medicine; Emergency Provider Emergency Medicine; PCP Family Medicine; Visit Provider Student in an Organized Health Care Education/Training Program
DX: I63.9 Cerebral infarction, unspecified (principal); I50.33 Acute on chronic diastolic (congestive) heart failure; I13.0 Hypertensive heart and chronic kidney disease with heart failure and stage 1 through stage 4 chronic kidney disease, or unspecified chronic kidney disease; G81.94 Hemiplegia, unspecified affecting left nondominant side; N18.9 Chronic kidney disease, unspecified; G70.00 Myasthenia gravis without (acute) exacerbation; I25.10 Atherosclerotic heart disease of native coronary artery without angina pectoris; Z79.4 Long term (current) use of insulin; E11.22 Type 2 diabetes mellitus with diabetic chronic kidney disease; Z95.5 Presence of coronary angioplasty implant and graft; I35.0 Nonrheumatic aortic (valve) stenosis; D63.1 Anemia in chronic kidney disease; E11.40 Type 2 diabetes mellitus with diabetic neuropathy, unspecified; E11.610 Type 2 diabetes mellitus with diabetic neuropathic arthropathy; I25.2 Old myocardial infarction
CPT/HCPCS: 36415; 70450; 70546; 70548; 70553; 71045; 80053; 80061; 80307; 81001; 83036; 83605; 83735; 84100; 84145; 84443; 84484; 85025; 85610; 85730; 87081; 92610; 93005; 93306; 97162; 99285; A9579; J1815; J2470; J3475; J7517; A9270

== ENCOUNTER 2024-08-22 22:05 | Inpatient (IN) | payer OTHER, MEDICAID, MEDICARE, SELFPAY ==
[2024-08-22 22:08] VITALS: PULSE 75; RESP 18; O2SAT 99
--- NOTE | 2024-08-22 22:08 | XR_ITS ---
Examination: CT brain head without contrast. 2-D sagittal coronal reconstructions Date and time of exam:August 22, 2024 10:14 PM Comparison July 18, 2024 Indications: Stroke alert, onset right-sided body weakness numbness and paresthesias beginning 6 hours ago, brain MRI July 19, 2024 8 mm acute infarct right thalamus CTDI: vol (mGy):53.70 DLP: (mGycm):1086 Technique: Multiple CT axial sections of the brain have been obtained, 5 mm slice thickness. Contrast has not been administered. 2-D sagittal, coronal reconstructions have been obtained Low dose protocols were performed. One or more of the following dose reduction techniques were used; automated exposure control, adjustment of the mA and/or KV according to patient size, use of iterative reconstruction technique. Findings: No significant ventricular enlargement. Small old infarct brainstem pontine level Intra-axial or extra-axial hemorrhage density is not seen. No mass effect or midline shift Basal cisterns are not remarkable. Fourth ventricle is midline. Cranial vault intact. Impression: Negative for acute hemorrhage, mass effect or midline shift Consider repeat brain MRI follow-up stroke protocol
--- NOTE | 2024-08-22 22:08 | EKG_ITS ---
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
--- NOTE | 2024-08-22 22:08 | XR_ITS ---
Examination: CTA carotids with intravenous contrast CTA brain, head with intravenous contrast. 2-D sagittal, coronal reconstructions. 3-D reconstructions. Exam date and time: August 22, 2024 10:16 PM Indications: Stroke alert, onset right-sided body weakness numbness and paresthesias beginning 6 hours ago CTDI: vol (mGy) 40.06 DLP: (mGycm) 548 Technique: Multiple CTA axial brain, head carotid images post intravenous contrast injection 75 cc, Isovue-370. 2-D sagittal, coronal reconstructions. 3-D reconstructions, 3-D post processing including vascular maximum intensity projection images. Low dose protocols were performed. One or more of the following dose reduction techniques were used; automated exposure control, adjustment of the mA and/or KV according to patient size, use of iterative reconstruction technique. Findings: 40-60% stenosis right carotid bifurcation origin right internal carotid artery 50-70% stenosis left carotid bifurcation origin left internal carotid artery Small vertebral arteries bilaterally but no critical stenoses No cerebral large vessel arterial occlusions, thrombus, dissection or cerebral aneurysm Impression: 40-60% stenosis right carotid bifurcation origin right internal carotid artery 50-70% stenosis left carotid bifurcation origin left internal carotid artery No cerebral large vessel arterial occlusions or thrombus
--- NOTE | 2024-08-22 22:11 | PC.NURSE ---
TELE NEURO CONSULT # [id number].
--- NOTE | 2024-08-22 22:12 | EDNOTE_ITS ---
ED Weakness RME/HPI General Chief complaint: Neuro Symptoms/Deficit Stated complaint: RIGHT SIDE WEAKNESS Time Seen by Provider: 08/22/24 22:07 Source: patient and EMS Arrival date/time: 08/22/24 22:05 Mode of arrival: EMS Limitations: no limitations RME / HPI RME / HPI Narrative: Dr. Quintanilla?s Main ED Evaluation: 22:12 Patient is a 74-year-old male with a past medical history of hypertension, diabetes mellitus type 2 insulin-dependent, myasthenia gravis (mycophenolate & pyridostigmine), CAD s/p stents (Jun 2024), and history osteomyelitis who was admitted on 07/18/2024 for right thalmus infarct presents to the emergency department this evening with acute onset of right arm and right lower extremity tingling, numbness as well as weakness which had onset about 6 hours ago. Related Data Home Medications ?Medication ?Instructions ?Recorded ?Confirmed insulin aspart U-100 100 unit/mL 20 unit subcut TID 06/21/24 08/22/24 (3 mL) subcutaneous pen (Novolog FlexPen U-100 Insulin aspart) insulin glargine U-300 conc 300 30 unit subcut BID 06/21/24 08/22/24 unit/mL (3 mL) subcutaneous pen (Toujeo Max U-300 SoloStar) mycophenolate mofetil 500 mg tablet 500 mg PO Q12H 06/21/24 08/22/24 pyridostigmine bromide 60 mg tablet 60 mg PO TID 06/21/24 08/22/24 acetaminophen 325 mg tablet 325 mg PO PRN PRN Pain 07/19/24 08/22/24 (Tylenol) Previous Rx's ?Medication ?Instructions ?Recorded aspirin 81 mg capsule 81 mg PO QDAY #30 caps 06/26/24 atorvastatin 80 mg tablet 80 mg PO QPM #30 tabs 06/26/24 clopidogrel 75 mg tablet (Plavix) 75 mg PO QDAY #30 tabs 06/26/24 sacubitril 24 mg-valsartan 26 mg 1 tab PO BID #60 tabs 06/26/24 tablet (Entresto) Allergies Allergy/AdvReac Type Severity Reaction Status Date / Time Sulfa (Sulfonamide Allergy Intermediate Rash Verified 07/18/24 16:50 Antibiotics) ibuprofen Allergy Mild Rash Verified 07/18/24 16:50 Penicillins Allergy Mild Rash Verified 07/18/24 16:50 Review of Systems Review of Systems Systems Reviewed: All systems reviewed, normal except as documented Narrative Review of Systems: Gen: No fever, no chills, no weight loss EYES: No discharge, no visual changes, no pain HEENT: No ear pain, no congestion, no sore throat PULM: No shortness of breath, no cough, no congestion CV: No chest pain, no dyspnea on exertion, no palpitations GI: No nausea, no vomiting, no diarrhea, no pain, no constipation : No frequency, no urgency, no dysuria Musc/skel: No joint pain, no back pain Skin: No rash. Warm and dry. Psyc: No hallucinations, no depression Heme/Lymph: No easy bleeding or bruising tendencies Neuro: + weakness, no headache, + right arm and right lower extremity tingling, numbness Past Medical History Past Medical History NEUROLOGIC: Negative Neurological Disorders CARDIAC: Positive Cardiac Disorders, Coronary Artery Disease and Hypertension; Negative Congestive Heart Failure (pt has new onset CHF) RESPIRATORY: Negative Chronic Obstructive Pulmonary Disease (COPD) or Asthma GASTROINTESTINAL: Negative Gastrointestinal Disorders GENITOURINARY: Negative Genitourinary Disorders or Renal Disease MUSCULOSKELETAL: Positive Musculoskeletal Disorders, Myasthenia Gravis and Osteomyelitis ENDOCRINE: Positive Endocrine Disorders and Diabetes Mellitus Type 2; Negative Diabetes Mellitus Type 1 HEMATOLOGIC: Negative Blood Disorders or Sickle Cell Disease OTHER HISTORY: Positive Falls Family History FAMILY HISTORY: Positive Family Cardiac Disorders Surgical History SURGICAL: Positive Tonsillectomy and Amputation Social History SMOKING STATUS: Unknown if ever smoked ED Exam Narrative Physical exam: GENERAL APPEARANCE: alert and oriented x 4, well-developed, well-nourished, no acute distress VITALS: All vitals were reviewed and the pulse ox is 100% on room air, which is normal according to my interpretation. HEENT: Normocephalic, atraumatic; pupils equal, round, reactive to light; EOMI; mucous membranes pink, moist; oropharynx clear NECK: Supple LUNGS: CTABL; no wheezes, no rales, no rhonchi HEART: Regular rate, regular rhythm; normal S1, S2; no murmurs ABDOMEN: non distended; normal BS; soft, no tenderness, no guarding, no rebound; no masses, no organomegaly, no hernia BACK: no CVA tenderness EXTREMITIES: atraumatic; no edema; R foot has 3 toes NEUROLOGIC: awake; alert and oriented x4; cranial nerves II-XII grossly intact; no focal sensory or motor deficits PSYCHIATRIC: appropriate mood and affect SKIN: warm, dry, normal color; no rashes Per teleneuro consultation: Examination: BP(153/76),?Pulse(67), 1A: Level of Consciousness - Alert; keenly responsive?+ 0 1B: Ask Month and Age - Both Questions Right?+ 0 1C: Blink Eyes & Squeeze Hands - Performs Both Tasks?+ 0 2: Test Horizontal Extraocular Movements - Normal?+ 0 3: Test Visual Estrella - No Visual Loss?+ 0 4: Test Facial Palsy (Use Grimace if Obtunded) - Normal symmetry?+ 0 5A: Test Left Arm Motor Drift - No Drift for 10 Seconds?+ 0 5B: Test Right Arm Motor Drift - No Drift for 10 Seconds?+ 0 6A: Test Left Leg Motor Drift - No Drift for 5 Seconds?+ 0 6B: Test Right Leg Motor Drift - Drift, but doesn't hit bed?+ 1 7: Test Limb Ataxia (FNF/Heel-Simon) - No Ataxia?+ 0 8: Test Sensation - Mild-Moderate Loss: Less Sharp/More Dull?+ 1 9: Test Language/Aphasia - Normal; No aphasia?+ 0 10: Test Dysarthria - Mild-Moderate Dysarthria: Slurring but can be understood?+ 1 11: Test Extinction/Inattention - No abnormality?+ 0 NIHSS Score:?3 General Limitations: Present no limitations Course Quality Measures Suspected type of Stroke: Unknown at this time Tenecteplase given: Reason(s) TPA not given: Outside the time window not given stroke (Stroke alert called at 2206) Orders Category Date Time Status Bedside Blood Glucose NOW Care 08/22/24 22:08 Active Family And Consumer Education Teacher NOW Care 08/22/24 22:08 Active Continuous Pulse Oximetry NOW Care 08/22/24 22:08 Completed EKG (ED ONLY) *Do not use* NOW Care 08/22/24 22:08 Completed In and Out Catheter NEEDED Care 08/22/24 22:08 Active Insert IV NOW Care 08/22/24 22:08 Active NIH Stroke Scale now Care 08/22/24 22:08 Active NPO NOW Care 08/22/24 22:08 Active Nurse Swallow Screen x1 Care 08/22/24 22:08 Active Consult to Neurology / Tele-Neurology Routine Cons 08/22/24 22:[address] angio stroke protocol Stat Exams 08/22/24 22:[address] stroke protocol Stat Exams 08/22/24 22:08 Completed EKG (ED Only) Stat Exams 08/22/24 22:08 Draft CBC Stat Lab 08/22/24 22:26 Completed Comprehensive Metabolic Panel Stat Lab 08/22/24 22:26 Completed Drug Screen,Urine Stat Lab 08/22/24 22:37 Completed HCG Titer if Positive Stat Lab 08/22/24 22:26 Completed Magnesium Stat Lab 08/22/24 22:26 Completed Partial Thromboplastin Time Stat Lab 08/22/24 22:26 Completed Prothrombin Time with INR Stat Lab 08/22/24 22:26 Completed Troponin I Stat Lab 08/22/24 22:26 Completed Urinalysis Stat Lab 08/22/24 22:37 Completed Urine Culture Stat Lab 08/22/24 22:08 Received Ondansetron Inj [Zofran Inj] Med 08/22/24 22:07 Active 4 mg IV Q4HR PRN Oxygen Delivery NOW RT 08/22/24 22:08 Active Vital Signs Vital signs: Vital Signs Oxygen Flow Rate 2 08/22/24 22:15 Procedures -ED Procedure Comment EKG at 22:35 shows normal sinus rhythm at 61, left axis deviation, no ectopy, no signs of acute ischemia. QRS is 100, QTc 439. No STEMI. Weakness MDM Narrative MDM Narrative:: 22:[address] Conn (tele-neuro assistant production manager). She evaluated the patient. Patient is already on Plavix and aspirin. Patient is 6 hours out from his possible small vascular event. There is no intervention necessary. She recommended permissive hypertension to 220 systolic, continue Plavix and aspirin and MRI in the morning. 00:09 Hospitalist made aware of the patient?s HPI, PMHx, lab and/or radiology results. Treatment plan was discussed. Will admit for further evaluation and management. Accepts patient for admission. Scribe Attestation: I, Bunny Givens am scribing for and in the presence of Dr. Quintanilla. Provider Notation: Although this document has been carefully reviewed, there may still be some phonetic and other typographical errors. These errors are purely grammatical due to imperfections in the software program and should not be construed in any way to compromise the substance of the patient's medical care during this visit. Patient data External records reviewed:: [facility] previous records and EMS form Clinical information provided by:: patient and EMS Social determinants that could affect healthcare access:: none Patient has the following chronic illnesses:: hypertension, diabetes mellitus type 2 insulin-dependent, myasthenia gravis (mycophenolate & pyridostigmine), CAD s/p stents (Jun 2024), and history osteomyelitis How is presenting disease/condition affected by chronic disease/condition?: uneffected by Evaluation data The following diagnostics were reviewed and interpreted by me:: lab results, radiology exam(s) and EKG tracing(s) Lab and/or radiology exams considered but not ordered:: None Interpretation Summary: Examination: CT brain head without contrast. Date and time of exam:August 22, 2024 10:14 PM Comparison July 18, 2024 Indications: Stroke alert, onset right-sided body weakness numbness and paresthesias beginning 6 hours ago, brain MRI July 19, 2024 8 mm acute infarct right thalamus Findings: No significant ventricular enlargement. Small old infarct brainstem pontine level Intra-axial or extra-axial hemorrhage density is not seen. No mass effect or midline shift Basal cisterns are not remarkable. Fourth ventricle is midline. Cranial vault intact. Impression: Negative for acute hemorrhage, mass effect or midline shift Consider repeat brain MRI follow-up stroke protocol Dictated By: Casper Bradley MD Examination: CTA carotids with intravenous contrast; CTA brain, head with intravenous contrast. Exam date and time: August 22, 2024 10:16 PM Indications: Stroke alert, onset right-sided body weakness numbness and paresthesias beginning 6 hours ago Findings: 40-60% stenosis right carotid bifurcation origin right internal carotid artery 50-70% stenosis left carotid bifurcation origin left internal carotid artery Small vertebral arteries bilaterally but no critical stenoses No cerebral large vessel arterial occlusions, thrombus, dissection or cerebral aneurysm Impression: 40-60% stenosis right carotid bifurcation origin right internal carotid artery 50-70% stenosis left carotid bifurcation origin left internal carotid artery No cerebral large vessel arterial occlusions or thrombus Dictated By: Casper Bradley MD Medications / Prescriptions Medications or Prescriptions considered but not ordered:: None Medication administrations:: Medication Administration History Ondansetron HCl (Ondansetron Inj 2 Mg/Ml Inj 2 Ml) 4 mg IV Q4HR PRN PRN Reason: NAUSEA OR VOMITING Stop: 09/21/24 22:06 As above Consultations Consultation(s) initiated? (list below): Yes Consultation #1 (Physician, Specialty, Details): See MDM Diagnosis Weakness Differential Diagnosis: other (Ischemic CVA, Hemorrhagic CVA, TIA, peripheral neuropathy, other) Most likely diagnosis given after review of the tests above:: Ischemic cerebrovascular accident (CVA) Admission Indicated Admission indicated?: indicated Admission Request Was there a request for admission?: Yes Admission Attestation Admission request attestation: Discussed case with [] from Hospitalist service regarding admission. Discussed patients ED course, exam findings, labs, and radiology results. The Hospitalist [agrees,declines] to accept the patient for admission. Disposition Plan Disposition Plan: Admit Critical Care Time Critical Care Time Critical Care Time: Yes Total Critical Care Time (min.): 40 Attestation: The high probability of sudden, clinically significant deterioration in the patient?s condition required the highest level of my preparedness to intervene urgently. The services I provided to this patient were to treat and/or prevent clinically significant deterioration. Services included the following: chart data review, reviewing nursing notes and/or old charts, documentation time, etl consultant collaboration regarding findings and treatment options, medication orders and management, direct patient care, vital sign assessments and ordering, interpreting and reviewing diagnostic studies and lab tests. Aggregate critical care time includes only time during which I was engaged in work directly related to the patient?s care, as described above, whether at bedside or elsewhere in the Emergency Department. It did not include time spent performing other reported procedures or the services of residents, students, nurses or physician assistants. Discharge Plan Plan Patient Disposition: Admit Acute Care w/in Hospital Patient condition on transfer: Stable Prescriptions/Referrals Prescriptions/Med Rec: No Action mycophenolate mofetil 500 mg Tablet 500 mg PO Q12H pyridostigmine bromide 60 mg Tablet 60 mg PO TID insulin aspart U-100 [Novolog FlexPen U-100 Insulin] 100 unit/mL (3 mL) Insulin Pen 20 unit SUBCUT TID insulin glargine U-300 conc [Toujeo Max U-300 SoloStar] 300 unit/mL (3 mL) insulin pen 30 unit SUBCUT BID Patient Comments: PLEASE SEE ATTACHED FOR DETAILED DIRECTIONS aspirin 81 mg capsule 81 mg PO QDAY Qty: 30 2RF atorvastatin 80 mg tablet 80 mg PO QPM Qty: 30 2RF clopidogrel [Plavix] 75 mg tablet 75 mg PO QDAY Qty: 30 2RF sacubitril-valsartan [Entresto] 24-26 mg tablet 1 tab PO BID Qty: 60 2RF acetaminophen [Tylenol] 325 mg Tablet 325 mg PO PRN PRN (Reason: Pain) Rx Instructions: q4 hours PRN Referrals: Darrius Oswald MD [Primary Care Provider] - In 1 week Problem List Clinical Impression: Ischemic cerebrovascular accident (CVA) Patient/Caregiver Discharge Instructions Print Language: Polish Stand Alone Forms: [employer] Award Info., Patient Portal Info Letter
[2024-08-22 22:26] VITALS: PULSE 67
[2024-08-22 22:33] LABS: Basophils # (Auto) 0.1 Thou/mm3 (0.0-0.2); Basophils % (Auto) 1 % (0-2.5); Eosinophils # (Auto) 0.2 Thou/mm3 (0.0-0.5); Eosinophils % (Auto) 2 % (0-10); Hematocrit 30.3 % (41.0-53.0); Hemoglobin 10.3 g/dL (13.5-16.0); Immature Granulocytes % (Auto) 0 % (0-0); Immature Granulocytes Auto 0.02 Thou/mm3 (0.00-0.00); Lymphocytes # (Auto) 2.4 Thou/mm3 (1.0-4.8); Lymphocytes % (Auto) 29 % (10-50); Mean Corpuscular Hemoglobin 29.6 pg (25.0-35.0); Mean Corpuscular Volume 87 fL (80-100); Monocytes # (Auto) 0.8 Thou/mm3 (0.0-0.8); Monocytes % (Auto) 10 % (0-12); Neutrophils # (Auto) 4.9 Thou/mm3 (1.8-7.7); Neutrophils % (Auto) 58 % (37-80); Nucleated Red Blood Cell % 0 /100 WBC (0); Platelet Count 332 Thou/mm3 (140-440); RDW Standard Deviation 44.3 fL (35.1-43.9); Red Blood Count 3.48 Miln/mm3 (4.50-5.90); White Blood Count 8.4 Thou/mm3 (3.8-10.6)
--- NOTE | 2024-08-22 22:37 | ESCONSULT_ITS ---
Tele Neuro Consultation Consultation Date 08/22/24 Most Recent Vital Signs Last Vital Signs Pulse 67 08/22/24 22:26 O2 Flow Rate 2 08/22/24 22:15 Consultation Narrative [facility] Tele[facility] Patient Name:???NAYLA ZAPATA Date of :???1950 Date of Service:???08/22/2024 22:10:52 Diagnosis:?I63.89 - Cerebrovascular accident (CVA) due to other mechanism ([facility]) Impression: ?Acute onset of right-sided numbness involving the face, upper extremity, mild weakness of the lower extremity. Last well-known is 3 PM in the afternoon, outside IV thrombolytic window. Prior history of right thalamic infarct recently. Suspicion of left basal ganglia/pontine infarct. ?Continue aspirin and Plavix for now. Allow permissive hypertension up to a systolic of 220. Please obtain MRI brain without contrast. Our recommendations are outlined below. Recommendations: ? Stroke/Telemetry Floor ? Neuro Checks ? Bedside Swallow Eval ? DVT Prophylaxis ? IV Fluids, Normal Saline ? Head of Bed 30 Degrees ? Euglycemia and Avoid Hyperthermia (PRN Acetaminophen) ? Initiate dual antiplatelet therapy with Aspirin 81 mg daily and Clopidogrel 75 mg daily. ? Antihypertensives PRN if Blood pressure is greater than 220/120 or there is a concern for End organ damage/contraindications for permissive HTN. If blood pressure is greater than 220/120 give labetalol PO or IV or Vasotec IV with a goal of 15% reduction in BP during the first 24 hours. Sign Out: ? Discussed with Emergency Department Provider Advanced Imaging:Advanced Imaging Deferred because: Non-disabling symptoms as verified by the patient; no cortical signs so not co nsistent with LVO Metrics: Last Known Well: 08/22/2024 16:00:00 Dispatch Time: 08/22/2024 22:10:52 Arrival Time: 08/22/2024 22:11:49 Initial Response Time: 08/22/2024 22:14:40Symptoms: Tingling in R arm. Initial patient interaction: 08/22/2024 22:20:21 NIHSS Assessment Completed: 08/22/2024 22:30:45Patient is not a candidate for Thrombolytic. Thrombolytic Medical Decision: 08/22/2024 22:33:38Patient was not deemed candidate for Thrombolytic because of following reasons: LKW outside 4.[address] head showed no acute hemorrhage or acute core infarct. Primary Provider Notified of Diagnostic Impression and Management Plan on: 08/22/2024 22:35:49 History of Present Illness:Patient is a 74 year old Male. Patient was brought by private transportation with symptoms of Tingling in R arm. Patient is a 74-year-old male with a past medical history of hypertension, diabetes, myasthenia gravis, stroke, right thalamic infarct in July 2024 is being evaluated for concerns of right-sided numbness and tingling. Patient mentions that he was exercising at around 3 or 4 PM this afternoon. At that time he suddenly noticed that his right side of his body started tingling. States that the right lips feel a little more normal than the left side. He is feeling the right arm is tingling and numb, he states usually his left side is more numb. He also noticed that the sensation went to his feet. He states that the right leg feels a little weaker than the left. And his foot feels like weight. All this is new. He takes both aspirin and Plavix. ? Past Medical History: ?Hypertension ?Diabetes Mellitus ?Stroke Other PMH:? Myasthenia Gravis Medications: No Anticoagulant use? Antiplatelet use:?Yes?ASA, Plavix Reviewed EMR for current medications Allergies:? Description:?As per chart Social History: Smoking: No Alcohol Use: No Drug Use: No Family History: There is no family history of premature cerebrovascular disease pertinent to this consultation ROS : 14 Points Review of Systems was performed and was negative except mentioned in HPI. Past Surgical History: There Is No Surgical History Contributory To Today?s Visit ? Examination: BP(153/76),?Pulse(67), 1A: Level of Consciousness - Alert; keenly responsive?+ 0 1B: Ask Month and Age - Both Questions Right?+ 0 1C: Blink Eyes & Squeeze Hands - Performs Both Tasks?+ 0 2: Test Horizontal Extraocular Movements - Normal?+ 0 3: Test Visual Estrella - No Visual Loss?+ 0 4: Test Facial Palsy (Use Grimace if Obtunded) - Normal symmetry?+ 0 5A: Test Left Arm Motor Drift - No Drift for 10 Seconds?+ 0 5B: Test Right Arm Motor Drift - No Drift for 10 Seconds?+ 0 6A: Test Left Leg Motor Drift - No Drift for 5 Seconds?+ 0 6B: Test Right Leg Motor Drift - Drift, but doesn't hit bed?+ 1 7: Test Limb Ataxia (FNF/Heel-Simon) - No Ataxia?+ 0 8: Test Sensation - Mild-Moderate Loss: Less Sharp/More Dull?+ 1 9: Test Language/Aphasia - Normal; No aphasia?+ 0 10: Test Dysarthria - Mild-Moderate Dysarthria: Slurring but can be understood?+ 1 11: Test Extinction/Inattention - No abnormality?+ 0 NIHSS Score:?3 Pre-Morbid Modified Douglas Scale:1 Points = No significant disability despite symptoms; able to carry out all usual duties and activities Spoke with :?ED Provider This consult was conducted in real time using interactive audio and video technology. Patient was informed of the technology being used for this visit and agreed to proceed. Patient located in hospital and provider located at home/office setting. Patient is being evaluated for possible acute neurologic impairment and high probability of imminent or life-threatening deterioration. I spent total of 46 minutes providing care to this patient, including time for face to face visit via telemedicine, review of medical records, imaging studies and discussion of findings with providers, the patient and/or family. Dr Russ Conn [facility] For Inpatient follow-up with [facility] physician please call [facility] at . As we are not an outpatient service for any post hospital discharge needs please contact the hospital for assistance. If you have any questions for the [facility] physicians or need to reconsult for clinical or diagnostic changes please contact us via [facility] at . ?
[2024-08-22 22:38] VITALS: BP 153/76; PULSE 61; RESP 20; TEMP 36.7
[2024-08-22 22:45] LABS: Collection Type, Urine Clean Catch; Squamous Epithelial Cell,Urine 0 /hpf (0-5)
[2024-08-22 22:53] LABS: Partial Thromboplastin Time 26.9 Seconds (22.0-36.0); Prothrombin Time 11.3 Seconds (9.0-12.2)
[2024-08-22 22:57] LABS: Alanine Aminotransferase 10 U/L (10-49); Albumin, Serum 3.9 gm/dL (3.4-4.8); Albumin/Globulin Ratio 2.3 (1.2-2.2); Alkaline Phosphatase 104 U/L (46-116); Anion Gap 8 (7-16); Aspartate Amino Transferase 12 U/L (0-34); BUN/Creatinine Ratio 11 Ratio (12-20); Bilirubin,Total 0.2 mg/dL (0.3-1.2); Blood Urea Nitrogen 9 mg/dL (9-23); Calcium 8.6 mg/dL (8.3-10.6); Calcium (Corrected) 8.7 mg/dL (8.5-10.1); Carbon Dioxide 24.8 mMol/L (20.0-31.0); Chloride 105 mMol/L (98-107); Creatinine (Component) 0.8 mg/dL (0.6-1.3); Estimated Creatinine Clearance 99.4 mL/min (>60); Globulin 1.7 gm/dL (2.3-3.5); Glucose 229 mg/dL (74-106); Magnesium 1.9 mg/dL (1.6-2.6); Osmolality,Calculated 281 (275-295); Potassium 3.8 mMol/L (3.4-5.1); Sodium 138 mMol/L (136-145); Total Protein 5.6 gm/dL (5.7-8.2); Troponin I < 0.020 ng/mL (0.0-0.045); eGFR > 60 See Note
[2024-08-22 23:01] LABS: Bilirubin,Urine Negative (Negative); Blood,Urine Negative (Negative); Clarity,Urine Clear (Clear/Hazy); Color,Urine Colorless (Lt Yel-Yel); Glucose, Urine 3+ (Negative); Ketones,Urine Negative (Negative); Leukocyte Esterase,Urine Negative (Negative); Nitrite,Urine Negative (Negative); Protein,Urine Negative (Neg - Trace); RBC,Urine 2 /hpf (0-3); Specific Gravity,Urine 1.038 (1.001-1.035); Urobilinogen,Urine Negative mg/dL (0.0-1.0); WBC,Urine 4 /hpf (0-5)
[2024-08-22 23:07] LABS: HCG Titer if Positive Negative
[2024-08-22 23:10] LABS: Amphetamine/Methamp Scrn,U Negative (Negative); Barbiturate Screen,Urine Negative (Negative); Benzodiazepines Screen,Urine Negative (Negative); Benzoylecgonine Screen, Ur Negative (Negative); Fentanyl Screen,Urine Negative (Negative); Opiate Screen,Urine Negative (Negative); THC Screen,Urine Negative (Negative)
[2024-08-22 23:30] VITALS: BP 195/89; PULSE 63; RESP 17; O2SAT 100
[2024-08-22 23:46] VITALS: BP 157/70; PULSE 62; RESP 12; O2SAT 100
[2024-08-23] VITALS (15 sets, daily range): BP systolic 164–192; BP diastolic 68–90; PULSE 60–72; RESP 13–100; TEMP 36.1–36.8; O2SAT 95–100; BMI 34.9
--- NOTE | 2024-08-23 | XR_ITS ---
Examinations: MRI Brain without intravenous contrast. MRA brain without intravenous contrast. MRA carotids without intravenous contrast 3-D vascular reconstructions Date and time of exam: August 23, 2024 0736 hours INDICATIONS: Stroke alert August 22, 2024, onset right arm and right lower extremity paresthesias numbness and weakness, admitted on July 18, 2024 with acute right thalamic infarct Technique: Multiple axial and sagittal images of the brain have been obtained MRA brain carotid images without contrast obtained, including 3-D postprocessing, vascular maximum intensity projection images Findings: Sellaturcica is not enlarged. The optic chiasm and infundibular stalk are not remarkable. Prepontine and interpeduncular cisterns are not enlarged. No localized enlargement of the medulla or alana. Fourth ventricle and cerebellar tonsils normal in position. Subacute hemorrhage is not seen. Fourth ventricle is midline. Mass in the cerebellopontine angle region is not evident. 7th and 8th nerve complexes exhibits symmetry. Globes are symmetrical with no retro-orbital mass. Increased white matter signal mild Diffusion-weighted images demonstrate 7 mm focus restricted diffusion left thalamus Mass-effect upon the ventricular system is not identified. MRA carotid images degraded by patient motion. MRA brain images no large vessel occlusions Impression: 7 mm acute left thalamic infarct
--- NOTE | 2024-08-23 | XR_ITS ---
Examination: MRI right foot, without contrast Date and time of exam: August 23, 2024 0826 hours INDICATIONS: Redness swelling and pain involving the right foot this week Technique: Multiple axial sagittal and coronal images of the right foot have been obtained with the Siemens high-resolution 1.5 Any MRI scanner. Images obtained include T2-weighted fat-suppressed sagittal sections, TR 3500, TE 46, T2 weighted coronal fat suppressed images, TR 3050, TE 84, T2-weighted transverse fat suppressed images, TR 3260, TE 63, proton density transverse images, TR 4720 TE 46, and T1 weighted coronal images, TR 560, TE 13. Findings: Amputations fourth and fifth metatarsals and first digit at the level of the interphalangeal joint Severe osteopenia Extensive soft tissue edema dorsum of the foot Orthopedic hardware and tarsal bones obscures scan detail Cortical bone destruction distal phalanx second digit No soft tissue abscess IMPRESSION: Osteomyelitis phalanx second digit No soft tissue abscess
--- NOTE | 2024-08-23 00:55 | XR_ITS ---
Examination: Right foot 2 views Technique one AP lateral right foot 2 views INDICATIONS: Redness swelling and pain involving the foot this week FINDINGS: Cortical bone destruction involving distal phalanx second digit Indications fourth and fifth metatarsals and first digit IMPRESSION: Osteomyelitis distal phalanx second digit
--- NOTE | 2024-08-23 01:17 | PD.RESHP ---
Documentation for date of: 08/23/24 HPI History of Present Illness Chief complaint: Right arm and leg tingling History of present illness: HPI: Patient is a 74-year-old male with past medical history of triple-vessel CAD s/p PCI of mid LCx on 06/24/2024, Chronic diastolic CHF (EF 50%), IDDM type 2 [7.7 %], essential hypertension, myasthenia gravis, osteomyelitis right foot s/p amputation of first/fourth/fifth toes, diabetic neuropathy, right ankle Charcot joint, varicose veins of bilateral lower extremities and chronic Right thalamus infarct. He follows up with PCP Dr. Oswald and sfdc developer Dr. Amin, Dr. Patton, neurologist in [place] Presented today with a chief complaint of right arm and right leg tingling. Patient reported that around 4 PM yesterday after he finished having his lunch and exercising with a 3 pound dumbbell he started to experience tingling on the dorsal aspect of his right hand as well as his fingertips. He also claimed tingling of his right leg and mild weakness. Denied any loss of consciousness, headache, dizziness, SOB. Upon review patient also denies any chest pain/pressure, palpitations, vomiting, diarrhea, dysuria, PND and orthopnea. Of note patient stated that 3 days ago he noticed his right cough started to swell and his right second toe became black. It was also erythematous and mildly painful. He reached out to Dr. Oswald's office but was unable to secure an appointment. He had leftover doxycycline p.o. at home and started taking it on his own. Stroke alert was activated and teleneurology consulted. They recommended to continue dual antiplatelet therapy, permissive hypertension and MR brain stroke protocol. ED course: BP 153/76, pulse 67, RR 20, temp 98.1 F, SpO2 100% on room air. Labs significant for Hb 10.3, HCT 30.3, BUN 9, CR 0.8, T. bili 0.2. Urinalysis significant for 3+ glucose. Head CT significant for old infarct at pontine level. No acute hemorrhage, mass effect or midline shift. Head CTA significant for 40-60% stenosis right carotid artery at bifurcation and 50-70% left carotid artery bifurcation. EKG significant for rate 61, sinus rhythm, incomplete RBBB, no acute ST changes. Patient will be admitted for stroke rule out and treatment and management of right leg cellulitis. General surgery, Dr. Tam consulted and closely following the case. Appreciate recommendations. Neurology, Dr. Garvin consulted and closely following the case. Appreciate recommendation Review of Systems Review of Systems Narrative Review of Systems: GENERAL: Denies fever/chills or diaphoresis. HEENT: Denies headaches or visual changes. Denies discharge. Neuro: As above. CARDIO: As above PULM: Denies SOB, couging or wheezing. GI: Denies abdominal pain, N/V/C/D. Reports having BMs. URO: Denies buring/itching/pain/urinary changes. MSK/EXT/SKIN: Denies joint/skeletal/muschle pain, issues/changes in upper or lower extremities, itchiness, or superficial pain. PSYCH: Cooperative, pleasant mood & affect. The rest of the review of systems is otherwise negative. Past Medical History Past Medical History Comments H COMMENT: Past medical history: ?Triple-vessel CAD s/p PCI of mid LCx ? HLD ? Chronic diastolic CHF [EF 50%] ? IDDM type II [7.7%] ? Essential hypertension ? Myasthenia gravis ? Osteomyelitis right foot s/p amputation of first/fourth/fifth toes ? Diabetic neuropathy ? Right ankle Charcot joint ? Varicose veins of bilateral lower extremities ? Chronic right thalamus infarct Past surgical history: ? Tonsillectomy as a child ? Laser eye surgery in both eyes for diabetic retinopathy [1999] and right eye [2008] ? ORIF of left fibula in 2000 secondary to a fall and fibular fracture ? Phaco and IOL B/L eyes [2011] ? Fifth toe right foot amputation [2014] ? First and fifth toe amputation [2021] ? Right ankle fusion 2014 secondary to Charcot joint ? PCI of mid LCx on 06/24/2024 at [facility] Medication History: ?Lasix 40 Mg p.o. daily ? Metoprolol XL 25 Mg p.o. daily ? Mycophenolate 500 Mg p.o. every 12 hourly ? Pyridostigmine 60 Mg p.o. 3 times daily ? Insulin aspart 20 units subcut 3 times daily ? Insulin glargine 30 units subcut twice daily ? Aspirin 81 Mg p.o. daily ? Atorvastatin 80 Mg p.o. at bedtime ? Clopidogrel 75 Mg p.o. daily ? Entresto 24?26 1 tab p.o. 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 But his two sisters and niece live in [place]. Has good family support. At baseline abulates with a cane Family History: Dad: Diabetes mellitus, CAD, CABG Mom: Hyper thyroidism Patient has strong family history of hypothyroidism as well. Exam Vital Signs Temp Pulse Resp BP Pulse Ox O2 Del Method O2 Flow Rate 98.1 F 72 20 178/75 H 100 Room Air 2 08/22/24 22:38 08/23/24 00:30 08/23/24 00:30 08/23/24 00:30 08/23/24 00:30 08/22/24 22:38 08/22/24 22:15 Narrative Exam Constitutional Alert, oriented x 3 and comfortable. Elderly Obese male HEENT Vision grossly intact. Patent nares. Trachea midline Respiratory Chest normal on inspection and crackles at bases bilaterally Cardiovascular S1 and S2 audible, RRR. No murmurs carotid bruit. No gross JVD. Abdominal Soft, obese and non tender to palpation in all quadrants. BS + Genitourinary No bladder tenderness, no flank pain. Normal to palpation Musculoskeletal Extremities tone within normal limits. 2+ LE pitting edema up to knees b/l, R>L. R calf edematous and warm to touch. Neurological CN II - XII grossly intact. Extremity motor and sensation grossly intact. NIHSS-1 [Right leg drift] Skin Warm, dry and intact. No apparent lesions. Right first/fourth and fifth toe amputations. Right second toe dry gangrene Psychiatric Patient has good affect, is cooperative Results: Labs 08/23/24 04:50 08/23/24 04:50 Labs: Short CBC 08/22/24 Range/Units 22:26 WBC 8.4 (3.8-10.6) Thou/mm3 Hgb 10.3 L (13.5-16.0) g/dL Hct 30.3 L (41.0-53.0) % Plt Count 332 (140-440) Thou/mm3 BMP 08/22/24 22:26 Sodium 138 Potassium 3.8 Chloride 105 Carbon Dioxide 24.8 BUN 9 Creatinine 0.8 Glucose 229 H Calcium 8.6 Cardiac Enzymes 08/22/24 Range/Units 22:26 Troponin I < 0.020 (0.0-0.045) ng/mL Liver Function 08/22/24 Range/Units 22:26 Total Bilirubin 0.2 L (0.3-1.2) mg/dL AST 12 (0-34) U/L ALT 10 (10-49) U/L Alkaline Phosphatase 104 (46-116) U/L Albumin 3.9 (3.4-4.8) gm/dL Urine 08/22/24 Range/Units 22:37 Urine Color Colorless A (Lt Yel-Yel) Urine Clarity Clear (Clear/Hazy) Urine pH 7.0 (5.0-7.0) Ur Specific [place] 1.038 H (1.001-1.035) Urine Protein Negative (Neg - Trace) Urine Glucose (UA) 3+ A (Negative) Quality Measures Quality Measures stroke (Stroke alert called at 2206) Suspected type of Stroke: Unknown at this time Tenecteplase given: Reason(s) Tenecteplase not given: Outside the time window not given Rehab services: PT evaluation ordered and Speech Language Pathology eval ordered VTE Prophylaxis: pharmaceutical Antithrombotic by day 2:: ordered Statin ordered: <75 y/o high intensity dose Anticoagulation ordered for A-fib or flutter (current or hx): not indicated Advance care planning discussed with:: patient Medications Home Medications and Allergies Home Medications ?Medication ?Instructions ?Recorded ?Confirmed ?Type insulin aspart U-100 100 unit/mL 20 unit subcut TID 06/21/24 08/22/24 History (3 mL) subcutaneous pen (Novolog FlexPen U-100 Insulin aspart) insulin glargine U-300 conc 300 30 unit subcut BID 06/21/24 08/22/24 History unit/mL (3 mL) subcutaneous pen (Toujeo Max U-300 SoloStar) mycophenolate mofetil 500 mg tablet 500 mg PO Q12H 06/21/24 08/22/24 History pyridostigmine bromide 60 mg tablet 60 mg PO TID 06/21/24 08/22/24 History acetaminophen 325 mg tablet 325 mg PO PRN PRN Pain 07/19/24 08/22/24 History (Tylenol) Allergies Allergy/AdvReac Type Severity Reaction Status Date / Time Sulfa (Sulfonamide Allergy Intermediate Rash Verified 07/18/24 16:50 Antibiotics) ibuprofen Allergy Mild Rash Verified 07/18/24 16:50 Penicillins Allergy Mild Rash Verified 07/18/24 16:50 Visit Medications Acetaminophen (Acetaminophen 325 Mg Tablet) 650 mg PO Q6H PRN PRN Reason: Fever >100.3 or pain Stop: 09/22/24 00:49 Hydrocodone Bitart/Acetaminophen (Hydrocodone/Apap 5/325 Tablet) 1 tab PO Q4HR PRN PRN Reason: PAIN SCALE 4-10(Mod-Sev Stop: 08/28/24 00:49 Albuterol/Ipratropium (Albuterol/Ipratropium (Duoneb) Rt Jocelyne 3 Ml Nebu) 3 ml INH Q2HR PRN PRN Reason: SHORTNESS OF BREATH OR WHEEZE Stop: 09/22/24 00:49 Aspirin (Aspirin Ec 81 Mg Tabec) 81 mg PO QDAY HARJEET Stop: 09/22/24 08:59 Atorvastatin Calcium (Atorvastatin Calcium 20 Mg Tablet) 80 mg PO HS HARJEET Stop: 09/22/24 20:59 Clopidogrel Bisulfate (Clopidogrel Bisulfate 75 Mg Tablet) 75 mg PO QDAY HARJEET Stop: 09/22/24 08:59 Dextrose (Dextrose 50%-Water Inj 50 Ml Syringe) 50 ml IV Q15MIN PRN PRN Reason: BG <50 OR BG <70 & pt unresponsive Stop: 09/22/24 01:05 Glucagon (Glucagon Inj 1 Mg Vial) 1 mg IM Q15MIN PRN PRN Reason: BG <70, and no IV access Doxycycline Hyclate 100 mg/ (Sodium Chloride) 100 mls @ 100 mls/hr IV BID HARJEET Stop: 08/30/24 08:59 Doxycycline Hyclate 100 mg/ (Sodium Chloride) 100 mls @ 100 mls/hr IV X1 ONE Stop: 08/23/24 02:14 Ceftriaxone Sodium/Dextrose (Rocephin/D5w 1gm Iv Premix) 50 mls @ 100 mls/hr IV DAILY@2100 [facility] Stop: 08/30/24 08:59 Insulin Human Lispro (Insulin Lispro (Admelog) 1 Unit/0.01 Ml Unit) 0 unit SC ACHS [facility]; Protocol Stop: 09/22/24 07:29 Labetalol HCl (Labetalol Inj 5 Mg/Ml Vial 20 Ml) 10 mg IVP Q10MIN PRN PRN Reason: SBP > 220 Stop: 09/22/24 01:14 Non-Formulary Medication (Mycophenolate Mofetil) 500 mg PO Q12HR [facility] Stop: 09/22/24 08:59 Ondansetron HCl (Ondansetron Inj 2 Mg/Ml Inj 2 Ml) 4 mg IV Q4HR PRN PRN Reason: NAUSEA OR VOMITING Stop: 09/21/24 22:06 Pantoprazole Sodium (Pantoprazole 40 Mg Tablet) 40 mg PO QDAY [facility] Stop: 09/22/24 08:59 Pyridostigmine [place] (Pyridostigmine [place] 60 Mg Tablet) 60 mg PO Q8HR [facility] Stop: 09/22/24 05:59 Sennosides (Senna Tablet) 1 tab PO QDAY [facility]; Protocol Stop: 09/22/24 08:59 Discontinued Medications Ceftriaxone Sodium/Dextrose (Rocephin/D5w 1gm Iv Premix) 50 mls @ 100 mls/hr IV DAILY@2100 [facility] Stop: 08/30/24 01:29 Assessment & Plan Plan Patient is a 74-year-old male with past medical history of triple-vessel CAD s/p PCI of mid LCx on 06/24/2024, Chronic diastolic CHF (EF 50%), IDDM type 2 [7.7 %], essential hypertension, myasthenia gravis, osteomyelitis right foot s/p amputation of first/fourth/fifth toes, diabetic neuropathy, right ankle Charcot joint, varicose veins of bilateral lower extremities and chronic Right thalamus infarct. He follows up with PCP Dr. Oswald and sfdc developer Dr. Amin. Presented today with a chief complaint of right arm and right leg tingling. Patient will be admitted for stroke rule out and treatment and management of right leg cellulitis. 1. Stroke rule out 2. Chronic Right Thalamus infarct Patient presented with right and leg tingling. On exam NIHSS 1 [right leg drift] Telemetry neurology assessed and recommended to continue DAPT, MRI brain stroke protocol and allow permissive hypertension up to SBP 220/110 Out of window for thrombolysis Head CT significant for old infarct at pontine level. No acute hemorrhage, mass effect or midline shift. Head CTA significant for 40-60% stenosis right carotid artery at bifurcation and 50-70% left carotid artery bifurcation. EKG significant for rate 61, sinus rhythm, incomplete RBBB, no acute ST changes. Plan : - Patient is started on stroke protocol - Neuro checks q 4H - Head of bed elevated to 30 degrees - PRN Acetaminophen 650mg to avoid hyperthermia - Swallow eval and bedside swallow screen ordered - Allow permissive HTN. Antihypertensives if BP >220/110, with a goal of reduction in BP during the first 24 hours - Labetalol 10 mg IV [id number] as needed if BP >220/110 - Per tele-neuro recs, DAPT with aspirin 81 Mg p.o. daily and Plavix 75 Mg p.o. daily - Brain MRI without contrast ordered - Seizure precautions in place - DVT Prophylaxis with SCDs - Dr Garvin consulted, pending in-house Neurology recommendations - PT/OT referrals placed 3. Right leg cellulitis 4. Rule out right toe osteomyelitis Patient presented with right calf swelling for past 3 days. On exam erythematous and warm to touch. Patient was on doxycycline 100 Mg p.o. twice daily for the past 3 days and condition still worsened. Plan: ? MRSA nasal screen ? Right foot x-ray ordered to rule out osteomyelitis ? Right foot MRI ordered to rule out osteomyelitis ? Started on ceftriaxone 1 g IV daily started on [08/23? ? Started on doxycycline 100 Mg IV twice daily started on [08/23? - General Surgery, Dr. Tam consulted. Appreciate recommendations 5. Triple-vessel CAD s/p PCI of mid LCx on 06/24/2024 Home medication aspirin 81 Mg p.o. daily and Plavix 75 Mg p.o. daily Cardiac catheterization with PCI completed on 06/24 findings include: Successful PCI of mid LCX with 2.25x16 mm synergy JERRY stent an d post dilated with a 2.75 mm NC balloon at 16 yazmin for a total of 60 secs. Post IVUs performed. IVUS of the LAD perfomed and MLA (minimal luminal area) of the mid and proximal LAD is les than 4 mm2. Will perform staged PCI of LAD ias outpatient in the next couple of weeks. Plan: ? Resumed home medications aspirin 81 Mg p.o. daily and Plavix 75 Mg p.o. daily 6. Chronic diastolic congestive heart failure [55-60%] On admission patient denies any SOB, PND orthopnea. On exam patient has bilateral lower extremity 2+ pitting edema up to knees bilaterally Last transthoracic echocardiogram completed on 07/18/2024 findings include: Negative bubble study. No evidence of PFO or ASD. Normal LV size and function. Mild LVH. Estimated EF 55-60% Normal RV size and function Mild MAC. Trace MR, AI, TR. Mild AV sclerosis without stenosis. Home diuretic Lasix 40 Mg p.o. daily NYHA class II stage C Plan: ? Strict input output charting ? 1500 cc/day fluid restriction ? 2 g sodium restricted diet once speech eval passed ? Daily weights ? Medication on hold for now in light of permissive hypertension 7. Essential hypertension On admission BP 153/76 Plan: ? Medication on hold for now in light of permissive hypertension 8. Insulin-dependent diabetes mellitus type 2 [7.7] 9. Osteomyelitis of right foot s/p amputation of first/fourth/fifth digits 10. Diabetic neuropathy 11. Right ankle Charcot joint Home medication insulin glargine 30 units SC twice daily and insulin aspart 20 units subcut 3 times daily Plan ? Insulin glargine 20 units SC at bedtime ? SSI to cover for any glucose spikes 12. Bilateral lower extremity varicose veins Patient wears compression stockings intermittently at home Plan: ? Recommend patient to continue wearing compression stockings after cellulitis treated. 13. Myasthenia gravis Home medication mycophenolate mofetill 500 mg p.o. every 12 hourly and pyridostigmine 60 Mg p.o. every 8 hourly Plan: ? Resume home medication mycophenolate mofetil 500 Mg p.o. Q12 hourly and pyridostigmine 60 Mg p.o. Q8 hourly 14. Normocytic anemia DDx: Pure red cell aplasia secondary to mycophenolate, thalassemia, iron deficiency, sideroblastic anemia, lead poisoning Most likely secondary to long-term mycophenolate use. Recommend retic count to confirm Consider iron panel to rule out iron deficiency anemia and blood smear to rule out sideroblastic and lead poisoning. However lead poisoning unlikely due to patient's low risk of exposure. Patient's Hb on admission was 10.3 Patient received 1 unit PRBC 06/23 on previous admission Plan: - Day team to decide on workup for anemia Health maintenance: Disposition: Pending MRI brain, PT, Speech eval. IV antibiotics for cellulits and MRI to rule out osteomyelitis. Diet: NPO until swallow eval Lines: pIVs GI Prophylaxis: Pantoprazole 40 mg po daily Thrombo Prophylaxis: Heparin 5000 U sc BID Code status: FULL CODE Plan of care discussed with Attending Dr. Jorge Luis Shah MD PGY 1 Attending Provider Attestation/Addendum Face to face evaluation was performed by me. I have personally seen and examined the patient. I discussed the assessment and plan with the entire medicine team. I reviewed available medical records, imaging studies, laboratory results. I agree with the above subjective data, objective findings, assessment and plan except as corrected by me or noted below Right upper and lower extremity paresthesia History of thalamic stroke Myasthenia gravis coronary disease Type 2 diabetes requiring chronic insulin therapy Rule out acute stroke, obtain MRI brain. Continue appropriate home medications including dual antiplatelet therapy with aspirin and clopidogrel -Permissive hypertension for the first 24 hours Monitor labs, vitals, clinical course closely DVT prophylaxis
[2024-08-23] MEDS: DOXYCYCLINE INJ 100 MG in SODIUM CHLORIDE 0.9% (P) 100 ML IV ×3 (01:39→21:26)
--- NOTE | 2024-08-23 03:14 | XR_ITS ---
Examination: Venous duplex lower extremity sonogram, bilateral. Date and time of exam: August 23, 2024 0418 hrs. Indications: Bilateral leg swelling beginning 2 weeks ago Technique: Multiple sonographic images of the deep venous system have been obtained. B-mode/2-D grayscale imaging of vascular structures and Doppler spectral analysis (waveforms) and color performed Both legs are examined. Findings: Deep venous systems do not demonstrate abnormal echogenicity. All visualized deep veins exhibit compressibility. All visualized deep veins exhibit augmentation. Impression: Negative for deep vein thrombosis
[2024-08-23 05:18] LABS: Basophils # (Auto) 0.1 Thou/mm3 (0.0-0.2); Basophils % (Auto) 1 % (0-2.5); Eosinophils # (Auto) 0.2 Thou/mm3 (0.0-0.5); Eosinophils % (Auto) 2 % (0-10); Hematocrit 31.4 % (41.0-53.0); Hemoglobin 10.4 g/dL (13.5-16.0); Immature Granulocytes % (Auto) 0 % (0-0); Immature Granulocytes Auto 0.02 Thou/mm3 (0.00-0.00); Lymphocytes # (Auto) 2.2 Thou/mm3 (1.0-4.8); Lymphocytes % (Auto) 29 % (10-50); Mean Corpuscular HGB Conc 33.1 g/dl (31.0-37.0); Mean Corpuscular Volume 88 fL (80-100); Monocytes # (Auto) 0.8 Thou/mm3 (0.0-0.8); Monocytes % (Auto) 11 % (0-12); Neutrophils # (Auto) 4.1 Thou/mm3 (1.8-7.7); Neutrophils % (Auto) 56 % (37-80); Nucleated Red Blood Cell % 0 /100 WBC (0); Platelet Count 317 Thou/mm3 (140-440); Red Blood Count 3.59 Miln/mm3 (4.50-5.90); White Blood Count 7.4 Thou/mm3 (3.8-10.6)
--- NOTE | 2024-08-23 05:25 | PRELIM_ITS ---
Bilateral lower extremity venous Doppler ultrasound with wave Doppler spectral analysis. August 23, 2024 0418 hours Clinical history: Rule out DVT. Technique: Duplex scan of the bilateral lower extremi ty deep venous systems was performed utilizing 2D grayscale imaging, Doppler spectral analysis and co amber flow Doppler and with compression. Comparison: No prior study is available for comparison. Findi ngs:[place] scale, color flow and spectral Doppler evaluation of the lower extremity deep veins was perf ormed.Right:The common femoral, superficial femoral and popliteal veins are patent and compressible. Normal respiratory variation is noted. There is no evidence of occlusive or nonocclusive thrombus. Th e great saphenous vein is patent at the level of the saphenofemoral junction.Left: The common femoral , superficial femoral and popliteal veins are patent and compressible. Normal respiratory variation i s noted. There is no evidence of occlusive or nonocclusive thrombus. The great saphenous vein is allen nt at the level of the saphenofemoral junction.Impression:No sonographic evidence of deep venous thro mbosis in both lower extremities. Report Electronically Signed By: Waqas Cruz 08/23/2024 5:25:01 AM [EST]
[2024-08-23 05:52] LABS: Alanine Aminotransferase 9 U/L (10-49); Albumin, Serum 3.8 gm/dL (3.4-4.8); Albumin/Globulin Ratio 2.2 (1.2-2.2); Alkaline Phosphatase 93 U/L (46-116); Anion Gap 8 (7-16); Aspartate Amino Transferase < 10 U/L (0-34); BUN/Creatinine Ratio 11 Ratio (12-20); Bilirubin,Total 0.3 mg/dL (0.3-1.2); Blood Urea Nitrogen 8 mg/dL (9-23); Calcium 8.5 mg/dL (8.3-10.6); Calcium (Corrected) 8.7 mg/dL (8.5-10.1); Chloride 106 mMol/L (98-107); Creatinine (Component) 0.7 mg/dL (0.6-1.3); Estimated Creatinine Clearance 113.6 mL/min (>60); Globulin 1.7 gm/dL (2.3-3.5); Glucose 188 mg/dL (74-106); Magnesium 1.9 mg/dL (1.6-2.6); Osmolality,Calculated 282 (275-295); Potassium 3.5 mMol/L (3.4-5.1); Sodium 140 mMol/L (136-145); Total Protein 5.5 gm/dL (5.7-8.2); eGFR > 60 See Note
--- NOTE | 2024-08-23 08:47 | PC.NURSE ---
Patient at MRI.
--- NOTE | 2024-08-23 10:38 | PCS.ST ---
Swallow Evaluation completed in the ED. See report for details. Recommend regular consistencies with dietary restrictions. No s/s of aspiration. Mild globus sensation d/t Myasthenia gravis.
[2024-08-23] MEDS: CLOPIDOGREL BISULFATE 75 MG TABLET PO (10:42)
[2024-08-23] MEDS: HEPARIN SOD INJ 5000 UNIT/ML VIAL SC (10:43)
[2024-08-23] MEDS: ASPIRIN EC 81 MG TABEC PO (10:43)
[2024-08-23] MEDS: SENNA TABLET 1 TAB PO (10:43)
[2024-08-23] MEDS: PANTOPRAZOLE 40 MG TABLET PO (10:43)
[2024-08-23] MEDS: cefTRIAXone/D5w 1gm IV premix 50 ML IV (10:44)
--- NOTE | 2024-08-23 10:49 | PC.CC ---
Pt Phong Castro is a 74 yr old male, admitted to hospitalist services for Stroke r/o, chronic right thalamus infarct. rt leg cellulitis and r/o rt toes osteomylitis. ASW met with pt at bedside to complete initial assessment. At time of encounter pt is noted to be alert and oriented to person, place and situation, though responses noted to be slow. Pt expressed understanding admission order. Pt able to confirm demographic information. Pt is from home [address] [place] [address], where he lives alone. Pt identifies his sisters Morena Roberts [phone] and Nakita White [phone] as surrogate DMs. At baseline pt reports using a cane and 2 wheel walker to support ambulation. Pt states that when he feels sick he uses a wheel chair. Per pt at baseline he is normally able to complete all his ADLs. Per pt his sisters come into his home 2 times per week to help him. Pt reports he is diabetic, on insulin for management. Pt is not on dialysis. At home pt does not require supplemental O2. Pt is followed by Dr. Darrius Oswald for primary care. Pt is followed by Dr. Andrew in [place] for neurology. Pt followed by Dr. Varghese for vascular. In the home pt reports feeling safe. Pt reports having access to food items and all working utilities. Pt has been updated that SNF placement may be a recommendation at time of D/c, or pt may be offered home health services. Pt states he is open to either option, but would prefer home health if needed/offered. Pt states that if SNF is recommended, he has been to [facility] in the past and [facility] is preferred placement. Pt will nee transportation at D/c. At this time pt has declined any information about an Advance Directive.
[2024-08-23] MEDS: MYCOPHENOLATE 250 MG CAPSULE (NON-FORMULARY) 500 MG PO ×2 (11:10→21:23)
[2024-08-23] MEDS: INSULIN LISPRO (AdmeLOG) 1 UNIT/0.01 ML UNIT SC ×2 (11:41→21:32)
[2024-08-23] MEDS: pyRIDostigmine bromide 60 MG TABLET PO ×2 (14:14→21:24)
--- NOTE | 2024-08-23 14:54 | ESPR_ITS ---
<Statement entered by Adam Collins MD - 08/23/24 18:54> Patient was examined bedside this morning, MRI showed 7 mm acute left thalamic infract . Will allow permissive hypertension pending Dr Garvin's recommendation. MRI of foot, left foot showed osteomyelitis of phalanx second digit. Pending Surgery reccs. I discussed with and supervised my co-resident involved in the care of this patient. I agree with the assessment and plan as documented above. Adam Collins,PGY-[id number] Disclaimer: Despite multiple revisions, due to the dictation software being used, the document below may not be free of grammatical errors including phonetic/typographic errors. However, this does not deter from our commitment to providing health care in the patient's best interest in mind. Documentation for date of: 08/23/24 Subjective Subjective Interval history: No acute overnight events. Reports improvement in right sided numbness. Denies worsening of neurological symptoms or new symptoms. Denies fever, chills, headaches, chest pain, sob, cough, GI or urinary symptoms. Exam Vital Signs Temp Pulse Resp BP Pulse Ox O2 Del Method O2 Flow Rate 97.9 F 62 14 192/90 H 99 Room Air 2 08/23/24 14:24 08/23/24 14:24 08/23/24 14:24 08/23/24 14:24 08/23/24 14:24 08/23/24 14:24 08/22/24 22:15 Narrative Exam GENERAL * Normal-appearing elderly male, no apparent distress, on room air HEENT * NCAT.?ROMEO. Oral mucosa is moist. Patent Nares NECK * Supple, nontender, no thyromegaly, no meningismus, no JVD, no step offs CHEST * RRR, no m/g/r * CTAB, no w/r/r. Symmetrical chest rise. No intercostal subcostal retraction * Atraumatic, nontender, no crepitus, symmetrical expansion. ABDOMEN * Soft, flat, nontender. No guarding/rebound tenderness/masses. * Bowel sounds presents EXTREMITIES * Nontender, no cyanosis, no edema * No edema/cyanosis.? * Necrotic ulcer of right foot distal phalanx of second digit. SKIN * Warm and dry, no jaundice/rashes. NEUROMUSCULAR * No lumbar or midline, no CVA, no paraspinal muscle spasm or tenderness. * Moves all 4 extremities well, with full ROM and good CSM. * [place] x4, CN II-XII grossly intact. * Subjective decrease sensation of right LE/UE compared to the left. * No other focal neurologic deficits. PSYCHIATRY * Normal mood and affect, cooperative, no SI or HI or hallucinations. Objective Labs 08/24/24 05:08 08/24/24 05:08 Labs: Laboratory Results - last 24 hr 08/22/24 08/22/24 08/23/24 22:26 22:37 04:50 WBC 8.4 7.4 RBC 3.48 L 3.59 L Hgb 10.3 L 10.4 L Hct 30.3 L 31.4 L MCV 87 88 MCH 29.6 29.0 MCHC 34.0 33.1 RDW Std Deviation 44.3 H 45.0 H Plt Count 332 317 Neut % (Auto) 58 56 Lymph % (Auto) 29 29 [place] % (Auto) 10 11 Eos % (Auto) 2 2 Baso % (Auto) 1 1 Neut # (Auto) 4.9 4.1 Lymph # (Auto) 2.4 2.2 [place] # (Auto) 0.8 0.8 Eos # (Auto) 0.2 0.2 Baso # (Auto) 0.1 0.1 Immature Gran # (Auto) 0.02 H 0.02 H Absolute Nucleated RBC 0.00 0.00 Immature Gran % 0 0 Nucleated RBC % 0 0 PT 11.3 INR 1.0 APTT 26.9 Sodium 138 140 Potassium 3.8 3.5 Chloride 105 106 Carbon Dioxide 24.8 26.0 Anion Gap 8 8 BUN 9 8 L Creatinine 0.8 0.7 Estim Creat Clear Calc 99.4 113.6 eGFR > 60 > 60 BUN/Creatinine Ratio 11 L 11 L Glucose 229 H 188 H Calculated Osmolality 281 282 Calcium 8.6 8.5 Corrected Calcium 8.7 8.7 Magnesium 1.9 1.9 Total Bilirubin 0.2 L 0.3 AST 12 < 10 ALT 10 9 L Alkaline Phosphatase 104 93 Troponin I < 0.020 Total Protein 5.6 L 5.5 L Albumin 3.9 3.8 Globulin 1.7 L 1.7 L Albumin/Globulin Ratio 2.3 H 2.2 Ur Collection Type Clean Catch Urine Color Colorless A Urine Clarity Clear Urine pH 7.0 Ur Specific [place] 1.038 H Urine Protein Negative Urine Glucose (UA) 3+ A Urine Ketones Negative Urine Blood Negative Urine Nitrite Negative Urine Bilirubin Negative Urine Urobilinogen (Auto) Negative Ur Leukocyte Esterase Negative Urine RBC 2 Urine WBC 4 Ur Squamous Epith Cells 0 Urine Bacteria None Urine Opiates Screen Negative Urine Fentanyl Screen Negative Ur Barbiturates Screen Negative U Amphetamin/Meth Scrn Negative U Benzodiazepines Scrn Negative U Cocaine Metab Screen Negative U Marijuana (THC) Screen Negative HCG (Qual) Negative Quality Measures Quality Measures stroke (Stroke alert called at 2206) Suspected type of Stroke: Unknown at this time Tenecteplase given: Reason(s) Tenecteplase not given: Outside the time window not given Rehab services: PT evaluation ordered VTE Prophylaxis: mechanical Antithrombotic by day 2:: ordered Statin ordered: >75 y/o moderate or high intensity dose Anticoagulation ordered for A-fib or flutter (current or hx): ordered Advance care planning discussed with:: patient Assessment & Plan Assessment Current Active Medications: Generic Name Dose Route Start Last Admin Trade Name Freq PRN Reason Stop Dose Admin Acetaminophen 650 mg 08/23/24 00:50 Acetaminophen 325 Mg Tablet PO 09/22/24 00:49 Q6H PRN Fever >100.3 or pain Hydrocodone Bitart/Acetaminophen 1 tab 08/23/24 00:50 Hydrocodone/Apap 5/325 Tablet PO 08/28/24 00:49 Q4HR PRN PAIN SCALE 4-10(Mod-Sev Albuterol/Ipratropium 3 ml 08/23/24 00:50 Albuterol/Ipratropium (Duoneb) Rt Jocelyne 3 Ml Nebu INH 09/22/24 00:49 Q2HR PRN SHORTNESS OF BREATH OR WHEEZE Aspirin 81 mg 08/23/24 09:00 08/23/24 10:43 Aspirin Ec 81 Mg Tabec PO 09/22/24 08:59 81 mg QDAY HARJEET Administration Atorvastatin Calcium 80 mg 08/23/24 21:00 Atorvastatin Calcium 20 Mg Tablet PO 09/22/24 20:59 HS HARJEET Clopidogrel Bisulfate 75 mg 08/23/24 09:00 08/23/24 10:42 Clopidogrel Bisulfate 75 Mg Tablet PO 09/22/24 08:59 75 mg QDAY HARJEET Administration Dextrose 50 ml 08/23/24 01:06 Dextrose 50%-Water Inj 50 Ml Syringe IV 09/22/24 01:05 Q15MIN PRN BG <50 OR BG <70 & pt unresponsive Glucagon 1 mg 08/23/24 01:06 Glucagon Inj 1 Mg Vial IM Q15MIN PRN BG <70, and no IV access Heparin Sodium (Porcine) 5,000 unit 08/23/24 09:00 08/23/24 10:43 Heparin Sod Inj 5000 Unit/Ml Vial SC 09/06/24 08:59 5,000 unit Q12HR HARJEET Administration Doxycycline Hyclate 100 mg/ 100 mls @ 100 mls/hr 08/23/24 09:00 08/23/24 12:25 Sodium Chloride IV 08/30/24 08:59 Infused BID HARJEET Infusion Ceftriaxone Sodium/Dextrose 50 mls @ 100 mls/hr 08/23/24 09:00 08/23/24 11:22 Rocephin/D5w 1gm Iv Premix IV 08/30/24 08:59 Infused DAILY HARJEET Infusion Insulin Glargine 20 unit 08/23/24 21:00 Insulin Glargine (Lantus) 5 Unit/0.05 Ml (Per 5 Units) SC 09/22/24 20:59 HS HARJEET Insulin Human Lispro 0 unit 08/23/24 07:30 08/23/24 11:41 Insulin Lispro (Admelog) 1 Unit/0.01 Ml Unit SC 09/22/24 07:29 2 unit ACHS HARJEET Administration Protocol Labetalol HCl 10 mg 08/23/24 01:15 Labetalol Inj 5 Mg/Ml Vial 20 Ml IVP 09/22/24 01:14 Q10MIN PRN SBP > 220 Mycophenolate Mofetil 500 mg 08/23/24 09:00 08/23/24 11:10 Mycophenolate 250 Mg Capsule (Non-Formulary) PO 09/22/24 08:59 500 mg Q12HR HARJEET Administration Ondansetron HCl 4 mg 08/22/24 22:07 Ondansetron Inj 2 Mg/Ml Inj 2 Ml IV 09/21/24 22:06 Q4HR PRN NAUSEA OR VOMITING Pantoprazole Sodium 40 mg 08/23/24 09:00 08/23/24 10:43 Pantoprazole 40 Mg Tablet PO 09/22/24 08:59 40 mg QDAY HARJEET Administration Pyridostigmine [place] 60 mg 08/23/24 06:00 08/23/24 14:14 Pyridostigmine [place] 60 Mg Tablet PO 09/22/24 05:59 60 mg Q8HR HARJEET Administration Sennosides 1 tab 08/23/24 09:00 08/23/24 10:43 Senna Tablet PO 09/22/24 08:59 1 tab QDAY HARJEET Administration Protocol Plan In summary: 74-year-old male with history of CAD with triple-vessel disease, PCI 07/11, HFpEF, T2DM, HTN, myasthenia gravis, osteo of right foot with amputation, diabetic neuropathy, renal, Charcot joint, varicose veins, chronic thalamic infarct. Presented to ED with acute onset right-sided weakness. Head CT showed no acute pathology, old pontine level infarct. CTA showed 40-60% stenosis of right carotid and 50-70% stenosis of left carotid. EKG shows sinus rhythm, incomplete block, no ST changes. Follow-up MRI redemonstrated old 7 mm thalamic infarct, no acute changes. Patient also has necrotic changes of distal second phalanx of right foot. MRI was done demonstrating osteomyelitis, no soft tissue abscess. Venous ultrasound negative for DVT bilaterally. Acute Left Thalamic Infract History of Right thalamic infarct Tingling and loss sensation. NIHSS score of 1. CT head negative. CTA showed old thalamic infarct. MRI redemonstrated old thalamic infarct. Teleneuro recommended DAPT and permissive hypertension. Pending recommendations from in-house neurology. ? Allowing permissive hypertension, BP greater than 220/110 ? Continue ASPIRIN 81 mg ? Continue ATORVASTATIN 80 mg ? Continue PLAVIX 75 mg ? LABETALOL on board ? Neurochecks q.4h. ? Seizure precaution ? ACETAMINOPHEN for fever ? Swallow eval ? Physical therapy ? Head elevation greater than 30 degrees ? Pending, in house neurology recommendations Osteomyelitis of right second phalanx As described in exam above. MRI showed osteomyelitis of second phalanx of right foot. ? MRSA screen ? Continue CEFTRIAXONE (08/23 to [present]) ? Continue DOXYCYCLINE (08/23 to [present]) ? Wound care ? Pending ID recommendations - pending surgery consult Triple-vessel disease S/p PCI and 06/2024 Asymptomatic. No chest pain no shortness of breath. ? Continue ASPIRIN and PLAVIX as above Essential hypertension Allowing for permissive hypertension for 24 hours ? Consider restarting antihypertensives after 24 hours IDDM Diabetic neuropathy ? Glargine and sliding scale ? Daily Accu-Cheks Myasthenia gravis No signs of acute episodes or exacerbation. ? Holding home PYRIDOSTIGMINE 60 mg daily HFpEF EF 50?60 Signs of fluid overload or exacerbation ? Fluid restriction Health maintenance Diet: Cardiac, low carb GI prophylaxis: PROTONIX DVT prophylaxis: SCDs, resume HEPARIN after 48 hours Antibiotics: CEFTRIAXONE, DOXYCYCLINE CODE STATUS: Full code Disposition: Pending neurology and ID recommendations Patient case was discussed with attending, Jon Inman MD and senior residents Dr. Collins and Dr. Encinas. Moy Eldridge DO PGYI Attending Provider Attestation/Addendum I reviewed labs, imaging, EKG, home medications and prior available records. Face to face evaluation was performed by me. I have personally examined the patient and discussed assessment and plan with the IM team. I reviewed the resident note and agree with the plan with exceptions as below. Acute left thalamic infarct History of CVA CAD status post PCI HFpEF EF 55% Right second toe osteomyelitis Insulin-dependent diabetes mellitus Continue aspirin, Plavix and atorvastatin Neurochecks Neurology consulted Continue insulin therapy and monitor fingersticks
--- NOTE | 2024-08-23 15:59 | PC.NURSE ---
report given to Glory Rn, patient transferring to room 264
--- NOTE | 2024-08-23 16:45 | PC.NURSE ---
Patient arrived on floor will continue to monitor
[2024-08-23] MEDS: ATORVASTATIN CALCIUM 20 MG TABLET 80 MG PO (21:22)
[2024-08-23] MEDS: INSULIN GLARGINE (Lantus) 5 UNIT/0.05 ML (PER 5 UNITS) 20 UNIT SC (21:32)
--- NOTE | 2024-08-23 23:19 | PD.NEUROPROG ---
Documentation for date of: 08/23/24 Subjective Subjective Interval history: Patient was seen in telemetry today. Continues to have paresthesias in the right upper and lower extremities. He still has a residual numbness from the previous stroke involving the left upper and lower extremities. Denies any headache dizziness or weakness. Tolerating oral diet well. Exam - Neurology Vital Signs Temp Pulse Resp BP Pulse Ox O2 Del Method O2 Flow Rate 97.0 F 63 19 170/80 H 97 Room Air 2 08/23/24 20:00 08/23/24 21:30 08/23/24 21:30 08/23/24 20:00 08/23/24 21:30 08/23/24 20:00 08/22/24 22:15 Narrative Exam GENERAL APPEARANCE: Well hydrated, well-nourished in no acute distress. HEENT: Normocephalic, atraumatic, extraocular movements intact. Pupils: Equal reacting to light and accommodation NECK: Supple, no JVD or bruits. CARDIOVASULAR: Heart: S1, S2 heard, regular without S3-S4 or murmur no rubs or gallops. LUNGS/CHEST: Clear to auscultation bilaterally. No rails, rhonchi, or wheezing. Normal inspection. ABDOMEN: Soft, nontender, with normal bowel sounds. No pulsatile masses. No rebound, rigidity, or guarding. Normal inspection and palpation. EXTREMITIES: Normal inspection and palpation. No edema, clubbing or cyanosis. SKIN: Warm and dry without rashes. Normal inspection. MUSCULOSKELETAL: No cervical, thoracic, lumbar or midline bony tenderness. Normal inspection. NEURO: Alert, awake and oriented x3. Cranial nerves: II through XII grossly intact. Speech and language: Normal with no dysarthria or dysphasia. Motor system: Tone and bulk: Normal: Strength: 5 out of 5 in all 4 extremities; No pronator drift noted. Deep tendon reflexes: 2+ bilaterally symmetrical. Plantar reflex: Downgoing bilaterally. Sensory system: Diminished sensation to all modalities on the right hemibody compared to the left. coordination: Intact to [id number] and [id number] test bilaterally. No ataxia, no dysmetria, or dysdiadochokinesia noted. No intention tremors noted. Gait: Not tested. No signs of meningeal irritation noted. PSYCHIATRIC: Normal mood and affect. Objective Labs 08/24/24 05:08 08/23/24 04:50 Labs: Laboratory Results - last 24 hr 08/23/24 04:50 WBC 7.4 RBC 3.59 L Hgb 10.4 L Hct 31.4 L MCV 88 MCH 29.0 MCHC 33.1 RDW Std Deviation 45.0 H Plt Count 317 Neut % (Auto) 56 Lymph % (Auto) 29 [place] % (Auto) 11 Eos % (Auto) 2 Baso % (Auto) 1 Neut # (Auto) 4.1 Lymph # (Auto) 2.2 [place] # (Auto) 0.8 Eos # (Auto) 0.2 Baso # (Auto) 0.1 Immature Gran # (Auto) 0.02 H Absolute Nucleated RBC 0.00 Immature Gran % 0 Nucleated RBC % 0 Sodium 140 Potassium 3.5 Chloride 106 Carbon Dioxide 26.0 Anion Gap 8 BUN 8 L Creatinine 0.7 Estim Creat Clear Calc 113.6 eGFR > 60 BUN/Creatinine Ratio 11 L Glucose 188 H Calculated Osmolality 282 Calcium 8.5 Corrected Calcium 8.7 Magnesium 1.9 Total Bilirubin 0.3 AST < 10 ALT 9 L Alkaline Phosphatase 93 Total Protein 5.5 L Albumin 3.8 Globulin 1.7 L Albumin/Globulin Ratio 2.2 Assessment & Plan Assessment and plan (1) Ischemic cerebrovascular accident (CVA): Status: Acute Assessment and plan: Reassurance given to the patient regarding the MRI findings showing left thalamic lacunar infarct, causing right hemisensory loss. Continue with blood pressure control, aspirin and Plavix with statin. Reassurance given to the patient that the sensation will come back slowly. Echo was done recently: Negative bubble study. No evidence of PFO or ASD. Normal LV size and function. Mild LVH. Estimated EF 55-60% Normal RV size and function Mild MAC. Trace MR, AI, TR. Mild AV sclerosis without stenosis. Lipid panel showed very low HDL (2) CAD (coronary artery disease): Status: Chronic Assessment and plan: Stable (3) Hypertension: Status: Chronic Assessment and plan: Continue home meds (4) Type 2 diabetes mellitus: Status: Chronic Assessment and plan: Needs better control of his sugar as the last year from July was 7.7 (5) Myasthenia gravis: Status: Chronic Assessment and plan: No recent exacerbations reported continue with mycophenolate and pyridostigmine as before
[2024-08-24] VITALS (7 sets, daily range): BP systolic 152–172; BP diastolic 67–92; PULSE 60–73; RESP 12–97; TEMP 36.1–36.7; O2SAT 97–98; BMI 34.9; BMI 13.0
[2024-08-24 05:28] LABS: Basophils # (Auto) 0.1 Thou/mm3 (0.0-0.2); Basophils % (Auto) 1 % (0-2.5); Eosinophils # (Auto) 0.2 Thou/mm3 (0.0-0.5); Eosinophils % (Auto) 3 % (0-10); Hematocrit 30.3 % (41.0-53.0); Immature Granulocytes % (Auto) 0 % (0-0); Immature Granulocytes Auto 0.01 Thou/mm3 (0.00-0.00); Lymphocytes % (Auto) 30 % (10-50); Mean Corpuscular Hemoglobin 29.4 pg (25.0-35.0); Mean Corpuscular Volume 89 fL (80-100); Monocytes # (Auto) 0.6 Thou/mm3 (0.0-0.8); Monocytes % (Auto) 9 % (0-12); Neutrophils # (Auto) 3.8 Thou/mm3 (1.8-7.7); Neutrophils % (Auto) 57 % (37-80); Nucleated Red Blood Cell % 0 /100 WBC (0); Platelet Count 312 Thou/mm3 (140-440); White Blood Count 6.7 Thou/mm3 (3.8-10.6)
[2024-08-24] MEDS: pyRIDostigmine bromide 60 MG TABLET PO ×2 (05:29→14:17)
[2024-08-24 06:25] LABS: INR 1.1 (0.9-1.3); Partial Thromboplastin Time 30.2 Seconds (22.0-36.0); Prothrombin Time 12.1 Seconds (9.0-12.2)
[2024-08-24 06:28] LABS: Alanine Aminotransferase 9 U/L (10-49); Albumin, Serum 3.7 gm/dL (3.4-4.8); Albumin/Globulin Ratio 1.9 (1.2-2.2); Alkaline Phosphatase 73 U/L (46-116); Anion Gap 7 (7-16); Aspartate Amino Transferase < 10 U/L (0-34); BUN/Creatinine Ratio 11 Ratio (12-20); Bilirubin,Total 0.3 mg/dL (0.3-1.2); Blood Urea Nitrogen 8 mg/dL (9-23); Calcium 8.7 mg/dL (8.3-10.6); Calcium (Corrected) 8.9 mg/dL (8.5-10.1); Carbon Dioxide 27.8 mMol/L (20.0-31.0); Chloride 105 mMol/L (98-107); Creatinine (Component) 0.7 mg/dL (0.6-1.3); Estimated Creatinine Clearance 111.7 mL/min (>60); Globulin 1.9 gm/dL (2.3-3.5); Glucose 121 mg/dL (74-106); Magnesium 1.9 mg/dL (1.6-2.6); Osmolality,Calculated 278 (275-295); Phosphorous 4.5 mg/dL (2.4-5.1); Potassium 3.7 mMol/L (3.4-5.1); Sodium 140 mMol/L (136-145); Total Protein 5.6 gm/dL (5.7-8.2); eGFR > 60 See Note
[2024-08-24] MEDS: METOPROLOL SUCCINATE XL 25 MG TABCR PO (07:25)
[2024-08-24] MEDS: PANTOPRAZOLE 40 MG TABLET PO (08:18)
[2024-08-24] MEDS: ASPIRIN EC 81 MG TABEC PO (08:18)
[2024-08-24] MEDS: CLOPIDOGREL BISULFATE 75 MG TABLET PO (08:18)
[2024-08-24] MEDS: SENNA TABLET 1 TAB PO (08:18)
[2024-08-24] MEDS: SACUBITRIL 24 MG/VALSARTAN 26 MG TABLET 1 TAB PO (08:18)
[2024-08-24] MEDS: POTASSIUM CHLORIDE 20 mEq TABCR 40 MEQ PO (08:31)
[2024-08-24] MEDS: MYCOPHENOLATE 250 MG CAPSULE (NON-FORMULARY) 500 MG PO (08:31)
[2024-08-24] MEDS: MAGNESIUM OXIDE 400 MG TABLET PO (08:31)
[2024-08-24] MEDS: DOXYCYCLINE INJ 100 MG in SODIUM CHLORIDE 0.9% (P) 100 ML IV (09:03)
[2024-08-24] MEDS: cefTRIAXone/D5w 1gm IV premix 50 ML IV (09:03)
--- NOTE | 2024-08-24 09:55 | ESPR_ITS ---
<Statement entered by Adam Collins MD - 08/24/24 17:29> I discussed with and supervised my co-resident involved in the care of this patient. I agree with the assessment and plan as documented above. Adam Collins,PGY-3 Disclaimer: Despite multiple revisions, due to the dictation software being used, the document below may not be free of grammatical errors including phonetic/typographic errors. However, this does not deter from our commitment to providing health care in the patient's best interest in mind. Documentation for date of: 08/24/24 Subjective Subjective Interval history: No acute overnight events. Feeling well today, right-sided numbness improved. Tolerating oral intake. Denies fever, chills, headaches, chest pain, sob, cough, GI or urinary symptoms. Exam Vital Signs Temp Pulse Resp BP Pulse Ox O2 Del Method O2 Flow Rate 98.0 F 61 14 160/69 H 98 Room Air 2 08/24/24 08:00 08/24/24 08:00 08/24/24 08:00 08/24/24 08:00 08/24/24 08:00 08/24/24 08:00 08/22/24 22:15 Narrative Exam GENERAL * Normal-appearing elderly male, no apparent distress, on room air HEENT * NCAT.?ROMEO. Oral mucosa is moist. Patent Nares NECK * Supple, nontender, no thyromegaly, no meningismus, no JVD, no step offs CHEST * RRR, no m/g/r * CTAB, no w/r/r. Symmetrical chest rise. No intercostal subcostal retraction * Atraumatic, nontender, no crepitus, symmetrical expansion. ABDOMEN * Soft, flat, nontender. No guarding/rebound tenderness/masses. * Bowel sounds presents EXTREMITIES * Nontender, no cyanosis, no edema * No edema/cyanosis.? * Chronic ulcer of right foot distal phalanx of second digit. SKIN * Warm and dry, no jaundice/rashes. NEUROMUSCULAR * No lumbar or midline, no CVA, no paraspinal muscle spasm or tenderness. * Moves all 4 extremities well, with full ROM and good CSM. * DELVALLE x4, CN II-XII grossly intact. * Improved right-sided sensation * No other focal neurologic deficits. PSYCHIATRY * Normal mood and affect, cooperative, no SI or HI or hallucinations. Objective Labs 08/24/24 05:08 08/24/24 05:08 Labs: Laboratory Results - last 24 hr 08/24/24 05:08 WBC 6.7 RBC 3.40 L Hgb 10.0 L Hct 30.3 L MCV 89 MCH 29.4 MCHC 33.0 RDW Std Deviation 46.0 H Plt Count 312 Neut % (Auto) 57 Lymph % (Auto) 30 [place] % (Auto) 9 Eos % (Auto) 3 Baso % (Auto) 1 Neut # (Auto) 3.8 Lymph # (Auto) 2.0 [place] # (Auto) 0.6 Eos # (Auto) 0.2 Baso # (Auto) 0.1 Immature Gran # (Auto) 0.01 H Absolute Nucleated RBC 0.00 Immature Gran % 0 Nucleated RBC % 0 PT 12.1 INR 1.1 APTT 30.2 Sodium 140 Potassium 3.7 Chloride 105 Carbon Dioxide 27.8 Anion Gap 7 BUN 8 L Creatinine 0.7 Estim Creat Clear Calc 111.7 eGFR > 60 BUN/Creatinine Ratio 11 L Glucose 121 H D Calculated Osmolality 278 Calcium 8.7 Corrected Calcium 8.9 Phosphorus 4.5 Magnesium 1.9 Total Bilirubin 0.3 AST < 10 ALT 9 L Alkaline Phosphatase 73 D Total Protein 5.6 L Albumin 3.7 Globulin 1.9 L Albumin/Globulin Ratio 1.9 Quality Measures Quality Measures stroke (Stroke alert called at 2206) Suspected type of Stroke: Unknown at this time Tenecteplase given: Reason(s) Tenecteplase not given: Outside the time window not given Rehab services: PT evaluation ordered VTE Prophylaxis: pharmaceutical Antithrombotic by day 2:: ordered Statin ordered: >75 y/o moderate or high intensity dose Anticoagulation ordered for A-fib or flutter (current or hx): ordered Advance care planning discussed with:: patient Assessment & Plan Assessment Current Active Medications: Generic Name Dose Route Start Last Admin Trade Name Freq PRN Reason Stop Dose Admin Acetaminophen 650 mg 08/23/24 00:50 Acetaminophen 325 Mg Tablet PO 09/22/24 00:49 Q6H PRN Fever >100.3 or pain Hydrocodone Bitart/Acetaminophen 1 tab 08/23/24 00:50 Hydrocodone/Apap 5/325 Tablet PO 08/28/24 00:49 Q4HR PRN PAIN SCALE 4-10(Mod-Sev Albuterol/Ipratropium 3 ml 08/23/24 00:50 Albuterol/Ipratropium (Duoneb) Rt Jocelyne 3 Ml Nebu INH 09/22/24 00:49 Q2HR PRN SHORTNESS OF BREATH OR WHEEZE Aspirin 81 mg 08/23/24 09:00 08/24/24 08:18 Aspirin Ec 81 Mg Tabec PO 09/22/24 08:59 81 mg QDAY HARJEET Administration Atorvastatin Calcium 80 mg 08/23/24 21:00 08/23/24 21:22 Atorvastatin Calcium 20 Mg Tablet PO 09/22/24 20:59 80 mg HS HARJEET Administration Clopidogrel Bisulfate 75 mg 08/23/24 09:00 08/24/24 08:18 Clopidogrel Bisulfate 75 Mg Tablet PO 09/22/24 08:59 75 mg QDAY HAJREET Administration Dextrose 50 ml 08/23/24 01:06 Dextrose 50%-Water Inj 50 Ml Syringe IV 09/22/24 01:05 Q15MIN PRN BG <50 OR BG <70 & pt unresponsive Glucagon 1 mg 08/23/24 01:06 Glucagon Inj 1 Mg Vial IM Q15MIN PRN BG <70, and no IV access Heparin Sodium (Porcine) 5,000 unit 08/23/24 09:00 08/23/24 10:43 Heparin Sod Inj 5000 Unit/Ml Vial SC 09/06/24 08:59 5,000 unit Q12HR HARJEET Administration Doxycycline Hyclate 100 mg/ 100 mls @ 100 mls/hr 08/23/24 09:00 08/24/24 09:03 Sodium Chloride IV 08/30/24 08:59 100 mls/hr BID HARJEET Administration Ceftriaxone Sodium/Dextrose 50 mls @ 100 mls/hr 08/23/24 09:00 08/24/24 09:03 Rocephin/D5w 1gm Iv Premix IV 08/30/24 08:59 100 mls/hr DAILY HARJEET Administration Insulin Glargine 20 unit 08/23/24 21:00 08/23/24 21:32 Insulin Glargine (Lantus) 5 Unit/0.05 Ml (Per 5 Units) SC 09/22/24 20:59 20 unit HS HARJEET Administration Insulin Human Lispro 0 unit 08/23/24 07:30 08/24/24 07:33 Insulin Lispro (Admelog) 1 Unit/0.01 Ml Unit SC 09/22/24 07:29 Not Given ACHS AHRJEET Protocol Labetalol HCl 10 mg 08/23/24 01:15 Labetalol Inj 5 Mg/Ml Vial 20 Ml IVP 09/22/24 01:14 Q10MIN PRN SBP > 220 Metoprolol Succinate 25 mg 08/24/24 07:15 08/24/24 07:25 Metoprolol Succinate Xl 25 Mg Tabcr PO 09/23/24 07:14 25 mg QDAY HARJEET Administration Mycophenolate Mofetil 500 mg 08/23/24 09:00 08/24/24 08:31 Mycophenolate 250 Mg Capsule (Non-Formulary) PO 09/22/24 08:59 500 mg Q12HR HARJEET Administration Ondansetron HCl 4 mg 08/22/24 22:07 Ondansetron Inj 2 Mg/Ml Inj 2 Ml IV 09/21/24 22:06 Q4HR PRN NAUSEA OR VOMITING Pantoprazole Sodium 40 mg 08/23/24 09:00 08/24/24 08:18 Pantoprazole 40 Mg Tablet PO 09/22/24 08:59 40 mg QDAY HARJEET Administration Pyridostigmine Stoddard 60 mg 08/23/24 06:00 08/24/24 05:29 Pyridostigmine Stoddard 60 Mg Tablet PO 09/22/24 05:59 60 mg Q8HR HARJEET Administration Sacubitril/Valsartan 1 tab 08/24/24 09:00 08/24/24 08:18 Sacubitril 24 Mg/Valsartan 26 Mg Tablet PO 09/23/24 08:59 1 tab BID HARJEET Administration Sennosides 1 tab 08/23/24 09:00 08/24/24 08:18 Senna Tablet PO 09/22/24 08:59 1 tab QDAY HARJEET Administration Protocol Plan In summary: 74-year-old male with history of CAD with triple-vessel disease, PCI 07/11, HFpEF, T2DM, HTN, myasthenia gravis, osteo of right foot with amputation, diabetic neuropathy, renal, Charcot joint, varicose veins, chronic thalamic infarct. Presented to ED with acute onset right-sided weakness. Head CT showed no acute pathology, old pontine level infarct. CTA showed 40-60% stenosis of right carotid and 50-70% stenosis of left carotid. EKG shows sinus rhythm, incomplete block, no ST changes. Follow-up MRI showed 7 mm thalamic infarct. Neurology on board. Pending PT. Will likely discharge tomorrow. Patient also has chronic ulcer of distal second phalanx of right foot. MRI was done demonstrating osteomyelitis, no soft tissue abscess. Venous ultrasound negative for DVT bilaterally. Gen-surg recommended wound care, no surgical intervention. Pending ID recs. Continued on ABX. Acute Left Thalamic Infract History of Right thalamic infarct Tingling and loss sensation. NIHSS score of 1. CT head negative. CTA showed old thalamic infarct. MRI redemonstrated old thalamic infarct. Teleneuro recommended DAPT and permissive hypertension. In house Neurology recommendations as below, no new ECHO needed since recent echo negative for PFO. ? Continue ASPIRIN 81 mg ? Continue ATORVASTATIN 80 mg ? Continue PLAVIX 75 mg ? LABETALOL on board ? Neurochecks q.4h. ? Seizure precaution ? ACETAMINOPHEN for fever ? Swallow eval ? Pending Physical therapy Chronic osteomyelitis of right second phalanx As described in exam above. MRI showed osteomyelitis of second phalanx of right foot. NO interventino from Gen-Surg perspective, only wound care. Pending ID recs. Continuned on ABX. ? MRSA screen ? Continue CEFTRIAXONE (08/23 to [present]) ? Continue DOXYCYCLINE (08/23 to [present]) ? Wound care ? Pending ID recommendations Triple-vessel disease S/p PCI and 06/2024 Asymptomatic. No chest pain no shortness of breath. ? Continue ASPIRIN and PLAVIX as above Essential hypertension Allowing for permissive hypertension for 24 hours ? Consider restarting antihypertensives after 24 hours IDDM, controlled Diabetic neuropathy ? Glargine and sliding scale ? Daily Accu-Cheks Myasthenia gravis No signs of acute episodes or exacerbation. ? Holding home PYRIDOSTIGMINE 60 mg daily HFpEF EF 50?60 Signs of fluid overload or exacerbation ? Fluid restriction Health maintenance Diet: Cardiac, low carb GI prophylaxis: PROTONIX DVT prophylaxis: SCDs, resume HEPARIN after 48 hours Antibiotics: CEFTRIAXONE, DOXYCYCLINE CODE STATUS: Full code Disposition: Pending neurology and ID recommendations Patient case was discussed with attending, Jon Inman MD and senior residents Dr. Collins and Dr. Encinas. Moy Eldridge DO PGYI Attending Provider Attestation/Addendum I reviewed labs, imaging, EKG, home medications and prior available records. Face to face evaluation was performed by me. I have personally examined the patient and discussed assessment and plan with the IM team. I reviewed the resident note and agree with the plan with exceptions as below. Acute left thalamic infarct History of CVA CAD status post PCI HFpEF EF 55% Right second toe osteomyelitis Insulin-dependent diabetes mellitus Continue aspirin, Plavix and atorvastatin Neurology consulted: Recommended no repeat echocardiogram Continue insulin therapy and monitor fingersticks Doxycycline p.o. for 6 weeks for the toe osteomyelitis. Continue wound care. Contacted surgery: No indication for surgical debridement or amputation at this time. Strict glycemic control. Outpatient follow-up with podiatry. Ordered home health
--- NOTE | 2024-08-24 10:13 | PD.SURCONS ---
HPI Consult details History of present illness: 74M with HTN, DMII, CAD s/p PCI 06/24/2024, myasthenia gravis, osteomyelitis of R toes s/p amputations who was admitted with R sided tingling. Additionally pt to have osteomyelitis of the R 2nd digit distal phalanx Review of Systems Review of Systems ROS Unobtainable: All systems reviewed & no additional complaints except as documented Meds Home Medications and Allergies Home Medications ?Medication ?Instructions ?Recorded ?Confirmed ?Type insulin aspart U-100 100 unit/mL 20 unit subcut TID 06/21/24 08/22/24 History (3 mL) subcutaneous pen (Novolog FlexPen U-100 Insulin aspart) insulin glargine U-300 conc 300 30 unit subcut BID 06/21/24 08/22/24 History unit/mL (3 mL) subcutaneous pen (Toujeo Max U-300 SoloStar) mycophenolate mofetil 500 mg tablet 500 mg PO Q12H 06/21/24 08/22/24 History pyridostigmine bromide 60 mg tablet 60 mg PO TID 06/21/24 08/22/24 History acetaminophen 325 mg tablet 325 mg PO PRN PRN Pain 07/19/24 08/22/24 History (Tylenol) Allergies Allergy/AdvReac Type Severity Reaction Status Date / Time Sulfa (Sulfonamide Allergy Intermediate Rash Verified 07/18/24 16:50 Antibiotics) ibuprofen Allergy Mild Rash Verified 07/18/24 16:50 Penicillins Allergy Mild Rash Verified 07/18/24 16:50 Exam Vital Signs Temp Pulse Resp BP Pulse Ox O2 Del Method O2 Flow Rate 98.0 F 61 14 160/69 H 98 Room Air 2 08/24/24 08:00 08/24/24 08:00 08/24/24 08:00 08/24/24 08:00 08/24/24 08:00 08/24/24 08:00 08/22/24 22:15 Constitutional Constitutional: no acute distress Routine Respiratory Exam Respiratory: Present no resp distress Routine Extremities Exam Comments: right foot warm, second toe with small area of eschar at the distal aspect, no erythema or fluctuance Results Results: Laboratory Laboratory results: results reviewed Results: Imaging Imaging narrative: Foot Xray and MRI reviewed Assessment & Plan Plan 74M with HTN, DMII, CAD s/p PCI 06/24/2024, myasthenia gravis, osteomyelitis of R toes s/p amputations who was admitted with R sided tingling. Additionally pt to have osteomyelitis of the R 2nd digit distal phalanx, with minimal soft tissue damage not requiring amputation Appreciate ID recs Follow up at Wound Healing
[2024-08-24] MEDS: INSULIN LISPRO (AdmeLOG) 1 UNIT/0.01 ML UNIT SC (11:31)
--- NOTE | 2024-08-24 13:27 | ESDS_ITS ---
Planned Discharge Date 08/24/24 DS: Providers Provider Date of admission: 08/23/24 00:51 Primary care physician: Darrius Oswald MD Admitting Provider: Mariusz Kang MD Attending Provider on Admission: Jon Inman MD Consults: 08/22/24 22:08 Consult to Neurology / Tele-Neurology Routine Comment: Consulting Provider: [facility] 08/23/24 00:58 Consult to General Surgery Routine Comment: Right second toe gangrene rule out osteoyelitis Consulting Provider: Yanique Che 08/23/24 01:05 Referral Wound Care Urgent Comment: Right second toe 08/23/24 01:07 Speech [Referral - [facility]] Routine Comment: Stroke rule out 08/23/24 01:16 Consult to Neurology / Tele-Neurology Routine Comment: Stroke rule out Consulting Provider: Simeon Garvin 08/23/24 03:07 PT [Referral Physical Therapy] Routine Comment: Physician Instructions: Instructions: Stroke rule out 08/23/24 18:59 Consult to Infectious Diseases Routine Comment: Consulting Provider: Osman Constantino Attending Provider on DC: Jon Inman MD Discharging Provider: Jon Imnan MD DS: Diagnosis Problem List Completed Was Problem List Reviewed/Reconciled?: Yes Hospital Course Hospital Course Hospital course: This is a 74-year-old male with history of CAD with triple-vessel disease, PCI 07/11, HFpEF, T2DM, HTN, myasthenia gravis, osteo of right foot with amputation, diabetic neuropathy, renal, Charcot joint, varicose veins, chronic thalamic infarct, who presented to ED with acute onset right-sided weakness. Head CT showed no acute pathology, old pontine level infarct. CTA showed 40-60% stenosis of right carotid and 50-70% stenosis of left carotid. EKG shows sinus rhythm, incomplete block, no ST changes. Follow-up MRI showed 7 mm thalamic infarct. Patient started on dual ANTIPLATELET therapy and followed up by neurology. Her symptoms have improved at the time of discharge. He was seen by PT who recommended home physical therapy. He will discharge to home with home health. Patient also has chronic ulcer of distal second phalanx of right foot. MRI was done demonstrating osteomyelitis, no soft tissue abscess. Venous ultrasound negative for DVT bilaterally. Gen-surg recommended wound care, no surgical intervention. ID recommended 6 weeks of DOXYCYCLINE which patient will discharge on. Risks and benefits of starting ANTIPLATELET therapy was discussed with patient, patient agreed prior to starting therapy. PATIENT INSTRUCTIONS: Follow-up with PCP within 1-2 weeks of discharge. Follow-up with neurology, Dr. Garvin, within 1 week of discharge. Return to Emergency Room if symptoms persist, worsen, or new symptoms develop. Continue taking medications as prescribed below: ? DOXYCYCLINE 100 mg twice daily for 6 weeks ? ASPIRIN 81 mg once daily ? ATORVASTATIN 80 mg once daily ? PLAVIX 75 mg once daily ? TYLENOL 325 mg every 6 hours as needed for pain ? MYCOPHENOLATE mofetil 500 mg twice daily ? PYRIDOSTIGMINE 60 mg 3 times daily ? ENTRESTO twice daily ? INSULIN as prescribed - Wound care recommendations ADMISSION DIAGNOSES: Acute Left Thalamic Infract History of Right thalamic infarct Chronic osteomyelitis of right second phalanx Triple-vessel disease S/p PCI and 06/2024 Essential hypertension IDDM, controlled Diabetic neuropathy Myasthenia gravis HFpEF EF 50?60 Patient case was discussed with attending, Jon Inman MD and senior residents Dr. Collins and Dr. Encinas. Moy Eldridge, PGYI Senior Resident Attestation: I discussed with and supervised the sales intern physician involved in the care of this patient. I personally saw and examined the patient and discussed the assessment and plan with the entire medicine team, including my attending. I agree with the discharge plan as documented above. Andrae Encinas MD PGY2 Internal Medicine Time Spent with Patient Time attestation: Total time spent providing and/or coordinating discharge services: Greater than 35 minutes. Exam Vital Signs Temp Pulse Resp BP Pulse Ox O2 Del Method O2 Flow Rate 98.0 F 60 20 152/67 H 97 Room Air 2 08/24/24 12:00 08/24/24 12:00 08/24/24 12:08/24/24 12:08/24/24 12:08/24/24 12:08/22/24 22:15 Narrative Exam GENERAL * Normal-appearing elderly male, no apparent distress, on room air HEENT * NCAT.?ROMEO. Oral mucosa is moist. Patent Nares NECK * Supple, nontender, no thyromegaly, no meningismus, no JVD, no step offs CHEST * RRR, no m/g/r * CTAB, no w/r/r. Symmetrical chest rise. No intercostal subcostal retraction * Atraumatic, nontender, no crepitus, symmetrical expansion. ABDOMEN * Soft, flat, nontender. No guarding/rebound tenderness/masses. * Bowel sounds presents EXTREMITIES * Nontender, no cyanosis, no edema * No edema/cyanosis.? * Chronic ulcer of right foot distal phalanx of second digit. SKIN * Warm and dry, no jaundice/rashes. NEUROMUSCULAR * No lumbar or midline, no CVA, no paraspinal muscle spasm or tenderness. * Moves all 4 extremities well, with full ROM and good CSM. * DELVALLE x4, CN II-XII grossly intact. * Improved right-sided sensation * No other focal neurologic deficits. PSYCHIATRY * Normal mood and affect, cooperative, no SI or HI or hallucinations. Discharge Plan Plan Patient Disposition: Home w/HOME HEALTH Disposition Comment: Home health for wound care and PT Patient condition on transfer: Stable Care Plan Goals: Educated the patient per wound care nurse on wound care. Wound care instructions as follows, cleanse with betadine twice a day and keep covered with gauze. Prescriptions/Referrals Prescriptions/Med Rec: New doxycycline hyclate 100 mg capsule 100 mg PO BID Qty: 82 0RF Continued mycophenolate mofetil 500 mg Tablet 500 mg PO Q12H pyridostigmine bromide 60 mg Tablet 60 mg PO TID insulin aspart U-100 [Novolog FlexPen U-100 Insulin] 100 unit/mL (3 mL) Insulin Pen 20 unit SUBCUT TID insulin glargine U-300 conc [Toujeo Max U-300 SoloStar] 300 unit/mL (3 mL) insulin pen 30 unit SUBCUT BID Patient Comments: PLEASE SEE ATTACHED FOR DETAILED DIRECTIONS aspirin 81 mg capsule 81 mg PO QDAY Qty: 30 2RF atorvastatin 80 mg tablet 80 mg PO QPM Qty: 30 2RF clopidogrel [Plavix] 75 mg tablet 75 mg PO QDAY Qty: 30 2RF sacubitril-valsartan [Entresto] 24-26 mg tablet 1 tab PO BID Qty: 60 2RF acetaminophen [Tylenol] 325 mg Tablet 325 mg PO PRN PRN (Reason: Pain) Rx Instructions: q4 hours PRN Referrals: Darrius Oswald MD [Primary Care Provider] - Patient/Caregiver Discharge Instructions Discharge Activity: as per physical therapy and activity as tolerated Other Discharge Activity Instructions:: Follow-up with PCP within 1-2 weeks of discharge. Follow-up with neurology, Dr. Garvin, within 1 week of discharge. Discuss restarting LASIX with your PCP. Return to Emergency Room if symptoms persist, worsen, or new symptoms develop. Continue taking DOXYCYCLINE 100 mg twice daily for 6 weeks. Continue taking home medications as prescribed. Follow up wound care recommendations Education Materials: Diabetes Exercise Get Started, Discharge Instructions for Cellulitis, Diabetes Exercise Plan, ED Stroke, Completed Print Language: Togolese Stand Alone Forms: [employer] Award Info., Patient Portal Info Letter Discharge Order Discharge Orders: Discharge (Routine); Ordered 08/24/24 Ordered By: Moy Eldridge Quality Discharge Quality Measures VTE prophylaxis Attestestation MD Attestation I reviewed labs, imaging, EKG, home medications and prior available records. Face to face evaluation was performed by me. I have personally examined the patient and discussed assessment and plan with the IM team. I reviewed the resident note and agree with the plan with exceptions as below. Acute left thalamic infarct History of CVA CAD status post PCI HFpEF EF 55% Right second toe osteomyelitis Insulin-dependent diabetes mellitus Continue aspirin, Plavix and atorvastatin Neurology consulted: Recommended no repeat echocardiogram Continue insulin therapy and monitor fingersticks Doxycycline p.o. for 6 weeks for the toe osteomyelitis. Continue wound care. Contacted surgery: No indication for surgical debridement or amputation at this time. Strict glycemic control. Outpatient follow-up with podiatry. Ordered home health Time spent is 40 minutes. More than 50% of the time was spent on patient educa tion and coordination of care.
--- NOTE | 2024-08-24 14:59 | PC.SS ---
ONLINE CONTENT COORDINATOR confirmed with patient that sister, Morena Roberts; will be providing transportation on behalf of the patient. Patient to d/c home.
--- NOTE | 2024-08-25 18:12 | PC.CM ---
Addendum entered by Alondra Hernandez RN 08/26/24 15:06: [employer] opened patient on 18. Original Note: Patient accepted by [facility]. Pending start of care date.
== END 2024-08-24 15:47 | disposition home health service (06) | DRG 65 ==
LOC: SERX 08-23 00:11 → SERHOLD 08-23 01:24 → S2NX 08-23 16:19
PROVIDERS: Registered Nurse General Practice; Admitting Provider Internal Medicine; Emergency Provider Emergency Medicine; PCP Family Medicine; Visit Provider Student in an Organized Health Care Education/Training Program
DX: I63.9 Cerebral infarction, unspecified (principal); I50.32 Chronic diastolic (congestive) heart failure; L03.115 Cellulitis of right lower limb; M86.671 Other chronic osteomyelitis, right ankle and foot; R20.2 Paresthesia of skin; I11.0 Hypertensive heart disease with heart failure; I25.10 Atherosclerotic heart disease of native coronary artery without angina pectoris; G70.00 Myasthenia gravis without (acute) exacerbation; E11.319 Type 2 diabetes mellitus with unspecified diabetic retinopathy without macular edema; E11.610 Type 2 diabetes mellitus with diabetic neuropathic arthropathy; E11.40 Type 2 diabetes mellitus with diabetic neuropathy, unspecified; I83.90 Asymptomatic varicose veins of unspecified lower extremity; D64.9 Anemia, unspecified; Z95.5 Presence of coronary angioplasty implant and graft; Z79.02 Long term (current) use of antithrombotics/antiplatelets; Z79.4 Long term (current) use of insulin; I65.23 Occlusion and stenosis of bilateral carotid arteries; R29.701 NIHSS score 1; E11.69 Type 2 diabetes mellitus with other specified complication; L97.519 Non-pressure chronic ulcer of other part of right foot with unspecified severity; E11.621 Type 2 diabetes mellitus with foot ulcer
CPT/HCPCS: 36415; 70450; 70496; 70498; 70544; 73620; 73718; 80053; 80307; 81001; 83735; 84100; 84484; 84703; 85025; 85610; 85730; 87040; 87077; 87081; 87086; 87186; 92526; 92610; 93005; 93970; 96365; 96367; 96372; 97162; 99291; A4649; J0696; J1643; J1815; J3490; J7517; Q9967; A9270

== ENCOUNTER → 2024-10-01 | Outpatient (CLI) | payer OTHER, MEDICAID, SELFPAY ==
[2024-10-01 11:12] LABS: Basophils # (Auto) 0.1 Thou/mm3 (0.0-0.2); Basophils % (Auto) 1 % (0-2.5); Eosinophils # (Auto) 0.3 Thou/mm3 (0.0-0.5); Eosinophils % (Auto) 4 % (0-10); Hematocrit 33.3 % (41.0-53.0); Hemoglobin 11.1 g/dL (13.5-16.0); Immature Granulocytes % (Auto) 0 % (0-0); Immature Granulocytes Auto 0.03 Thou/mm3 (0.00-0.00); Lymphocytes % (Auto) 26 % (10-50); Mean Corpuscular HGB Conc 33.3 g/dl (31.0-37.0); Mean Corpuscular Hemoglobin 29.1 pg (25.0-35.0); Mean Corpuscular Volume 87 fL (80-100); Monocytes # (Auto) 0.9 Thou/mm3 (0.0-0.8); Monocytes % (Auto) 11 % (0-12); Neutrophils # (Auto) 4.5 Thou/mm3 (1.8-7.7); Neutrophils % (Auto) 58 % (37-80); Nucleated Red Blood Cell % 0 /100 WBC (0); Platelet Count 344 Thou/mm3 (140-440); RDW Standard Deviation 46.6 fL (35.1-43.9); Red Blood Count 3.82 Miln/mm3 (4.50-5.90); White Blood Count 7.8 Thou/mm3 (3.8-10.6)
[2024-10-01 11:25] LABS: Collection Type, Urine Clean Catch; Squamous Epithelial Cell,Urine 0 /hpf (0-5)
[2024-10-01 11:31] LABS: Glucose Estimated Average 183 mg/dL (80-131)
[2024-10-01 11:35] LABS: Prostate Specific Antigen 3.44 ng/mL (0-4.00)
[2024-10-01 11:37] LABS: Alanine Aminotransferase 11 U/L (10-49); Albumin, Serum 3.9 gm/dL (3.4-4.8); Albumin/Globulin Ratio 2.3 (1.2-2.2); Alkaline Phosphatase 77 U/L (46-116); Anion Gap 6 (7-16); Aspartate Amino Transferase 12 U/L (0-34); BUN/Creatinine Ratio 15 Ratio (12-20); Bilirubin,Total 0.5 mg/dL (0.3-1.2); Blood Urea Nitrogen 12 mg/dL (9-23); Calcium 9.1 mg/dL (8.3-10.6); Calcium (Corrected) 9.2 mg/dL (8.5-10.1); Carbon Dioxide 25.9 mMol/L (20.0-31.0); Cardiac Risk Estimate 2.1 RATIO (4.0-6.7); Chloride 105 mMol/L (98-107); Cholesterol 72 mg/dL (132-200); Creatinine (Component) 0.8 mg/dL (0.6-1.3); Globulin 1.7 gm/dL (2.3-3.5); Glucose 177 mg/dL (74-106); HDL Cholesterol 34 mg/dL (40-60); LDL Cholesterol,Calculated 19 mg/dL (0-130); Osmolality,Calculated 277 (275-295); Potassium 4.2 mMol/L (3.4-5.1); Sodium 137 mMol/L (136-145); Thyroid Stimulating Hormone 1.47 uIU/mL (0.55-4.78); Total Protein 5.6 gm/dL (5.7-8.2); Triglycerides 94 mg/dL (30-150); eGFR > 60 See Note
[2024-10-01 12:15] LABS: Bacteria,Urine Rare; Bilirubin,Urine Negative (Negative); Blood,Urine 1+ (Negative); Budding Yeast,Urine Present; Clarity,Urine Clear (Clear/Hazy); Color,Urine Lt-Yellow (Lt Yel-Yel); Glucose, Urine Negative (Negative); Hyaline Casts,Urine < 1 /hpf (0-1); Ketones,Urine Negative (Negative); Leukocyte Esterase,Urine Positive (Negative); Nitrite,Urine Negative (Negative); PH,Urine 6.5 (5.0-7.0); Protein,Urine Trace (Neg - Trace); RBC,Urine 18 /hpf (0-3); Specific Gravity,Urine 1.009 (1.001-1.035); Urobilinogen,Urine Negative mg/dL (0.0-1.0); WBC,Urine 34 /hpf (0-5)
[2024-10-01 12:51] LABS: Creatinine MALB Rnd Ur 37 mg/dL (30-125); Microalbumin Creat Ratio 249 mg/gCrea (<30); Microalbumin, Random Urine 92 mg/L (0-300)
== END | disposition home or self-care (01) ==
LOC: COPL 10:33
PROVIDERS: PCP Family Medicine; Referring Provider Family Medicine; Visit Provider Family Medicine
DX: Z00.00 Encounter for general adult medical examination without abnormal findings (principal); E11.65 Type 2 diabetes mellitus with hyperglycemia; E78.2 Mixed hyperlipidemia; I10 Essential (primary) hypertension; N40.1 Benign prostatic hyperplasia with lower urinary tract symptoms
CPT/HCPCS: 36415; 80053; 80061; 81001; 82043; 82570; 83036; 84153; 84443; 85025

== ENCOUNTER 2024-11-04 06:35 | Day surgery (SDC) | payer OTHER, MEDICAID, SELFPAY ==
[2024-11-02 16:24] VITALS: BMI 77.8
--- NOTE | 2024-11-03 11:06 | EKG_ITS ---
[facility] Test Date: 2024-11-03 Pat Name: NAYLA ZAPATA Department: Room: - Gender: Male Bit Bender: NADIA : 1950 Requested By: Noel Amin Order Number: [id number] Reading MD: Noel Amin Measurements Intervals [place] Rate: 55 P: -42 LA: 185 QRS: 7 QRSD: 102 T: 43 QT: 425 QTc: 408 Interpretive Statements SINUS BRADYCARDIA Compared to ECG 08/22/2024 22:35:31 Sinus rhythm no longer present /[id number]/[id number]
[2024-11-03 12:33] LABS: Basophils # (Auto) 0.1 Thou/mm3 (0.0-0.2); Basophils % (Auto) 1 % (0-2.5); Eosinophils # (Auto) 0.3 Thou/mm3 (0.0-0.5); Eosinophils % (Auto) 4 % (0-10); Hemoglobin 11.2 g/dL (13.5-16.0); Immature Granulocytes % (Auto) 0 % (0-0); Immature Granulocytes Auto 0.01 Thou/mm3 (0.00-0.00); Lymphocytes # (Auto) 2.3 Thou/mm3 (1.0-4.8); Lymphocytes % (Auto) 29 % (10-50); Mean Corpuscular HGB Conc 33.9 g/dl (31.0-37.0); Mean Corpuscular Volume 86 fL (80-100); Monocytes # (Auto) 0.7 Thou/mm3 (0.0-0.8); Monocytes % (Auto) 9 % (0-12); Neutrophils # (Auto) 4.3 Thou/mm3 (1.8-7.7); Neutrophils % (Auto) 56 % (37-80); Nucleated Red Blood Cell % 0 /100 WBC (0); Platelet Count 353 Thou/mm3 (140-440); RDW Standard Deviation 43.7 fL (35.1-43.9); Red Blood Count 3.86 Miln/mm3 (4.50-5.90); White Blood Count 7.7 Thou/mm3 (3.8-10.6)
[2024-11-03 12:38] LABS: Anion Gap 8 (7-16); BUN/Creatinine Ratio 14 Ratio (12-20); Blood Urea Nitrogen 10 mg/dL (9-23); Calcium 8.7 mg/dL (8.3-10.6); Carbon Dioxide 25.4 mMol/L (20.0-31.0); Chloride 100 mMol/L (98-107); Creatinine (Component) 0.7 mg/dL (0.6-1.3); Estimated Creatinine Clearance 180.6 mL/min (>60); Glucose 137 mg/dL (74-106); Osmolality,Calculated 267 (275-295); Potassium 4.2 mMol/L (3.4-5.1); Sodium 133 mMol/L (136-145); eGFR > 60 See Note
[2024-11-03 12:43] LABS: Partial Thromboplastin Time 29.9 Seconds (22.0-36.0); Prothrombin Time 11.4 Seconds (9.0-12.2)
[2024-11-04] VITALS (24 sets, daily range): BP systolic 131–176; BP diastolic 48–86; PULSE 52–59; RESP 8–21; TEMP 36.6–36.9; O2SAT 95–100
--- NOTE | 2024-11-04 09:45 | PD.CARDCATH ---
Cardiac Cath Procedure Procedure Name Date of procedure: 11/04/24 TRAUMA SURGEON: Noel Amin MD PROCEDURE PERFORMED: 1. Left heart cardiac catheterization including right, left coronary angiograms and left ventriculogram 2. Ultrasound-guided access of the right radial artery 3. Conscious sedation for 30 minutes. 4. Successful complex elective PCI of the LAD with multiple stents-proximal LAD 3.5 x 15 mm [place] JERRY stent, mid LAD with 2 overlapping stents 2.25 x 22 mm and 2.5 x 18 mm Justin JERRY stents. Procedure Narrative HISTORY AND INDICATIONS: A 74 year old male with past medical history of CAD s/p PCI of mid LCx on 06/2024 with residual severe disease of LAD and moderate disease of RCA, stroke on 07/2024 right talamic infarct, HTN for 40 years, chronic diastolic CHF, HLD, IDDM2 for more than 30 years, osteomyelitis of right foot s/p amputation of 1,4,5 toes on right foot due to diabetic ulcers, diabetic neuropathy, myasthenia gravis, right ankle charcot joint and B/L lower extremity varicose veins, was brought in for an elective LHC with possible staged PCI. Patient was explained the risk benefits and alternatives of performing a left heart cardiac catheterization including the risk of bleeding, heart attack, stroke and in detail and the agreeable for the procedure. Consent signed, placed in the chart and H&P updated. DESCRIPTION OF PROCEDURE: The patient was brought to the cardiac catheterization lab and all asceptic precautions were followed. Patient was given 1 Mg of Versed and 50 mcg of fentanyl for moderate conscious sedation. 2 mL of lidocaine was given in the right wrist. The right radial artery was accessed via the ultrasound guidance as well as micropuncture technique. A 6 [place] glide sheath was introduced. We then used a 5 [place] TIG 4 catheter to perform the left and right coronary angiograms as well as a left ventriculogram which showed the following findings. 1. Left ventricular ejection fraction was normal at 60 to 65% without any regional wall motion abnormalities. LVEDP was normal at 9 mmHg. There was no significant transvalvular aortic gradient. 2. Right dominant circulation 3. Left main artery is a large-caliber vessel without any significant stenosis. 4. LAD is a large sized artery with a medium size diagonal and without show any significant disease. 5. LCx is a large sized artery with medium OM1 and small OM2 without any significant disease. 6. RCA is a large artery with medium RPDA and RPL without any significant disease. A radial band was used to achieve the hemostasis of the right radial artery access. Patient will be monitored in the cardiac textile machine mechanic for the next 2 to 3 hours and will be discharged home / telemetry later today if hemodynamically stable. Complications: None Specimens: None Blood loss: Estimated 5-10 ml Summary/findings: 1. Abnornal Stress test: LHC showed normal coronaries without any angiographically significant obstruction. 2. LVEF was normal at 60-65% and normal LVEDP of 10 mmHg. No transvalvular aortic gradient. 3. Successful complex elective PCI of the LAD with multiple stents-proximal LAD 3.5 x 15 mm [place] JERRY stent, mid LAD with 2 overlapping stents 2.25 x 22 mm and 2.5 x 18 mm Justin JERRY stents. Recommendations: 1. Recommended aggressive risk factor modification and aggressive medical treatment 2. Recommended no lifting more than 5 pounds for next 7-10 days and follow up in my office in 7 days. Noel Amin MD Interventional Cardiology.
--- NOTE | 2024-11-04 12:51 | PC.NURSE ---
1226 patient is awake, alert, breathing unlabored, s/p LHC with PCI by Dr. Amin, Arterial sheath presnt to right groin, ACT to be checked after 1255 to be able to remove sheath. No bleeding noted to right groin, report received from Zachary SHAH
[2024-11-04] MEDS: hydrALAZINE INJ 20 MG/ML VIAL 10 MG IV (13:10)
--- NOTE | 2024-11-04 13:10 | PC.NURSE ---
1245 Blood pressure 166/79, verbal order received from Dr. Amin for hydralazine 10mg IV 1305 ACT checked and is currently 167 1310 hydralazine 10mg given IVP, report given to Zachary SHAH to take over patient care, no bleeding noted to right groin.
--- NOTE | 2024-11-04 14:00 | PC.NURSE ---
FEMORAL SHEATH (ARTERIAL ACCESSS) TO THE RIGHT GROIN AREA REMOVED ABOUT 1327. MANUAL PRESSURE APPLIED FOR ABOUT 25 MINUTES UNTIL HEMOSTASIS ACHIEVED.? PATIENT TOLERATED PROCEDURE WELL WITHOUT COMPLICATIONS. SURGICAL SITE ASYMPTOMATIC, NO ACTIVE BLEEDING, NO HEMATOMA NOTED ON RIGHT GROIN AREA. RIGHT FEMORAL PULSE NOTED WITH NO CHANGES IN STRENGHT AND QUALITY (normal upon palpation), RIGHT DORSALIS PEDIS PULSE NOTED WITH NO CHANGES STRENGHT AND QUALITY (normal upon palpation). DISTAL CAPPILARRY REFILL <3 SECONDS (Baseline, Right Toes). NO NOTED CHANGES IN COLOR OR TEMPERATURE ON RIGHT LOWER EXTREMITY. PATIENT DENIES GENERAL AND LOCALIZED PAIN. NO TINGLING OR NUMBNESS FELT TO RIGHT LOWER EXTREMITY. SURGICAL SITE COVERED WITH 4x4 GAUZE AND TAGADERM DRESSING. WILL CONTINUE TO MONITOR.
--- NOTE | 2024-11-04 14:26 | PC.NURSE ---
SURGICAL SITE TO RIGHT GROIN AREA REMAINS ASYMPTOMATIC, NO ACTIVE BLEEDING, NO HEMATOMA NOTED ON RIGHT GROIN AREA. RIGHT FEMORAL PULSE NOTED WITH NO CHANGES IN STRENGHT AND QUALITY UPON PALPATION (normal), RIGHT DORSALIS PEDIS PULSE NOTED WITH NO CHANGES STRENGHT AND QUALITY (normal upon palapation). DISTAL CAPPILARRY REFILL <3 SECONDS (Baseline, Right Toes). NO NOTED CHANGES IN COLOR OR TEMPERATURE ON RIGHT LOWER EXTREMITY. PATIENT DENIES GENERAL AND LOCALIZED PAIN. NO TINGLING OR NUMBNESS FELT TO RIGHT LOWER EXTREMITY. NO LOSS IN SENSATION TO RIGHT LOWER EXTEREMITY SURGICAL SITE COVERED WITH GAUZE AND TAGADERM DRESSING, WHICH REMAINS IN PLACE, DRY, AND INTACT.
== END 2024-11-04 15:40 | disposition home or self-care (01) ==
PROVIDERS: PCP Family Medicine; Referring Provider Internal Medicine Cardiovascular Disease; Visit Provider Internal Medicine Cardiovascular Disease
PROC: (CPT 93458; principal; 2024-11-04 08:30)
DX: I25.10 Atherosclerotic heart disease of native coronary artery without angina pectoris (principal); I11.0 Hypertensive heart disease with heart failure; I50.32 Chronic diastolic (congestive) heart failure; E78.5 Hyperlipidemia, unspecified; Z86.73 Personal history of transient ischemic attack (TIA), and cerebral infarction without residual deficits; Z95.5 Presence of coronary angioplasty implant and graft; E11.621 Type 2 diabetes mellitus with foot ulcer; G70.00 Myasthenia gravis without (acute) exacerbation; Z79.4 Long term (current) use of insulin; E11.610 Type 2 diabetes mellitus with diabetic neuropathic arthropathy; E11.40 Type 2 diabetes mellitus with diabetic neuropathy, unspecified; Z01.810 Encounter for preprocedural cardiovascular examination; K21.9 Gastro-esophageal reflux disease without esophagitis
CPT/HCPCS: 93458; C9600; 36415; 80048; 85025; 85347; 85610; 85730; 93005; 99152; 99153; A4649; C1725; C1769; C1874; C1887; C1894; J0171; J0360; J0461; J1643; J2250; J2310; J2371; J3010; J3490; A9270

== ENCOUNTER → 2024-12-09 | Outpatient (BNVA) | payer OTHER, MEDICAID, SELFPAY | END | disposition home or self-care (01) | PROVIDERS: PCP Family Medicine; Referring Provider Family Medicine; Visit Provider Urology | DX: N40.1 Benign prostatic hyperplasia with lower urinary tract symptoms (principal); N13.8 Other obstructive and reflux uropathy; N31.9 Neuromuscular dysfunction of bladder, unspecified; Z46.6 Encounter for fitting and adjustment of urinary device; I11.0 Hypertensive heart disease with heart failure; I50.9 Heart failure, unspecified; E11.9 Type 2 diabetes mellitus without complications; I25.10 Atherosclerotic heart disease of native coronary artery without angina pectoris; Z95.5 Presence of coronary angioplasty implant and graft; Z86.73 Personal history of transient ischemic attack (TIA), and cerebral infarction without residual deficits; G70.00 Myasthenia gravis without (acute) exacerbation; E66.9 Obesity, unspecified; Z68.34 Body mass index [BMI] 34.0-34.9, adult | CPT/HCPCS: 96372; 99203; J1580; G0463 ==

== ENCOUNTER → 2024-12-10 | Outpatient (CLI) | payer OTHER, MEDICAID, SELFPAY ==
[2024-12-10 10:12] LABS: Anion Gap 7 (7-16); BUN/Creatinine Ratio 16 Ratio (12-20); Blood Urea Nitrogen 13 mg/dL (9-23); Calcium 8.8 mg/dL (8.3-10.6); Carbon Dioxide 28.7 mMol/L (20.0-31.0); Chloride 102 mMol/L (98-107); Creatinine (Component) 0.8 mg/dL (0.6-1.3); Glucose 181 mg/dL (74-106); Magnesium 1.9 mg/dL (1.6-2.6); Osmolality,Calculated 280 (275-295); Potassium 3.8 mMol/L (3.4-5.1); Sodium 138 mMol/L (136-145); eGFR > 60 See Note
== END | disposition home or self-care (01) ==
LOC: COPL 08:08
PROVIDERS: PCP Family Medicine
DX: I50.32 Chronic diastolic (congestive) heart failure (principal)
CPT/HCPCS: 36415; 80048; 83735

== ENCOUNTER → 2025-03-15 | Outpatient (BNVA) | payer OTHER, MEDICAID, SELFPAY | END | disposition home or self-care (01) | PROVIDERS: PCP Family Medicine; Referring Provider Family Medicine; Visit Provider Urology | DX: N40.1 Benign prostatic hyperplasia with lower urinary tract symptoms (principal); N13.8 Other obstructive and reflux uropathy; N31.9 Neuromuscular dysfunction of bladder, unspecified; I11.0 Hypertensive heart disease with heart failure; I50.9 Heart failure, unspecified; E11.9 Type 2 diabetes mellitus without complications; I25.10 Atherosclerotic heart disease of native coronary artery without angina pectoris; Z86.73 Personal history of transient ischemic attack (TIA), and cerebral infarction without residual deficits; Z95.5 Presence of coronary angioplasty implant and graft; G70.00 Myasthenia gravis without (acute) exacerbation; Z99.3 Dependence on wheelchair; E66.01 Morbid (severe) obesity due to excess calories; Z68.37 Body mass index [BMI] 37.0-37.9, adult | CPT/HCPCS: 99212; G0463 ==

== ENCOUNTER → 2025-04-12 | Outpatient (CLI) | payer OTHER, MEDICAID, SELFPAY ==
[2025-04-12 09:33] LABS: Basophils # (Auto) 0.1 Thou/mm3 (0.0-0.2); Basophils % (Auto) 1 % (0-2.5); Eosinophils # (Auto) 0.3 Thou/mm3 (0.0-0.5); Eosinophils % (Auto) 4 % (0-10); Hematocrit 39.3 % (41.0-53.0); Hemoglobin 13.2 g/dL (13.5-16.0); Immature Granulocytes Auto 0.02 Thou/mm3 (0.00-0.00); Lymphocytes # (Auto) 2.4 Thou/mm3 (1.0-4.8); Lymphocytes % (Auto) 33 % (10-50); Mean Corpuscular HGB Conc 33.6 g/dl (31.0-37.0); Mean Corpuscular Hemoglobin 29.3 pg (25.0-35.0); Mean Corpuscular Volume 87 fL (80-100); Monocytes # (Auto) 0.8 Thou/mm3 (0.0-0.8); Monocytes % (Auto) 10 % (0-12); Neutrophils # (Auto) 3.9 Thou/mm3 (1.8-7.7); Neutrophils % (Auto) 52 % (37-80); Nucleated Red Blood Cell # 0.00 Thou/mm3 (0.00-0.00); Nucleated Red Blood Cell % 0 /100 WBC (0); Platelet Count 299 Thou/mm3 (140-440); RDW Standard Deviation 44.5 fL (35.1-43.9); Red Blood Count 4.51 Miln/mm3 (4.50-5.90); White Blood Count 7.5 Thou/mm3 (3.8-10.6)
[2025-04-12 09:51] LABS: Glucose Estimated Average 183 mg/dL (80-131); Hemoglobin A1C 8.0 % Hgb (4.8-6.0)
[2025-04-12 10:08] LABS: Alanine Aminotransferase 7 U/L (10-49); Albumin, Serum 4.1 gm/dL (3.4-4.8); Albumin/Globulin Ratio 2.4 (1.2-2.2); Alkaline Phosphatase 88 U/L (46-116); Anion Gap 10 (7-16); Aspartate Amino Transferase 10 U/L (0-34); BUN/Creatinine Ratio 13 Ratio (12-20); Bilirubin,Total 0.4 mg/dL (0.3-1.2); Blood Urea Nitrogen 13 mg/dL (9-23); Calcium 9.0 mg/dL (8.3-10.6); Calcium (Corrected) 9.0 mg/dL (8.5-10.1); Carbon Dioxide 25.9 mMol/L (20.0-31.0); Cardiac Risk Estimate 3.8 RATIO (4.0-6.7); Chloride 102 mMol/L (98-107); Cholesterol 140 mg/dL (132-200); Creatinine (Component) 1.0 mg/dL (0.6-1.3); Globulin 1.7 gm/dL (2.3-3.5); Glucose 210 mg/dL (74-106); HDL Cholesterol 37 mg/dL (40-60); LDL Cholesterol,Calculated 54 mg/dL (0-130); Osmolality,Calculated 281 (275-295); Potassium 4.0 mMol/L (3.4-5.1); Sodium 138 mMol/L (136-145); Total Protein 5.8 gm/dL (5.7-8.2); Triglycerides 247 mg/dL (30-150); eGFR > 60 See Note
== END | disposition home or self-care (01) ==
LOC: COPL 08:02
PROVIDERS: PCP Family Medicine; Referring Provider Family Medicine; Visit Provider Family Medicine
DX: E11.59 Type 2 diabetes mellitus with other circulatory complications (principal); D64.9 Anemia, unspecified; E78.2 Mixed hyperlipidemia; I10 Essential (primary) hypertension
CPT/HCPCS: 36415; 80053; 80061; 83036; 85025

== ENCOUNTER → 2025-06-03 | Outpatient (BNVA) | payer OTHER, MEDICAID, SELFPAY | END | disposition home or self-care (01) | PROVIDERS: PCP Family Medicine; Referring Provider Family Medicine; Visit Provider Urology | DX: N40.1 Benign prostatic hyperplasia with lower urinary tract symptoms (principal); N13.8 Other obstructive and reflux uropathy; R33.8 Other retention of urine; N31.9 Neuromuscular dysfunction of bladder, unspecified; R33.9 Retention of urine, unspecified; R39.198 Other difficulties with micturition; I10 Essential (primary) hypertension | CPT/HCPCS: 76872 ==